=== PATIENT | female | born 1955 | race Caucasian/White ===

== ENCOUNTER → 2017-06-18 11:24 | Outpatient (CLI) | payer OTHER, SELFPAY ==
--- NOTE | 2017-06-18 11:33 | RAD_ITS ---
STUDY: X-RAY - ABDOMEN/PELVIS REASON FOR EXAM: Female, 61 years old. Pain. TECHNIQUE: AP supine and upright views of the abdomen and pelvis. COMPARISON: None. FINDINGS: Normal visualized lung bases. There is an unremarkable bowel gas pattern. There is no demonstrated free abdominal air. The visualized liver, spleen and kidneys are grossly normal in size and morphology. Normal soft tissue structures. Normal visualized osseous structures. RAD/Abdomen Single View IMPRESSION: Normal x-ray examination of the abdomen and pelvis. Electronically Signed: Carlos A Anderson MD at 16:53 EDT , Service support ,
[2017-06-18 14:27] LABS: Absolute Lymphocyte Count 1.64 X10^3/ul (0.83-4.51); Absolute Neutrophil Count 4.3 X10^3/uL (2.0-7.7); Basophil# 0.01 X10^3/uL; Basophil% 0.1 % (0-1); Eosinophil# 0.23 X10^3/uL; Eosinophils% 3.4 % (0-5); Hematocrit 40.7 % (37-47); Lymphocyte # 1.64 X10^3/ul (4.0); Lymphocyte % 24.3 % (19-41); Mean Corp Hgb Conc 31.9 g/gl (32-36); Mean Corpuscular Hgb 29.7 pg (27.0-32.0); Mean Corpuscular Volume 93.1 fL (81-99); Mean Platelet Vol. 9.8 fl (6.2-12.0); Monocyte# 0.56 X10^3/uL; Monocyte% 8.3 % (0-10); Neutrophil % 63.9 % (47-70); POSITIVE COUNT NO; POSITIVE DIFFERENTIAL NO; POSITIVE MORPHOLOGY NO; Platelet Count 269 K/mm3 (150-450); RBC Distribution Width CV 13.1 % (11.6-14.6); RBC Distribution Width SD 44.4 fl (35.1-43.9); Red Blood Count 4.37 M/mm3 (4.2-5.4); White Blood Count 6.7 K/mm3 (4.4-11.0)
[2017-06-18 14:38] LABS: ALB/GLOB Ratio 1.1 RATIO (0.9-2.4); AST(SGOT) 19 U/L (15-37); Alanine Aminotransfer ALT/SGPT 27 U/L (13-56); Albumin, Serum 3.8 g/dL (3.2-5.0); Alkaline Phosphatase 101 U/L (45-117); Anion Gap 8 (5-15); BUN 19 mg/dL (7-18); BUN/Creat Ratio 24.1 RATIO (10-20); Calcium,Total 9.1 mg/dL (8.5-10.1); Chloride 103 mmol/L (98-107); Creatinine, Serum 0.79 mg/dL (0.55-1.02); EST Glomerular Filtration Rate 79 mL/min (>60); Est Glom Filt Rate - Afr Amer 96 mL/min (>60); Globulin 3.5 g/dL (2.2-4.2); Glucose 80 mg/dL (74-106); Lipase 297 U/L (73-393); Protein, Total 7.3 g/dL (6.4-8.2); Sodium Level 140 mmol/L (136-145)
[2017-06-21 08:44] LABS: Thyroid Stim Hormone (TSH) 1.99 uIU/mL (0.358-3.74)
== END ==
PROVIDERS: Family Provider Family Medicine; PCP Family Medicine; Visit Provider Family Medicine
DX: R10.9 Unspecified abdominal pain (principal); E01.0 Iodine-deficiency related diffuse (endemic) goiter
CPT/HCPCS: 36415; 74018; 80053; 83690; 84443; 85025

== ENCOUNTER → 2017-11-04 10:54 | Outpatient (CLI) | payer OTHER, SELFPAY ==
--- NOTE | 2017-11-04 10:56 | RAD_ITS ---
STUDY: X-RAY - LEFT SHOULDER REASON FOR EXAM: Female, 61 years old. Chronic pain. TECHNIQUE: 3 view(s) of the shoulder. COMPARISON: None. FINDINGS: Normal glenohumeral articulation. There is degenerative arthrosis of the acromioclavicular joint without inferior osseous spur formation. Normal acromion. There is no acute fracture, dislocation or destructive osseous pathology. Normal humeral head and visualized proximal humerus. The soft tissue structures are unremarkable. Normal visualized pulmonary apex. RAD/Shoulder min 2 Views IMPRESSION: Minimal degenerative changes of the acromioclavicular joint. Electronically Signed: Bora Young DO at 22:22 EDT Tel [phone], Service support ,
== END ==
PROVIDERS: Family Provider Family Medicine; PCP Family Medicine; Visit Provider Physician Assistant
DX: M25.512 Pain in left shoulder (principal)
CPT/HCPCS: 73030

== ENCOUNTER → 2019-02-03 09:27 | Outpatient (CLI) | payer OTHER, SELFPAY ==
[2017-11-04 10:49] VITALS: BMI 21.4
[2019-02-03 12:31] LABS: Absolute Lymphocyte Count 1.25 X10^3/uL (0.83-4.51); Absolute Neutrophil Count 2.6 X10^3/uL (2.0-7.7); Basophil# 0.03 X10^3/uL; Basophil% 0.7 % (0-1); Eosinophil# 0.26 X10^3/uL; Eosinophils% 5.8 % (0-5); Hematocrit 41.3 % (37-47); Hemoglobin 13.7 g/dL (12.0-15.0); Lymphocyte # 1.25 X10^3/ul (4.0); Lymphocyte % 27.7 % (19-41); Mean Corp Hgb Conc 33.2 g/dL (32-36); Mean Corpuscular Hgb 31.6 pg (27.0-32.0); Mean Corpuscular Volume 95.4 fL (81-99); Monocyte# 0.39 X10^3/uL; Monocyte% 8.6 % (0-10); NRBC Flagged by Analyzer 0 % (0-5); Neutrophil # 2.58 X10^3/uL (2.7-7.7); Platelet Count 280 K/mm3 (150-450); RBC Distribution Width CV 12.3 % (11.6-14.6); Red Blood Count 4.33 M/mm3 (4.2-5.4); White Blood Count 4.5 K/mm3 (4.4-11.0)
[2019-02-03 12:52] LABS: ALB/GLOB Ratio 1.1 RATIO (0.9-2.4); AST(SGOT) 64 U/L (15-37); Alanine Aminotransfer ALT/SGPT 74 U/L (13-56); Albumin, Serum 3.9 g/dL (3.2-5.0); Alkaline Phosphatase 97 U/L (45-117); Anion Gap 9 (5-15); BUN 20 mg/dL (7-18); BUN/Creat Ratio 25.8 RATIO (10-20); CPK Total, Creatine Kinase 93 U/L (26-192); Calcium,Total 8.9 mg/dL (8.5-10.1); Chloride 102 mmol/L (98-107); Creatinine, Serum 0.78 mg/dL (0.55-1.02); EST Glomerular Filtration Rate 80 mL/min (>60); Est Glom Filt Rate - Afr Amer 97 mL/min (>60); Ferritin 17 ng/mL (8-252); Globulin 3.5 g/dL (2.2-4.2); Glucose 76 mg/dL (74-106); Magnesium 2.2 mg/dL (1.6-2.6); Potassium 3.9 mmol/L (3.5-5.1); Protein, Total 7.4 g/dL (6.4-8.2); Sodium Level 140 mmol/L (136-145)
[2019-02-06 10:51] LABS: Hepatitis B Surface Antibody Non-Reactive; Hepatitis B Surface Antigen Non-Reactive (Nonreactive); Hepatitis C Antibody Non-Reactive (Nonreactive)
== END ==
LOC: MFPLAB 09:28
PROVIDERS: Family Provider Family Medicine; PCP Family Medicine; Visit Provider Family Medicine
DX: R94.5 Abnormal results of liver function studies (principal); R25.2 Cramp and spasm; K21.9 Gastro-esophageal reflux disease without esophagitis
CPT/HCPCS: 36415; 80053; 82550; 82728; 83735; 85025; 86706; 86803; 87340

== ENCOUNTER → 2019-03-22 08:19 | Outpatient (CLI) | payer OTHER, SELFPAY ==
[2019-03-15 15:21] VITALS: BMI 21.8
--- NOTE | 2019-03-22 08:25 | RAD_ITS ---
STUDY: AIR-CONTRAST UPPER GI SERIES. REASON FOR EXAM: Female, 63 years old. Dysphagia in the mid esophagus. FLUOROSCOPY TIME (if supplied): ( 72 seconds ) minutes/seconds. 18 spot views were obtained. TECHNIQUE: The patient ingested barium. Multiple images of the esophagus, stomach and duodenum were obtained. COMPARISON: None. FINDINGS: There is evidence of a small sliding hernia with gastroesophageal reflux. The patient ingested a 12 mm tablet of barium. Initial delay in transit through the esophagus although eventually passes into the stomach. The stomach and duodenum are unremarkable. IMPRESSION: Small sliding hiatal hernia with gastroesophageal reflux. Electronically Signed: Shaun Khan, at 13:51 EST , Service support , STUDY: X-RAY - ESOPHAGUS (BARIUM SWALLOW) WITH FLUOROSCOPY REASON FOR EXAM: Female, 63 years old. Dysphagia for solids. TECHNIQUE: 15 view(s) of the esophagus were obtained following swallowing of barium. FLUOROSCOPY TIME (if supplied): (1:12) minutes/seconds COMPARISON: None. FINDINGS: There is no demonstrated esophageal foreign body. There is no demonstrated stricture or mucosal abnormality. There is a small hiatal hernia of the fundus of the stomach. There is evidence of gastroesophageal reflux. The patient ingested a 12 mm tablet at bedtime. There was initial holdup in the mid esophagus although it eventually enter the stomach. Normal visualized aortic arch and descending thoracic aorta. Normal visualized pulmonary parenchyma. Normal visualized osseous structures of the thorax. RAD/Upper GI w/BA Swallow IMPRESSION: Small sliding hiatal hernia with gastric esophageal reflux. Electronically Signed: Shaun Khan at 13:52 EST , Service support ,
== END ==
LOC: RAD 08:20
PROVIDERS: Family Provider Family Medicine; PCP Family Medicine; Referring Provider Surgery; Visit Provider Surgery
DX: K21.9 Gastro-esophageal reflux disease without esophagitis (principal); R13.10 Dysphagia, unspecified
CPT/HCPCS: 74246

== ENCOUNTER → 2019-04-13 07:48 | Day surgery (SDC) | payer OTHER, SELFPAY ==
[2019-03-15 16:31] VITALS: BMI 21.4
[2019-04-13 08:00] VITALS: BP 110/76; PULSE 70; RESP 16; O2SAT 100
[2019-04-13 08:09] VITALS: TEMP 36.9
== END ==
PROVIDERS: Family Provider Family Medicine; PCP Family Medicine; Referring Provider Family Medicine; Visit Provider Surgery
PROC: F00ZJWZ Instrumental Swallowing and Oral Function Assessment using Swallowing Equipment (ICD-10-PCS; CPT 43235; principal; 2019-04-13 07:55)
DX: R13.10 Dysphagia, unspecified (principal)
CPT/HCPCS: 91010

== ENCOUNTER → 2019-06-05 10:13 | Outpatient (CLI) | payer OTHER, SELFPAY ==
[2019-03-15 16:31] VITALS: BMI 21.4
[2019-06-05 12:59] LABS: ALB/GLOB Ratio 1.1 RATIO (0.9-2.4); AST(SGOT) 23 U/L (15-37); Alanine Aminotransfer ALT/SGPT 34 U/L (13-56); Albumin, Serum 3.7 g/dL (3.2-5.0); Alkaline Phosphatase 89 U/L (45-117); Anion Gap 3 (5-15); BUN 14 mg/dL (7-18); BUN/Creat Ratio 20.7 RATIO (10-20); Calcium,Total 9.4 mg/dL (8.5-10.1); Chloride 106 mmol/L (98-107); Creatinine, Serum 0.68 mg/dL (0.55-1.02); EST Glomerular Filtration Rate 94 mL/min (>60); Est Glom Filt Rate - Afr Amer 114 mL/min (>60); Globulin 3.4 g/dL (2.2-4.2); Glucose 90 mg/dL (74-106); Potassium 3.9 mmol/L (3.5-5.1); Protein, Total 7.1 g/dL (6.4-8.2); Sodium Level 140 mmol/L (136-145)
== END ==
LOC: MFPLAB 10:15
PROVIDERS: PCP Family Medicine; Referring Provider Family Medicine; Visit Provider Family Medicine
DX: R94.5 Abnormal results of liver function studies (principal)
CPT/HCPCS: 36415; 80053

== ENCOUNTER → 2019-06-08 08:36 | Outpatient (CLI) | payer OTHER, SELFPAY ==
[2019-03-15 16:31] VITALS: BMI 21.4
[2019-06-08 10:28] LABS: Thyroid Stim Hormone (TSH) 2.24 uIU/mL (0.358-3.74)
[2019-06-08 10:30] LABS: Vitamin B12 307 pg/mL (211-911); Vitamin D,25 Hydroxy 20.9 ng/mL
== END ==
LOC: MFPLAB 08:39
PROVIDERS: PCP Family Medicine; Referring Provider Family Medicine; Visit Provider Family Medicine
DX: R53.83 Other fatigue (principal)
CPT/HCPCS: 36415; 82306; 82607; 84443

== ENCOUNTER → 2019-07-06 10:36 | Outpatient (CLI) | payer OTHER, SELFPAY ==
[2019-03-15 16:31] VITALS: BMI 21.4
--- NOTE | 2019-07-06 10:40 | RAD_ITS ---
STUDY: X-RAY - PELVIS AND BILATERAL HIPS REASON FOR EXAM: Female, 63 years old. Mostly left hip pain, goes across lower back TECHNIQUE: AP view of the pelvis.? 2 views of the right hip, and 2 views of the left hip were obtained. COMPARISON: None. FINDINGS: There is a non-specific bowel gas pattern. Normal visualized soft tissue structures. Normal bilateral iliac wings, sacroiliac joints and visualized sacrum. Normal bilateral superior and inferior pubic rami. Normal pubic symphysis. Normal bilateral ischial tuberosities. Normal visualized right femoral head. Normal right acetabulum. Normal right hip joint. Normal visualized left femoral head. Normal left acetabulum. Normal left hip joint. RAD/Hips B/L min 2 views w/ Pelvis IMPRESSION: Normal x-ray examination of the pelvis and bilateral hips. Electronically Signed: Shaun Khan, at 12:49 EDT , Service support ,
--- NOTE | 2019-07-06 10:41 | RAD_ITS ---
STUDY: X-RAY - LUMBAR SPINE REASON FOR EXAM: Female, 63 years old. Sacroiliitis -- low back pain TECHNIQUE: 5 view(s) of the lumbar spine were obtained including oblique views. COMPARISON: None FINDINGS: Normal lumbar lordosis. There is no substantial scoliosis. There is a normal alignment of the vertebrae. Normal vertebral bodies and endplates. Normal disc space heights. The soft tissue structures are unremarkable. RAD/L/S Spine Min 4 Views IMPRESSION: Normal x-ray examination of the lumbar spine. Electronically Signed: Shaun Khan, at 12:49 EDT , Service support ,
== END ==
PROVIDERS: PCP Family Medicine; Referring Provider Family Medicine; Visit Provider Family Medicine
DX: M25.551 Pain in right hip (principal); M25.552 Pain in left hip; M46.1 Sacroiliitis, not elsewhere classified
CPT/HCPCS: 72110; 73521

== ENCOUNTER 2019-08-04 08:30 | Outpatient (RCR) | payer OTHER, SELFPAY ==
[2019-03-15 16:31] VITALS: BMI 21.4
--- NOTE | 2019-07-19 11:48 | HP.PTEVAL ---
Patient's Visit Information ESTELA RODRIGUEZ is a 63 year old F referred to Physical Therapy by Siddharth Soriano MD with a diagnosis of Lumbar radicuopathy.. Date of Evaluation: 07/19/19 Physical Therapist: John Arora, DPT, OCS, CSCS - Visit Plan Frequency: 1x/Week Duration: 4-6 Weeks Plan: weekly(pt prefers) for 2-4 weeks for progression to core strength and LB ROM/yoga flows and ensure ext is working.HS stretching. IOncrease frequency of progress not shown for mobs, STM, ES, US - Subjective Subjective: Been having LBP starting on L side. Also had buirning R anterior hip/pelvis. Pain has progressed across back. 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 Standing to parimutuel ticket cashier is worse. Walking and moving is not as bad. Sitting is not comfortable watching TV or sleeping at night. Pain started 2 months ago insidiously. Sometimes it eeps her up at night. Doesn't sleep well. 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 Working more at [employer] now. No treatments but did take x rays. Put on prednisone for 5 days which helped and then it came back. Activities at home are getting done but painful at times. - Pain LBP Pain Intensity (Out of 10): 3 Pain Intensity Range: 0, 8 - Objective Walks and trasnfers normally. reflexes 0/3 patella and achilles. Sensation LE WNL to gross light touch. LE strength 4-/5 except hip ext adn abd 3+ B, no myotomal. L/S AROM mod limited with central pain in extension, flexion and SB WNL without pain. HS and gastroc with min flexibiity deficits. Prone PA mobs seem to increase motion and decrease pain. Better movement with less pain after PPU and PA mobs L/S - Goals Goal 1:: Abolish LBP 90% Goal Time Frame: 2-4 Weeks Goal 2:: Sleep without interruption at night due to pain Goal Time Frame: 2-4 Weeks Goal 3:: I appropr HEP to minimize future problems Goal Time Frame: 2-4 Weeks Goal 4:: <15% disabiliity on oswestry. Goal Time Frame: 2-4 Weeks - Rehabilitation Potential Physical Therapy Diagnosis: Lumbar radiculopathy. Rehabilitation Potential: Fair - Anticipated Interventions Patient/Client Instruction: Educate patient on: Condition, Plan of Care For the Purpose of:: To decrease pain, To increase ROM, To improve muscle performance and motor function, To increase tolerance to activity/condition/position Therapeutic Exercise to Include: Strength training, Flexibilty training, Gait and locomotor training, Passive ROM, Active ROM, Lauren Exercises For the Purpose of:: To decrease pain, To improve nutrient delivery to tissue, To improve muscle performance and motor function, To increase tolerance to activity/condition/position Thank you for the opportunity to evaluate your patient. For Medicare and Medicare HMO plans, please review the plan of care and approve it. It will need to be FAXED BACK to us at [phone] for Medicare purposes. For Medicare only, by signing this I certify the plan of care. Please let me know if there are questions or concerns regarding this plan of care. Physician Signature: Date:
--- NOTE | 2019-08-04 09:21 | HP.PTDCSUM ---
It has been my pleasure to treat ESTELA RODRIGUEZ referred by Siddharth Soriano MD, with the diagnosis of Lumbar radicuopathy. for a total of 3 visit(s). Discharge Date: 08/04/19 Please see the following information for a summary of their discharge status. Subjective: Better, going the right way. Not much back pain anymore, not even 1/10 today. Sleeping OK. Feel sready to be done with PT. No f/u with doctor. Has had 3/10 pain since last session btu much better, that was with working. LBP Pain Intensity (Out of 10): 3 % Improvement: 75 Objective/Function: LB AROM WFL and without pain today. Hip AROM and PROM normal and without pain. ITB slight tight B. Walking well and willing to continue with HEP I. Goal 1:: Abolish LBP 90% Goal Progress: Progressing Goal 2:: Sleep without interruption at night due to pain Goal Progress: Goal Met Goal 3:: I appropr HEP to minimize future problems Goal Progress: Goal Met Goal 4:: <15% disabiliity on oswestry. Goal Progress: Goal Met Plan: d/c, doing well overall and will continue via HEP. If there are questions or concerns regarding this patient's physical therapy, please feel free to call me at [phone]. Thank you for the referral of this patient. Sincerely, John Arora, DPT, OCS, CSCS
== END 2019-08-04 19:00 | disposition home or self-care (01) ==
LOC: PT 08:30
PROVIDERS: PCP Family Medicine; Referring Provider Family Medicine; Visit Provider Family Medicine
DX: M54.16 Radiculopathy, lumbar region (principal)
CPT/HCPCS: 97110; 97161; 97164

== ENCOUNTER → 2020-01-05 12:24 | Outpatient (CLI) | payer OTHER, SELFPAY ==
[2019-03-15 16:31] VITALS: BMI 21.4
[2020-01-05 15:41] LABS: Vitamin D,25 Hydroxy 69.7 ng/mL
[2020-01-05 16:03] LABS: Thyroid Stim Hormone (TSH) 1.95 uIU/mL (0.358-3.74)
== END ==
PROVIDERS: PCP Family Medicine; Referring Provider Family Medicine; Visit Provider Family Medicine
DX: E55.9 Vitamin D deficiency, unspecified (principal); F41.9 Anxiety disorder, unspecified
CPT/HCPCS: 36415; 82306; 84443

== ENCOUNTER → 2020-01-12 11:34 | Outpatient (CLI) | payer OTHER, SELFPAY ==
[2019-03-15 16:31] VITALS: BMI 21.4
--- NOTE | 2020-01-12 11:36 | RAD_ITS ---
STUDY: X-RAY - LEFT SHOULDER REASON FOR EXAM: Female, 64 years old. Intermittent left shoulder pain. TECHNIQUE: 3 view(s) of the shoulder. COMPARISON: None. FINDINGS: Normal glenohumeral articulation. There is degenerative arthrosis of the acromioclavicular joint without inferior osseous spur formation. Normal acromion. There is no acute fracture, dislocation or destructive osseous pathology. Normal humeral head and visualized proximal humerus. The soft tissue structures are unremarkable. Normal visualized pulmonary apex. RAD/Shoulder min 2 Views IMPRESSION: Mild degenerative changes of the acromioclavicular joint. Electronically Signed: Bora Young DO at 12:27 EDT Tel [phone], Service support ,
== END ==
PROVIDERS: PCP Family Medicine; Referring Provider Family Medicine; Visit Provider Family Medicine
DX: M25.512 Pain in left shoulder (principal)
CPT/HCPCS: 73030

== ENCOUNTER → 2020-01-22 13:34 | Outpatient (CLI) | payer OTHER, SELFPAY ==
[2019-03-15 16:31] VITALS: BMI 21.4
[2020-01-26 09:42] LABS: HPV Reflexed? NOT INDICATED
== END ==
PROVIDERS: PCP Family Medicine; Visit Provider Nurse Practitioner Adult Health
DX: Z01.419 Encounter for gynecological examination (general) (routine) without abnormal findings (principal)
CPT/HCPCS: 88175; G0145

== ENCOUNTER → 2021-12-22 | Outpatient (CLI) | payer OTHER, SELFPAY ==
[2021-12-22 10:10] LABS: Absolute Lymphocyte Count 1.77 X10^3/uL (0.83-4.51); Absolute Neutrophil Count 5.4 X10^3/uL (2.0-7.7); Basophil# 0.01 X10^3/uL; Basophil% 0.1 % (0-1); Eosinophil# 0.07 X10^3/uL; Eosinophils% 0.9 % (0-5); Hematocrit 42.9 % (37-47); Lymphocyte # 1.77 X10^3/ul (0.83-4.51); Lymphocyte % 22.2 % (19-41); Mean Corp Hgb Conc 32.6 g/dL (32-36); Mean Corpuscular Hgb 32.2 pg (27.0-32.0); Mean Corpuscular Volume 98.6 fL (81-99); Mean Platelet Vol. 9.6 fl (6.2-12.0); Monocyte# 0.69 X10^3/uL; Monocyte% 8.6 % (0-10); NRBC Flagged by Analyzer 0 % (0-5); Neutrophil # 5.43 X10^3/uL (2.7-7.7); Neutrophil % 67.9 % (47-70); Platelet Count 316 K/mm3 (150-450); RBC Distribution Width CV 12.4 % (11.6-14.6); RBC Distribution Width SD 44.8 fl (35.1-43.9); Red Blood Count 4.35 M/mm3 (4.2-5.4)
[2021-12-22 10:44] LABS: Vitamin B12 406 pg/mL (211-911)
[2021-12-22 10:49] LABS: Hemoglobin A1c 5.6 % (3.8-5.6)
[2021-12-22 10:57] LABS: ALB/GLOB Ratio 1.1 RATIO (0.9-2.4); AST(SGOT) 13 U/L (15-37); Alanine Aminotransfer ALT/SGPT 26 U/L (13-56); Alkaline Phosphatase 82 U/L (45-117); Anion Gap 9 (5-15); BUN 17 mg/dL (7-18); BUN/Creat Ratio 21.8 RATIO (10-20); Calcium,Total 9.4 mg/dL (8.5-10.1); Chloride 105 mmol/L (98-107); Creatinine, Serum 0.78 mg/dL (0.55-1.02); EST Glomerular Filtration Rate 79 mL/min (>60); Est Glom Filt Rate - Afr Amer 96 mL/min (>60); Globulin 3.7 g/dL (2.2-4.2); Glucose 103 mg/dL (74-106); Potassium 3.8 mmol/L (3.5-5.1); Protein, Total 7.7 g/dL (6.4-8.2); Sodium Level 140 mmol/L (136-145); Thyroid Stim Hormone (TSH) 1.64 uIU/mL (0.358-3.74)
== END | disposition home or self-care (01) ==
LOC: MTLAB 08:32
PROVIDERS: PCP Family Medicine; Referring Provider Nurse Practitioner Family; Visit Provider Nurse Practitioner Family
DX: R41.3 Other amnesia (principal); Z13.1 Encounter for screening for diabetes mellitus
CPT/HCPCS: 36415; 80053; 82607; 82746; 83036; 84443; 85025

== ENCOUNTER → 2021-12-24 | Outpatient (CLI) | payer OTHER, SELFPAY ==
[2021-12-24 17:37] LABS: Absolute Lymphocyte Count 1.63 X10^3/uL (0.83-4.51); Absolute Neutrophil Count 6.2 X10^3/uL (2.0-7.7); Basophil# 0.01 X10^3/uL; Basophil% 0.1 % (0-1); Eosinophils% 1.2 % (0-5); Hematocrit 40.5 % (37-47); Hemoglobin 13.1 g/dL (12.0-15.0); Lymphocyte # 1.63 X10^3/ul (0.83-4.51); Lymphocyte % 18.9 % (19-41); Mean Corp Hgb Conc 32.3 g/dL (32-36); Mean Corpuscular Hgb 30.8 pg (27.0-32.0); Mean Corpuscular Volume 95.3 fL (81-99); Mean Platelet Vol. 9.5 fl (6.2-12.0); Monocyte# 0.67 X10^3/uL; Monocyte% 7.8 % (0-10); NRBC Flagged by Analyzer 0 % (0-5); Neutrophil # 6.17 X10^3/uL (2.7-7.7); Neutrophil % 71.5 % (47-70); Platelet Count 397 K/mm3 (150-450); RBC Distribution Width CV 12.5 % (11.6-14.6); RBC Distribution Width SD 42.9 fl (35.1-43.9); Red Blood Count 4.25 M/mm3 (4.2-5.4); White Blood Count 8.6 K/mm3 (4.4-11.0)
[2021-12-24 17:49] LABS: ALB/GLOB Ratio 1.3 RATIO (0.9-2.4); AST(SGOT) 10 U/L (15-37); Alanine Aminotransfer ALT/SGPT 23 U/L (13-56); Alkaline Phosphatase 79 U/L (45-117); Anion Gap 9 (5-15); BUN 23 mg/dL (7-18); BUN/Creat Ratio 28.8 RATIO (10-20); Calcium,Total 9.5 mg/dL (8.5-10.1); Chloride 105 mmol/L (98-107); EST Glomerular Filtration Rate 77 mL/min (>60); Est Glom Filt Rate - Afr Amer 93 mL/min (>60); Glucose 116 mg/dL (74-106); Potassium 3.5 mmol/L (3.5-5.1); Sodium Level 141 mmol/L (136-145)
== END | disposition home or self-care (01) ==
LOC: MFPLAB 15:04
PROVIDERS: PCP Family Medicine; Referring Provider Family Medicine; Visit Provider Family Medicine
DX: N12 Tubulo-interstitial nephritis, not specified as acute or chronic (principal)
CPT/HCPCS: 36415; 80053; 85025; 87086; 87088

== ENCOUNTER → 2021-12-24 | Outpatient (CLI) | payer OTHER, SELFPAY ==
--- NOTE | 2021-12-24 15:39 | CT_ITS ---
INDICATION: PYELONEPHRITIS EXAMINATION: CT Abdomen And Pelvis W/ Contrast Injection TECHNIQUE: Helically acquired images were obtained of the abdomen and pelvis after IV contrast. A radiation dose optimization technique was used for this scan. IV Contrast dosage and agent: IV 75mL [id number] Oral contrast: None. COMPARISON: None. FINDINGS: Visualized lung bases: Unremarkable Liver: Scattered subcentimeter hypodensities are too small to characterize but most likely cysts. Focal fatty infiltration of the falciform ligament. Gallbladder: Unremarkable Spleen: Solitary splenic granuloma. Pancreas: Diffusely prominent with no obvious mass or pancreatic duct dilatation. Adrenal Glands: Unremarkable Kidneys: There is mild left hydronephrosis. There is increased urothelial enhancement of the left ureter. No obvious obstructing stone, however there is a hyperdense soft tissue nodule at the left ureterovesical junction measuring approximately 1 cm (image 78, series 602). Mild perinephric fat stranding and fluid on the left. No evidence of pyelonephritis. Vasculature: Mild scattered aortoiliac atherosclerotic calcifications. There is a reduced aorta mesenteric angle measuring 20 degrees. There is also reduced aorta and mesenteric distance measuring 4 mm. There is severe narrowing of the third/fourth portion of the duodenum as it courses between the aorta and proximal superior mesenteric artery. There is also mild stenosis of the lumen of the left renal vein as it courses between the aorta and origin of the superior mesenteric artery. GI Tract: Unremarkable Lymphadenopathy: None Peritoneum: No ascites. Bladder: See above. Reproductive organs: Unremarkable Bones/Soft tissues: No suspicious osseous or soft tissue lesions CT/Abdomen/Pelvis WITH Contrast IMPRESSION: Mild left hydroureteronephrosis with urothelial enhancement of the ureter concerning for ascending urinary tract infection. No obstructing stone, however there is a hyperdense soft tissue 1 cm nodule at the left ureterovesical junction. This could represent a mass or blood clot. Recommend cystoscopy. 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 Diffusely prominent pancreas. Correlate with lipase levels. Electronically Signed: Yobany Sharpe MD at 18:06 EDT ,
== END | disposition home or self-care (01) ==
LOC: CT 15:37
PROVIDERS: PCP Family Medicine; Referring Provider Family Medicine; Visit Provider Family Medicine
DX: N12 Tubulo-interstitial nephritis, not specified as acute or chronic (principal)
CPT/HCPCS: 74177; Q9967; A4216

== ENCOUNTER → 2022-01-13 | Outpatient (CLI) | payer OTHER, SELFPAY ==
--- NOTE | 2022-01-13 | CYSPIN_PTH ---
PATIENT: ESTELA RODRIGUEZ LOC: [facility] U#:[id number] AGE/SX: 66/F ROOM: RE01/13/[address]: Dr. Mitchel Robertson MD : 1955 BED: DIS: 01/13/2022 SPEC #: [id number] RECD: 01/13/22 15:00 STATUS: RICHARD WOMACK #: [id number] BEN: 01/13/22 00:[address]: Mitchel Robertson DEPT: CYTOLOGY RECD BY: Arturo Elmore ENTERED: 01/14/22 09:16 SP TYPE: CYSPIN FL OTHR DR: Dr. Siddharth Soriano MD Tissues: Urine Procedures: Pap Stain (control) Special Stain Group II Cytospin Fluid HEADER OPERATION: Not noted PRE-OP DIAGNOSIS: Abdominal pain R10.84 TISSUE SUBMITTED: Urine for cytology DIAGNOSIS CYTOLOGY Urine for cytology (cytospin): Negative for high-grade urothelial carcinoma (Sussy System Category II). AM:bebe 01/14/2022 COMMENT The Sussy System for urine cytology diagnostic categorization was used in the evaluation of this case. CYTOLOGY STUDY Slides are reviewed. CYTOLOGY GROSS Received is 35 ml of cloudy yellow fluid labeled with the patient's name and and designated per the requisition as urine. Submitted for cytology preparation. / bebe 01/14/2022 TC:5 CPT: 03607
[2022-01-13 16:49] LABS: Cytology, Body Fluid / CSF SEE PATHOLOGY REPORT
== END | disposition home or self-care (01) ==
LOC: LABSPEC 16:36
PROVIDERS: PCP Family Medicine; Referring Provider Urology; Visit Provider Urology
DX: R10.84 Generalized abdominal pain (principal)
CPT/HCPCS: 88108; 88313

== ENCOUNTER → 2022-02-04 | Outpatient (CLI) | payer OTHER, SELFPAY | END | disposition home or self-care (01) | LOC: PSN 15:54 | PROVIDERS: PCP Family Medicine; Referring Provider Urology; Visit Provider Urology | DX: Z01.810 Encounter for preprocedural cardiovascular examination (principal) | CPT/HCPCS: 93005 ==

== ENCOUNTER → 2022-02-18 | Outpatient (CLI) | payer OTHER, SELFPAY ==
--- NOTE | 2022-02-18 08:59 | RAD_ITS ---
STUDY: X-RAY - ESOPHAGUS (BARIUM SWALLOW) WITH FLUOROSCOPY REASON FOR EXAM: Female, 66 years old. DYSPHAGIA TECHNIQUE: 14 view(s) of the esophagus were obtained following swallowing of barium. FLUOROSCOPY TIME (if supplied): (31 seconds) minutes/seconds COMPARISON: Comparison is made with prior study dated 03/22/2019. FINDINGS: There is no demonstrated esophageal foreign body. There is no demonstrated stricture or mucosal abnormality. Normal gastroesophageal junction, without a demonstrated hiatal hernia. The patient ingested 12 mm tablet of barium without any difficulty. Normal visualized aortic arch and descending thoracic aorta. Normal visualized pulmonary parenchyma. Normal visualized osseous structures of the thorax. RAD/Esophagus Dual Contrast IMPRESSION: Normal plain film x-ray examination (barium swallow) of the esophagus. Electronically Signed: Shaun Khan MD at 10:05 [facility] ,
== END | disposition home or self-care (01) ==
LOC: RAD 08:58
PROVIDERS: PCP Family Medicine; Referring Provider Internal Medicine Gastroenterology; Visit Provider Internal Medicine Gastroenterology
DX: R13.10 Dysphagia, unspecified (principal)
CPT/HCPCS: 74221

== ENCOUNTER → 2022-03-25 | Outpatient (CLI) | payer OTHER, SELFPAY ==
[2022-03-25 12:55] LABS: Erythrocyte Sedimentation Rate 5 mm/hr (0-30)
[2022-03-25 12:58] LABS: ALB/GLOB Ratio 1.3 RATIO (0.9-2.4); AST(SGOT) 53 U/L (15-37); Alanine Aminotransfer ALT/SGPT 73 U/L (13-56); Albumin, Serum 3.8 g/dL (3.2-5.0); Alkaline Phosphatase 88 U/L (45-117); Anion Gap 5 (5-15); BUN 21 mg/dL (7-18); BUN/Creat Ratio 29.2 RATIO (10-20); CRP < 2.90 mg/L (0.0-3.0); Calcium,Total 9.2 mg/dL (8.5-10.1); Chloride 107 mmol/L (98-107); Creatinine, Serum 0.72 mg/dL (0.55-1.02); EST Glomerular Filtration Rate 87 mL/min (>60); Est Glom Filt Rate - Afr Amer 105 mL/min (>60); Glucose 91 mg/dL (74-106); Protein, Total 6.8 g/dL (6.4-8.2); Sodium Level 139 mmol/L (136-145)
[2022-03-26 15:08] LABS: Endomysial Antibody IgA Negative (Negative)
[2022-03-26 17:13] LABS: Immunoglobulin A 190 mg/dL (87-352); t-Transglutaminase IgA <2 U/mL (0-3)
== END | disposition home or self-care (01) ==
LOC: MTLAB 09:58
PROVIDERS: PCP Family Medicine; Referring Provider Internal Medicine Gastroenterology; Visit Provider Internal Medicine Gastroenterology
DX: R10.9 Unspecified abdominal pain (principal)
CPT/HCPCS: 36415; 80053; 82784; 83516; 85652; 86140; 86255

== ENCOUNTER → 2022-08-12 | Outpatient (CLI) | payer OTHER, SELFPAY ==
[2022-08-12 12:46] LABS: Absolute Lymphocyte Count 2.46 X10^3/uL (0.83-4.51); Absolute Neutrophil Count 1.9 X10^3/uL (2.0-7.7); Basophil# 0.03 X10^3/uL; Basophil% 0.6 % (0-1); Eosinophil# 0.11 X10^3/uL; Eosinophils% 2.3 % (0-5); Hematocrit 39.7 % (37-47); Hemoglobin 12.5 g/dL (12.0-15.0); Lymphocyte # 2.46 X10^3/ul (0.83-4.51); Lymphocyte % 50.4 % (19-41); Mean Corp Hgb Conc 31.5 g/dL (32-36); Mean Corpuscular Hgb 30.2 pg (27.0-32.0); Mean Corpuscular Volume 95.9 fL (81-99); Mean Platelet Vol. 9.2 fl (6.2-12.0); Monocyte# 0.38 X10^3/uL; Monocyte% 7.8 % (0-10); NRBC Flagged by Analyzer 0 % (0-5); Neutrophil # 1.89 X10^3/uL (2.7-7.7); Neutrophil % 38.7 % (47-70); Platelet Count 225 K/mm3 (150-450); RBC Distribution Width CV 13.6 % (11.6-14.6); RBC Distribution Width SD 48.3 fl (35.1-43.9); Red Blood Count 4.14 M/mm3 (4.2-5.4); White Blood Count 4.9 K/mm3 (4.4-11.0)
[2022-08-12 12:56] LABS: Vitamin B12 407 pg/mL (211-911); Vitamin D,25 Hydroxy 83.1 ng/mL
[2022-08-12 13:04] LABS: ALB/GLOB Ratio 1.1 RATIO (0.9-2.4); AST(SGOT) 57 U/L (15-37); Alanine Aminotransfer ALT/SGPT 87 U/L (13-56); Albumin, Serum 3.7 g/dL (3.2-5.0); Alkaline Phosphatase 122 U/L (45-117); Anion Gap 7 (5-15); BUN 19 mg/dL (7-18); Chloride 107 mmol/L (98-107); EST Glomerular Filtration Rate 89 mL/min (>60); Est Glom Filt Rate - Afr Amer 108 mL/min (>60); Globulin 3.3 g/dL (2.2-4.2); Glucose 86 mg/dL (74-106); Potassium 3.7 mmol/L (3.5-5.1); Sodium Level 139 mmol/L (136-145); Thyroid Stim Hormone (TSH) 2.03 uIU/mL (0.358-3.74)
[2022-08-14 11:30] LABS: Hepatitis B Surface Antibody Non-Reactive; Hepatitis B Surface Antigen Non-Reactive (Nonreactive); Hepatitis C Antibody Preliminary Reactive (Nonreactive)
== END | disposition home or self-care (01) ==
LOC: MFPLAB 10:25
PROVIDERS: PCP Family Medicine; Visit Provider Family Medicine
DX: R79.89 Other specified abnormal findings of blood chemistry (principal); K21.9 Gastro-esophageal reflux disease without esophagitis; E55.9 Vitamin D deficiency, unspecified; R53.83 Other fatigue
CPT/HCPCS: 36415; 80053; 82306; 82607; 84443; 85025; 86706; 86803; 87340

== ENCOUNTER 2023-01-07 17:44 | Inpatient (IN) | payer OTHER, SELFPAY ==
[2023-01-07 17:45] VITALS: BP 128/75; PULSE 81; RESP 18; TEMP 36.2; O2SAT 100; BMI 20.2
--- NOTE | 2023-01-07 18:37 | EKG12_ITS ---
Test Reason : SOB Blood Pressure : / mmHG Vent. Rate : 071 BPM Atrial Rate : 071 BPM P-R Int : 170 ms QRS Dur : 086 ms QT Int : 356 ms P-R-T Axes : 079 077 086 degrees QTc Int : 386 ms Normal sinus rhythm Nonspecific ST abnormality Abnormal ECG Confirmed by KERA ROGERS, BROOKE ([id number]), editor & co founder VASQUEZ ROCHA ([id number]) on 01/12/2023 12:24:34 PM Referred By: RU/JOSELITO Confirmed By:BROOKE COTE MD
[2023-01-07 18:40] VITALS: O2SAT 97
[2023-01-07 18:41] VITALS: O2SAT 97
--- NOTE | 2023-01-07 18:46 | RAD_ITS ---
STUDY: X-RAY CHEST REASON FOR EXAM: Female, 67 years old. chest pain TECHNIQUE: AP portable COMPARISON: None. FINDINGS: The lungs are clear and expanded. Tiny calcified granuloma in left lower lobe There is no demonstrated pleural abnormality. Normal size heart. Normal mediastinum and ivy. Normal visualized pulmonary arteries. Normal visualized aortic arch and descending thoracic aorta. Normal visualized thoracic spine. Normal visualized ribs, clavicles, and shoulders. There is no demonstrated abnormality of the visualized soft tissue structures of the upper abdomen. RAD/Chest 1 View (Portable) IMPRESSION: Old granulomatous disease at left base. No acute cardiopulmonary pathology Electronically Signed: Franck Ruby MD at 18:56 EDT ,
[2023-01-07] MEDS: Aspirin 81 MG TAB.CHEW 324 MG PO (18:48)
[2023-01-07 18:59] LABS: Absolute Lymphocyte Count 1.83 X10^3/uL (0.83-4.51); Absolute Neutrophil Count 2.2 X10^3/uL (2.0-7.7); Basophil# 0.01 X10^3/uL; Basophil% 0.2 % (0-1); Eosinophil# 0.21 X10^3/uL; Eosinophils% 4.5 % (0-5); Hematocrit 36.7 % (37-47); Hemoglobin 11.8 g/dL (12.0-15.0); Lymphocyte # 1.83 X10^3/ul (0.83-4.51); Lymphocyte % 39.1 % (19-41); Mean Corp Hgb Conc 32.2 g/dL (32-36); Mean Corpuscular Hgb 30.5 pg (27.0-32.0); Mean Corpuscular Volume 94.8 fL (81-99); Mean Platelet Vol. 9.3 fl (6.2-12.0); Monocyte% 8.5 % (0-10); NRBC Flagged by Analyzer 0 % (0-5); Neutrophil # 2.22 X10^3/uL (2.7-7.7); Neutrophil % 47.5 % (47-70); Platelet Count 224 K/mm3 (150-450); RBC Distribution Width SD 45.1 fl (35.1-43.9); Red Blood Count 3.87 M/mm3 (4.2-5.4); White Blood Count 4.7 K/mm3 (4.4-11.0)
[2023-01-07 19:16] LABS: Anion Gap 2 (5-15); BUN 22 mg/dL (7-18); BUN/Creat Ratio 27.3 RATIO (10-20); Calcium,Total 8.7 mg/dL (8.5-10.1); Chloride 109 mmol/L (98-107); Creatinine, Serum 0.81 mg/dL (0.55-1.02); EST Glomerular Filtration Rate 76 mL/min (>60); Est Glom Filt Rate - Afr Amer 92 mL/min (>60); Estimated Creatinine Clearance 50.48 ml/min; Glucose 83 mg/dL (74-106); Potassium 3.1 mmol/L (3.5-5.1); Sodium Level 142 mmol/L (136-145); Troponin-I HS (w/2H Reflex) 62 pg/mL (3.0-54.0)
[2023-01-07 20:00] VITALS: BP 113/85; PULSE 72; RESP 16; O2SAT 97
--- NOTE | 2023-01-07 20:20 | EDS_ITS ---
HPI History of Present Illness Chief Complaint: Shortness of Breath Informant: patient Onset/Context/Timing Onset: Days (10) Context: gradual Timing: Intermittent Quality: Positive for Dyspnea on exertion Worsened by: Exertion Relieved by: Rest Associated Symptoms ear pain; Negative for cough, rhinorrhea, post nasal drip, fever, sore throat, chills, sweats, clear sputum, white sputum, yellow sputum or green sputum Chest Pain: Positive for Burning Narrative Narrative: Patient presents with shortness of breath that has been intermittent over the past 10 days. Patient states her breathing is worse with any exertion. Patient states whenever she walks she becomes out of breath. Patient states even when she tries to walk slow she gets out of breath with it. Patient admits to some burning chest pain when she gets short of breath. Patient denies any cough. Patient denies any nausea or vomiting. Patient denies any diaphoresis. Patient does admit to a mild headache and some right ear pain. PE Risk Factors: Negative for Cancer, OCP + Smoking + > 35, Prior DVT or PE, Recent immobilization, Recent surgery or Recent travel [facility] Medical History (Updated 01/07/23 @ 21:[address] John Crook, DO) GERD (gastroesophageal reflux disease) Migraine RLS (restless legs syndrome) Home Medications acetaminophen 500 mg tablet (Tylenol Extra Strength) 500 mg PO Q6H 03/15/19 [History Last Taken Unknown] calcium carbonate 500 mg calcium (1,250 mg) chewable tablet 500 mg PO DAILY 02/21 [History Last Taken Unknown] sumatriptan succinate 50 mg tablet 50 mg PO ONCE 03/15/19 [History Last Taken Unknown] Allergy/AdvReac Type Severity Reaction Status Date / Time No Known Allergies Allergy Verified 01/07/23 17:45 Family History Brother Heart disease Diabetes Father Heart disease Dementia Prostate cancer Mother CAD (coronary artery disease) Ovarian cancer Sister Diabetes Surgical History H/O: History of appendectomy History of esophagogastroduodenoscopy (EGD) History of oral surgery History of removal of ovarian cyst Social History Smoking Status: Never smoker alcohol intake: never substance use type: does not use additional social history: does not use aspirin or ibuprofen ROS ROS ED Constitutional Constitutional ED: Denies chills or fever(s) Eyes Eyes: Denies blurry vision or change in vision ENT ENT ED: Reports ear pain right; Denies rhinorrhea or sore throat Cardiovascular Cardiovascular: Reports chest pain; Denies palpitations Respiratory/Chest Respiratory/Chest: Reports dyspnea; Denies cough Gastrointestinal Gastrointestinal: Denies nausea or vomiting Genitourinary Genitourinary ED: Denies dysuria or hematuria Musculoskeletal Musculoskeletal: Denies back pain or neck pain Integumentary Denies abscess or rash Neurologic Neurologic: Reports headache(s); Denies weakness Allergic/Immunologic Allergic/Immunologic ED: Denies mouth swelling or urticaria EXAM Physical Exam Const Vital Signs: 01/07/23 17:45 01/07/23 18:40 01/07/23 18:41 Temperature 97.2 F L Temperature Source Temporal Pulse Rate 81 Respiratory Rate 18 Respiratory Effort Normal Non-Labored Respiratory Depth Normal Respiratory Pattern Normal Blood Pressure 128/75 H Blood Pressure Mean 92 Pulse Ox 100 97 Oxygen Delivery Method Room Air Room Air Room Air 01/07/23 20:00 Temperature Temperature Source Pulse Rate 72 Respiratory Rate 16 Respiratory Effort Respiratory Depth Respiratory Pattern Blood Pressure 113/85 H Blood Pressure Mean 94 Pulse Ox 97 Oxygen Delivery Method Room Air Positive well nourished and well developed General Appearance ED: well developed HEENT Reports moist mucous membranes Neck supple and no JVD Resp normal respiratory effort and clear to auscultation bilaterally Cardio regular rate, regular rhythm and no murmurs GI normal to inspection, nondistended, normoactive bowel sounds and non-tender Palpation: soft Extremity normal to inspection General Extremety ED: Negative for edema or tenderness General Extremity: Negative for edema Neuro oriented x3, CN's II-XII intact bilaterally and no sensory deficits noted Sensorium / Orientation: alert Motor Exam: strength 5/5 throughout Psych mental status grossly normal Skin no rashes or lesions noted MDM MDM MDM Narrative Medical decision making narrative: Differential diagnosis includes cardiac dysrhythmia, cardiac ischemia, pneumonia, congestive heart failure, electrolyte abnormality, and anxiety. EKG will be obtained to assess for cardiac dysrhythmia and cardiac ischemia. Chest x-ray will be obtained to assess for pneumonia and congestive heart failure. CBC will be obtained to assess for leukocytosis and anemia. Basic metabolic profile will be obtained to assess for electrolyte abnormality and renal function. High-sensitivity troponin will be obtained to assess for cardiac ischemia. 2-hour repeat high-sensitivity troponin will be obtained to assess for ongoing cardiac ischemia. Lab Data Attestation: I reviewed the patient's lab results. Lab results narrative: CBC was reviewed and was within normal limits. Basic metabolic profile was reviewed. Potassium was slightly low at 3.1. The remainder is within normal limits. High-sensitivity troponin was reviewed and was 62. 2-hour repeat high- sensitivity troponin was reviewed and was 63. Labs: Laboratory Results - last 24 hr 01/07/23 01/07/23 18:14 20:23 WBC 4.7 RBC 3.87 L Hgb 11.8 L Hct 36.7 L MCV 94.8 MCH 30.5 MCHC 32.2 RDW Std Deviation 45.1 H RDW Coeff of Helen 13.0 Plt Count 224 MPV 9.3 Immature Gran % (Auto) 0.200 Neut % (Auto) 47.5 Lymph % (Auto) 39.1 [place] % (Auto) 8.5 Eos % (Auto) 4.5 Baso % (Auto) 0.2 Absolute Neuts (auto) 2.2 Absolute Lymphs (auto) 1.83 Nucleated RBC % 0 Sodium 142 Potassium 3.1 L Chloride 109 H Carbon Dioxide 31.0 Anion Gap 2 L BUN 22 H Creatinine 0.81 Estim Creat Clear Calc 50.48 Est GFR (MDRD) Af Amer 92 Est GFR (MDRD) Non-Af 76 BUN/Creatinine Ratio 27.3 H Glucose 83 Calcium 8.7 Troponin I High Sens 62 H 63 H Radiography Diagnostic Testing: Clinical Impression(s) from Imaging Studies Chest X-Ray 01/07/23 18:46 IMPRESSION: Old granulomatous disease at left base. No acute cardiopulmonary pathology Electronically Signed: Franck Ruby MD at 18:56 EDT , Portable 1 view chest x-ray was obtained. On my independent interpretation, lung [place] are clear. There is normal cardiac silhouette. Bony thorax is normal. There is no acute process noted. Radiologist also interpreted the x-ray and agrees. EKG Initial EKG: Attestation: I personally reviewed and interpreted this EKG as follows: Interpretation: Sinus Rhythm (71) and Non-Specific ST Changes Comments: EKG was obtained. On my independent interpretation, it showed a normal sinus rhythm with a rate of 71. CT interval, QRS interval, and QTc intervals were all normal. [place] was normal. There are nonspecific ST-T wave changes. Prior EKG tracings: available for review Prior: Unchanged (02/04/2022) Treatment and Re-Evaluation :: Patient was given aspirin here. Patient was advised of her findings. Patient was given a dose of oral potassium here. Patient has a HEART score of 5. Patient was advised that this is moderate risk for acute coronary syndrome. Because of this, patient will be admitted to the hospital. Case was discussed with the hospitalist. She will admit the patient to her service for observati on. Patient understood and was agreeable with plan. All questions were answered. Discharge Plan Triage Chief Complaint: Shortness of Breath ED Provider: John Crook Dx/Rx/DC Orders Clinical Impression: Elevated blood pressure reading, Chest pain Prescriptions: No Action sumatriptan succinate 50 mg tablet 50 mg PO ONCE calcium carbonate 500 mg calcium (1,250 mg) tablet,chewable 500 mg PO DAILY acetaminophen [Tylenol Extra Strength] 500 mg tablet 500 mg PO Q6H Primary Care Provider: Siddharth Soriano Referrals: Siddharth Soriano MD [Primary Care Provider] - Disposition Disposition: Acute Care Hospital [facility]
--- NOTE | 2023-01-07 20:49 | HP.PCM.HOS_ITS ---
HPI - General General Date of Admission: 01/07/23 Date of Service: 01/07/23 Chief Complaint: Dyspnea, chest pain. HPI Narrative The patient is a 67 y/o F w/ PMHx: Chronic anemia, GERD, Chronic migraines, RLS who presents to the [facility] ED on 01/07/23 with history of shortness of breath, worse with exertion that has been intermittent over the last 10 days reporting that she comes out of breath with simple walking even if she walks slowly with some mild anterior chest burning reports radiates from her mid chest up into her throat area when she does become more short of breath with no recent cough, fevers, chills or upper respiratory type symptoms she denies any diaphoresis or nausea. She does state that she has a mild headache and has some intermittent ear discomfort specifically the right ear but she does has a history of note of chronic migraines. She notes that the right ear has been intermittent and ongoing for several years. Given this has not been improved prompted ED evaluation. Work-up in the ED included T97.2, heart rate 81, BP 120/75, respiratory rate 18, on a percent room air, CBC with WC is 4.7, hemoglobin 11.8, MCV 94.8, platelet 224 without marked shift, BMP with potassium 3.1, chloride 109, BUN/creatinine 22/0.81, troponin 62, chest x-ray with old granulomatous disease at the left base with no acute cardiopulmonary findings otherwise, EKG with sinus rhythm with nonspecific ST-T wave changes unchanged from previous. In the ED patient ministered full-strength aspirin therapy. [facility] Medical History (Updated 01/07/23 @ 20:[address] Leny Lock MD) GERD (gastroesophageal reflux disease) Migraine RLS (restless legs syndrome) Home Medications acetaminophen 500 mg tablet (Tylenol Extra Strength) 500 mg PO Q6H 03/15/19 [History Last Taken Unknown] calcium carbonate 500 mg calcium (1,250 mg) chewable tablet 500 mg PO DAILY 03/15/19 [History Last Taken Unknown] sumatriptan succinate 50 mg tablet 50 mg PO ONCE 03/15/19 [History Last Taken Unknown] Allergy/AdvReac Type Severity Reaction Status Date / Time No Known Allergies Allergy Verified 01/07/23 17:45 Family History Brother Heart disease Diabetes Father Heart disease Dementia Prostate cancer Mother CAD (coronary artery disease) Ovarian cancer Sister Diabetes Surgical History H/O: History of appendectomy History of esophagogastroduodenoscopy (EGD) History of oral surgery History of removal of ovarian cyst Social History Smoking Status: Never smoker alcohol intake: never substance use type: does not use additional social history: does not use aspirin or ibuprofen ROS ROS Narrative Admission Review of Systems: CONSTITUTIONAL: No weight loss, fever, chills, + weakness or fatigue. HEENT: Eyes: No visual loss, blurred vision, double vision or yellow sclerae. Ears, Nose, Throat: No hearing loss, sneezing, congestion, runny nose or sore throat. SKIN: No rash or itching, lesions, wounds. CARDIOVASCULAR: + Chest burning with radiation up to the throat. No palpitations, edema, orthopnea, syncopal events. RESPIRATORY: + Shortness of breath, worse with exertion. No cough or sputum, wheezing, hemoptysis. GASTROINTESTINAL: No anorexia, nausea, vomiting or diarrhea, abdominal pain, melena, BRBPR. GENITOURINARY: No dysuria, frequency, urgency or retention. NEUROLOGICAL: No headache, dizziness, syncope, paralysis, ataxia, numbness or tingling in the extremities, focal weakness, change in bowel or bladder control, seizure. MUSCULOSKELETAL: + muscle, back pain, joint pain or stiffness. HEMATOLOGIC: + anemia. No bleeding or bruising. LYMPHATICS: No enlarged nodes. No history of splenectomy. PSYCHIATRIC: No history of depression or anxiety. ENDOCRINOLOGIC: No reports of sweating, cold or heat intolerance. No polyuria or polydipsia. ALLERGIES: No history of asthma, hives, eczema or rhinitis. Vital Signs Vital Signs Vital Signs: 01/07/23 17:45 01/07/23 18:40 01/07/23 18:41 Temperature 97.2 F L Temperature Source Temporal Pulse Rate 81 Respiratory Rate 18 Respiratory Effort Normal Non-Labored Respiratory Depth Normal Respiratory Pattern Normal Blood Pressure 128/75 H Blood Pressure Mean 92 Pulse Ox 100 97 Oxygen Delivery Method Room Air Room Air Room Air 10/05/23 20:00 Temperature Temperature Source Pulse Rate 72 Respiratory Rate 16 Respiratory Effort Respiratory Depth Respiratory Pattern Blood Pressure 113/85 H Blood Pressure Mean 94 Pulse Ox 97 Oxygen Delivery Method Room Air Weight Weight: 101 lb 12.8 oz Body Mass Index (BMI) 20.2 Physical Exam Narrative Physical Examination: General: Awake, alert, oriented x 3 and cooperative, seated upright in the ED bed in no apparent distress, denies any dyspnea or chest discomfort this time but is stationary. Skin: Normal color, normal turgor, no icterus, no cyanosis. HEENT: AT/NC, EOMI, PERRLA, MMM, no carotid bruits or JVD noted. Lungs: CTA bilaterally, moderate effort, mild decrease BL bases, no rales, ronchi or wheezing. Heart: Regular rate and rhythm; no gallop, rub audible, no reproducible anterior chest discomfort. Abdomen: Soft, NTTP, ND, normal BS, no HSM. Extremities: No cyanosis, clubbing, or edema. Neurological: Patient awake, alert, oriented as noted, cognitive function intact; pupils equally reactive to light and accommodation, cranial nerves II- XII grossly normal, moving all 4 extremities, no focal deficits, strength preserved. Psychiatric: Patient currently appears well, normal, no acute evidence of depressive or anxiety feelings. Results Lab / Micro Data 01/07/23 18:14 01/07/23 18:14 Labs: Laboratory Results - last 24 hr 01/07/23 18:14: WBC 4.7, RBC 3.87 L, Hgb 11.8 L, Hct 36.7 L, MCV 94.8, MCH 30.5, MCHC 32.2, RDW Std Deviation 45.1 H, RDW Coeff of Helen 13.0, Plt Count 224, MPV 9.3, Immature Gran % (Auto) 0.200, Neut % (Auto) 47.5, Lymph % (Auto) 39.1, Thurston % (Auto) 8.5, Eos % (Auto) 4.5, Baso % (Auto) 0.2, Absolute Neuts (auto) 2.2, Absolute Lymphs (auto) 1.83, Nucleated RBC % 0, Sodium 142, Potassium 3.1 L, Chloride 109 H, Carbon Dioxide 31.0, Anion Gap 2 L, BUN 22 H, Creatinine 0.81, Estim Creat Clear Calc 50.48, Est GFR (MDRD) Af Amer 92, Est GFR (MDRD) Non-Af 76, BUN/Creatinine Ratio 27.3 H, Glucose 83, Calcium 8.7, Troponin I High Sens 62 H Radiology Impression Chest X-Ray 01/07/23 18:46 IMPRESSION: Old granulomatous disease at left base. No acute cardiopulmonary pathology Electronically Signed: Franck Ruby MD at 18:56 EDT Reading Location ID and State: [facility] / [place] Tel , Service support , Assessment & Plan Assessment/Plan (1) Chest pain: PLAN: Plan The patient is a 67 y/o F w/ PMHx: Chronic anemia, GERD, Chronic migraines, RLS who presents to the [facility] ED on 01/07/23 with history of shortness of breath, worse with exertion that has been intermittent over the last 10 days reporting that she comes out of breath with simple walking even if she walks slowly with some mild anterior chest burning when she does become more short of breath with no recent cough, fevers, chills or upper respiratory type symptoms she denies any diaphoresis or nausea. #1. Chest Pain with indeterminate cardiac enzyme: EKG in ED sinus rhythm with nonspecific ST-T wave changes similar to previous, CXR w/ old granulomatous disease at the left base with no acute cardiopulmonary findings, initial trop mildly elevated 62. Will admit to PCU, place on a monitored bed to assure no acute myocardial infarction with serial cardiac enzymes and EKGs. ECHO requested. If troponin continues to rise we will plan to initiate heparin drip and request cardiology evaluation for consideration cardiac catheterization however if it remains similar may still consider cardiac stress testing. Magnesium level requested. FLP in AM. ASA, NG, morphine. #2. Hypokalemia: Admission K+ 3.1, magnesium level requested, supplementation given, repeat level in AM. #3. Chronic normocytic anemia: Admission hemoglobin 11.8, MCV 94.8, baseline hemoglobin last noted 08/12/2022 hemoglobin 12.5, will continue to trend. #4. Chronic migraines: If necessary may utilize patient's home sumatriptan but will avoid if able. #5. GERD: We will maintain on PPI. #6. Restless leg syndrome: Per current list not on regimen however necessary may consider addition of Mirapex if symptomatic. #7. Chronic intermittent right ear discomfort: No obvious findings on exam, from discussions it appears likely with seasonal changes, encourage continued outpatient follow-up with her PCP or ENT per her preference. #8. DVT prophylaxis: As noted awaiting second troponin and if delta rises further will initiate heparin drip. Charges/Coding Visit Charges Inpatient E&M: 57860 Init Hosp L2
[2023-01-07 20:56] LABS: Reflex Troponin-HS? (from REC) Y
--- NOTE | 2023-01-07 21:06 | EKG12_ITS ---
Test Reason : SHORTNESS OF BREATH Blood Pressure : / mmHG Vent. Rate : 060 BPM Atrial Rate : 060 BPM P-R Int : 158 ms QRS Dur : 070 ms QT Int : 392 ms P-R-T Axes : 067 062 076 degrees QTc Int : 392 ms Normal sinus rhythm Nonspecific ST and T wave abnormality Abnormal ECG Confirmed by KERA ROGERS, BROOKE ([id number]), fashion editor VASQUEZ ROCHA ([id number]) on 01/12/2023 12:26:25 PM Referred By: NIMO Confirmed By:BROOKE COTE MD
[2023-01-07 21:16] LABS: Troponin-I HS 63 pg/mL (3.0-54.0)
[2023-01-07 22:10] LABS: Magnesium 2.1 mg/dL (1.6-2.6)
[2023-01-07] MEDS: Potassium Chloride Oral Tablet 20 MEQ 40 MEQ PO (22:20)
--- NOTE | 2023-01-07 22:22 | ECHOD_ITS ---
Reason For Study: CAD/ASHD Procedure This was a 2D Doppler, Color Flow transthoracic echocardiogram. Exam performed portable in patient room. Left Ventricle Normal LV size. Left ventricular systolic function is normal. Mild segmental systolic dysfunction (see wall motion). The estimated ejection fraction is 60 %. Mid-Anterior : Mildly hypokinetic. [place] : Hypokinetic. The rest of the wall segments are normal. Right Ventricle Normal RV size. Normal systolic function. Atria Normal left atrium. Normal right atrium. Mitral Valve Normal mitral valve. Tricuspid Valve Normal tricuspid valve. Mild (1+) tricuspid valve insufficiency. Pulmonary artery systolic pressure is 32 mmHg. Aortic Valve Normal aortic valve. Trisinus/trileaflet aortic valve. Pulmonic Valve Normal pulmonic valve. Great Vessels Normal aortic root. The pulmonary artery is normal size. Normal inferior vena cava. Pericardium/Pleural No pericardial effusion. MMode/2D Measurements & Calculations LVIDd: 3.8 cm IVSd: 0.56 cm Ao root diam: 2.8 cm LVIDs: 2.6 cm LVPWd: 0.56 cm RVDd: 2.5 cm FS: 30.9 % LAV(MOD-bp): 18.2 ml LVAd ap4: 21.2 cm2 SV(MOD-sp4): 35.8 ml LAV(MOD-bp) Indexed: 13.0 ml/m2 LVLd ap4: 6.6 cm LAV(MOD-sp2): 20.0 ml EDV(MOD-sp4): 56.7 ml LAV(MOD-sp4): 15.5 ml EDV(sp4-el): 57.6 ml LVAs ap4: 12.0 cm2 LVLs ap4: 5.8 cm ESV(MOD-sp4): 21.0 ml ESV(sp4-el): 20.9 ml EF(MOD-sp4): 63.1 % EF(sp4-el): 63.7 % SV(sp4-el): 36.7 ml LA A4 area: 8.7 cm2 LA dimension(2D): 2.6 cm RA A4 area: 8.7 cm2 Time Measurements MV dec time: 0.16 sec Doppler Measurements & Calculations MV E max berhane: 80.4 cm/sec Lat Peak E' Berhane: 13.2 cm/sec Med Peak E' Berhane: 10.7 cm/sec MV A max berhane: 52.3 cm/sec E/E' lat: 6.1 E/E' med: 7.5 MV E/A: 1.5 Ao V2 max: 103.1 cm/sec LV V1 max: 87.6 cm/sec PA V2 max: 73.6 cm/sec Ao max P.3 mmHg LV V1 max P.1 mmHg TR max berhane: 266.6 cm/sec TR max P.4 mmHg ECHO/Echo Complete Interpretation Summary Normal LV size. Left ventricular systolic function is normal. Mild segmental systolic dysfunction (see wall motion). Pulmonary artery systolic pressure is 32 mmHg. The estimated ejection fraction is 60 %. Ordering Physician: Leny Lock Referring Physician: MAREK JUNIOR Performed By: Luisa Rubin RDCS
[2023-01-07 22:26] VITALS: BP 121/70; PULSE 74; RESP 16; RESP 18; O2SAT 98; O2SAT 99
[2023-01-07 23:14] VITALS: BMI 20.2
[2023-01-07 23:16] VITALS: BP 142/79; PULSE 73; RESP 14; TEMP 36.6; O2SAT 100
[2023-01-07] MEDS: Atorvastatin Calcium 40 MG Tablet PO (23:27)
[2023-01-07] MEDS: Pantoprazole Sodium 20 MG Tablet PO (23:27)
[2023-01-07] MEDS: 0.9% Normal Saline (1000mL) 1,000 ML 100 ML IV (23:28)
[2023-01-08] VITALS (13 sets, daily range): BP systolic 90–120; BP diastolic 58–83; PULSE 66–78; RESP 14–18; TEMP 36.3–36.8; O2SAT 96–100; BMI 20.2
[2023-01-08 01:10] LABS: Troponin-I HS 63 pg/mL (3.0-54.0)
[2023-01-08] MEDS: Aspirin E.C. 81 MG Tablet PO (05:03)
--- NOTE | 2023-01-08 05:55 | EKG12_ITS ---
Test Reason : AM EKG Blood Pressure : / mmHG Vent. Rate : 066 BPM Atrial Rate : 066 BPM P-R Int : 176 ms QRS Dur : 084 ms QT Int : 420 ms P-R-T Axes : 075 079 099 degrees QTc Int : 440 ms Normal sinus rhythm T wave abnormality, consider anterior ischemia Abnormal ECG When compared with ECG of 08-JAN-2023 15:21, MANUAL COMPARISON REQUIRED, DATA IS UNCONFIRMED Confirmed by KERA ROGERS, BROOKE ([id number]), movie editor ZACK BOLIVAR ([id number]) on 01/28/2023 11:32:20 AM Referred By: Darryn Confirmed By:BROOKE COTE MD
[2023-01-08 06:20] LABS: Absolute Lymphocyte Count 1.76 X10^3/uL (0.83-4.51); Basophil# 0.01 X10^3/uL; Basophil% 0.2 % (0-1); Eosinophil# 0.21 X10^3/uL; Eosinophils% 4.7 % (0-5); Hematocrit 35.5 % (37-47); Hemoglobin 11.5 g/dL (12.0-15.0); Lymphocyte # 1.76 X10^3/ul (0.83-4.51); Lymphocyte % 39.6 % (19-41); Mean Corp Hgb Conc 32.4 g/dL (32-36); Mean Corpuscular Hgb 31.2 pg (27.0-32.0); Mean Corpuscular Volume 96.2 fL (81-99); Mean Platelet Vol. 9.4 fl (6.2-12.0); Monocyte# 0.47 X10^3/uL; Monocyte% 10.6 % (0-10); NRBC Flagged by Analyzer 0 % (0-5); Neutrophil # 1.99 X10^3/uL (2.7-7.7); Neutrophil % 44.7 % (47-70); Platelet Count 194 K/mm3 (150-450); RBC Distribution Width SD 45.7 fl (35.1-43.9); Red Blood Count 3.69 M/mm3 (4.2-5.4); White Blood Count 4.5 K/mm3 (4.4-11.0)
[2023-01-08 07:07] LABS: AST(SGOT) 16 U/L (15-37); Alanine Aminotransfer ALT/SGPT 30 U/L (13-56); Alkaline Phosphatase 85 U/L (45-117); Anion Gap 2 (5-15); BUN 21 mg/dL (7-18); BUN/Creat Ratio 29.3 RATIO (10-20); Calcium,Total 8.4 mg/dL (8.5-10.1); Chloride 114 mmol/L (98-107); Cholesterol 182 mg/dL (200); Creatinine, Serum 0.72 mg/dL (0.55-1.02); EST Glomerular Filtration Rate 87 mL/min (>60); Est Glom Filt Rate - Afr Amer 105 mL/min (>60); Estimated Creatinine Clearance 55.95 ml/min; Glucose 100 mg/dL (74-106); High Density Lipoprotein 60 mg/dL; Potassium 3.9 mmol/L (3.5-5.1); Sodium Level 142 mmol/L (136-145); Triglycerides 132 mg/dL; Very Low Density Lipoprotein 26 mg/dL (5-40)
--- NOTE | 2023-01-08 11:00 | CASEMGMT ---
Insurance review for hospitals In-network with?[employer] PPO, POS II insurance if transfer is recommended is as follows:. [facility], [facility], [facility], [facility], [facility], [facility]), [facility], and . Viviana Roman, Discharge Planning Asst.
[2023-01-08] MEDS: 0.9% Normal Saline (1000mL) 1,000 ML 15 ML IV (11:35)
--- NOTE | 2023-01-08 11:38 | NURSING ---
Report called to Margoth JONES landscape and yardwork laborer
--- NOTE | 2023-01-08 12:45 | STRESSREP ---
Stress Test Report Exercise myocardial perfusion stress test. 67-year-old lady with a history of chest discomfort Stress protocol: Resting EKG demonstrates normal sinus rhythm with a rate of 64 bpm resting blood pressure is 108/70 mmHg. The patient exercised according to the regular Ananda protocol for a total duration of 5 minutes and 30 seconds attaining a maximum heart rate of 148 bpm which was 95% of maximum predicted heart rate; the maximum workload was 7 metabolic equivalents. At rest there were no ST or T wave changes noted to suggest ischemia and at peak exercise [address] depression was noted in leads II, III and aVF and [address] depression noted in V4 through V5 6 suggestive of ischemia. The changes returned back to baseline there was discomfort noted in her throat and neck as well as chest. The peak blood pressure was noted to be 140/80 mmHg. Myocardial perfusion protocol. 11.7 mCi of technetium 99m sestamibi was injected at rest. The patient exercised according to regular Ananda protocol for total duration of 5 minutes and 30 seconds and at peak exercise 44.1 mCi of technetium 99m sestamibi was injected stress images were obtained stress and rest images were reconstructed in comparing the short axis vertical long and horizontal long axis. Gated images were also obtained. Perfusion SPECT analysis: Review of the stress images demonstrate normal uptake of tracer noted in all areas of the myocardium except for the mid anterior wall extending to the apex with a medium to large size perfusion defect. The resting images similarly demonstrate normal uptake of tracer noted in all areas of the myocardium. The above is suggestive of an extensive mid anterior and apical ischemic defect. Gated SPECT analysis: The gated ejection fraction is 60%. Conclusion: Abnormal exercise myocardial perfusion stress test at a moderate workload with a medium to large size anterior apical perfusion defect Preserved ejection fraction.
--- NOTE | 2023-01-08 12:48 | PCM.CONS.C ---
Assessment & Plan Assessment/Plan (1) Chest pain: PLAN: Patient presented with chest discomfort and was noted to have an abnormal stress test. Recommendation was to proceed with a left heart catheterization. Risk benefits alternatives of been explained to the patient who agrees to proceed. HPI Consult Data Date of Consult: 01/08/23 HPI Narrative HPI Narrative: ESTELA RODRIGUEZ, is a 67 F who presents to the emergency room with shortness of breath worse with exertion which has been intermittent over the last few days. She says that even walking simple steps gives her chest discomfort and she also did experience anterior chest burning and radiating from her mid chest to her throat area. She became short of breath with the above and decided to present to the emergency room. In the emergency room she was evaluated she was noted to have abnormal EKG with minimally abnormal troponin enzymes. Troponin was flat throughout the hospitalization. She subsequently underwent a stress test this morning which demonstrated evidence of anterior apical ischemia at a moderate workload. EKG changes were noted and chest pain was reproduced. Cardiology was called for further evaluation and management. [facility] Medical History GERD (gastroesophageal reflux disease) Migraine RLS (restless legs syndrome) Home Medications acetaminophen 500 mg tablet (Tylenol Extra Strength) 500 mg PO Q6H 03/15/19 [History Last Taken Unknown] sumatriptan succinate 50 mg tablet 50 mg PO ONCE PRN migraine headache 03/15/19 [History Last Taken Unknown] omeprazole 20 mg tablet,delayed release 20 mg PO DAILY 01/07/23 [History Last Taken Unknown] sertraline 100 mg tablet 100 mg PO DAILY 01/07/23 [History Last Taken Unknown] topiramate 25 mg tablet 25 mg PO BID migraine headache 01/07/23 [History Last Taken Unknown] Allergy/AdvReac Type Severity Reaction Status Date / Time No Known Allergies Allergy Verified 01/07/23 17:45 Family History Brother Heart disease Diabetes Father Heart disease Dementia Prostate cancer Mother CAD (coronary artery disease) Ovarian cancer Sister Diabetes Surgical History H/O: History of appendectomy History of esophagogastroduodenoscopy (EGD) History of oral surgery History of removal of ovarian cyst Social History Smoking Status: Never smoker alcohol intake: never substance use type: does not use additional social history: does not use aspirin or ibuprofen ROS Constitutional Constitutional: Denies fever(s) or weight loss Eyes Eyes: Reports systems reviewed and no addt'l complaints, except as documented ENT HEENT: Reports systems reviewed and no addt'l complaints, except as documented Cardiovascular Cardiovascular: Reports chest pain at rest, chest pain with activity, dyspnea at rest and dyspnea on exertion; Denies edema, palpitations or paroxysmal nocturnal dyspnea Respiratory/Chest Respiratory/Chest: Reports shortness of breath at rest and shortness of breath with exertion; Denies dyspnea on exertion or productive cough Gastrointestinal Gastrointestinal: Denies change in bowel habits, nausea, vomiting or weight changes Genitourinary Genitourinary: Denies difficulty urinating Musculoskeletal Musculoskeletal: Denies joint stiffness or muscle weakness Integumentary Integumentary: Denies lesions Neurologic Neurologic: Denies dizziness or syncope Psychiatric Psychiatric: Denies anxiety Endocrine Endocrinology: Denies excessive sweating or fatigue Hematologic/Lymphatic Hematologic/Lymphatic: Denies anemia Allergic/Immunologic Allergic/Immunologic: Denies seasonal rhinorrhea Physical Exam Const alert, oriented x3 and no apparent distress General Appearance: cooperative HEENT hearing grossly normal bilaterally Head and Scalp: atraumatic Eyes EOMs intact bilaterally Neck General: normal visual inspection Chest inspection of chest normal and palpation of chest normal Resp normal respiratory effort Auscultation: clear to auscultation bilaterally Cardio regular rate, regular rhythm, S1 normal heart sound and S2 normal heart sound Jugular Venous Distention: JVD GI normal to inspection, nondistended, normoactive bowel sounds Extremity normal capillary refill and no pedal edema Peripheral Pulses: Yes pulses 2+ throughout and femoral pulses present Skin no rashes or lesions noted Neuro oriented x3 and CN's II-XII intact bilaterally Psych Appearance: grossly normal and appropriate Risk Stratification Risk Stratification Applicable: Yes Age >/= 65: Yes >/= 3 CAD Risk Factors (HTN, HLD, DM, family hx of CAD, or current smoker): No Aspirin Use in the Past 7 Days: No Severe Angina (>/= episodes in 24 hours): Yes EKG ST Changes >/= 0.5mm: No Positive Cardiac Marker: Yes ALDEN Risk Stratification Score: 3 ALDEN % Risk: 13% Risk Objective Data Vital Signs: Vital Signs Temp Pulse Resp BP Pulse Ox O2 Del Method 98.2 F 67 16 120/77 100 Room Air 01/08/23 10:56 01/08/23 10:56 01/08/23 10:56 01/08/23 10:56 01/08/23 10:56 01/08/23 10:56 Oxygen Delivery Method Room Air Weight: 100 lb 4.965 oz Body Mass Index (BMI) 20.2 Intake & Output: Intake and Output for Last 24 Hours 01/06/23 01/07/23 01/08/23 23:59 23:59 23:59 Intake Total 920 / 920 Balance 920 / 920 Lab / Micro Data 01/08/23 05:24 01/08/23 05:24 Labs: Laboratory Results - last 24 hr 01/07/23 18:14: WBC 4.7, RBC 3.87 L, Hgb 11.8 L, Hct 36.7 L, MCV 94.8, MCH 30.5, MCHC 32.2, RDW Std Deviation 45.1 H, RDW Coeff of Helen 13.0, Plt Count 224, MPV 9.3, Immature Gran % (Auto) 0.200, Neut % (Auto) 47.5, Lymph % (Auto) 39.1, [place] % (Auto) 8.5, Eos % (Auto) 4.5, Baso % (Auto) 0.2, Absolute Neuts (auto) 2.2, Absolute Lymphs (auto) 1.83, Nucleated RBC % 0, Sodium 142, Potassium 3.1 L, Chloride 109 H, Carbon Dioxide 31.0, Anion Gap 2 L, BUN 22 H, Creatinine 0.81, Estim Creat Clear Calc 50.48, Est GFR (MDRD) Af Amer 92, Est GFR (MDRD) Non-Af 76, BUN/Creatinine Ratio 27.3 H, Glucose 83, Calcium 8.7, Troponin I High Sens 62 H 01/07/23 20:23: Magnesium 2.1, Troponin I High Sens 63 H 01/08/23 00:40: Troponin I High Sens 63 H 01/08/23 05:24: WBC 4.5, RBC 3.69 L, Hgb 11.5 L, Hct 35.5 L, MCV 96.2, MCH 31.2, MCHC 32.4, RDW Std Deviation 45.7 H, RDW Coeff of Helen 13.0, Plt Count 194, MPV 9.4, Immature Gran % (Auto) 0.200, Neut % (Auto) 44.7 L, Lymph % (Auto) 39.6, Thurston % (Auto) 10.6 H, Eos % (Auto) 4.7, Baso % (Auto) 0.2, Absolute Neuts (auto) 2.0, Absolute Lymphs (auto) 1.76, Nucleated RBC % 0, Sodium 142, Potassium 3.9, Chloride 114 H, Carbon Dioxide 26.0, Anion Gap 2 L, BUN 21 H, Creatinine 0.72, Estim Creat Clear Calc 55.95, Est GFR (MDRD) Af Amer 105, Est GFR (MDRD) Non-Af 87, BUN/Creatinine Ratio 29.3 H, Glucose 100, Calcium 8.4 L, Total Bilirubin 0.20, AST 16, ALT 30, Alkaline Phosphatase 85, Total Protein 6.0 L, Albumin 3.0 L, Globulin 3.0, Albumin/Globulin Ratio 1.0, Triglycerides 132, Cholesterol 182, LDL Cholesterol 96, VLDL Cholesterol 26, HDL Cholesterol 60 Cardiology Labs/Tests 01/07/23 18:14: WBC 4.7, RBC 3.87 L, Hgb 11.8 L, Hct 36.7 L, MCV 94.8, MCH 30.5, MCHC 32.2, Plt Count 224, MPV 9.3, Immature Gran % (Auto) 0.200, Neut % (Auto) 47.5, Lymph % (Auto) 39.1, [place] % (Auto) 8.5, Eos % (Auto) 4.5, Baso % (Auto) 0.2, Absolute Neuts (auto) 2.2, Nucleated RBC % 0, Sodium 142, Potassium 3.1 L, Chloride 109 H, Carbon Dioxide 31.0, Anion Gap 2 L, BUN 22 H, Creatinine 0.81, Est GFR (MDRD) Af Amer 92, Est GFR (MDRD) Non-Af 76, BUN/Creatinine Ratio 27.3 H, Glucose 83, Calcium 8.7 01/07/23 20:23: Magnesium 2.1 01/08/23 05:24: WBC 4.5, RBC 3.69 L, Hgb 11.5 L, Hct 35.5 L, MCV 96.2, MCH 31.2, MCHC 32.4, Plt Count 194, MPV 9.4, Immature Gran % (Auto) 0.200, Neut % (Auto) 44.7 L, Lymph % (Auto) 39.6, [place] % (Auto) 10.6 H, Eos % (Auto) 4.7, Baso % (Auto) 0.2, Absolute Neuts (auto) 2.0, Nucleated RBC % 0, Sodium 142, Potassium 3.9, Chloride 114 H, Carbon Dioxide 26.0, Anion Gap 2 L, BUN 21 H, Creatinine 0.72, Est GFR (MDRD) Af Amer 105, Est GFR (MDRD) Non-Af 87, BUN/Creatinine Ratio 29.3 H, Glucose 100, Calcium 8.4 L, Total Bilirubin 0.20, Triglycerides 132, Cholesterol 182, LDL Cholesterol 96, VLDL Cholesterol 26, HDL Cholesterol 60 Rhythm: EKG: ECHO: Stress Test: Cardiac Cath: PCI: CT Surgery: Holter monitor: EPS: PPM: CXR: Chest CT Scan: Radiography Diagnostic Testing: Radiology Impression Chest X-Ray 01/07/23 18:46 IMPRESSION: Old granulomatous disease at left base. No acute cardiopulmonary pathology Electronically Signed: Franck Ruby MD at 18:56 EDT ,
--- NOTE | 2023-01-08 13:25 | CL.D_ITS ---
Patient Name: ESTELA RODRIGUEZ Study Date: 01/08/2023 Performing: Babak Carvalho MD Ht: 59.5 inches 151.13 cm : 1955 Wt: 100.31 lbs 45.5 kg Age: 67 Gender: female BSA: 1.38 PROCEDURE(S) PERFORMED [id number]-([id number])[facility] CLINICAL PROFILE AND INDICATIONS Indications: Worsening Angina Heart Failure: None Stress/Imaging Date: 01/08/23 CAD Presentations: Unstable angina. CONCLUSIONS Severe single-vessel disease involving a proximal left anterior descending artery stenotic lesion. RECOMMENDATIONS Referred for immediate PCI DESCRIPTION OF PROCEDURE The patient arrived to the procedure lab. The risks and benefits of the procedure as well as a full description of our services here and current unavailability of surgical backup were fully explained to the patient and/or their significant other prior to the catheterization. The Timeout was completed, verifying the correct patient and procedure. The patient's procedural site was prepped and draped in the usual fashion. Local anesthetic was given subcutaneously to right radial region with Lidocaine 2%. Local anesthetic was given subcutaneously to right groin region with Lidocaine 2%. Using a modified Seldinger technique, arterial access was obtained via the right femoral artery, a 5Fr sheath was inserted. Left Coronary Artery selective angiography was performed in multiple views using a 5 Fr. JL4 catheter. Right Coronary Artery selective angiography was then performed in multiple views using a 5 Fr. 3DRC (Dennis) catheter. CORONARY ANGIOGRAPHY DOMINANCE: Right Dominant LEFT HEART ASSESSMENT Left Ventricular Ejection Fraction: by Echo 60 % Anterior Hypokinesis - Mild LEFT MAIN: Angiographically normal LEFT ANTERIOR DESCENDING ARTERY: PROX LAD: 99 % Stenosis CIRCUMFLEX ARTERY: Angiographically normal RAMUS: Angiographically normal RIGHT CORONARY ARTERY: Angiographically normal COMPLICATIONS PROCEDURE MEDICATIONS Fentanyl 50 mcg IV Versed 1 mg IV Oxygen: 2 L/min via nasal cannula Brilinta 180 mg PO @ 01/08/2023 13:18:40 SUMMARY OF HEMODYNAMIC DATA Time AIR REST ECG 11:47:00 AO 116/58 (85) SA 13:13:15 Signed By Babak Carvalho MD On 01/08/2023 13:24:45 Babak Carvalho MD
--- NOTE | 2023-01-08 14:15 | EKG12_ITS ---
Test Reason : Blood Pressure : / mmHG Vent. Rate : 068 BPM Atrial Rate : 068 BPM P-R Int : 168 ms QRS Dur : 082 ms QT Int : 384 ms P-R-T Axes : 039 069 070 degrees QTc Int : 408 ms Normal sinus rhythm Normal ECG When compared with ECG of 08-JAN-2023 05:34, MANUAL COMPARISON REQUIRED, DATA IS UNCONFIRMED Confirmed by KERA ROGERS, BROOKE ([id number]), associate entertainment editor ZACK BOLIVAR ([id number]) on 01/28/2023 11:32:55 AM Referred By: HEMALATHA Confirmed By:BROOKE COTE MD
--- NOTE | 2023-01-08 14:30 | CRPHASE1_ITS ---
Patient Communication Patient Information PHII Cardiac Rehab Discussed with Patient:: Yes Guide to Cardiac Rehab Given to Patient:: Yes Cardiac Rehab Facility Choice List Given to Patient:: Yes Communication to Cardiac Rehab Choice Program [facility] CR PHII:: Communication Given to CR Pharmacy Aide:: Allen Cates Phase II Cardiac Rehab:: Yes Sessions:: 36 sessions - 3 days/wk, 12 weeks Cardiac Rehabilitation Info Program Information Cardiac Rehabilitation Program Information: Cardiac Rehab The cardiac rehab team at [facility] consists of highly skilled exercise physiologists, nurses, respiratory therapists and physicians working together with you. Our purpose is to help you have a full recovery and achieve the goals you set for yourself. Over the years many of our patients have returned to activities they assumed they would never do again! We can help restore your confidence and motivation to make lifestyle changes that can have a significant impact on your health and quality of life! We can help answer questions and concerns you may have about exercise, lifestyle, medications, diet, stress and anxiety which are common following a hospitalization. WE monitor ECG and vital signs during exercise and discuss your progress with you and report to your physician(s). Cardiac Rehab is proven to help reduce readmissions, improve functional capacity and lower recurrence of problems with your heart. Our Cardiac Rehab program is Certified by the [place] [employer]monary [employer] (AACVPR) and Accredited by the [place] [employer] through our [facility]. You can contact us at . We invite you to call us with your questions or to get started in our program. If you have other questions or concerns be sure to ask your physician/provider during your follow-up visit. WE look forward to seeing you!
--- NOTE | 2023-01-08 14:31 | CRPH1.INSTRU ---
General Education Discussed with Patient CAD and cardiac anatomy and function:: Patient communicates acknowledgment Explanation of diagnoses and procedures:: Patient communicates acknowledgment Sign/Symptoms of [place]:: Patient communicates acknowledgment Antiplatelet therapy: Patient communicates acknowledgment Proper use of NTG-SL: Patient communicates acknowledgment Emergency procedures and activation of EMS: Patient communicates acknowledgment Compliance of all prescribed medications: Patient communicates acknowledgment Dyslipidemia Risk Factors Patient Dyslipidemia Risk Factors Are:: Total Cholesterol, Triglycerides, HDL and LDL Recommendations Recommendations Include:: Lipid profile provided and Reviewed NCEP/ATP guidelines Response Code Dyslipidemia Response Code:: Patient communicates acknowledgment Overweight/Obesity Risk Factors Patient Overweight/Obesity Risk Factors Are:: BMI Normal [18-25 & < 65 years old] Recommendations Recommendations Include:: Weight loss of 5-10%, Reduced calorie diet and Exercise 5-7 times/week Response Code Overweight/Obesity:: Patient communicates acknowledgment Hypertension Risk Factors Patient Hypertension Risk Factors Are:: No documented hx of HTN Diabetes Risk Factors Patient Diabetes Risk Factors Are:: No documented hx of diabetes Metabolic Syndrome Recommendations Recommendations Include:: Does not meet criteria Sedentary Risk Factors Patient Sedentary Risk Factors Are:: Lack of regular exercise Recommendations Recommendations Include:: Aerobic exercise 5-7 times/week for 20-30 minutes continuously, Benefits of regular exercise, Discussed home walking program and Monitored Outpatient Cardiac Rehab Response Code Sedentary Response Code:: Patient communicates acknowledgment Stress Recommendations Recommendations Include:: Identification of stressors, and assessment of coping skills and Stress management techniques Response Code Stress Response Code:: Patient communicates acknowledgment
[2023-01-08] MEDS: 0.9% Normal Saline (1000mL) 1,000 ML 75 ML IV (14:42)
--- NOTE | 2023-01-08 14:47 | CL.I_ITS ---
Patient Name: ESTELA RODRIGUEZ Study Date: 01/08/2023 Performing: Luba Cates MD Ht: 59.5 inches 151.13 cm : 1955 Wt: 100.31 lbs 45.5 kg Age: 67 Gender: female BSA: 1.38 PROCEDURE(S) PERFORMED IC12-([id number])SHIVANI W/WO PTCA, SINGLE CORONARY ARTERY CLINICAL PROFILE AND CO-MORBIDITIES Indications: Worsening Angina Heart Failure: None Stress/Imaging Date: 01/08/23 CAD Presentations: Unstable angina. CONCLUSIONS Successful SHIVANI to pLAD RECOMMENDATIONS DESCRIPTION OF PROCEDURE The patient arrived to the procedure lab. The risks and benefits of the procedure as well as a full description of our services here and current unavailability of surgical backup were fully explained to the patient and/or their significant other prior to the catheterization. The Timeout was completed, verifying the correct patient and procedure. The patient's procedural site was prepped and draped in the usual fashion. Local anesthetic was given subcutaneously to right radial region with Lidocaine 2%. Local anesthetic was given subcutaneously to right groin region with Lidocaine 2% Using a modified Seldinger technique,arterial access was obtained via the right femoral artery, a 5Fr sheath was inserted. Left Coronary Artery selective angiography was performed in multiple views using a 5 Fr. JL4 catheter. Right Coronary Artery selective angiography was then performed in multiple views using a 5 Fr. 3DRC (Dennis) catheter.The images were reviewed and options discussed. A decision was then made to proceed with an Intervention, IVUS or other adjunct procedure. Arterial sheath was exchanged for a 6 Fr Sheath. XB3 Guide catheter was inserted and engaged into the LCA. BMW Guide wire was advanced to the LAD. 2.5x12 Sc Euphora Balloon catheter was inserted. Balloon catheter was advanced across lesion in the LAD, proximal. PTCA balloon inflated at 8 atms for 6 secs. PTCA balloon inflated at 8 atms for 8 secs. Angiogram performed post balloon dilatation. Whisper Guide wire was inserted as a camilla wire Whisper Guide wire was advanced to the 1st Diagonal. 2.75x15 Resolute Drug Eluting stent was inserted. Drug Eluting stent was advanced across the lesion in the LAD, proximal. Angiogram performed post stent deployment. Contrast was injected through the sheath and the Right Iliac and Femoral artery were assessed for possible closure device. The arterial sheath was pulled and a Perclose closure device was deployed for hemostasis INTERVENTION INFORMATION LESION SITE: LAD (Proximal) Lesion Complexity: High/C, chronic total occlusion: No, lesion at bifurcation: Yes, thrombus present: No, lesion length: 14 mm, culprit lesion: Yes, Previously treated lesion: No Pre Stenosis: 99 % Pre intervention ALDEN flow: 3 PROCEDURE: Drug Eluting Stent with pre dilatation. There was a small diagonal branch at the location of the stenosis in the LAD. This diagonal branch had 80 to 90% disease in the ostial and proximal portion. The diagonal branch diameter was less than 1.75 mm. After PTCA in the LAD there was slow flow in this diagonal branch. We tried to cross into the diagonal branch with a whisper wire but were unsuccessful. After stent deployment there was no antegrade flow into this diagonal branch. There was collateral flow into this branch. Patient tolerated the procedure well. Post Stenosis: 0 % Post intervention ALDEN flow: 3 Lesion Devices: Gilmore .014 190cm BMW [place] Straight Cordis 6 Fr XB3.0 100cm Guide Catheter Medtronic SC EUPHORA RX 2.5x12 BALLOON Medtronic Resolute Bj RX SHIVANI 2.75x15 Lesion Devices: Gilmore .014 190cm HT Whisper MS Straight COMPLICATIONS No Complications PROCEDURE MEDICATIONS Fentanyl 50 mcg IV Versed 1 mg IV Oxygen: 2 L/min via nasal cannula Brilinta 180 mg PO @ 01/08/2023 13:18:40 Heparin 3000 unit(s) IV 01/08/2023 13:24:40 SUMMARY OF HEMODYNAMIC DATA Time AIR REST ECG 11:47:00 AO 116/58 (85) SA 13:13:15 AIR REST 14:08:04 Signed By Luba Cates MD On 01/08/2023 14:47:10 Luba Cates MD
[2023-01-08] MEDS: Acetaminophen 325 MG Tablet 650 MG PO (15:41)
[2023-01-08] MEDS: Pantoprazole Sodium 20 MG Tablet PO ×2 (15:42→21:40)
--- NOTE | 2023-01-08 15:51 | PCM.PN.HOSP ---
Reason for Visit Reason for Visit: Diagnoses Chest pain, unspecified (01/07/23) Subjective Subjective Seen and examined earlier today, I received word from cardiology that her stress test was abnormal, I spent some time talking with the patient and her daughter about the need for cardiac catheterization at the direction of cardiology. I talked with him for approximately 30 minutes and answered all of their questions. Patient underwent a cardiac catheterization this afternoon which showed a occlusive area in her LAD that was stented with a drug-eluting stent. Patient had an echocardiogram today which showed normal EF and no significant valvular heart disease. Objective Data Objective Data Vital Signs: Vital Signs Temp Pulse Resp BP Pulse Ox O2 Del Method 98.2 F 71 16 113/79 99 Room Air 01/08/23 10:56 01/08/23 15:30 01/08/23 15:30 01/08/23 15:30 01/08/23 15:30 01/08/23 15:30 Oxygen Delivery Method Room Air Weight: 45.5 kg Body Mass Index (BMI) 20.2 Intake & Output: Intake and Output for Last 24 Hours 01/06/23 01/07/23 01/08/23 23:59 23:59 23:59 Intake Total 920 / 920 Balance 920 / 920 Lab / Micro Data 01/08/23 05:24 01/08/23 05:24 Labs: Laboratory Results - last 24 hr 01/07/23 18:14: WBC 4.7, RBC 3.87 L, Hgb 11.8 L, Hct 36.7 L, MCV 94.8, MCH 30.5, MCHC 32.2, RDW Std Deviation 45.1 H, RDW Coeff of Helen 13.0, Plt Count 224, MPV 9.3, Immature Gran % (Auto) 0.200, Neut % (Auto) 47.5, Lymph % (Auto) 39.1, [place] % (Auto) 8.5, Eos % (Auto) 4.5, Baso % (Auto) 0.2, Absolute Neuts (auto) 2.2, Absolute Lymphs (auto) 1.83, Nucleated RBC % 0, Sodium 142, Potassium 3.1 L, Chloride 109 H, Carbon Dioxide 31.0, Anion Gap 2 L, BUN 22 H, Creatinine 0.81, Estim Creat Clear Calc 50.48, Est GFR (MDRD) Af Amer 92, Est GFR (MDRD) Non-Af 76, BUN/Creatinine Ratio 27.3 H, Glucose 83, Calcium 8.7, Troponin I High Sens 62 H 01/07/23 20:23: Magnesium 2.1, Troponin I High Sens 63 H 01/08/23 00:40: Troponin I High Sens 63 H 01/08/23 05:24: WBC 4.5, RBC 3.69 L, Hgb 11.5 L, Hct 35.5 L, MCV 96.2, MCH 31.2, MCHC 32.4, RDW Std Deviation 45.7 H, RDW Coeff of Helen 13.0, Plt Count 194, MPV 9.4, Immature Gran % (Auto) 0.200, Neut % (Auto) 44.7 L, Lymph % (Auto) 39.6, [place] % (Auto) 10.6 H, Eos % (Auto) 4.7, Baso % (Auto) 0.2, Absolute Neuts (auto) 2.0, Absolute Lymphs (auto) 1.76, Nucleated RBC % 0, Sodium 142, Potassium 3.9, Chloride 114 H, Carbon Dioxide 26.0, Anion Gap 2 L, BUN 21 H, Creatinine 0.72, Estim Creat Clear Calc 55.95, Est GFR (MDRD) Af Amer 105, Est GFR (MDRD) Non-Af 87, BUN/Creatinine Ratio 29.3 H, Glucose 100, Calcium 8.4 L, Total Bilirubin 0.20, AST 16, ALT 30, Alkaline Phosphatase 85, Total Protein 6.0 L, Albumin 3.0 L, Globulin 3.0, Albumin/Globulin Ratio 1.0, Triglycerides 132, Cholesterol 182, LDL Cholesterol 96, VLDL Cholesterol 26, HDL Cholesterol 60 Radiography Diagnostic Testing: Radiology Impression Chest X-Ray 01/07/23 18:46 IMPRESSION: Old granulomatous disease at left base. No acute cardiopulmonary pathology Electronically Signed: Frnack Ruby MD at 18:56 EDT , Echocardiogram 01/07/23 22:22 Interpretation Summary Normal LV size. Left ventricular systolic function is normal. Mild segmental systolic dysfunction (see wall motion). Pulmonary artery systolic pressure is 32 mmHg. The estimated ejection fraction is 60 %. Ordering Physician: Leny Lock Referring Physician: MAREK JUNIOR Performed By: Luisa Rubin RDCS Physical Exam Const alert, oriented x3, no apparent distress and healthy appearing General Appearance: cooperative, well kempt and well developed Orientation / Consciousness: awake, oriented to person, oriented to place and oriented to time HEENT normocephalic, head/scalp atraumatic and moist oral mucous membranes Eyes PERRL, EOMs intact bilaterally and conjunctivae normal Neck supple, no JVD, thyroid normal and no carotid bruits General: trachea midline Resp normal respiratory effort, no retractions, no use of accessory muscles and clear to auscultation bilaterally Auscultation: Negative for rales, rhonchi or wheezes Cardio regular rate, regular rhythm, no murmurs, no rub and no gallops GI normal to inspection, nondistended, normoactive bowel sounds, soft to palpation, non-tender and non-distended Extremity no clubbing, cyanosis or edema Skin no rashes or lesions noted General Skin Exam: no breakdown Neuro oriented x3, CN's II-XII intact bilaterally, moves all extremities, no focal motor deficits and no sensory deficits noted Sensorium / Orientation: awake, alert, oriented to person, oriented to place and oriented to time Speech: speech normal Psych affect normal Assessment & Plan Assessment/Plan (1) Chest pain: PLAN: Plan 1. Occlusive coronary artery disease in LAD-again this area was stented with a drug-eluting stent, patient was placed on Brilinta and aspirin and a statin. #2 unstable angina secondary to #1-patient will be monitored for any return of chest pain #3 hyperlipidemia-patient is on a statin presently Total clinical time spent by myself addressing the patient's medical issues, reviewing all of her data, and collaborating with patient's care team: 25 minutes Charges/Coding Visit Charges Inpatient E&M: [id number] Subs Hosp L1
--- NOTE | 2023-01-08 18:03 | NURSING ---
Ambulated pt in hallway. Right femoral cath site remained soft, no bleeding or hematoma noted. dressing C/D/I
[2023-01-08] MEDS: Acetaminophen 500 MG Tablet PO (21:39)
[2023-01-08] MEDS: TICAGRELOR 90 MG TABLET PO (21:39)
[2023-01-08] MEDS: Atorvastatin Calcium 40 MG Tablet PO (21:39)
[2023-01-08] MEDS: Topiramate 25 MG Tablet PO (21:39)
[2023-01-09 03:15] VITALS: BP 107/62; PULSE 67; RESP 17; TEMP 36.3; O2SAT 99
[2023-01-09 04:13] VITALS: BMI 20.9
[2023-01-09 07:30] VITALS: O2SAT 95
[2023-01-09 07:59] LABS: Hematocrit 35.7 % (37-47); Hemoglobin 11.7 g/dL (12.0-15.0); Mean Corp Hgb Conc 32.8 g/dL (32-36); Mean Corpuscular Hgb 31.3 pg (27.0-32.0); Mean Corpuscular Volume 95.5 fL (81-99); Mean Platelet Vol. 9.1 fl (6.2-12.0); Platelet Count 201 K/mm3 (150-450); RBC Distribution Width CV 12.9 % (11.6-14.6); RBC Distribution Width SD 45.6 fl (35.1-43.9); Red Blood Count 3.74 M/mm3 (4.2-5.4); White Blood Count 5.1 K/mm3 (4.4-11.0)
[2023-01-09 08:33] LABS: AST(SGOT) 20 U/L (15-37); Alanine Aminotransfer ALT/SGPT 27 U/L (13-56); Albumin, Serum 3.1 g/dL (3.2-5.0); Alkaline Phosphatase 79 U/L (45-117); Anion Gap 4 (5-15); BUN 11 mg/dL (7-18); BUN/Creat Ratio 16.3 RATIO (10-20); Calcium,Total 8.5 mg/dL (8.5-10.1); Chloride 111 mmol/L (98-107); Creatinine, Serum 0.68 mg/dL (0.55-1.02); EST Glomerular Filtration Rate 93 mL/min (>60); Est Glom Filt Rate - Afr Amer 113 mL/min (>60); Globulin 3.1 g/dL (2.2-4.2); Glucose 103 mg/dL (74-106); Potassium 3.7 mmol/L (3.5-5.1); Protein, Total 6.2 g/dL (6.4-8.2); Sodium Level 139 mmol/L (136-145)
[2023-01-09 09:15] VITALS: BP 102/63; PULSE 78; RESP 18; TEMP 36.2; O2SAT 98
--- NOTE | 2023-01-09 10:00 | EKG12_ITS ---
Test Reason : AM EKG Blood Pressure : / mmHG Vent. Rate : 067 BPM Atrial Rate : 067 BPM P-R Int : 170 ms QRS Dur : 084 ms QT Int : 390 ms P-R-T Axes : 083 072 086 degrees QTc Int : 412 ms Normal sinus rhythm T wave abnormality, consider anterior ischemia Abnormal ECG When compared with ECG of 07-JAN-2023 21:44, MANUAL COMPARISON REQUIRED, DATA IS UNCONFIRMED Confirmed by KERA ROGERS, BROOKE ([id number]), subeditor ZACK BOLIVAR ([id number]) on 01/28/2023 11:33:35 AM Referred By: Confirmed By:BROOKE COTE MD
[2023-01-09] MEDS: TICAGRELOR 90 MG TABLET PO (10:57)
[2023-01-09] MEDS: Aspirin E.C. 81 MG Tablet PO (10:57)
[2023-01-09] MEDS: Sertraline 100 MG Tablet PO (10:57)
[2023-01-09] MEDS: Pantoprazole Sodium 20 MG Tablet PO (10:57)
[2023-01-09] MEDS: Topiramate 25 MG Tablet PO (10:58)
--- NOTE | 2023-01-09 11:31 | DCINST_ITS ---
Discharge Instructions Diet Discharge Diet: No restrictions Activity Discharge Activity: Return to Normal Activity and [address] Return to work on:: 01/11/23 Weight Bearing Status: Full weight bearing Follow Up Care Test Results: Test results from this visit will be discussed in further detail at your follow- up appointment, if applicable. Discharge Plan Admission Admit Date/Time: 01/08/23 16:47 Primary Reason for Your Visit: acute coronary syndrome, occlusive coronary arter y disease Attending Provider: Armando Esqueda Primary Care Provider: Siddharth Soriano Consulting Providers: Leny Lock Discharge Orders/Prescriptions Prescriptions: New atorvastatin 40 mg Tablet 40 mg PO QHS Qty: 30 0RF aspirin 81 mg Tablet,Delayed Release (Dr/Ec) 81 mg PO BREAKFAST Qty: 0 0RF Brilinta 90 mg Tablet 90 mg PO BID Qty: 60 0RF Continued sumatriptan succinate 50 mg tablet 50 mg PO ONCE PRN (Reason: migraine headache) acetaminophen [Tylenol Extra Strength] 500 mg tablet 500 mg PO Q6H sertraline 100 mg tablet 100 mg PO DAILY Patient Comments: TAKE 1 AND 1/2 TABLETS DAILY BY MOUTH topiramate 25 mg tablet 25 mg PO BID Patient Comments: TAKE 1 TABLET BY MOUTH TWICE A DAY omeprazole 20 mg tablet,delayed release (DR/EC) 20 mg PO DAILY Referrals / Follow Up: Babak Carvalho MD [Med Staff - Active Staff] - See Referral Note (in 3-4 weeks) Siddharth Soriano MD [Primary Care Provider] - Disposition Disposition (needs filled in before D/C Order can be placed): Home, Self Care
--- NOTE | 2023-01-09 11:40 | DS.PCM_ITS ---
Providers Date of Admission: 01/08/23 Date of Discharge: 01/09/23 Primary Care Physician: Dr. Marek Junior MD Reason For Visit: CHEST PAIN, INDETER TROP Diagnosis Discharge Diagnosis (1) Chest pain: Status: Acute Code(s): R07.9 - Chest pain, unspecified Plan 1. Occlusive coronary artery disease in LAD-again this area was stented with a drug-eluting stent, patient was placed on Brilinta and aspirin and a statin. #2 unstable angina secondary to #1-patient will be monitored for any return of chest pain #3 hyperlipidemia-patient is on a statin presently #4 elevated [id number] was ruled out Total clinical time spent by myself addressing the patient's medical issues, reviewing all of her data, and collaborating with patient's care team: 25 minutes Medications at Discharge Home Medications acetaminophen 500 mg tablet (Tylenol Extra Strength) 500 mg PO Q6H 03/15/19 sumatriptan succinate 50 mg tablet 50 mg PO ONCE PRN migraine headache 03/15/19 omeprazole 20 mg tablet,delayed release 20 mg PO DAILY 01/07/23 sertraline 100 mg tablet 100 mg PO DAILY 01/07/23 topiramate 25 mg tablet 25 mg PO BID migraine headache 01/07/23 aspirin 81 mg tablet,delayed release 81 mg PO BREAKFAST #0 tabs 01/09/23 atorvastatin 40 mg tablet 40 mg PO QHS #30 tabs 01/09/23 ticagrelor 90 mg tablet (Brilinta) 90 mg PO BID #60 tabs 01/09/23 Hospital Course Operations None Procedures 2-D Echocardiogram, Cardiac catheterization (SHIVANI placement) and Nuclear stress test Summary of Care Provided Minutes Spent on Discharge: 31 Hospital Course: This 67-year-old white female was seen in the emergency room at [facility] with complaints of precordial chest pain with radiation to the neck and jaw area, she also complains of shortness of breath along with chest discomfort. Work-up in the emergency room included an EKG which showed no acute ischemic changes, chest x-ray was unremarkable, troponin was slightly elevated at 62. Patient was placed into observation status on PCU, patient had repeat troponins which were minimally elevated, she had no more episodes of chest discomfort. Patient underwent a nuclear stress test which was abnormal and discussions were carried out with the patient concerning the need for a cardiac catheterization possible stent placement which the patient agreed to. Patient underwent cardiac catheterization, there is noted to be occlusive disease in the LAD and she underwent stent placement. Patient had no untoward events during her hospitalization, on 01/09/2023, patient was seen and examined: On examination she appeared in good health and spirits, she does not appear to be in any distress. Vital signs as documented. Skin warm and dry and without overt rashes. Neck without JVD, thyroid appears normal, trachea is midline, neck is supple. Lungs clear, normal air movement was noted. Heart exam notable for regular rhythm, normal sounds and absence of murmurs, rubs or gallops. Abdomen unremarkable and without evidence of organomegaly, masses, or abdominal aortic enlargement, bowel sounds are present in all 4 quadrants, no abdominal tenderness was noted. Extremities nonedematous, no cyanosis was noted, no clubbing was noted. Neuro: Cranial nerves II through XII are grossly intact, no focal motor deficits were noted, sensation to light touch and pinprick is intact, motor exam 5/5 throughout. Psych: Patient is alert and oriented x3, she does not appear anxious or depressed, she does not appear agitated. Patient appears stable for discharge home on 01/09/2023 Weight / BMI Weight Weight: 47 kg Body Mass Index (BMI) 20.9 ABG / Lab / Microbiology Data 01/09/23 07:31 01/09/23 07:31 Laboratory: Laboratory Results - last 24 hr 01/09/23 07:31: WBC 5.1, RBC 3.74 L, Hgb 11.7 L, Hct 35.7 L, MCV 95.5, MCH 31.3, MCHC 32.8, RDW Std Deviation 45.6 H, RDW Coeff of Helen 12.9, Plt Count 201, MPV 9.1, Sodium 139, Potassium 3.7, Chloride 111 H, Carbon Dioxide 24.0, Anion Gap 4 L, BUN 11, Creatinine 0.68, Estim Creat Clear Calc 61.20, Est GFR (MDRD) Af Amer 113, Est GFR (MDRD) Non-Af 93, BUN/Creatinine Ratio 16.3, Glucose 103, Calcium 8.5, Total Bilirubin 0.60, AST 20, ALT 27, Alkaline Phosphatase 79, Total Protein 6.2 L, Albumin 3.1 L, Globulin 3.1, Albumin/Globulin Ratio 1.0 Radiography Diagnostic Testing: Radiology Impression Echocardiogram 01/07/23 22:22 Interpretation Summary Normal LV size. Left ventricular systolic function is normal. Mild segmental systolic dysfunction (see wall motion). Pulmonary artery systolic pressure is 32 mmHg. The estimated ejection fraction is 60 %. Ordering Physician: Leny Lock Referring Physician: MAREK JUNIOR Performed By: Luisa Rubin RDCS D/C Instructions Discharge Diet: No restrictions Return to work on: 01/11/23 Weight Bearing Status: Full weight bearing Meaningful Use Info Meaningful Use Diagnoses (Choose all that apply): None applicable Discharge Plan Admission Admit Date/Time: 01/08/23 16:47 Primary Reason for Your Visit: acute coronary syndrome, occlusive coronary artery disease Attending Provider: Armando Esqueda Primary Care Provider: Marek Junior Consulting Providers: Leny Lock Discharge Orders/Prescriptions Prescriptions: New atorvastatin 40 mg Tablet 40 mg PO QHS Qty: 30 0RF aspirin 81 mg Tablet,Delayed Release (Dr/Ec) 81 mg PO BREAKFAST Qty: 0 0RF Brilinta 90 mg Tablet 90 mg PO BID Qty: 60 0RF Continued sumatriptan succinate 50 mg tablet 50 mg PO ONCE PRN (Reason: migraine headache) acetaminophen [Tylenol Extra Strength] 500 mg tablet 500 mg PO Q6H sertraline 100 mg tablet 100 mg PO DAILY Patient Comments: TAKE 1 AND 1/2 TABLETS DAILY BY MOUTH topiramate 25 mg tablet 25 mg PO BID Patient Comments: TAKE 1 TABLET BY MOUTH TWICE A DAY omeprazole 20 mg tablet,delayed release (DR/EC) 20 mg PO DAILY Referrals / Follow Up: Babak Carvalho MD [Med Staff - Active Staff] - See Referral Note (in 3-4 weeks) Marek Junior MD [Primary Care Provider] - Disposition Disposition (needs filled in before D/C Order can be placed): Home, Self Care Charges/Coding Visit Charges Inpatient E&M: 22500 Disch Hosp >30min
--- NOTE | 2023-01-09 12:15 | CASEMGMT ---
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 Pt voices understanding and consents to?assessment?at this time.? Pt resting in bed in no distress at this time.? Pt is A/O at this time and answers all questions appropriately.?? Care providers, pharmacy, and demographics verified/updated at this time. PCP: Dr Soriano Specialists: none Preferred Pharmacy: [facility] today Insurance: [employer] Prescription Benefit:?Yes. Discussed Brilinta 30-day savings card and made aware [facility] pharmacy will apply. Made aware to discuss other possible more affordable options w/cable wirer if refills are not affordable. Living Will/HPOA:?Pt does not currently have LW/HCPOA. Pt made aware that she can contact as an out-pt and make appt in the future if she decides she would like to talk with someone about this or would like to utilize [facility] social work for advanced directive completion.??? LNOK: Dtr, Danay. Son, Tanvi. Living Arrangements: Lives alone in one-story duplex w/3 steps to enter. Son lives next door. Dtr lives about 10 min away. Pt states she is indep w/ADL's, IADL's, and manages her own medications. She works 2 jobs. Transportation:?Pt states drives self and states no transportation concerns at this time.? DME: ? Denies using any DME and denies needs.? HHC/SNF: No hx of either. No needs identified. Pt wishes to return home and states has no concerns with going home. Pt voices no further concerns/needs at this time.? PLAN:??Home Brenna BSN?RN?CM
== END 2023-01-09 13:11 | disposition home or self-care (01) | DRG 322 ==
LOC: ED 21:42 → PCU 21:52
PROVIDERS: Specialist; Admitting Provider Family Medicine; Emergency Provider Emergency Medicine; PCP Family Medicine; Visit Provider Internal Medicine
DX: I25.110 Atherosclerotic heart disease of native coronary artery with unstable angina pectoris (principal); E78.5 Hyperlipidemia, unspecified; G25.81 Restless legs syndrome; K21.9 Gastro-esophageal reflux disease without esophagitis; G43.709 Chronic migraine without aura, not intractable, without status migrainosus; E87.6 Hypokalemia; H92.01 Otalgia, right ear; R03.0 Elevated blood-pressure reading, without diagnosis of hypertension
CPT/HCPCS: 36415; 71045; 78452; 80048; 80053; 80061; 83735; 84484; 85025; 85027; 92928; 93005; 93017; 93306; 93454; 94668; 99152; 99153; 99285; A9500; J7030; Q9967; A4216; C1725; C1760; C1769; C1874; C1887; C1894; C9600; J1327

== ENCOUNTER → 2023-01-18 | Outpatient (CLI) | payer OTHER, SELFPAY ==
--- NOTE | 2023-01-18 13:14 | PCM.CR.HP2 ---
CR - History & Physical General Arrival date:: 01/18/23 Arrival time:: 13:14 Date of Referral:: 01/11/23 Date of CR Evaluation:: 01/18/23 Referring Physician: Dr. Babak Carvalho Primary Diagnosis: PCI with coronary stent History of Present Cardiac Event Onset Date PTCA or coronary stenting:: Yes (01/08/23) Vessel: LAD Medications Ambulatory Orders Medication Instructions Recorded acetaminophen 500 mg tablet 500 mg PO Q6H 03/15/19 (Tylenol Extra Strength) sumatriptan succinate 50 mg tablet 50 mg PO ONCE PRN migraine headache 03/15/19 omeprazole 20 mg tablet,delayed 20 mg PO DAILY 01/07/23 release sertraline 100 mg tablet 100 mg PO DAILY 01/07/23 topiramate 25 mg tablet 25 mg PO BID migraine headache 01/07/23 aspirin 81 mg tablet,delayed 81 mg PO BREAKFAST #0 tabs 01/09/23 release atorvastatin 40 mg tablet 40 mg PO QHS #30 tabs 01/09/23 ticagrelor 90 mg tablet (Brilinta) 90 mg PO BID #60 tabs 01/09/23 Allergies Allergies No Known Allergies Allergy (Verified 01/07/23 17:45) Sleep Disorder Evaluation Hx of Sleep Apnea: No Do you snore loudly (louder than talking or can be heard through closed doors)?: No Do you often feel tired/ fatigued/ sleepy during daytime?: No Has anyone observed you stop breathing during sleep?: No History of Hypertension (for STOP score): No STOP Results: Negative Advanced Directives Advanced Directives Power of Clinical Application Specialist: No Living Will: No Advance Directives Information Provided: No Advance Directives on File: No DNR Order?:: No Past Medical History Covid-19 Screening Physicial Symptoms Other Clinical Concerns Exposure Risk Pertinent Comorbidities 65 years or older:: Yes Has a serious heart condition:: Yes Past Medical Illness Past Medical History (Updated 01/17/23 @ 00:00 by Brenden Jackson) Atherosclerosis of coronary artery of [place] heart without angina pectoris I25.10 GERD (gastroesophageal reflux disease) K21.9 Migraine G43.909 RLS (restless legs syndrome) G25.81 Past Surgical History Past Surgical History (Updated 01/11/23 @ 15:26 by Tahmina Craft) H/O: Z98.891 History of appendectomy Z90.49 History of coronary artery stent placement (01/08/23) Z95.5 [id number] w/ 2.75 x 15 mm Resolute Bj RX SHIVANI 01/08/23 History of esophagogastroduodenoscopy (EGD) Z98.890 Dr Hernandez at [facility] History of oral surgery Z98.890 History of removal of ovarian cyst Z98.890, Z87.42 Family History Summary Family History Brother Heart disease Diabetes Father Heart disease Dementia Prostate cancer Mother CAD (coronary artery disease) Ovarian cancer Sister Diabetes Social History Smoking History Smoking Status: Never smoker Alcohol Use Alcohol Usage: Yes (socially) Occupation Occupation (List type of work in comments):: Employed Hours worked per day:: 8 Returned to work on:: 01/25/23 Hobbies, Recreation, Social Activities Hobbies: None Social Environment Status Marital Status: Children How many children do you have?: 2 Do any of your children live nearby?: Yes Safety Do you feel safe in your surroundings?: Yes Assistance Do you need any assistance at home?: no Review of Systems Review of Systems Hints Review of Present Symptoms: Reports Shortness of Breath with Exertion, Dizziness/Lightheadedness, Fatigue, Appetite - Normal and Sleep - Normal; Denies Shortness of Breath at Rest, PVD, Operative Discomfort, Angina, Wound Healing, Heart Arrhythmia/Irregularities, Appetite - Special Diet or Sexual Changes Pain Is Patient Pain Free?: Yes Risk Factor Assessment Chief Complaint Chief Complaint: PCI with coronary stent Vital Signs Pulse Ox: 100 Blood Pressure: 120/77 Pulse Pulse Rate: 73 Pulse Rhythm: Regular Obesity Height: 4 ft 11 in Weight:: 101 lb Weight in Pounds: 101.0 lbs Body Mass Index (BMI): 20.4 Nutritional Referral for Obesity: No Physical Inactivity Physical Inactivity: Recreational activity Risk Stratification Risk Guidelines: Moderate Risk: Risk Factor for Smoking, Risk Factor for Diabetes, Risk Factor for Obesity, Risk Factor for Hypertension, Risk Factor for Sedentary Lifestyle and Risk Factor for Depression and Highest Risk: Risk Factor for Dyslipidemia For Smoking Smoking Risk Guidelines For Dyslipidemia Dyslipidemia Risk Guidelines For Diabetes Mellitus Diabetes Risk Guidelines For Obesity/Overweight Obesity/Overweight Risk Guidelines For Hypertension Hypertension Risk Guidelines For Sedentary Lifestyle Sedentary Lifestyle Risk Guidelines For Depression Depression Risk Guidelines Family History Family History Brother Heart disease Diabetes Father Heart disease Dementia Prostate cancer Mother CAD (coronary artery disease) Ovarian cancer Sister Diabetes Motivation Motivation to Participate On a scale of 1 to 10, how prepared are you to commit to attending program?: 6 What do you see as barriers to successfully being able to complete the program?: work What do you see as the benefits of succesfully completing the program? In other words, what do you hope to get out of participating in the program?: more energy Are there issues you are dealing with that will interfere with completing the program?: no Do you have a spouse or signficant other, family or friends who will help support you to complete the program?: family support
[2023-01-18 13:25] VITALS: BP 120/77
--- NOTE | 2023-01-18 13:25 | PCM.CR.ITP ---
Diagnosis General Information Admitting Diagnosis: PCI with coronary stent Personal Learning Style:: Audio/Visual Stage of change r/t lifestyle modifications:: Contemplation Gave educational material for:: Treating Heart Disease, How The Heart Works, What it means to have Heart Disease, How Coronary Artery Disease is Diagnosed, Heart Procedures, What Heart Medications Do, Risk Factors & Modifications, Living an Active Life, Nutrition, Emotions & Heart Disease, Stress Management & Relaxation and Sleep Disorders & Heart Disease Education/Goals Cardiac Rehabilitation Goals Personal Goals: Initial Assessment: Improve management of stress and emotions, Improve energy level, Get back to work, or to resume activities faster, Improve knowledge of cardiac disease, Improve muscle strength and endurance, Improve diet and eating habits (eat healthier) and Control risk factors (learn risk factor modification) Scale for measuring improvement of personal goals Diagnosis & Disease Process Outcomes/Goals: Pt IDs own risk factors & lifestyle modifications by Session 10, Verbalizes symptoms of angina & response by session 3., Pt independently manages and Other Additional Outcomes/Goals: Plan/Interventions: Assist Pt to ID & engage in lifestyle modification to reduce CVD risk, Instruct on individual risk factors, Review symptoms of angina & emergency actions, Review secondary diagnosis & identify educational needs. and Other see comment 30 day Reassessments:: Not Met 30 day Reassessments:: Not Met 30 day Reassessments:: Not Met 30 day Reassessments:: Not Met Final Reassessments:: Not Met Safety Referral to Physical Therapy: No Referral to [facility] Case Management: No Fall Risk Assessed:: Yes Assistive Devices:: None Exercise - Initial Assessment Visit Date of Eval: 01/18/23 (initial eval ) Mets: Pre-: >3 METS for 30 minutes by discharge, >5 METS for 30 minutes by discharge, >7 METS for 30 minutes by discharge and Unable to meet goal due to: (see comment below) Stress Test Blood Pressure: 120/77 EKG: NSR Physician Prescribed Exercise Modalities: Treadmill, Rower, Airdyne, NuStep, SciFit and Lateral [place] Frequency: 2x/week for 18 weeks [36 sessions] and 3x/week for 12 weeks [36 sessions] Intensity: 60-80% of age predicted maximum heart rate reserve Duration: 30 - 45 minutes Current METSs:: 3 Target Heart Rate:: 93-132 Resting Blood Pressure: 120/77 EKG Type: NSR Outcomes & Goals Goals:: Verbalizes understanding of THR, RPE & goal METS by session 6, Documents in home exercise log/reports 30 min aerobic 5 day/wk by DC, Demonstrates accurate pulse taking by DC and Other additional outcome/goals: see below Intervention & Plan Exercise Program Goals: Instruct on personal THR & RPE, Instruct on MET level & personal MET goal, Show patient to take own pulse /validate performance until accurate, Instruct on home exercise and Other additional plan/int Physical Activity Home Exercise Physical Activity - Home Exercise: Safe Exercise, Warm-up, Self-monitoring, Cool-Down, Home Exercise > 30 min Daily and Sitting Time <3 hours/daily Outcomes & Goals Outcomes/Goals: Demonstrates correct Warm-up/exercise Cool-Down (S3) if = 2.5 METs, Verbalizes symptoms of exercise intolerance by Session 3 (S3), Demonstrate safe equipment use (S3) & follows exercise prescrition (6) and Other: See below Intervention & Plan Plan/Intervention: Instruct warm-up & cool-down if exercising at > 2 METs, Instruct on symptoms of exercise intolerance & actions to take, Instruct & monitor on saf, Assess intial functional capacity & safety risk and Other See below Nutrition - Initial Assessment Program Goals Nutrition Program Goals Patient has diagnosis of Hyperlipidemia (ICD E78)?: Yes Visit Date of Eval: 01/18/23 (initial eval ) Cholesterol/Lipids (Other Core Measures) Determine presence & major risk factors that modify LDL goal: Hypertension or hypertensive medication, Low HDL cholesterol <40 mg/dL*, Family history of premature CHD in Male < 55 years: female <65 yearsFa and Age men > 45 years; women >/= 55 years Outcomes/Goals: Pt IDs own risk factors & lifestyle modifications by Session 10, Verbalizes symptoms of angina & response by session 3., Pt independently manages and Other Additional Outcomes/Goals: Intervention/Plan: Advocate for lipid panel cholesterol medication if applicable, Instruct on personal lipid levels & lipid goals/NCEP guidelines, Instruct on cholesterol and Other additional plan/int Referral to dietitian:: No Diabetes (Other Core Measures) Diabetes Type: Not Applicable Weight Mgt (Other Care) Height: 5 ft Weight:: 101 lb BMI: 19.7 Diagnosis Overweight/Obesity BMI> 30% ICD-10 E66: No Diagnosis High BMI/Morbid Obesity BMI> 35% ICD-10 Z68: No Outcomes/Goals: Pt sets, maintains & shows weight loss goal & trend during rehab and Other additional outcomes/goals Intervention/Plan: Instruct on ideal BMI & set weight loss goal w/patient, Assist pt to ID & incorporate diet changes for weight loss by S9, Refer to Structured Weight Loss program as appropriate, Encourage goal of using 250-300dcal per session for weight loss and Other additional plan/interventions Healthy Eating Habits Will attend diet classes:: Yes Outcomes/Goals:: Consume diet rich in vegs,fruits,whole grain/high fiber,fish,lean meat, Limit sat/trans fats,cholesterol & added salts & sugars and Other additional outcome/goals: Intervention/Plan:: Assess current eating habits and Other Additional plan/interventions Education Gave educational materials for:: Signs & symptoms of hypoglycemia, Signs & symptoms of hyperglycemia, Relate diabetes to coronary artery disease and Healthy eating Core - Initial Assessment Visit Date of Eval: 01/18/23 (initial eval ) Medication Compliance Preventative Medication(s):: Aspirin, Ticagrelor/P2Y12 inhibitor and Statin/lipid H/O mental health issues: depression, anxiety, or addiction?: No Doesn?t believe in the benefits of treatment?: No Believes medications are unnecessary or harmful?: No Has a concern about medication side effects?: No Expresses concern over the cost of medications?: No Outcomes/Goals: Verbalizes medications,desired effect & common side effects @ DC, Pt self-reports following medication regimen, Keeps card in wallet w/medications listed by DC and Other additional outcome/goals: Interventions/plans: Instruct on medication effects & side effects, Review medication list w/patient every two weeks, Instruct importance of taking meds as ordered & assist problem solving and Other additional Tobacco Use Tobacco Use: Non-smoker Hypertension Resting Blood Pressure:: 120/77 [place] [employer] Hypertension Guidelines Outcomes/Goals: Able to verbalize/achieve optimal blood pressure <130/80, Incorporates diet changes & exercise for blood pressure control by DC and Other additional outcomes/goals Interventions/plan: Instruct on optimal blood pressure, hypertension & medications, Instruct on effects of sodium, alcohol, stress, exercise &hypertension and Other additional plan/interventions Tobacco Cessation Referral Smoking Cessation Referral:: No Individual Education/Counseling:: No Education Schedule Given:: Yes Psychosocial - Initial Assess VIsit Date of Eval: 01/18/23 (initial eval ) History of previous Mental disease:: No Target Goals Target Goals Outcomes/Goals: See list Psychosocial Outcomes/Goals:: ID's personal stressors & 2 strategies to manage stress by discharge and Other Additional outcome/goals: Intervention/Plan: See List Interventions/Plan:: Assess stressors,coping strategies & signs of derpression on admission, Instruct/assist pt to develop coping & personal stress Mgt strategies, Refer to Behavioral Health if appropriate, Refer to Physician if appropriate, Instruct patient to recognize signs & symptoms of depression, Instruct patient to recog and Other additional plan/intervention Patient Health Questionnaire PHQ-9 Screening Initial Assessment: 1. Little interest or pleasure in doing things: Several days 2. Feeling down, depressed, or hopeless: Several days 3. Trouble falling or staying asleep, or sleeping too much: Several days 4. Feeling tired or having little energy: Several days 5. Poor appetite or overeating: Several days 6. Feeling bad about yourself -- or that you are a failure or have let yourself or your family down: Not at all 7. Trouble concentrating on things, such as reading the newspaper or watching television: Several days 8. Moving or speaking so slowly that other people could have noticed. Or the opposite - being so fidgety or restless that you have been moving around a lot more than usual: Not at all 9. Thoughts that you would be better off , or of hurting yourself in some way: Not at all How difficult have these problems made it for you to do your work, take care of things at home, or get along with other people?: Somewhat difficult Total Score: 6 JEY-Q SV Test Statements CAD is a disease of the arteries in the heart: False Examples of risk factors for heart disease: True Angina is chest pain or discomfort: I Don't Know The benefits of resistance training include: True Eating more meat and dairy products: False Anti-platelet medications such as aspirin are important: True The only effective way to manage stress: False An exercise warm-up slowly increases heart rate: I Don't Know Prepared, processed foods usually have high sodium: I Don't Know Depression is common after a heart attack: I Don't Know The statin medications lower cholesterol: True To control blood pressure, lower the amount of sodium: True If someone gets chest discomfort during walking: False Transfats are partially hydrogenated vegetable oils: True Sleep apnea that is not treated increases the risk: I Don't Know To control cholesterol, one should become a vegetarian: I Don't Know Someone knows if he/she is exercising at the right level: True Diabetes cannot be prevented with exercise & health eating: I Don't Know Stress is a large risk for heart attack: True A diet that can help lower blood pressure is rich in: I Don't Know Total Score Total Correct Responses: 12 Self-Efficacy 6-Item Scale Initial Assessment: We would like to know how confident you are in doing certain activities. Please select your confidence level for: Fatigue Select Number: 8 Physical Discomfort or Pain Select Number: 8 Emotional Distress Select Number: 8 Other Symptoms or Health Problems Select Number: 8 Different Tasks and Activities Select Number: 8 Medication Select Number: 8 Total Score:: 8 Nutrition Survey Nutrition Survey Instructions Scoring Instructions Nutrition Survey Initial: Have you lost >10 lbs over the past 2 months without trying?: No Are you following a special diet at home for diabetes, low fat, or low salt?: No Are you interested in meeting with a dietitian for help understanding your diet?: No Do you eat less than 3 meals a day?: Yes Do you eat fatty meats (belcher, sausage, ribs, etc), fried foods, desserts, large amounts of salad dressings, margarine, butter, or cheese most days?: No Do you have food allergies? [Enter types in comment field]: No Do you eat in restaurants more than 3 times a week?: No Do you season food with salt, seasoning salt, or garlic salt?: Yes Do you used canned, boxed, frozen meals, or soups, seasoning packets?: Yes Total Score:: 3 Exercise - Final/Discharge Physician Prescribed Exercise Modalities: Treadmill, Rower, Airdyne, NuStep, SciFit and Lateral Counter Sales Representative Frequency: 2x/week for 18 weeks [36 sessions] and 3x/week for 12 weeks [36 sessions] Intensity: 60-80% of age predicted maximum heart rate reserve Current METSs:: 3 Target Heart Rate:: 93-132 Nutrition - 30-Day Assessment Weight Mgt (Other Care) Height: 5 ft Weight:: 101 lb BMI: 19.7 Nutrition - 60-Day Assessment Weight Mgt (Other Care) Height: 5 ft Weight:: 101 lb BMI: 19.7 Core - Final Assessment Hypertension Resting Blood Pressure:: 120/77 [place] [employer] Hypertension Guidelines Core - 60-Day Assessment Hypertension Resting Blood Pressure:: 120/77 [place] [employer] Hypertension Guidelines Psychosocial - 30-Day Assess Target Goals Target Goals Psychosocial - 60-Day Assess Target Goals Target Goals Psychosocial - 90-Day Assess Target Goals Target Goals Psychosocial - Final Assessmen Target Goals Target Goals Nutrition - 90-Day Assessment Weight Mgt (Other Care) Height: 5 ft Weight:: 101 lb BMI: 19.7 Nutrition - Final Assessment Program Goals Patient has diagnosis of Hyperlipidemia (ICD E78)?: Yes Weight Mgt (Other Care) Height: 5 ft Weight:: 101 lb BMI: 19.7
[2023-01-18 13:30] VITALS: BP 120/77
[2023-01-18 13:50] VITALS: PULSE 73; O2SAT 100; BMI 20.4
[2023-01-18 14:12] VITALS: BMI 19.7
[2023-01-18 14:21] VITALS: BP 120/77
== END | disposition home or self-care (01) ==
LOC: CR 13:08
PROVIDERS: PCP Family Medicine; Referring Provider Internal Medicine Cardiovascular Disease; Visit Provider Internal Medicine Cardiovascular Disease
DX: Z95.5 Presence of coronary angioplasty implant and graft (principal)

== ENCOUNTER → 2023-01-28 | Outpatient (CLI) | payer OTHER, SELFPAY ==
[2023-01-18 14:12] VITALS: BMI 19.7
[2023-01-28 14:59] LABS: Absolute Lymphocyte Count 1.41 X10^3/uL (0.83-4.51); Absolute Neutrophil Count 2.6 X10^3/uL (2.0-7.7); Basophil# 0.01 X10^3/uL; Basophil% 0.2 % (0-1); Eosinophil# 0.22 X10^3/uL; Eosinophils% 4.7 % (0-5); Hematocrit 36.6 % (37-47); Hemoglobin 11.9 g/dL (12.0-15.0); Lymphocyte # 1.41 X10^3/ul (0.83-4.51); Lymphocyte % 30.3 % (19-41); Mean Corp Hgb Conc 32.5 g/dL (32-36); Mean Corpuscular Hgb 31.1 pg (27.0-32.0); Mean Corpuscular Volume 95.6 fL (81-99); Mean Platelet Vol. 8.9 fl (6.2-12.0); Monocyte# 0.42 X10^3/uL; NRBC Flagged by Analyzer 0 % (0-5); Neutrophil # 2.58 X10^3/uL (2.7-7.7); Neutrophil % 55.6 % (47-70); Platelet Count 207 K/mm3 (150-450); RBC Distribution Width CV 13.7 % (11.6-14.6); RBC Distribution Width SD 48.4 fl (35.1-43.9); Red Blood Count 3.83 M/mm3 (4.2-5.4); White Blood Count 4.7 K/mm3 (4.4-11.0)
[2023-01-28 16:01] LABS: Anion Gap 4 (5-15); BUN 16 mg/dL (7-18); Calcium,Total 8.6 mg/dL (8.5-10.1); Chloride 113 mmol/L (98-107); Creatinine, Serum 0.67 mg/dL (0.55-1.02); EST Glomerular Filtration Rate 95 mL/min (>60); Est Glom Filt Rate - Afr Amer 114 mL/min (>60); Glucose 79 mg/dL (74-106); Potassium 3.2 mmol/L (3.5-5.1); Sodium Level 143 mmol/L (136-145)
== END | disposition home or self-care (01) ==
LOC: LAB 14:26
PROVIDERS: PCP Family Medicine; Referring Provider Nurse Practitioner Gerontology; Visit Provider Nurse Practitioner Gerontology
DX: R53.83 Other fatigue (principal)
CPT/HCPCS: 36415; 80048; 85025

== ENCOUNTER 2023-02-01 11:30 | Outpatient (RCR) | payer OTHER, SELFPAY ==
[2023-01-18 14:12] VITALS: BMI 19.7
== END 2023-02-02 23:59 ==
LOC: CR 11:30
PROVIDERS: PCP Family Medicine; Referring Provider Internal Medicine Cardiovascular Disease; Visit Provider Internal Medicine Cardiovascular Disease
DX: I25.10 Atherosclerotic heart disease of native coronary artery without angina pectoris (principal); Z95.5 Presence of coronary angioplasty implant and graft
CPT/HCPCS: 93798

== ENCOUNTER 2023-03-03 11:30 | Outpatient (RCR) | payer OTHER, SELFPAY ==
[2023-01-18 14:12] VITALS: BMI 19.7
--- NOTE | 2023-02-17 08:50 | PCM.CR.ITP ---
Nutrition - Initial Assessment Weight Mgt (Other Care) Height: 5 ft Weight:: 101 lb BMI: 19.7 Psychosocial - Initial Assess Target Goals Target Goals Patient Health Questionnaire PHQ-9 Screening 30-Day Re-eval Assessment: 1. Little interest or pleasure in doing things: Several days 2. Feeling down, depressed, or hopeless: Several days 3. Trouble falling or staying asleep, or sleeping too much: Several days 4. Feeling tired or having little energy: Several days 5. Poor appetite or overeating: Several days 6. Feeling bad about yourself -- or that you are a failure or have let yourself or your family down: Not at all 7. Trouble concentrating on things, such as reading the newspaper or watching television: Several days 8. Moving or speaking so slowly that other people could have noticed. Or the opposite - being so fidgety or restless that you have been moving around a lot more than usual: Not at all 9. Thoughts that you would be better off , or of hurting yourself in some way: Not at all How difficult have these problems made it for you to do your work, take care of things at home, or get along with other people?: Somewhat difficult Total Score: 6 Self-Efficacy 6-Item Scale 30-Day Re-eval Assessment: We would like to know how confident you are in doing certain activities. Please select your confidence level for: Fatigue Select Number: 8 Physical Discomfort or Pain Select Number: 8 Emotional Distress Select Number: 8 Other Symptoms or Health Problems Select Number: 8 Different Tasks and Activities Select Number: 8 Medication Select Number: 8 Total Score:: 8 Nutrition Survey Nutrition Survey Instructions Scoring Instructions Exercise - 30-day Assessment Visit Date of Eval: 02/17/23 Session #:: 12 Physician Prescribed Exercise Modalities: Treadmill, Airdyne and NuStep Frequency: 3x/week for 12 weeks [36 sessions] Intensity: 60-80% of age predicted maximum heart rate reserve Duration: 30 - 45 minutes Current METSs:: 4.5 Target Heart Rate:: 116-132 Current RPE:: 11-13 Maximum Excercise HR:: 136 Resting Blood Pressure: 110/58 Maximum Exercise Blood Pressure: 142/70 EKG Type: NSR to ST with rare PAC and PVC Outcomes & Goals Goals:: Verbalizes understanding of THR, RPE & goal METS by session 6, Documents in home exercise log/reports 30 min aerobic 5 day/wk by DC, Demonstrates accurate pulse taking by DC and Other additional outcome/goals: see below Intervention & Plan Exercise Program Goals: Instruct on personal THR & RPE, Instruct on MET level & personal MET goal, Show patient to take own pulse /validate performance until accurate, Instruct on home exercise and Other additional plan/int 30-day Reassessments 30 day Reassessments:: Progressing Reassessment Notes & Comments:: RPE explained Physical Activity Home Exercise Physical Activity - Home Exercise: Safe Exercise, Warm-up, Self-monitoring, Cool-Down, Home Exercise > 30 min Daily and Sitting Time <3 hours/daily Outcomes & Goals Outcomes/Goals: Demonstrates correct Warm-up/exercise Cool-Down (S3) if = 2.5 METs, Verbalizes symptoms of exercise intolerance by Session 3 (S3), Demonstrate safe equipment use (S3) & follows exercise prescrition (6) and Other: See below Intervention & Plan Plan/Intervention: Instruct warm-up & cool-down if exercising at > 2 METs, Instruct on symptoms of exercise intolerance & actions to take, Instruct & monitor on saf, Assess intial functional capacity & safety risk and Other See below 30-day Reassessments 30 day Reassessments:: Progressing Reassessment Notes & Comments:: warm up explained Nutrition - 30-Day Assessment Program Goals Nutrition Program Goals Patient has diagnosis of Hyperlipidemia (ICD E78)?: Yes Visit Date of Eval: 02/17/23 Session #:: 12 Cholesterol/Lipids (Other Core Measures) Determine presence & major risk factors that modify LDL goal: Hypertension or hypertensive medication, Low HDL cholesterol <40 mg/dL*, Family history of premature CHD in Male < 55 years: female <65 yearsFa and Age men > 45 years; women >/= 55 years Outcomes/Goals: Pt IDs own risk factors & lifestyle modifications by Session 10, Verbalizes symptoms of angina & response by session 3., Pt independently manages and Other Additional Outcomes/Goals: Intervention/Plan: Advocate for lipid panel cholesterol medication if applicable, Instruct on personal lipid levels & lipid goals/NCEP guidelines, Instruct on cholesterol and Other additional plan/int Referral to dietitian:: No 30-day Reassessments:: Progressing Reassessment Notes & Comments:: will attend nutrition class Diabetes (Other Core Measures) Diabetes Type: Not Applicable Weight Mgt (Other Care) Height: 5 ft Weight:: 101 lb BMI: 19.7 Diagnosis Overweight/Obesity BMI> 30% ICD-10 E66: No Diagnosis High BMI/Morbid Obesity BMI> 35% ICD-10 Z68: No Outcomes/Goals: Pt sets, maintains & shows weight loss goal & trend during rehab and Other additional outcomes/goals Intervention/Plan: Instruct on ideal BMI & set weight loss goal w/patient, Assist pt to ID & incorporate diet changes for weight loss by S9, Refer to Structured Weight Loss program as appropriate, Encourage goal of using 250-300dcal per session for weight loss and Other additional plan/interventions 30 day Reassessments:: Progressing Reassessment Notes & Comments:: pt to attend nutrition class Healthy Eating Habits Will attend diet classes:: Yes Outcomes/Goals:: Consume diet rich in vegs,fruits,whole grain/high fiber,fish,lean meat, Limit sat/trans fats,cholesterol & added salts & sugars and Other additional outcome/goals: Intervention/Plan:: Assess current eating habits and Other Additional plan/interventions 30-day Reassessments:: Progressing Reassessment Notes & Comments:: pt to attend nutrition class Education Gave educational materials for:: Signs & symptoms of hypoglycemia, Signs & symptoms of hyperglycemia, Relate diabetes to coronary artery disease and Healthy eating Nutrition - 60-Day Assessment Weight Mgt (Other Care) Height: 5 ft Weight:: 101 lb BMI: 19.7 Core - 30-Day Assessment Medication Compliance Preventative Medication(s):: Aspirin, Ticagrelor/P2Y12 inhibitor and Statin/lipid H/O mental health issues: depression, anxiety, or addiction?: No Doesn?t believe in the benefits of treatment?: No Believes medications are unnecessary or harmful?: No Has a concern about medication side effects?: No Expresses concern over the cost of medications?: No Outcomes/Goals: Verbalizes medications,desired effect & common side effects @ DC, Pt self-reports following medication regimen, Keeps card in wallet w/medications listed by DC and Other additional outcome/goals: Interventions/plans: Instruct on medication effects & side effects, Review medication list w/patient every two weeks, Instruct importance of taking meds as ordered & assist problem solving and Other additional 30-day Reassessments:: Progressing Reassessment Notes & Comments:: pt encouraged to take her meds Tobacco Use Tobacco Use: Non-smoker Hypertension Resting Blood Pressure:: 110/58 [place] [employer] Hypertension Guidelines Peak Exercise Blood Pressure:: 142/70 Outcomes/Goals: Able to verbalize/achieve optimal blood pressure <130/80, Incorporates diet changes & exercise for blood pressure control by DC and Other additional outcomes/goals Interventions/plan: Instruct on optimal blood pressure, hypertension & medications, Instruct on effects of sodium, alcohol, stress, exercise &hypertension and Other additional plan/interventions 30 day Reassessments:: Progressing Reassessment Notes & Comments:: pt encouraged to take her meds Tobacco Cessation Referral Smoking Cessation Referral:: No Individual Education/Counseling:: No Education Schedule Given:: Yes Psychosocial - 30-Day Assess VIsit Date of Eval: 02/17/23 Session #:: 12 History of previous Mental disease:: No Target Goals Target Goals Outcomes/Goals: See list Psychosocial Outcomes/Goals:: ID's personal stressors & 2 strategies to manage stress by discharge and Other Additional outcome/goals: Intervention/Plan: See List Interventions/Plan:: Assess stressors,coping strategies & signs of derpression on admission, Instruct/assist pt to develop coping & personal stress Mgt strategies, Refer to Behavioral Health if appropriate, Refer to Physician if appropriate, Instruct patient to recognize signs & symptoms of depression, Instruct patient to recog and Other additional plan/intervention 30-day Reassessments: 30 day Reassessments:: Met Psychosocial - 60-Day Assess Target Goals Target Goals Outcomes/Goals: See list Psychosocial Outcomes/Goals:: ID's personal stressors & 2 strategies to manage stress by discharge and Other Additional outcome/goals: Psychosocial - 90-Day Assess Target Goals Target Goals Psychosocial - Final Assessmen Target Goals Target Goals Nutrition - 90-Day Assessment Weight Mgt (Other Care) Height: 5 ft Weight:: 101 lb BMI: 19.7 Nutrition - Final Assessment Weight Mgt (Other Care) Height: 5 ft Weight:: 101 lb BMI: 19.7
[2023-02-17 09:01] VITALS: BP 110/58; BMI 19.7
== END 2023-03-04 23:59 ==
LOC: CR 11:30
PROVIDERS: PCP Family Medicine; Referring Provider Internal Medicine Cardiovascular Disease; Visit Provider Internal Medicine Cardiovascular Disease
DX: I25.10 Atherosclerotic heart disease of native coronary artery without angina pectoris (principal); Z95.5 Presence of coronary angioplasty implant and graft
CPT/HCPCS: 93798

== ENCOUNTER 2023-04-02 11:30 | Outpatient (RCR) | payer OTHER, SELFPAY ==
[2023-02-17 09:01] VITALS: BMI 19.7
[2023-03-05 00:50] VITALS: BP 110/58
--- NOTE | 2023-03-19 11:12 | PCM.CR.ITP ---
Nutrition - Initial Assessment Weight Mgt (Other Care) Height: 5 ft Weight:: 101 lb BMI: 19.7 Psychosocial - Initial Assess Target Goals Target Goals Patient Health Questionnaire PHQ-9 Screening 60-Day Re-eval Assessment: 1. Little interest or pleasure in doing things: Several days 2. Feeling down, depressed, or hopeless: Several days 3. Trouble falling or staying asleep, or sleeping too much: Several days 4. Feeling tired or having little energy: Several days 5. Poor appetite or overeating: Several days 6. Feeling bad about yourself -- or that you are a failure or have let yourself or your family down: Not at all 7. Trouble concentrating on things, such as reading the newspaper or watching television: Several days 8. Moving or speaking so slowly that other people could have noticed. Or the opposite - being so fidgety or restless that you have been moving around a lot more than usual: Not at all 9. Thoughts that you would be better off , or of hurting yourself in some way: Not at all How difficult have these problems made it for you to do your work, take care of things at home, or get along with other people?: Somewhat difficult Total Score: 6 Self-Efficacy 6-Item Scale 60-Day Re-eval Assessment: We would like to know how confident you are in doing certain activities. Please select your confidence level for: Fatigue Select Number: 8 Physical Discomfort or Pain Select Number: 8 Emotional Distress Select Number: 8 Other Symptoms or Health Problems Select Number: 8 Different Tasks and Activities Select Number: 8 Medication Select Number: 8 Total Score:: 8 Nutrition Survey Nutrition Survey Instructions Scoring Instructions Exercise - 60-day Assessment Visit Date of Eval: 03/19/23 Session #:: 24 Physician Prescribed Exercise Modalities: Treadmill, Airdyne and NuStep Frequency: 3x/week for 12 weeks [36 sessions] Intensity: 60-80% of age predicted maximum heart rate reserve Duration: 30 - 45 minutes Current METSs:: 4.5 Target Heart Rate:: 116-132 Current RPE:: 9-14 Maximum Excercise HR:: 144 Resting Blood Pressure: 92/52 Maximum Exercise Blood Pressure: 118/72 EKG Type: NSR to ST Outcomes & Goals Goals:: Verbalizes understanding of THR, RPE & goal METS by session 6, Documents in home exercise log/reports 30 min aerobic 5 day/wk by DC, Demonstrates accurate pulse taking by DC and Other additional outcome/goals: see below Intervention & Plan Exercise Program Goals: Instruct on personal THR & RPE, Instruct on MET level & personal MET goal, Show patient to take own pulse /validate performance until accurate, Instruct on home exercise and Other additional plan/int 30-day Reassessments 30 day Reassessments:: Progressing Reassessment Notes & Comments:: THR explained Physical Activity Home Exercise Physical Activity - Home Exercise: Safe Exercise, Warm-up, Self-monitoring, Cool-Down, Home Exercise > 30 min Daily and Sitting Time <3 hours/daily Outcomes & Goals Outcomes/Goals: Demonstrates correct Warm-up/exercise Cool-Down (S3) if = 2.5 METs, Verbalizes symptoms of exercise intolerance by Session 3 (S3), Demonstrate safe equipment use (S3) & follows exercise prescrition (6) and Other: See below Intervention & Plan Plan/Intervention: Instruct warm-up & cool-down if exercising at > 2 METs, Instruct on symptoms of exercise intolerance & actions to take, Instruct & monitor on saf, Assess intial functional capacity & safety risk and Other See below 30-day Reassessments 30 day Reassessments:: Progressing Reassessment Notes & Comments:: warm up encouraged Nutrition - 30-Day Assessment Weight Mgt (Other Care) Height: 5 ft Weight:: 101 lb BMI: 19.7 Nutrition - 60-Day Assessment Program Goals Nutrition Program Goals Patient has diagnosis of Hyperlipidemia (ICD E78)?: Yes Visit Date of Eval: 03/19/23 Session #:: 24 Cholesterol/Lipids (Other Core Measures) Determine presence & major risk factors that modify LDL goal: Hypertension or hypertensive medication, Low HDL cholesterol <40 mg/dL*, Family history of premature CHD in Male < 55 years: female <65 yearsFa and Age men > 45 years; women >/= 55 years Outcomes/Goals: Pt IDs own risk factors & lifestyle modifications by Session 10, Verbalizes symptoms of angina & response by session 3., Pt independently manages and Other Additional Outcomes/Goals: Intervention/Plan: Advocate for lipid panel cholesterol medication if applicable, Instruct on personal lipid levels & lipid goals/NCEP guidelines, Instruct on cholesterol and Other additional plan/int Referral to dietitian:: No 30-day Reassessments:: Progressing Reassessment Notes & Comments:: pt to attend nutrition class Diabetes (Other Core Measures) Diabetes Type: Not Applicable Weight Mgt (Other Care) Height: 5 ft Weight:: 101 lb BMI: 19.7 Diagnosis Overweight/Obesity BMI> 30% ICD-10 E66: No Diagnosis High BMI/Morbid Obesity BMI> 35% ICD-10 Z68: No Outcomes/Goals: Pt sets, maintains & shows weight loss goal & trend during rehab and Other additional outcomes/goals Intervention/Plan: Instruct on ideal BMI & set weight loss goal w/patient, Assist pt to ID & incorporate diet changes for weight loss by S9, Refer to Structured Weight Loss program as appropriate, Encourage goal of using 250-300dcal per session for weight loss and Other additional plan/interventions 30 day Reassessments:: Progressing Reassessment Notes & Comments:: pt to attend nutrition class Healthy Eating Habits Will attend diet classes:: Yes Outcomes/Goals:: Consume diet rich in vegs,fruits,whole grain/high fiber,fish,lean meat, Limit sat/trans fats,cholesterol & added salts & sugars and Other additional outcome/goals: Intervention/Plan:: Assess current eating habits and Other Additional plan/interventions 30-day Reassessments:: Progressing Reassessment Notes & Comments:: pt to attend nutrition class Education Gave educational materials for:: Signs & symptoms of hypoglycemia, Signs & symptoms of hyperglycemia, Relate diabetes to coronary artery disease and Healthy eating Core - 60-Day Assessment Visit Date of Eval: 03/19/23 Session #:: 24 Medication Compliance Preventative Medication(s):: Aspirin, Ticagrelor/P2Y12 inhibitor and Statin/lipid H/O mental health issues: depression, anxiety, or addiction?: No Doesn?t believe in the benefits of treatment?: No Believes medications are unnecessary or harmful?: No Has a concern about medication side effects?: No Expresses concern over the cost of medications?: No Outcomes/Goals: Verbalizes medications,desired effect & common side effects @ DC, Pt self-reports following medication regimen, Keeps card in wallet w/medications listed by DC and Other additional outcome/goals: Interventions/plans: Instruct on medication effects & side effects, Review medication list w/patient every two weeks, Instruct importance of taking meds as ordered & assist problem solving and Other additional 30-day Reassessments:: Progressing Reassessment Notes & Comments:: pt encouraged to take her meds Tobacco Use Tobacco Use: Non-smoker Hypertension Hypertension Diagnosis:: Hypertension ICD-10 I10 Resting Blood Pressure:: 92/52 [place] [employer] Hypertension Guidelines Peak Exercise Blood Pressure:: 118/72 Outcomes/Goals: Able to verbalize/achieve optimal blood pressure <130/80, Incorporates diet changes & exercise for blood pressure control by DC and Other additional outcomes/goals Interventions/plan: Instruct on optimal blood pressure, hypertension & medications, Instruct on effects of sodium, alcohol, stress, exercise &hypertension and Other additional plan/interventions 30 day Reassessments:: Met Tobacco Cessation Referral Smoking Cessation Referral:: No Individual Education/Counseling:: No Education Schedule Given:: Yes Psychosocial - 30-Day Assess Target Goals Target Goals Psychosocial - 60-Day Assess VIsit Date of Eval: 03/19/23 Session #:: 24 History of previous Mental disease:: No Target Goals Target Goals Psychosocial - 90-Day Assess Target Goals Target Goals Psychosocial - Final Assessmen Target Goals Target Goals Nutrition - 90-Day Assessment Weight Mgt (Other Care) Height: 5 ft Weight:: 101 lb BMI: 19.7 Nutrition - Final Assessment Weight Mgt (Other Care) Height: 5 ft Weight:: 101 lb BMI: 19.7
[2023-03-19 11:21] VITALS: BP 92/52; BMI 19.7
== END 2023-04-04 23:59 ==
LOC: CR 11:30
PROVIDERS: PCP Family Medicine; Referring Provider Internal Medicine Cardiovascular Disease; Visit Provider Internal Medicine Cardiovascular Disease
DX: I25.10 Atherosclerotic heart disease of native coronary artery without angina pectoris (principal); Z95.5 Presence of coronary angioplasty implant and graft
CPT/HCPCS: 93798

== ENCOUNTER 2023-04-23 11:30 | Outpatient (RCR) | payer OTHER, SELFPAY ==
[2023-03-19 11:21] VITALS: BMI 19.7
[2023-04-05 00:47] VITALS: BP 110/58; BP 92/52
== END 2023-05-05 23:59 ==
LOC: CR 11:30
PROVIDERS: PCP Family Medicine; Referring Provider Internal Medicine Cardiovascular Disease; Visit Provider Internal Medicine Cardiovascular Disease
DX: I25.10 Atherosclerotic heart disease of native coronary artery without angina pectoris (principal); Z95.5 Presence of coronary angioplasty implant and graft; R07.9 Chest pain, unspecified
CPT/HCPCS: 93798

== ENCOUNTER → 2023-04-29 | Outpatient (CLI) | payer OTHER, SELFPAY ==
[2023-03-19 11:21] VITALS: BMI 19.7
[2023-04-29 09:24] LABS: Absolute Lymphocyte Count 1.47 X10^3/uL (0.83-4.51); Absolute Neutrophil Count 2.8 X10^3/uL (2.0-7.7); Basophil# 0.01 X10^3/uL; Basophil% 0.2 % (0-1); Eosinophil# 0.13 X10^3/uL; Eosinophils% 2.7 % (0-5); Hematocrit 37.9 % (37-47); Lymphocyte # 1.47 X10^3/ul (0.83-4.51); Lymphocyte % 30.5 % (19-41); Mean Corp Hgb Conc 31.7 g/dL (32-36); Mean Corpuscular Hgb 29.8 pg (27.0-32.0); Mean Platelet Vol. 8.7 fl (6.2-12.0); Monocyte# 0.37 X10^3/uL; Monocyte% 7.7 % (0-10); NRBC Flagged by Analyzer 0 % (0-5); Neutrophil # 2.83 X10^3/uL (2.7-7.7); Neutrophil % 58.7 % (47-70); Platelet Count 205 K/mm3 (150-450); RBC Distribution Width CV 12.5 % (11.6-14.6); RBC Distribution Width SD 43.7 fl (35.1-43.9); Red Blood Count 4.03 M/mm3 (4.2-5.4); White Blood Count 4.8 K/mm3 (4.4-11.0)
[2023-04-29 10:07] LABS: Anion Gap 1 (5-15); BUN 19 mg/dL (7-18); BUN/Creat Ratio 22.8 RATIO (10-20); Calcium,Total 8.8 mg/dL (8.5-10.1); Chloride 110 mmol/L (98-107); Creatinine, Serum 0.84 mg/dL (0.55-1.02); EST Glomerular Filtration Rate 73 mL/min (>60); Est Glom Filt Rate - Afr Amer 88 mL/min (>60); Glucose 101 mg/dL (74-106); Potassium 3.8 mmol/L (3.5-5.1); Sodium Level 137 mmol/L (136-145); Thyroid Stim Hormone (TSH) 2.25 uIU/mL (0.358-3.74)
== END | disposition home or self-care (01) ==
LOC: LAB 09:11
PROVIDERS: PCP Family Medicine; Referring Provider Nurse Practitioner Gerontology; Visit Provider Nurse Practitioner Gerontology
DX: E87.6 Hypokalemia (principal); R53.83 Other fatigue
CPT/HCPCS: 36415; 80048; 84443; 85025

== ENCOUNTER → 2023-09-22 | Outpatient (CLI) | payer OTHER, SELFPAY ==
[2023-03-19 11:21] VITALS: BMI 19.7
[2023-09-22 10:06] LABS: Absolute Lymphocyte Count 1.71 X10^3/uL (0.83-4.51); Absolute Neutrophil Count 2.3 X10^3/uL (2.0-7.7); Basophil# 0.01 X10^3/uL; Basophil% 0.2 % (0-1); Eosinophil# 0.21 X10^3/uL; Eosinophils% 4.5 % (0-5); Hematocrit 39.3 % (37-47); Lymphocyte # 1.71 X10^3/ul (0.83-4.51); Lymphocyte % 36.6 % (19-41); Mean Corp Hgb Conc 33.1 g/dL (32-36); Mean Corpuscular Hgb 30.2 pg (27.0-32.0); Mean Corpuscular Volume 91.4 fL (81-99); Mean Platelet Vol. 9.2 fl (6.2-12.0); Monocyte# 0.41 X10^3/uL; Monocyte% 8.8 % (0-10); NRBC Flagged by Analyzer 0 % (0-5); Neutrophil # 2.32 X10^3/uL (2.7-7.7); Neutrophil % 49.7 % (47-70); Platelet Count 233 K/mm3 (150-450); RBC Distribution Width CV 12.6 % (11.6-14.6); RBC Distribution Width SD 41.3 fl (35.1-43.9); White Blood Count 4.7 K/mm3 (4.4-11.0)
[2023-09-22 12:00] LABS: Anion Gap 9 (5-15); BUN 17 mg/dL (7-18); BUN/Creat Ratio 18.8 RATIO (10-20); Calcium,Total 9.4 mg/dL (8.5-10.1); Chloride 109 mmol/L (98-107); Creatinine, Serum 0.91 mg/dL (0.55-1.02); EST Glomerular Filtration Rate 66 mL/min (>60); Est Glom Filt Rate - Afr Amer 80 mL/min (>60); Glucose 108 mg/dL (74-106); Potassium 3.7 mmol/L (3.5-5.1); Sodium Level 140 mmol/L (136-145); Thyroid Stim Hormone (TSH) 2.98 uIU/mL (0.358-3.74)
== END | disposition home or self-care (01) ==
LOC: LAB 09:50
PROVIDERS: PCP Family Medicine; Referring Provider Nurse Practitioner Gerontology; Visit Provider Nurse Practitioner Gerontology
DX: R07.89 Other chest pain (principal); R53.83 Other fatigue
CPT/HCPCS: 36415; 80048; 83880; 84443; 85025

== ENCOUNTER → 2023-10-06 | Outpatient (CLI) | payer OTHER, SELFPAY ==
[2023-03-19 11:21] VITALS: BMI 19.7
[2023-10-06 15:38] LABS: Absolute Lymphocyte Count 2.07 X10^3/uL (0.83-4.51); Absolute Neutrophil Count 2.9 X10^3/uL (2.0-7.7); Basophil# 0.01 X10^3/uL; Basophil% 0.2 % (0-1); Eosinophil# 0.17 X10^3/uL; Hematocrit 39.4 % (37-47); Hemoglobin 12.7 g/dL (12.0-15.0); Lymphocyte # 2.07 X10^3/ul (0.83-4.51); Lymphocyte % 36.8 % (19-41); Mean Corp Hgb Conc 32.2 g/dL (32-36); Mean Corpuscular Volume 93.1 fL (81-99); Mean Platelet Vol. 9.4 fl (6.2-12.0); Monocyte# 0.45 X10^3/uL; NRBC Flagged by Analyzer 0 % (0-5); Neutrophil # 2.91 X10^3/uL (2.7-7.7); Neutrophil % 51.8 % (47-70); Platelet Count 281 K/mm3 (150-450); RBC Distribution Width SD 44.4 fl (35.1-43.9); Red Blood Count 4.23 M/mm3 (4.2-5.4); White Blood Count 5.6 K/mm3 (4.4-11.0)
[2023-10-06 15:44] LABS: ALB/GLOB Ratio 1.1 RATIO (0.9-2.4); AST(SGOT) 19 U/L (15-37); Alanine Aminotransfer ALT/SGPT 37 U/L (13-56); Albumin, Serum 3.8 g/dL (3.2-5.0); Alkaline Phosphatase 107 U/L (45-117); Anion Gap 7 (5-15); BUN 20 mg/dL (7-18); BUN/Creat Ratio 23.3 RATIO (10-20); Chloride 105 mmol/L (98-107); Creatinine, Serum 0.86 mg/dL (0.55-1.02); EST Glomerular Filtration Rate 70 mL/min (>60); Est Glom Filt Rate - Afr Amer 85 mL/min (>60); Globulin 3.5 g/dL (2.2-4.2); Glucose 86 mg/dL (74-106); Potassium 3.8 mmol/L (3.5-5.1); Protein, Total 7.3 g/dL (6.4-8.2); Sodium Level 137 mmol/L (136-145); Thyroid Stim Hormone (TSH) 2.28 uIU/mL (0.358-3.74)
[2023-10-06 15:54] LABS: Erythrocyte Sedimentation Rate 3 mm/hr (0-30)
== END | disposition home or self-care (01) ==
LOC: MFPLAB 12:15
PROVIDERS: PCP Family Medicine; Visit Provider Family Medicine
DX: R60.9 Edema, unspecified (principal)
CPT/HCPCS: 36415; 80053; 84443; 85025; 85652

== ENCOUNTER → 2023-10-08 | Outpatient (CLI) | payer OTHER, SELFPAY ==
[2023-03-19 11:21] VITALS: BMI 19.7
--- NOTE | 2023-10-08 09:11 | STRESSREP ---
Stress Test Report Exercise myocardial perfusion stress test. 67-year-old lady with a history of chest pain Stress protocol: Resting EKG demonstrates normal sinus rhythm with a rate of 61 bpm resting blood pressure is 110/76 mmHg. The patient exercised according to the regular Ananda protocol for a total duration of 7 minutes attaining a maximum heart rate of 150 bpm which was 96% of maximum predicted heart rate; the maximum workload was 10 METS metabolic equivalents. At rest there were no ST or T wave changes noted to suggest ischemia and at peak exercise upsloping ST changes only were noted which did not meet the criteria for ischemia. No clinical angina was noted the test was terminated due to the target heart rate being achieved/fatigue. The peak blood pressure was 130/78 mmHg. Rate-pressure product was 17,000. Myocardial perfusion protocol. 12 point mCi of technetium 99m sestamibi was injected at rest. The patient exercised according to regular Ananda protocol for total duration of 7 minutes and at peak exercise 36 mCi of technetium 99m sestamibi was injected stress images were obtained stress and rest images were reconstructed in comparing the short axis vertical long and horizontal long axis. Gated images were also obtained. Perfusion SPECT analysis: Review of the stress images demonstrate normal uptake of tracer noted in all areas of the myocardium. The resting images similarly demonstrate normal uptake of tracer noted in all areas of the myocardium. No areas of reversibility are noted to suggest ischemia no previous infarct was noted. Gated SPECT analysis: The gated ejection fraction is 86%. Conclusion: Normal exercise myocardial perfusion stress test at a high workload Preserved ejection fraction.
== END | disposition home or self-care (01) ==
PROVIDERS: PCP Family Medicine; Referring Provider Nurse Practitioner Gerontology; Visit Provider Nurse Practitioner Gerontology
DX: R07.89 Other chest pain (principal)
CPT/HCPCS: 78452; 93017; A9500; A4216

== ENCOUNTER → 2023-10-25 | Outpatient (CLI) | payer OTHER, SELFPAY ==
[2023-03-19 11:21] VITALS: BMI 19.7
--- NOTE | 2023-10-25 06:43 | MRI_ITS ---
EXAM: MR HEAD WITHOUT AND WITH INTRAVENOUS CONTRAST CLINICAL INDICATION: facial droop (right), and right sided facial swelling TECHNIQUE: Multiplanar and multisequence MR images of the brain were obtained without and with intravenous contrast. CONTRAST: IV 9ml Clariscan COMPARISON: CT head without contrast 03/04/2011. FINDINGS: BRAIN AND EXTRA-AXIAL SPACES: No diffusion restriction to suspect acute or subacute ischemic infarct. No small T2 FLAIR hyperintensity foci in the white matter of the cerebral hemispheres are chronic white matter ischemic changes. Following IV contrast administration, there are no abnormal enhancing lesions intra-axially and extra-axially. Normal ventricles and cisterns. No communicating or noncommunicating hydrocephalus. No intra- or extra-axial hemorrhage. No intracranial mass or mass effect. Posterior fossa structures are unremarkable. SELLA: Unremarkable. Normal sella turcica, pituitary gland, infundibular stalk, optic chiasm and hypothalamus. AUDITORY SYSTEM: Unremarkable. The internal auditory canals are patent. BONES/JOINTS: Unremarkable. No discrete lytic or blastic abnormalities. SINUSES: Unremarkable as visualized. Clear. MASTOID AIR CELLS: Unremarkable as visualized. Clear. ORBITS: Unremarkable as visualized. Both globes, extraocular muscles, optic nerves and retrobulbar fat appear unremarkable. VASCULATURE: Unremarkable as visualized. Normal flow voids in the major intracranial circulation. MRI/Brain W/WO Contrast IMPRESSION: 1. No MRI evidence of acute or subacute ischemic infarct or remote cortical-based ischemic infarct. 2. Few chronic white matter ischemic changes in both cerebral hemispheres. 3. No abnormal enhancing lesions intra-axially and extra-axially. Electronically Signed: Vahe Bean MD at 8:32 EDT ,
== END | disposition home or self-care (01) ==
PROVIDERS: PCP Family Medicine; Referring Provider Family Medicine; Visit Provider Family Medicine
DX: R29.810 Facial weakness (principal)
CPT/HCPCS: 70553; A9575

== ENCOUNTER → 2023-10-26 09:20 | Outpatient (REF) | payer SELFPAY ==
[2023-03-19 11:21] VITALS: BMI 19.7
== END ==
LOC: CVS 09:20
PROVIDERS: PCP Family Medicine; Referring Provider Nurse Practitioner Gerontology; Visit Provider Nurse Practitioner Gerontology
DX: Z00.00 Encounter for general adult medical examination without abnormal findings (principal)

== ENCOUNTER → 2023-11-04 | Outpatient (CLI) | payer OTHER, SELFPAY ==
[2023-03-19 11:21] VITALS: BMI 19.7
[2023-11-04 15:12] LABS: Absolute Lymphocyte Count 1.52 X10^3/uL (0.83-4.51); Absolute Neutrophil Count 1.8 X10^3/uL (2.0-7.7); Basophil# 0.01 X10^3/uL; Basophil% 0.3 % (0-1); Eosinophil# 0.05 X10^3/uL; Eosinophils% 1.4 % (0-5); Hematocrit 41.1 % (37-47); Hemoglobin 13.3 g/dL (12.0-15.0); Lymphocyte # 1.52 X10^3/ul (0.83-4.51); Lymphocyte % 41.6 % (19-41); Mean Corp Hgb Conc 32.4 g/dL (32-36); Mean Corpuscular Volume 92.6 fL (81-99); Mean Platelet Vol. 9.7 fl (6.2-12.0); Monocyte# 0.29 X10^3/uL; Monocyte% 7.9 % (0-10); NRBC Flagged by Analyzer 0 % (0-5); Neutrophil # 1.77 X10^3/uL (2.7-7.7); Neutrophil % 48.5 % (47-70); Platelet Count 243 K/mm3 (150-450); RBC Distribution Width SD 44.3 fl (35.1-43.9); Red Blood Count 4.44 M/mm3 (4.2-5.4); White Blood Count 3.7 K/mm3 (4.4-11.0)
[2023-11-04 15:38] LABS: AST(SGOT) 28 U/L (15-37); Alanine Aminotransfer ALT/SGPT 34 U/L (13-56); Albumin, Serum 3.6 g/dL (3.2-5.0); Alkaline Phosphatase 96 U/L (45-117); Anion Gap 8 (5-15); BUN 12 mg/dL (7-18); BUN/Creat Ratio 14.7 RATIO (10-20); Calcium,Total 9.2 mg/dL (8.5-10.1); Chloride 106 mmol/L (98-107); Creatinine, Serum 0.82 mg/dL (0.55-1.02); EST Glomerular Filtration Rate 75 mL/min (>60); Est Glom Filt Rate - Afr Amer 90 mL/min (>60); Globulin 3.6 g/dL (2.2-4.2); Glucose 111 mg/dL (74-106); Potassium 3.7 mmol/L (3.5-5.1); Protein, Total 7.2 g/dL (6.4-8.2); Rheumatoid Factor < 10.0 IU/mL (<15); Sodium Level 138 mmol/L (136-145)
[2023-11-04 16:23] LABS: Vitamin B12 327 pg/mL (211-911); Vitamin D,25 Hydroxy 56.4 ng/mL
[2023-11-06 11:09] LABS: Lyme Scn Total Ab w/Rflx Negative (Negative)
[2023-11-08 14:09] LABS: ANTINUCLEAR ANTIBODIES DIRECT Negative (Negative)
== END | disposition home or self-care (01) ==
LOC: MFPLAB 11:50
PROVIDERS: PCP Family Medicine; Visit Provider Family Medicine
DX: M25.40 Effusion, unspecified joint (principal); R53.83 Other fatigue
CPT/HCPCS: 36415; 80053; 82306; 82607; 84439; 85025; 86038; 86431; 86618

== ENCOUNTER 2023-11-25 09:57 | Emergency (ER) | payer OTHER, SELFPAY ==
[2023-03-19 11:21] VITALS: BMI 19.7
[2023-11-25 09:58] VITALS: BP 142/61; PULSE 70; RESP 16; TEMP 36.8; O2SAT 99; BMI 36.5
--- NOTE | 2023-11-25 11:32 | EX.ED.DYSGE1 ---
HPI History of Present Illness Chief Complaint: Edema Narrative Narrative: Patient is a 67-year-old female past medical history of GERD, migraine headaches, CAD status post stents on 01/08/2023 who presented to the emergency department with chief complaint of left hand swelling and random areas of swelling. She states this has been going on for approximately 6 months and she states that she has been following up with her primary care physician on this and has had several test performed. She states that she noted today that she had a left hand swelling as well as 2 days ago she had tongue swelling. States at that point in time she states that she felt like she had some difficulty breathing with her tongue swelling however her symptoms resolved over several hours therefore she did not come in for further evaluation management. Patient denies any new medications, any other changes in her day-to-day routine. She denies any new detergents or any new foods. Patient states that the swelling in the area last for a day or so will be extremely itchy and then resolve on its own without any medications prescribed. She states that she wanted a referral to an nail polish brush machine feeder by her primary care physician however they advised her to come here to the emergency department for further evaluation. [facility] Medical History Atherosclerosis of coronary artery of [place] heart without angina pectoris RLS (restless legs syndrome) GERD (gastroesophageal reflux disease) Migraine Home Medications ?Medication ?Instructions ?Recorded ?Last Taken ?Type acetaminophen 500 mg tablet 500 mg PO Q6H 03/15/19 Unknown History (Tylenol Extra Strength) sumatriptan succinate 50 mg tablet 50 mg PO ONCE PRN migraine headache 03/15/19 Unknown History sertraline 100 mg tablet 100 mg PO DAILY 01/07/23 Unknown History topiramate 25 mg tablet 25 mg PO BID migraine headache 01/07/23 Unknown History aspirin 81 mg tablet,delayed 81 mg PO BREAKFAST #0 tabs 01/09/23 Unknown Rx release cholecalciferol (vitamin D3) 125 125 mcg PO DAILY 01/28/23 Unknown History mcg (5,000 unit) capsule clopidogrel 75 mg tablet (Plavix) 75 mg PO DAILY #90 tabs 01/28/23 Unknown Rx famotidine 20 mg tablet (Pepcid) 20 mg PO DAILY #90 tabs 01/28/23 Unknown Rx potassium chloride 10 mEq See Rx Instructions .Route 03/31/23 Unknown Rx capsule,extended release .COMPLEX #90 caps ezetimibe 10 mg tablet (Zetia) 10 mg PO DAILY #30 tabs 10/08/23 Unknown Rx Allergy/AdvReac Type Severity Reaction Status Date / Time No Known Allergies Allergy Verified 11/25/23 09:57 Family History Brother Heart disease Diabetes Father Heart disease Dementia Prostate cancer Mother CAD (coronary artery disease) Ovarian cancer Sister Diabetes Surgical History History of coronary artery stent placement (01/08/23) History of esophagogastroduodenoscopy (EGD) History of oral surgery History of removal of ovarian cyst History of appendectomy H/O: Social History Smoking Status: Never smoker alcohol intake: never substance use type: does not use additional social history: does not use aspirin or ibuprofen ROS ROS ED ROS Narrative Constitutional: Denies any fevers, chills, headaches, lightheadedness, dizziness Eyes: Denies change in vision double vision blurry vision Cardiovascular: Denies chest pain or palpitations Respiratory: Denies coughing wheezing shortness of breath Abdomen: Denies abdominal pain nausea vomit diarrhea : Denies urinary symptoms Neurological: Denies numbness, weakness, tingling Musculoskeletal: Denies back pain or joint pains Skin: Complains of left hand swelling and a and mild redness as noted above and on and off swelling around her body for the past several months EXAM Physical Exam Narrative Exam Narrative: General: Patient lying in bed rest comfortably did not appear to be in acute distress Head: Atraumatic, normocephalic Eyes, nose, throat: PERRL bilaterally, EOMI bilateral, no conjunctival injection noted, no intraoral lesions noted no sublingual swelling Neck: Soft, supple, trachea midline, no concern for James's angina Cardiovascular: Regular rate and rhythm no murmurs gallops rubs noted Respiratory: Clear to auscultation bilaterally no rales rhonchi wheeze noted Abdomen: Soft, nondistended, nontender to palpation, bowel sounds present x 4 Musculoskeletal: All joints palpated and taken through full range of motion all bony prominences palpated no pain elicited Extremities: +5/5 strength noted in the bilateral upper and lower extremities, no pedal edema on exam Neurological: Patient follow commands knew that she was at [facility] year is 2023 Skin: Patient has swelling and mild erythema to the dorsum of her left hand, no other rashes or lesions noted no petechia no purpura no sloughing of skin noted Const Vital Signs: 11/25/23 09:58 11/25/23 10:15 Temperature 98.2 F Temperature Source Temporal Pulse Rate 70 Respiratory Rate 16 Respiratory Effort Normal Non-Labored Respiratory Pattern Normal Blood Pressure 142/61 H Blood Pressure Mean 88 Pulse Ox 99 Oxygen Delivery Method Room Air MDM MDM MDM Narrative Medical decision making narrative: Patient is a 67-year-old female who presents to the Emergency Department for several months of different areas of swelling in her body. Patient's previous blood work from the beginning of November was reviewed and she had no evidence of leukocytosis her hemoglobin stable 13.3, platelet count was normal at 243 at that point in time. Patient's CMP was largely unremarkable. Patient's vitamin B12 was normal at 312, vitamin D normal at 56.4. Patient's free T4 normal at 0.90. Patient's rheumatoid factor was less than 10 with a BARBIE screen negative as well as a Lyme total antibody negative as well. Patient also had a MRI that was reviewed back on 10/25/2023 that showed no acute or subacute ischemic infarct or remote cortical-based ischemic infarct there are few chronic white matter ischemic changes in both cerebral hemispheres noted no abnormal enhancing lesions intra-axial or extra-axial he noted. At this point time did review the patient's home medication list and she is not on any REMBERTO inhibitors or ARB's. Her left hand swelling does have some mild erythema therefore we will treat her for a hand cellulitis and place her on Keflex. She is advised if she has worsening redness while on antibiotics to return outside of the area marked on her skin. Patient will also be given a steroid burst. She will be encouraged to follow-up with her primary care physician outpatient setting. She referred to [facility] rheumatology as well. Patient was encouraged return with worsening symptoms or concerns. She would like to go home at this point time she is agreeable this plan all question concerns answered she is discharged home stable condition. Discharge Plan Triage Chief Complaint: Edema ED Provider: Osbaldo Talbot Dx/Rx/DC Orders Clinical Impression: Cellulitis of hand, left Instructions: ED Cellulitis Prescriptions: No Action sumatriptan succinate 50 mg tablet 50 mg PO ONCE PRN (Reason: migraine headache) acetaminophen [Tylenol Extra Strength] 500 mg tablet 500 mg PO Q6H cholecalciferol (vitamin D3) 125 mcg (5,000 unit) capsule 125 mcg PO DAILY clopidogrel [Plavix] 75 mg tablet 75 mg PO DAILY Qty: 90 3RF famotidine [Pepcid] 20 mg tablet 20 mg PO DAILY Qty: 90 3RF sertraline 100 mg tablet 100 mg PO DAILY Patient Comments: TAKE 1 AND 1/2 TABLETS DAILY BY MOUTH topiramate 25 mg tablet 25 mg PO BID Patient Comments: TAKE 1 TABLET BY MOUTH TWICE A DAY aspirin 81 mg Tablet,Delayed Release (Dr/Ec) 81 mg PO BREAKFAST Qty: 0 0RF potassium chloride 10 mEq capsule, extended release See Rx Instructions .ROUTE .COMPLEX Qty: 90 1RF Dose Instruction: TAKE 1 CAPSULE BY MOUTH EVERY DAY Rx Instructions: TAKE 1 CAPSULE BY MOUTH EVERY DAY ezetimibe [Zetia] 10 mg tablet 10 mg PO DAILY Qty: 30 11RF Primary Care Provider: Siddharth Soriano Referrals: Siddharth Soriano MD [Primary Care Provider] - Activity Restrictions/Additional Instructions: Take antibiotics as prescribed. Take steroids as prescribed. Follow-up with [facility] rheumatology at [address] [place], [place] [address]m[place], [place] [address]. Phone number is [phone]. Follow-up your primary care physician outpatient setting. Return with worsening symptoms or any concerns. Print Language: Lao Disposition Disposition: Home, Self Care
== END 2023-11-25 12:29 | disposition home or self-care (01) ==
PROVIDERS: Emergency Provider Emergency Medicine; PCP Family Medicine; Visit Provider Emergency Medicine
DX: L03.114 Cellulitis of left upper limb (principal); I25.10 Atherosclerotic heart disease of native coronary artery without angina pectoris; K21.9 Gastro-esophageal reflux disease without esophagitis; G25.81 Restless legs syndrome; Z79.82 Long term (current) use of aspirin; Z79.02 Long term (current) use of antithrombotics/antiplatelets; Z79.899 Other long term (current) drug therapy; Z95.5 Presence of coronary angioplasty implant and graft
CPT/HCPCS: 99282

== ENCOUNTER → 2023-12-11 | Outpatient (CLI) | payer OTHER, SELFPAY ==
[2023-03-19 11:21] VITALS: BMI 19.7
[2023-12-17 03:07] LABS: Alternaria tenuis <0.10 kU/L (Class 0); Ash, White <0.10 kU/L (Class 0); Aspergillus fumigatus <0.10 kU/L (Class 0); Bermuda Grass <0.10 kU/L (Class 0); Birch <0.10 kU/L (Class 0); Black Walnut <0.10 kU/L (Class 0); Cat Hair / Dander,Stand <0.10 kU/L (Class 0); Cedar, Mountain <0.10 kU/L (Class 0); Cladosporium herbarum <0.10 kU/L (Class 0); Clam <0.10 kU/L (Class 0); Cockroach, American <0.10 kU/L (Class 0); Codfish <0.10 kU/L (Class 0); Corn <0.10 kU/L (Class 0); Cottonwood <0.10 kU/L (Class 0); D farinae Mite <0.10 kU/L (Class 0); D pteronyssinus <0.10 kU/L (Class 0); Dog Epithelia <0.10 kU/L (Class 0); Egg, White <0.10 kU/L (Class 0); Elm, American White <0.10 kU/L (Class 0); Immunoglobulin E 10 IU/mL (6-495); Maple/Box Elder <0.10 kU/L (Class 0); Milk (Cow) <0.10 kU/L (Class 0); Mouse Urine <0.10 kU/L (Class 0); Mulberry, White <0.10 kU/L (Class 0); Oak, White <0.10 kU/L (Class 0); Peanut <0.10 kU/L (Class 0); Pecan <0.10 kU/L (Class 0); Penicillium Notatum <0.10 kU/L (Class 0); Pigweed, Rough <0.10 kU/L (Class 0); Ragweed, Short/Common <0.10 kU/L (Class 0); Russian Thistle <0.10 kU/L (Class 0); SCALLOP <0.10 kU/L (Class 0); SESAME SEED <0.10 kU/L (Class 0); Sheep Sorrel <0.10 kU/L (Class 0); Shrimp <0.10 kU/L (Class 0); Soybean <0.10 kU/L (Class 0); Sycamore, American <0.10 kU/L (Class 0); Timothy Grass <0.10 kU/L (Class 0); Walnut, (Food) <0.10 kU/L (Class 0); Wheat <0.10 kU/L (Class 0)
== END | disposition home or self-care (01) ==
PROVIDERS: PCP Family Medicine; Referring Provider Otolaryngology; Visit Provider Otolaryngology
DX: T78.3XXA Angioneurotic edema, initial encounter (principal); T78.40XA Allergy, unspecified, initial encounter; X58.XXXA Exposure to other specified factors, initial encounter
CPT/HCPCS: 36415; 82785; 86003; 86160; 86161

== ENCOUNTER → 2024-02-09 | Outpatient (CLI) | payer OTHER, SELFPAY ==
[2023-03-19 11:21] VITALS: BMI 19.7
[2024-02-18 13:08] LABS: HPV APTIMA, High Risk Negative (Negative)
[2024-02-18 13:56] LABS: HPV Reflexed? YES, CHARGE PATIENT
== END | disposition home or self-care (01) ==
PROVIDERS: PCP Family Medicine; Referring Provider Nurse Practitioner Family; Visit Provider Nurse Practitioner Family
DX: Z12.4 Encounter for screening for malignant neoplasm of cervix (principal)
CPT/HCPCS: 87624; 88175; G0145

== ENCOUNTER → 2024-03-01 | Outpatient (CLI) | payer OTHER, SELFPAY ==
[2023-03-19 11:21] VITALS: BMI 19.7
[2024-03-01 17:44] LABS: Absolute Lymphocyte Count 1.84 X10^3/uL (0.83-4.51); Basophil# 0.03 X10^3/uL; Basophil% 0.5 % (0-1); Eosinophil# 0.34 X10^3/uL; Hematocrit 42.6 % (37-47); Hemoglobin 13.7 g/dL (12.0-15.0); Lymphocyte # 1.84 X10^3/ul (0.83-4.51); Lymphocyte % 32.6 % (19-41); Mean Corp Hgb Conc 32.2 g/dL (32-36); Mean Corpuscular Hgb 29.7 pg (27.0-32.0); Mean Corpuscular Volume 92.2 fL (81-99); Mean Platelet Vol. 9.4 fl (6.2-12.0); Monocyte# 0.42 X10^3/uL; Monocyte% 7.4 % (0-10); NRBC Flagged by Analyzer 0 % (0-5); Neutrophil % 53.3 % (47-70); Platelet Count 260 K/mm3 (150-450); RBC Distribution Width CV 13.2 % (11.6-14.6); Red Blood Count 4.62 M/mm3 (4.2-5.4); White Blood Count 5.6 K/mm3 (4.4-11.0)
[2024-03-01 18:21] LABS: ALB/GLOB Ratio 1.1 RATIO (0.9-2.4); AST(SGOT) 18 U/L (15-37); Alanine Aminotransfer ALT/SGPT 31 U/L (13-56); Albumin, Serum 3.8 g/dL (3.2-5.0); Alkaline Phosphatase 96 U/L (45-117); Anion Gap 6 (5-15); BUN 18 mg/dL (7-18); BUN/Creat Ratio 21.9 RATIO (10-20); Calcium,Total 9.3 mg/dL (8.5-10.1); Chloride 106 mmol/L (98-107); Creatinine, Serum 0.82 mg/dL (0.55-1.02); EST Glomerular Filtration Rate 74 mL/min (>60); Est Glom Filt Rate - Afr Amer 90 mL/min (>60); Globulin 3.4 g/dL (2.2-4.2); Glucose 90 mg/dL (74-106); Potassium 3.9 mmol/L (3.5-5.1); Protein, Total 7.2 g/dL (6.4-8.2); Sodium Level 138 mmol/L (136-145)
== END | disposition home or self-care (01) ==
LOC: MFPLAB 15:17
PROVIDERS: PCP Family Medicine; Visit Provider Nurse Practitioner Family
DX: R42 Dizziness and giddiness (principal)
CPT/HCPCS: 36415; 80053; 84443; 85025

== ENCOUNTER → 2024-05-19 | Outpatient (CLI) | payer OTHER, SELFPAY ==
[2023-03-19 11:21] VITALS: BMI 19.7
[2024-05-19 15:19] LABS: Absolute Lymphocyte Count 1.78 X10^3/uL (0.83-4.51); Absolute Neutrophil Count 2.6 X10^3/uL (2.0-7.7); Basophil# 0.02 X10^3/uL; Basophil% 0.4 % (0-1); Eosinophil# 0.35 X10^3/uL; Eosinophils% 6.7 % (0-5); Hematocrit 41.7 % (37-47); Hemoglobin 13.2 g/dL (12.0-15.0); Lymphocyte # 1.78 X10^3/ul (0.83-4.51); Lymphocyte % 34.1 % (19-41); Mean Corp Hgb Conc 31.7 g/dL (32-36); Mean Corpuscular Volume 91.6 fL (81-99); Mean Platelet Vol. 9.6 fl (6.2-12.0); Monocyte# 0.42 X10^3/uL; NRBC Flagged by Analyzer 0 % (0-5); Neutrophil # 2.63 X10^3/uL (2.7-7.7); Neutrophil % 50.4 % (47-70); Platelet Count 247 K/mm3 (150-450); RBC Distribution Width CV 13.2 % (11.6-14.6); RBC Distribution Width SD 43.9 fl (35.1-43.9); Red Blood Count 4.55 M/mm3 (4.2-5.4); White Blood Count 5.2 K/mm3 (4.4-11.0)
[2024-05-19 16:01] LABS: ALB/GLOB Ratio 1.2 RATIO (0.9-2.4); AST(SGOT) 21 U/L (15-37); Alanine Aminotransfer ALT/SGPT 31 U/L (13-56); Alkaline Phosphatase 93 U/L (45-117); Anion Gap 7 (5-15); BUN 20 mg/dL (7-18); BUN/Creat Ratio 24.1 RATIO (10-20); Calcium,Total 9.5 mg/dL (8.5-10.1); Chloride 106 mmol/L (98-107); Cholesterol 221 mg/dL (200); Creatinine, Serum 0.83 mg/dL (0.55-1.02); EST Glomerular Filtration Rate 73 mL/min (>60); Est Glom Filt Rate - Afr Amer 88 mL/min (>60); Globulin 3.3 g/dL (2.2-4.2); Glucose 88 mg/dL (74-106); High Density Lipoprotein 93 mg/dL; Potassium 3.8 mmol/L (3.5-5.1); Protein, Total 7.3 g/dL (6.4-8.2); Sodium Level 138 mmol/L (136-145); Triglycerides 67 mg/dL; Very Low Density Lipoprotein 13 mg/dL (5-40)
[2024-05-22 21:07] LABS: HCV Quant. RNA PCR HCV Not Detected IU/mL (.)
== END | disposition home or self-care (01) ==
LOC: MFPLAB 12:20
PROVIDERS: PCP Family Medicine; Referring Provider Family Medicine; Visit Provider Family Medicine
DX: I25.10 Atherosclerotic heart disease of native coronary artery without angina pectoris (principal); E55.9 Vitamin D deficiency, unspecified
CPT/HCPCS: 36415; 80053; 80061; 82306; 85025; 87522

== ENCOUNTER → 2024-06-19 | Outpatient (CLI) | payer OTHER, SELFPAY ==
[2023-03-19 11:21] VITALS: BMI 19.7
--- NOTE | 2024-06-19 06:45 | MRI_ITS ---
PROCEDURE: MRI of the brain without and with intravenous contrast. REASON FOR EXAM: WORSENING HEADACHES, MIGRAINES TECHNIQUE: Multiplanar, multisequence MRI of the images of the brain were obtained without and with intravenous contrast. 9 cc Clariscan IV contrast was administered. COMPARISON: 10/25/2023 FINDINGS: Bones of the calvarium are intact. Extracranial soft tissues show no specific abnormality. Major basilar intracranial flow voids are present. Paranasal sinuses and mastoid air cells are clear. There is a partially empty sella. The orbits, sella, and parasellar structures otherwise unremarkable. No extra-axial fluid collection or midline shift. Angel-white matter differentiation is maintained. Basilar cisterns are clear. No cerebellopontine angle mass lesion. No areas of restricted diffusion. Some small scattered foci of increased T2/FLAIR signal in the deep and subcortical white matter structures of the cerebral hemispheres, greatest near the occipital horns, not significantly changed from the previous study. On postcontrast images, no areas of abnormal brain parenchymal enhancement. The major dural venous sinuses appear patent. Included upper cervical spinal cord unremarkable. MRI/Brain W/WO Contrast IMPRESSION: No acute intracranial abnormality or abnormal brain parenchymal enhancement. Some small scattered white matter hyperintensities in the cerebral hemispheres as above, which may be on the basis of chronic small-vessel ischemic disease, similar to the comparison study. Partially empty sella. Reading Location: [facility]
== END | disposition home or self-care (01) ==
PROVIDERS: PCP Family Medicine; Referring Provider Family Medicine; Visit Provider Family Medicine
DX: G43.009 Migraine without aura, not intractable, without status migrainosus (principal)
CPT/HCPCS: 70553; A9575

== ENCOUNTER → 2024-10-18 | Outpatient (CLI) | payer OTHER, SELFPAY ==
[2023-03-19 11:21] VITALS: BMI 19.7
--- NOTE | 2024-10-18 13:54 | RAD_ITS ---
EXAM: XR Chest, 2 Views CLINICAL INDICATION: PAIN, INJURY STERNUM TECHNIQUE: Frontal and lateral views of the chest. COMPARISON: No relevant prior studies available. FINDINGS: LUNGS AND PLEURAL SPACES: Unremarkable. No consolidation. No pneumothorax. HEART: Unremarkable. No cardiomegaly. MEDIASTINUM: Unremarkable. Normal mediastinal contour. BONES/JOINTS: Unremarkable. No acute fracture. RAD/Chest PA and Lateral IMPRESSION: No acute cardiopulmonary process. Reading Location[facility]
--- NOTE | 2024-10-18 13:54 | RAD_ITS ---
EXAM: XR Chest, 2 Views CLINICAL INDICATION: PAIN, INJURY STERNUM TECHNIQUE: Frontal and lateral views of the chest. COMPARISON: No relevant prior studies available. FINDINGS: LUNGS AND PLEURAL SPACES: Unremarkable. No consolidation. No pneumothorax. HEART: Unremarkable. No cardiomegaly. MEDIASTINUM: Unremarkable. Normal mediastinal contour. BONES/JOINTS: Unremarkable. No acute fracture. RAD/Chest PA and Lateral IMPRESSION: No acute cardiopulmonary process. Reading Location[facility]
== END | disposition home or self-care (01) ==
LOC: MTRAD 13:50
PROVIDERS: PCP Family Medicine; Referring Provider Nurse Practitioner Family; Visit Provider Nurse Practitioner Family
DX: R07.9 Chest pain, unspecified (principal)
CPT/HCPCS: 71046

== ENCOUNTER 2024-12-19 09:48 | Outpatient (CLI) | payer OTHER, SELFPAY ==
[2023-03-19 11:21] VITALS: BMI 19.7
[2024-12-19 12:35] LABS: Hematocrit 39.1 % (37-47); Hemoglobin 12.7 g/dL (12.0-15.0); Immature Granulocytes Count 0.010 X10^3/uL (0.0-0.0); Mean Corp Hgb Conc 32.5 g/dL (32-36); Mean Corpuscular Volume 93.8 fL (81-99); Mean Platelet Vol. 10.0 fl (6.2-12.0); NRBC Flagged by Analyzer 0 % (0-5); Platelet Count 242 K/mm3 (150-450); RBC Distribution Width CV 13.2 % (11.6-14.6); RBC Distribution Width SD 45.1 fl (35.1-43.9); Red Blood Count 4.17 M/mm3 (4.2-5.4); White Blood Count 5.9 K/mm3 (4.4-11.0)
[2024-12-19 13:06] LABS: AST(SGOT) 25 U/L (<=31); Alanine Aminotransfer ALT/SGPT 23 U/L (<=34); Albumin, Serum 4.3 g/dL (3.4-4.8); Alkaline Phosphatase 89 U/L (35-104); Anion Gap 11 (5-15); BUN 22 mg/dL (4-19); BUN/Creat Ratio 24.6 RATIO (10-20); Calcium,Total 9.5 mg/dL (7.6-11.0); Carbon Dioxide 22.8 mmol/L (21.0-32.0); Chloride 108 mmol/L (98-108); Globulin 2.5 g/dL (2.2-4.2); Glucose 81 mg/dL (70-99); Potassium 3.9 mmol/L (3.3-5.1); Vitamin B12 285 pg/mL (180-914); Vitamin D,25 Hydroxy 64.0 ng/mL (30-100)
[2024-12-19 13:17] LABS: Cholesterol 168 mg/dL (<=200); Low Density Lipoprotein Calc. 74 mg/dL; Triglycerides 94 mg/dL; Very Low Density Lipoprotein 19 mg/dL (5-40); cholesterol:hdl ratio screen 2.23
== END 2024-12-19 23:59 | disposition home or self-care (01) ==
LOC: MFPLAB 09:48
PROVIDERS: PCP Family Medicine; Visit Provider Family Medicine
DX: I25.10 Atherosclerotic heart disease of native coronary artery without angina pectoris (principal); R53.83 Other fatigue; E55.9 Vitamin D deficiency, unspecified
CPT/HCPCS: 36415; 80053; 80061; 82306; 82607; 84439; 84443; 85025

== ENCOUNTER → 2025-02-20 | Outpatient (CLI) | payer OTHER, SELFPAY ==
[2023-03-19 11:21] VITALS: BMI 19.7
--- NOTE | 2025-02-20 13:19 | BD_ITS ---
PROCEDURE: DEXA BONE DENSITY STUDY 02/20/2025 REASON FOR EXAM: F, age 69 y/o . Patient is postmenopausal.. TECHNIQUE: Procedure Code: BDDBD Modality: DX Procedure: DEXA BONE DENSITY STUDY COMPARISON: None FINDINGS: BMD and T-SCORES Lumbar spine: 0.850 g/cm2, T-score -1.8 Levels: L1 through L4 Left femoral neck: 0.493 g/cm2, T-score -3.2 Femoral neck comparison data not recommended for monitoring change. Left total hip: 0.762 g/cm2, T-score -1.5 Right femoral neck: 0.563 g/cm2, T-score -2.6 Femoral neck comparison data not recommended for monitoring change. Right total hip: 0.746 g/cm2, T-score -1.6 The World Health Organization has defined the following categories based on bone density: Normal bone density: T-score equal to or greater than -1.0 Osteopenia: T-score between -1.0 and -2.5 Osteoporosis: T-score equal to or less than -2.5 FRAX (or Comparable) Fracture Risk Assessment: 10 Year Probability of Fracture: Major Osteoporotic Fracture: 17% Hip Fracture: 5.3% (Note: FRAX is not to be reported in setting of normal range bone density, osteoporosis on DEXA, known history of osteoporosis, prior osteoporotic hip or vertebral fracture, or for any patient undergoing pharmacological treatment for bone loss.) The National Osteoporosis Foundation (NOF) recommends pharmacological treatment for patients with a FRAX 10-year risk of 3% or higher for a hip fracture, or 20% or higher for a major osteoporotic fracture, to prevent osteoporosis and reduce fracture risk. The patient does meet the pharmacological treatment recommendations for prevention of osteoporosis. BD/Dexa Bone Density Study IMPRESSION: OSTEOPOROSIS. Recommend follow-up as clinically warranted. Reading Location: [facility]
== END | disposition home or self-care (01) ==
PROVIDERS: PCP Family Medicine; Referring Provider Family Medicine; Visit Provider Family Medicine
DX: Z13.820 Encounter for screening for osteoporosis (principal); Z78.0 Asymptomatic menopausal state
CPT/HCPCS: 77080

== ENCOUNTER → 2025-03-13 | Outpatient (CLI) | payer OTHER, SELFPAY ==
[2023-03-19 11:21] VITALS: BMI 19.7
[2025-03-13 18:14] LABS: AST(SGOT) 38 U/L (<=31); Alanine Aminotransfer ALT/SGPT 46 U/L (<=34); Albumin, Serum 4.1 g/dL (3.4-4.8); Alkaline Phosphatase 101 U/L (35-104); Anion Gap 9 (5-15); BUN 26 mg/dL (4-19); BUN/Creat Ratio 28.3 RATIO (10-20); Calcium,Total 9.1 mg/dL (7.6-11.0); Carbon Dioxide 25.2 mmol/L (21.0-32.0); Chloride 106 mmol/L (98-108); Globulin 2.3 g/dL (2.2-4.2); Glucose 88 mg/dL (70-99); Potassium 3.9 mmol/L (3.3-5.1); Vitamin D,25 Hydroxy 52.6 ng/mL (30-100)
--- OUTSIDE RECORDS SUMMARY | 2025-03-13 19:02 | XMS RPT_ITS | CCD ---
Author Organization [facility] Care Team Providers Care Drive In Teller Name Role Phone Dr. Marek Junior Primary Care Provider Dr. John Crook Emergency Provider 1([facility])[phone] Dr. Leny Lock Attending Provider 1([facility])[phone] Dr. Leny Lock Admit Provider 1([facility])[phone] Leny Lock Other Provider 1([facility])[phone] Darwin Esqueda Other Provider 1([facility])[phone] Babak Carvalho Attending Provider 1([facility])[phone] Darwin Esqueda Attending Provider 1([facility])[phone] Dr. Marek Junior Referring Provider 1([facility])[phone] Michael SCHOOL CHILDCARE ATTENDANT, SCHOOL CHILDCARE ATTENDANT-C Marg[place] Attending Provider Marek Junior MD Primary Care Provider Dr. Marek Junior MD Primary Care Provider [phone] Arabella VAZ-CJoselyn Attending Provider 1([facility])[phone] Marek Junior MD Attending Provider Dr. Marek Junior MD Referring Provider 1([facility] )[phone] Chuck VAZ-Marek Carmichael Attending Provider 1([facility])[phone] Marek Junior MD Primary Care Provider Arabella VAZ-C, Joselyn Attending Provider Arabella VAZ-CJoselyn Referring Provider 1([facility])[phone] Marek Junior MD Primary Care Physician Arabella SCHOOL CHILDCARE ATTENDANT-C, Joselyn Attending Physician 1([facility])[phone] Christie ROGERS, Dr. Marek Orozco Attending Physician [phone] Marek Junior Primary Care Unavailable Marek Junior Attending Unavailable Marek Junior Primary Care Unavailable Arabella SCHOOL CHILDCARE ATTENDANT, Joselyn Referring Unavailable Arabella SCHOOL CHILDCARE ATTENDANT, Joselyn Attending Unavailable Marek Junior Primary Care Unavailable Marek Junior Referring Unavailable Marek Junior Attending Unavailable Marek Junior Primary Care Unavailable Marek Junior Referring Unavailable Marek Junior Attending Unavailable Chuck VAZ, Marek Goldsmith Attending Unavailable Marek Junior Primary Care Unavailable Marek Junior Referring Unavailable Marek Junior Primary Care Unavailable Arabella SCHOOL CHILDCARE ATTENDANT, Joselyn Attending Unavailable Marek Junior Primary Care Unavailable Arabella SCHOOL CHILDCARE ATTENDANT, Joselyn Referring Unavailable Arabella SCHOOL CHILDCARE ATTENDANT, Joselyn Attending Unavailable ADRWIN VALADEZ Primary Care Unavailable GERRI STEWART Attending Unavailable MAREK JUNIOR Primary Care Unavailable MIGUEL ÁNGEL ARCEO Attending Unavailable MAREK JUNIOR Primary Care Unavailable FRANCK ALVARADO Attending Unavailable MAREK JUNIOR Primary Care Unavailable GERRI STEWART Referring Unavailable MAREK JUNIOR Primary Care Unavailable Medications Current Medications Medication Drug Class(es) Dates Sig (Normalized) Sig (Original) acetaminophen 500 mg oral tablet (17 sources) Start: 03-15-2019 take 1 tablet by mouth every six hours acetaminophen 110 mg / aspirin 162 mg / caffeine 32.4 mg / salicylamide 152 mg oral tablet (4 sources) Platelet Aggregation Inhibitor, Nonsteroidal Anti-inflammatory Drug, Central Nervous System Stimulant, Methylxanthine ASA-Acetaminophen- Salicyl-Caff 162 mg-110 mg -152 mg-32.4 mg tab Take by mouth. Active amitriptyline hydrochloride 25 mg oral tablet (4 sources) Tricyclic Antidepressant Start: 10-21-2015 take 1 tablet by mouth once daily at bedtime amitriptyline (ELAVIL) 25 mg tablet Take 1 tablet by mouth daily at bedtime. 90 tablet 0 10/21/2015 Active aspirin 81 mg delayed release oral tablet (13 sources) Platelet Aggregation Inhibitor, Nonsteroidal Anti-inflammatory Drug Start: 01-09-2023 take 1 tablet by mouth at breakfast cholecalciferol 0.125 mg oral capsule (9 sources) Vitamin D Start: 01-28-2023 take 1 capsule by mouth once daily take 1 tablet by mouth once lainey y cholecalciferol (VITAMIN D) 1,000 unit tab tablet Take 1,000 Units by mouth once daily. Active ezetimibe 10 mg oral tablet (9 sources) Dietary Cholesterol Absorption Inhibitor Start: 10-08-2023 End: 08-01-2024 take 1 tablet by mouth once daily famotidine 20 mg oral tablet (15 sources) Histamine-2 Receptor Antagonist Start: 01-28-2023 End: 01-27-2024 take 1 tablet by mouth once daily gabapentin 300 mg oral capsule (4 sources) Anti-epileptic Agent Start: 02-16-2012 take 1 capsule by mouth twice daily gabapentin (NEURONTIN) 300 mg capsule Indications: RLS (restless legs syndrome) Take 1 capsule by mouth twice daily. 180 capsule 3 02/16/2012 Active lactobacillus acidophilus [id number] unt oral capsule (4 sources) lactobacillus acidophilus 100 mg (1 billion cell) cap(s) Take by mouth. Active ondansetron 4 mg disintegrating oral tablet (2 sources) Serotonin-3 Receptor Antagonist Start: 05-25-2024 take 1 tablet by mouth every six hours as needed for nausea ondansetron orally disintegrating (ZOFRAN ODT) 4 mg disintegrating tablet Indications: Vomiting and diarrhea Take 1 tablet by mouth every 6 hours as needed for nausea/vomiting. 15 tablet 05/25/2024 Active pravastatin sodium 40 mg oral tablet (9 sources) HMG-CoA Reductase Inhibitor Start: 07-28-2024 take 1 tablet by mouth once daily pravastatin (PRAVACHOL) 40 mg tablet Take 1 tablet by mouth once daily. 07/28/2024 Active Start: 06-19-2024 take 2 tablets by [facility] once daily Start: 05-22-2024 End: 06-19-2024 take 1 tablet by mouth once daily Pravastatin 20 mg tablet Discontinued 20 mg PO daily June 19, 2024 12:00am June 19, 2024 11:37am sertraline 100 mg oral tablet (13 sources) Serotonin Reuptake Inhibitor Start: 01-07-2023 take 1 tablet by mouth once daily SUMAtriptan 50 mg oral tablet (17 sources) Serotonin-1b and Serotonin-1d Receptor Agonist Start: 03-15-2019 take 1 tablet by mouth once as needed for headache MALINI Hose Compression Stockings (3 sources) Start: 06-19-2024 MALINI Hose Compression Stockings Active 0 .Route .MEDSUPPLY 1 0 June 19, 2024 12:00am As directed Start: 06-19-2024 MALINI Hose Compr ession Stockings Active 0 .Route .MEDSUPPLY 1 June 19, 2024 12:00am As directed topiramate 50 mg oral tablet (11 sources) Start: 05-19-2024 take 1 tablet by mouth every twelve hours topiramate (TOPAMAX) 50 mg tablet Take 1 tablet by mouth every 12 hours. 05/19/2024 Active Start: 01-07-2023 take 1 tablet by mouth twice d aily Completed/Discontinued Medications Medication Drug Class(es) Dates Sig (Normalized) Sig (Original) atorvastatin 40 mg oral tablet (20 sources) HMG-CoA Reductase Inhibitor Start: 01-09-2023 End: 11-25-2023 take 1 tablet by mouth at bedtime Atorvastatin 40 mg tablet Discontinued 40 mg PO AT BEDTIME 90 3 February 09, 2023 9:06am November 25, 2023 10:14am On Hold: myalgias calcium carbonate 1250 mg chewable tablet (17 sources) Start: 03-15-2019 End: 01-07-2023 take 1 tablet by mouth once daily Calcium Carbonate 500 mg calcium (1,250 mg) tablet,chewable Discontinued 500 mg PO DAILY March 15, 2019 1:00am January 07, 2023 10:27pm cephalexin 500 mg oral capsule (3 sources) Cephalosporin Antibacterial Start: 11-25-2023 End: 12-20-2023 take 1 capsule by mouth twice daily Cephalexin 500 mg capsule Discontinued 500 mg PO TWICE A DAY 10 5 0 November 25, 2023 12:00am December 20, 2023 11:51am clopidogrel 75 mg oral tablet (8 sources) [id number] Platelet Inhibitor Start: 01-28-2023 End: 01-10-2024 take 1 tablet by mouth once daily Clopidogrel (Plavix) 75 mg tablet Discontinued 75 mg PO DAILY 90 January 28, 2023 12:00am January 09, 2024 12:00am January 10, 2024 12:07am omeprazole 20 mg delayed release oral tablet (13 sources) Proton Pump Inhibitor Start: 01-07-2023 End: 01-28-2023 take 1 tablet by mouth once daily Omeprazole 20 mg tablet,delayed release (DR/EC) Discontinued 20 mg PO DAILY January 07, 2023 12:00am January 28, 2023 2:06pm Start: 04-21-2013 take 1 capsule by mo [facility] twice daily Omeprazole (PRILOSEC) 40 mg capsule Indications: Esophageal reflux Take 1 capsule by mouth twice daily. 180 capsule 3 04/21/2013 Active potassium chloride 10 meq extended release oral capsule (20 sources) Start: 01-28-2023 End: 12-07-2023 take 1 capsule by mouth once daily Potassium Chloride 10 mEq capsule, extended release Discontinued 0 .ROUTE .COMPLEX 90 1 March 31, 2023 4:32pm December 07, 2023 7:58am TAKE 1 CAPSULE BY MOUTH EVERY DAY predniSONE 50 mg oral tablet (3 sources) Start: 11-25-2023 End: 12-20-2023 take 1 tablet by mouth once daily Prednisone 50 mg tablet Discontinued 50 mg PO DAILY 5 5 0 November 25, 2023 12:00am December 20, 2023 11:51am raNITIdine 150 mg oral tablet (20 sources) Histamine-2 Receptor Antagonist Start: 11-04-2017 End: 03-15-2019 take 1 capsule by mouth once daily Ranitidine Hcl 150 mg capsule Discontinued 150 mg PO daily November 04, 2017 12:00am March 15, 2019 4:23pm Start: 11-04-2017 End: 03-15-2019 take 1 capsule by mouth once daily ranitidine 150 mg capsule Discontinued 150 MG PO daily November 03, 2017 11:00pm March 15, 2019 3:23pm take 1 tablet by [facility] twice daily ranitidine (ZANTAC) 150 mg tablet Take 150 mg by mouth twice daily. Active ticagrelor 90 mg oral tablet (9 sources) Start: 01-09-2023 End: 01-28-2023 take 1 tablet by mouth twice daily Ticagrelor (Brilinta) 90 mg Tablet Discontinued 90 mg PO TWICE A DAY 60 0 January 09, 2023 12:00am January 28, 2023 2:05pm Problems Active Problems Problem Classification Problem Date Documented Date Episodic/Chronic Coronary atherosclerosis and other heart disease (10 sources) Coronary atherosclerosis; Translations: [Atherosclerotic heart disease of [place] coronary artery without angina pectoris] Onset: 12-30-2024 01-11-2023 Chronic Deficiency and other anemia (4 sources) Anemia; Translations: [Other and unspecified anemias] 10-14-2023 Episodic Disorders of lipid metabolism (4 sources) Hyperlipidemia; Translations: [Hyperlipidemia, unspecified] 06-19-2024 Chronic Esophageal disorders (4 sources) Gastroesophageal reflux disease; Translations: [Gastro-esophageal reflux disease without esophagitis] Onset: 08-24-2013 08-24-2013 Chronic Fluid and electrolyte disorders (8 sources) Hypokalemia; Translations: [Hypokalemia] 01-28-2023 Episodic Gastritis and duodenitis (8 sources) Gastritis; Translations: [Other specified gastritis] Onset: 04-15-2012 10-14-2023 Episodic Headache; including migraine (1 source) Migraine without aura, not intractable, without status migrainosus; Translations: [Migraine without aura, not intractable, without status migrainosus] Onset: 06-29-2024 Chronic Immunizations and screening for infectious disease (4 sources) Patient encounter status; Translations: [Encounter for screening for human papillomavirus (HPV)] 03-14-2024 Episodic Malaise and fatigue (16 sources) Fatigue; Translations: [Other fatigue] Onset: 12-30-2024 01-28-2023 Episodic Menopausal disorders (1 source) Atrophy of vagina; Translations: [Postmenopausal atrophic vaginitis] 03-14-2024 Chronic Nausea and vomiting (1 source) Diarrhea and vomiting; Translations: [Vomiting, unspecified] 05-25-2024 Episodic Nonspecific chest pain (19 sources) Chest pain; Translations: [Chest pain, unspecified] Onset: 10-23-2024 01-17-2023 Episodic Other circulatory disease (9 sources) Elevated blood pressure; Translations: [Elevated blood-pressure reading, without diagnosis of hypertension] 01-17-2023 Episodic Other circulatory disease (6 sources) Elevated blood-pressure reading, without diagnosis of hypertension; Translations: [Elevated blood pressure reading without diagnosis of hypertension] 01-09-2023 Episodic Other circulatory disease (4 sources) H/O: cardiovascular disease; Translations: [Personal history of other diseases of the circulatory system] 10-14-2023 Episodic Other connective tissue disease (4 sources) Muscle pain; Translations: [Myalgia, unspecified site] 09-22-2023 Episodic Other female genital disorders (1 source) Stenosis of cervix; Translations: [Stricture and stenosis of cervix uteri] 03-14-2024 Episodic Other inflammatory condition of skin (3 sources) Itching of skin; Translations: [Pruritus, unspecified] 11-26-2023 Episodic Residual codes; unclassified (3 sources) Localized edema; Translations: [Localized edema] 11-26-2023 Episodic Skin and subcutaneous tissue infections (3 sources) Cellulitis of left hand; Translations: [Cellulitis of left upper limb] 12-03-2023 Episodic Viral infection (3 sources) Viral disease; Translations: [Viral infection, unspecified] Onset: 09-26-2024 09-26-2024 Episodic Past or Other Problems Problem Classification Problem Date Documented Da te Episodic/Chronic Conditions associated with dizziness or vertigo (1 source) Dizziness and giddiness; Translations: [Dizziness and giddiness] Onset: 03-28-2024 Episodic Coronary atherosclerosis and other heart disease (7 sources) Presence of coronary angioplasty implant and graft; Translations: [Percutaneous transluminal coronary angioplasty status] Onset: 01-08-2023 01-28-2023 Episodic Other connective tissue disease (4 sources) Calcific tendinitis of shoulder; Translations: [Calcific tendinitis of unspecified shoulder] Onset: 07-09-2008 Resolved: 08-03-2008 08-03-2008 Episodic Other gastrointestinal disorders (4 sources) Diarrhea; Translations: [Diarrhea, unspecified] Onset: 04-15-2012 04-15-2012 Episodic Other nervous system disorders (17 sources) Dysphasia; Translations: [Dysphasia] Onset: 01-03-2023 03-15-2019 Episodic Other screening for suspected conditions (not mental disorders or infectious disease) (2 sources) Encounter for screening for malignant neoplasm of cervix; Translations: [Encounter for screening mammogram for malignant neoplasm of breast] Onset: 03-05-2024 Episodic Other upper respiratory infections (2 sources) Sore throat symptom; Translations: [Acute pharyngitis, unspecified] Onset: 09-26-2024 09-26-2024 Episodic Results Test Name Value Interpretation Reference Range Facility [facility] 01-17-2025 CNOV Office Visit ([facility]) PARUL MARSHALL ([id number]) 1955 F Date Time Provider Department 01/17/25 5:45 PM MIGUEL ÁNGEL ARCEO During your visit today, we recorded the following information about you: Temperature Pulse Respiration Blood pressure 97.7 degrees 78/minute 16/minute 122/76 Weight 50.9 kg Miguel Ángel Arceo APRN.POLICE STENOGRAPHER 01/17/2025 6:00 PM Signed [facility] Subjective HPI HPI Parul Marshall is a 69 year old female who presents today for CC of painful rash on head. This started 3 days ago. Has tried otc medication for relief. Symptoms are worsened by nothing. Denies fever, visual changes. .Patient presents with: Rash: pain on right side of head with rash x 3 days PAST MEDICAL HISTORY Diagnosis Date Diarrhea Dyskinesia of esophagus Endometriosis Miscarriage (HCC) 1989 Other and unspecified anemias Personal history of unspecified circulatory disease Restless legs syndrome PAST SURGICAL HISTORY Procedure Laterality Date DELIVERY ONLY 04/05/1981 DELIVERY ONLY 04/05/1993 COLONOSCOPY FLX DX W/COLLJ SPEC WHEN PFRMD 08/30/2003 normal colonoscopy COLONOSCOPY FLX DX W/COLLJ SPEC WHEN PFRMD 04/15/2012 Colonoscopy repeat 10 years EGD TRANSORAL BIOPSY SINGLE/MULTIPLE 08/30/2003 Mild gastritis ESOPHAGOGASTRODUODENOSCOPY TRANSORAL DIAGNOSTIC 12/03/2009 EGD ESOPHAGOGASTRODUODENOSCOPY TRANSORAL DIAGNOSTIC 04/15/2012 EGD LAPAROSCOPIC APPENDECTOMY 04/05/1990 with Ovary Removal PT ED HEART [facility] VASCULAR 01/2023 stent placed ALLERGIES Patient has no known allergies. MEDICATIONS pravastatin (PRAVACHOL) 40 mg tablet Take 1 tablet by mouth once daily. cholecalciferol (VITAMIN D) 1,000 unit tab tablet Take 1,000 Units by mouth once daily. topiramate (TOPAMAX) 50 mg tablet Take 1 tablet by mouth every 12 hours. ondansetron orally disintegrating (ZOFRAN ODT) 4 mg disintegrating tablet Take 1 tablet by mouth every 6 hours as needed for nausea/vomiting. ezetimibe (ZETIA) 10 mg tablet Take 1 tablet by mouth every afternoon. potassium chloride SR (MICRO-K) 10 mEq CR capsule sertraline (ZOLOFT) 100 mg tablet Take 1 tablet by mouth every afternoon. aspirin, enteric coated (ASPIRIN, ENTERIC COATED) 81 mg EC tablet Take 81 mg by mouth once daily. lactobacillus acidophilus 100 mg (1 billion cell) cap(s) Take by mouth. Omeprazole (PRILOSEC) 40 mg capsule Take 1 capsule by mouth twice daily. valACYclovir (VALTREX) 1 gram tablet Take 1 tablet by mouth once daily for 7 days. pravastatin (PRAVACHOL) 20 mg tablet Take 1 tablet by mouth every afternoon. (Patient not taking: Reported on 09/26/2024) famotidine (PEPCID) 20 mg tablet Take 1 tablet by mouth every afternoon. ZQJ-Ndnhuqinlvdxx-Uwxcmzn-C aff 162 mg-110 mg -152 mg-32.4 mg tab Take by mouth. (Patient not taking: Reported on 09/26/2024) ranitidine (ZANTAC) 150 mg tablet Take 150 mg by mouth twice daily. (Patient not taking: Reported on 03/14/2024) amitriptyline (ELAVIL) 25 mg tablet Take 1 tablet by mouth daily at bedtime. (Patient not taking: Reported on 03/14/2024) gabapentin (NEURONTIN) 300 mg capsule Take 1 capsule by mouth twice daily. (Patient not taking: Reported on 03/14/2024) FAMILY HISTORY Problem Relation Age of Onset Heart Mother Coronary Artery Bypass Graft Cancer Mother Hysterectomy due to Cervical Cancer Heart Father Coronary Artery Bypass Graft Alzheimer's Disease Father Osteoporosis Sister Heart Brother Health Issues Diabetes Brother Heart Brother Myocardial Infarction Cancer Maternal Grandmother Lung Cancer SOCIAL HISTORY[1] Review of Systems Objective BP 122/76 Pulse 78 Temp 36.5 ?C (97.7 ?F) Resp 16 Wt 50.9 kg (112 lb 3.4 oz) LMP 10/25/2008 SpO2 98% BMI 22.66 kg/m? Physical Exam Constitutional: General: She is not in acute distress. Appearance: She is not toxic-appearing or diaphoretic. HENT: Head: Normocephalic and atraumatic. Eyes: General: Lids are normal. Comments: PERRLA Pulmonary: Effort: Pulmonary effort is normal. No accessory muscle usage or respiratory distress. Lymphadenopathy: Cervical: No cervical adenopathy. Right cervical: No superficial cervical adenopathy. Left cervical: No superficial cervical adenopathy. Neurological: Mental Status: She is alert and oriented to person, place, and time. {ASSESSMENT/PLAN: 1. Herpes zoster without complication - ICD9: 053.9, ICD10: B02.9 Renal status unknown Patient is to get labs from pcp, I will reconnect with patient tomorrow and see labs Will decrease dosage if labs abnormal. Advised patient to see eye dr mccord. - VALACYCLOVIR 1 GRAM TABLET Miguel Ángel Arceo APRN.POLICE STENOGRAPHER History and Record Review External record(s) reviewed: prior outpatient record. Disposition The patient was discharged. Procedures [1] Social History Tobacco Use Smoking status: Never (more content not included)... Normal [facility] Absolute lymphocyte countOrd ered By: Marek Junior on 12-19-2024 Lymphocytes Auto (Unsp spec) [#/Vol] 1.52 10*3/uL 0.83-4.51 [facility] Absolute neutrophil countOrd ered By: Marek Juinor on 12-19-2024 Neutrophils (Bld) [#/Vol] 3.5 10*3/uL 2.0-7.7 [facility] Anion gap in Serum or Plasma Ordered By: Marek Junior on 12-19-2024 Anion gap [Moles/Vol] 11 mmol/L 5-15 [facility] Automated lymphocyte count a s percentage of total leukocytesOrdered By: Marek Junior on 12-19-2024 Lymphocytes/100 WBC Auto (Unsp spec) 25.8 % 19-41 [facility] BUN/creatinine ratioOrdered By: Marek Junior on 12-19-2024 Urea nitrogen/Creatinine [Mass ratio] 24.6 mg/mg High 10-20 [facility] Basophil percentageOrdered B y: Marek Junior on 12-19-2024 Basophils/100 WBC (Bld) 0.3 % 0- [facility] Bilirubin, totalOrdered By: Marek Junior on 12-19-2024 Bilirubin [Mass/Vol] 0.20 mg/dL 0.00-1.30 [facility] CBC W/Diff, Automatedon 12-04 Absolute Lymph 1.52 X10 3/uL Normal 0.83-4.51 [facility] Comment on above: Order Comment: Order Date: 12/19/24 Order Info: 0184-1 - CBCD Performed By: #### L 100.0100, L500.4050, L500.4100 #### [facility] [address] [place], [address] Absolute Neut 3.5 X10 3/uL Normal 2.0-7.7 [facility] Comment on above: Order Comment: Order Date: 12/19/24 Order Info: 0184-1 - CBCD Performed By: #### L 100.0100, [id number], L500.4100 #### [facility] [address] [place], [address] Basophils/100 WBC (Bld) 0.3 % Normal 0-1 [facility] Comment on above: Order Comment: Order Date: 12/19/24 Order Info: 0184-1 - CBCD Performed By: #### L 100.0100, [id number], [id number] #### [facility] [address] [place], [address] Eosinophils/100 WBC (Bld) 6.6 % High 0-5 [facility] Comment on above: Order Comment: Order Date: 12/19/24 Order Info: 0184-1 - CBCD Performed By: #### L 100.0100, [id number], [id number] #### [facility] [address] [place], [address] Erythrocyte distribution width (RBC) [Ratio] 13.2 % Normal 11.6-14.6 [facility] Comment on above: Order Comment: Order Date: 12/19/24 Order Info: 0184-1 - CBCD Performed By: #### L 100.0100, [id number], L500.4100 #### [facility] [address] [place], [address] Hematocrit (Bld) [Volume fraction] 39.1 % Normal 37-47 [facility] Comment on above: Order Comment: Order Date: 12/19/24 Order Info: 0184-1 - CBCD Performed By: #### L 100.0100, [id number], L500.4100 #### [facility] [address] [place], [address] Hemoglobin (Bld) [Mass/Vol] 12.7 g/dL Normal 12.0-15.0 [facility] Comment on above: Order Comment: Order Date: 12/19/24 Order Info: 018- - CBCD Performed By: #### L 100.0100, [id number], L500.4100 #### [facility] [address] [place], [address] IG% 0.200 Normal 0.0-0.9 [facility] Comment on above: Order Comment: Order Date: 12/19/24 Order Info: 0184- - CBCD Result Comment: IG% - Immature Granulocytes (promyelocytes, myelocytes and metamyelocytes) > 1% indicates that a LEFT SHIFT is Present. Performed By: #### L 100.0100, L500.4050, L500.4100 #### [facility] [address] [place], [address] Lymphocytes/100 WBC (Bld) 25.8 % Normal 19-41 [facility] Comment on above: Order Comment: Order Date: 12/19/24 Order Info: 0184- - CBCD Performed By: #### L 100.0100, [id number], L500.4100 #### [facility] [address] [place], [address] MCH (RBC) [Entitic mass] 30.5 pg Normal 27.0-32.0 [facility] Comment on above: Order Comment: Order Date: 12/19/24 Order Info: 0184-1 - CBCD Performed By: #### L 100.0100, [id number], [id number] #### [facility] [address] [place], [address] MCHC (RBC) [Mass/Vol] 32.5 g/dL Normal 32-36 [facility] Comment on above: Order Comment: Order Date: 12/19/24 Order Info: 0184-1 - CBCD Performed By: #### L 100.0100, [id number], L500.4100 #### [facility] [address] [place], [address] MCV (RBC) [Entitic vol] 93.8 fL Normal 81-99 [facility] Comment on above: Order Comment: Order Date: 12/19/24 Order Info: 0184-1 - CBCD Performed By: #### L 100.0100, [id number], [id number] #### [facility] [address] [place], [address] Monocytes/100 WBC (Bld) 7.0 % Normal 0-10 [facility] Comment on above: Order Comment: Order Date: 12/19/24 Order Info: 0184-1 - CBCD Performed By: #### L 100.0100, [id number], [id number] #### [facility] [address] [place], [address] Neutrophils/100 WBC (Bld) 60.1 % Normal 47-70 [facility] Comment on above: Order Comment: Order Date: 12/19/24 Order Info: 0184-1 - CBCD Performed By: #### L 100.0100, [id number], [id number] #### [facility] [address] [place], [address] Nucleated RBC (Bld) [#/Vol] 0 10*3/uL Normal 0-5 [facility] Comment on above: Order Comment: Order Date: 12/19/24 Order Info: 0184-1 - CBCD Performed By: #### L 100.0100, [id number], [id number] #### [facility] [address] [place], [address] Platelet mean volume (Bld) [Entitic vol] 10.0 fL Normal 6.2-12.0 [facility] Comment on above: Order Comment: Order Date: 12/19/24 Order Info: 0184-1 - CBCD Performed By: #### L 100.0100, L500.4050, L500.4100 #### [facility] [address] [place], [address] Platelets (Bld) [#/Vol] 242 10*3/uL Normal 150-450 [facility] Comment on above: Order Comment: Order Date: 12/19/24 Order Info: 0184-1 - CBCD Performed By: #### L 100.0100, L500.4050, L500.4100 #### [facility] [address] [place], [address] RBC (Bld) [#/Vol] 4.17 10*6/uL Low 4.2-5.[address] [facility] Comment on above: Order Comment: Order Date: 12/19/24 Order Info: 0184-1 - CBCD Performed By: #### L 100.0100, L500.4050, L500.4100 #### [facility] [address] [place], [address] RDW SD 45.1 fl High 35.1-43.9 [facility] Comment on above: Order Comment: Order Date: 12/19/24 Order Info: 0184-1 - CBCD Performed By: #### L 100.0100, L500.4050, L500.4100 #### [facility] [address] [place], [address] WBC (Bld) [#/Vol] 5.9 10*3/uL Normal 4.4-11.0 [facility] Comment on above: Order Comment: Order Date: 12/19/24 Order Info: 0184-1 - CBCD Performed By: #### L 100.0100, L500.4050, L500.4100 #### [facility] [address] [place], [address] Calculated very low density lipoprotein (VLDL) cholesterol measurementOrdered By: Marek Junior on 12-19-2024 Calculated very low density lipoprotein (VLDL) cholesterol measurement 19 mg/dL 5-40 [facility] Carbon dioxide, total [Moles /volume] in Central venous bloodOrdered By: Marek Junior on 12-19-2024 CO2 [Moles/Vol] 22.8 mmol/L 21.0-32.0 [facility] Chloride assayOrdered By: Rose Junior on 12-19-2024 Chloride [Moles/Vol] 108 mmol/L 98-108 [facility] Comprehensive Metabolic Prof ilon 12-19-2024 Albumin [Mass/Vol] 4.3 g/dL Normal 3.4-4.8 [facility] Comment on above: Order Comment: Order Date: 12/19/24 Order Info: 0786-1 - CMP Order Info: [id number] - LIPID Order Info: 3015-3 - TSH Order Info: 7 - T4F Performed By: #### L 100.0100, L500.4050, L500.4100 #### [facility] [address] [place], [address] Albumin/Globulin [Mass ratio] 1.7 {ratio} Normal 0.9-2.4 [facility] Comment on above: Order Comment: Order Date: 12/19/24 Order Info: 0786-1 - CMP Order Info: [id number] - LIPID Order Info: 6-3 - TSH Order Info: 7 - T4F Performed By: #### L 100.0100, L500.4050, L500.4100 #### [facility] [address] [place], [address] ALK PHOS 89 U/L Normal 35-104 [facility] Comment on above: Order Comment: Order Date: 12/19/24 Order Info: 0786-1 - CMP Order Info: [id number] - LIPID Order Info: 3 - TSH Order Info: 3027 - T4F Performed By: #### L 100.0100, L500.4050, L500.4100 #### [facility] [address] [place], [address] ALT [Catalytic activity/Vol] 23 U/L Normal <=34 [facility] Comment on above: Order Comment: Order Date: 12/19/24 Order Info: 0786- - CMP Order Info: - LIPID Order Info: [id number] - TSH Order Info: 7 - T4F Performed By: #### L 100.0100, L500.4050, L500.4100 #### [facility] [address] [place], [place], [address] AST [Catalytic activity/Vol] 25 U/L Normal <=31 [facility] Comment on above: Order Comment: Order Date: 12/19/24 Order Info: 07 - CMP Order Info: - LIPID Order Info: 3 - TSH Order Info: 7 - T4F Performed By: #### L 100.0100, L500.4050, L500.4100 #### [facility] [address] [place], [address] Bilirubin [Mass/Vol] 0.20 mg/dL Normal 0.00-1.30 [facility] Comment on above: Order Comment: Order Date: 12/19/24 Order Info: 0786-1 - CMP Order Info: [id number] - LIPID Order Info: 3 - TSH Order Info: 30247 - T4F Performed By: #### L 100.0100, L500.4050, L500.4100 #### [facility] [address] [place], [address] BUN/CRE 24.6 RATIO High 10-20 [facility] Comment on above: Order Comment: Order Date: 12/19/24 Order Info: 785-1 - CMP Order Info: [id number] - LIPID Order Info: 3015-3 - TSH Order Info: 3024-7 - T4F Performed By: #### L 100.0100, L500.4050, L500.4100 #### [facility] [address] [place], [address] Calcium [Mass/Vol] 9.5 mg/dL Normal 7.6-11.0 [facility] Comment on above: Order Comment: Order Date: 12/19/24 Order Info: 785- - CMP Order Info: - LIPID Order Info: 3 - TSH Order Info: 7 - T4F Performed By: #### L 100.0100, L500.4050, L500.4100 #### [facility] [address] [place], [address] Chloride [Moles/Vol] 108 mmol/L Normal 98-108 [facility] Comment on above: Order Comment: Order Date: 12/19/24 Order Info: 785- - CMP Order Info: [id number] - LIPID Order Info: 3 - TSH Order Info: 3027 - T4F Performed By: #### L 100.0100, L500.4050, L500.4100 #### [facility] [address] [place], [address] CO2 [Moles/Vol] 22.8 mmol/L Normal 21.0-32.0 [facility] Comment on above: Order Comment: Order Date: 12/19/24 Order Info: 07-1 - CMP Order Info: [id number] - LIPID Order Info: [id number] - TSH Order Info: 3024-7 - T4F Performed By: #### L 100.0100, L500.4050, L500.4100 #### [facility] [address] [place], [address] Creatinine [Mass/Vol] 0.87 mg/dL Normal 0.70-1.20 [facility] Comment on above: Order Comment: Order Date: 12/19/24 Order Info: 785-1 - CMP Order Info: [id number] - LIPID Order Info: 3016-3 - TSH Order Info: 302-7 - T4F Performed By: #### L 100.0100, L500.4050, L500.4100 #### [facility] [address] [place], [address] GAP 11 Normal 5-15 [facility] Comment on above: Order Comment: Order Date: 12/19/24 Order Info: 785- - CMP Order Info: [id number] - LIPID Order Info: 3015-3 - TSH Order Info: 3027 - T4F Performed By: #### L 100.0100, L500.4050, L500.4100 #### [facility] [address] [place], [address] GFR/1.73 sq M.predicted among non-blacks MDRD (S/P/Bld) [Vol rate/Area] 73 mL/min/{1.73_m2} Normal >60 [facility] Comment on above: Order Comment: Order Date: 12/19/24 Order Info: 785- - CMP Order Info: [id number] - LIPID Order Info: 3015-3 - TSH Order Info: 302-7 - T4F Result Comment: mL/m in/1.73m2 CKD-EPI Creatinine Equation (2020) Performed By: #### L 100.0100, L500.4050, L500.4100 #### [facility] [address] [place], [address] Globulin (S) [Mass/Vol] 2.5 g/dL Normal 2.2-4.2 [facility] Comment on above: Order Comment: Order Date: 12/19/24 Order Info: 785-1 - CMP Order Info: [id number] - LIPID Order Info: 3015-3 - TSH Order Info: 3027 - T4F Performed By: #### L 100.0100, L500.4050, L500.4100 #### [facility] [address] [place], [address] Glucose [Mass/Vol] 81 mg/dL Normal 70-99 [facility] Comment on above: Order Comment: Order Date: 12/19/24 Order Info: 0786-1 - CMP Order Info: [id number] - LIPID Order Info: 3015-3 - TSH Order Info: 7 - T4F Performed By: #### L 100.0100, L500.4050, L500.4100 #### [facility] [address] [place], [address] Potassium [Moles/Vol] 3.9 mmol/L Normal 3.3-5.1 [facility] Comment on above: Order Comment: Order Date: 12/19/24 Order Info: 0786-1 - CMP Order Info: [id number] - LIPID Order Info: 3 - TSH Order Info: 7 - T4F Performed By: #### L 100.0100, L500.4050, L500.4100 #### [facility] [address] [place], [address] Sodium [Moles/Vol] 141 mmol/L Normal 133-145 [facility] Comment on above: Order Comment: Order Date: 12/19/24 Order Info: 0786-1 - CMP Order Info: [id number] - LIPID Order Info: 6-3 - TSH Order Info: 3027 - T4F Performed By: #### L 100.0100, L500.4050, L500.4100 #### [facility] [address] [place], [address] T PROT 6.8 g/dL Normal 5.9-8.4 [facility] Comment on above: Order Comment: Order Date: 12/19/24 Order Info: 0786-1 - CMP Order Info: [id number] - LIPID Order Info: 3016-3 - TSH Order Info: 7 - T4F Performed By: #### L 100.0100, L500.4050, L500.4100 #### [facility] [address] [place], [address] Urea nitrogen [Mass/Vol] 22 mg/dL High 4-19 [facility] Comment on above: Order Comment: Order Date: 12/19/24 Order Info: 0786-1 - CMP Order Info: [id number] - LIPID Order Info: 3015-3 - TSH Order Info: 7 - T4F Performed By: #### L 100.0100, L500.4050, L500.4100 #### [facility] [address] [place], [place], [address] Eosinophil percentageOrdered By: Marek Junior on 12-19-2024 Eosinophils/100 WBC (Bld) 6.6 % High 0-5 [facility] Erythrocyte distribution wid th ratioOrdered By: Marek Junior on 12-19-2024 Erythrocyte distribution width (RBC) [Ratio] 13.2 % 11.6-14.6 [facility] Erythrocyte distribution wid th standard deviationOrdered By: Marek Junior on 12-19-2024 Erythrocyte distribution width (RBC) [Ratio] 45.1 fl High 35.1-43.9 [facility] Glomerular filtration rate ( GFR) estimation/1.73 sq m using serum, plasma, or whole bOrdered By: Marek Junior on 12-19-2024 GFR/1.73 sq M.predicted among non-blacks MDRD (S/P/Bld) [Vol rate/Area] 73 mL/min/{1.73_m2} >60 [facility] Comment on above: mL/min/1.73m2 CKD-EP I Creatinine Equation (2020) Hematocrit Auto (Bld) [Volum e fraction]Ordered By: Marek Junior on 12-19-2024 Hematocrit (Bld) [Volume fraction] 39.1 % 37-47 [facility] Hemoglobin measurementOrdere d By: Marek Junior on 12-19-2024 Hemoglobin (Bld) [Mass/Vol] 12.7 g/dL 12.0-15.0 [facility] Immature granulocytes/100 WB C Auto (Bld)Ordered By: Marek Junior on 12-19-2024 Immature granulocytes/100 WBC (Bld) 0.200 % 0.0-0.9 [facility] Comment on above: IG% - Immature Granu locytes (promyelocytes, myelocytes and metamyelocytes) > 1% indicates that a LEFT SHIFT is Present. LDL calc ser/plasOrdered By: Marek Junior on 12-19-2024 Cholesterol in LDL [Mass/Vol] 74 mg/dL [facility] Comment on above: Vwwwhdmezh=637-360 m g/dL & Higher Icuh=516 mg/dL or greaterFriedwald Equation for LDL-C Laboratory - Chemistry and C hemistry - challengeOrdered By: Marek Junior on 12-19-2024 AST [Catalytic activity/Vol] 25 U/L <32 [facility] Lipid Profileon 12-19-2024 CHOL:HDL 2.23 Normal [facility] Comment on above: Order Comment: Order Date: 12/19/24 Order Info: 0786-1 - CMP Order Info: [id number] - LIPID Order Info: 3016-3 - TSH Order Info: 7 - T4F Performed By: #### L 100.0100, L500.4050, L500.4100 #### [facility] [address] [place], [address] Cholesterol [Mass/Vol] 168 mg/dL Normal <=200 [facility] Comment on above: Order Comment: Order Date: 12/19/24 Order Info: 0786-1 - CMP Order Info: [id number] - LIPID Order Info: 3016-3 - TSH Order Info: 3024-7 - T4F Result Comment: Chol esterol level, Desirable <200 mg/dL Borderline high cholesterol 200-239 mg/dL High cholesterol >=240 mg/dL Recommendations of the NCEP Adult Treatment Panel for the following risk-cutoff thresholds for the [place] population. Performed By: #### L 100.0100, L500.4050, L500.4100 #### [facility] [address] [place], [address] Cholesterol in HDL [Mass/Vol] 75 mg/dL Normal [facility] Comment on above: Order Comment: Order Date: 12/19/24 Order Info: 0786 - CMP Order Info: - LIPID Order Info: 3015-06 - TSH Order Info: 3023-10 - T4F Result Comment: [place] on[place] Cholesterol Education Program (NCEP) guidelines: <40 mg/dL: Low HDL-cholesterol (major risk factor for CHD) >= 60 mg/dL: High HDL-cholesterol (negative risk factor for CHD) HDL-cholesterol is affected by a number of factors, e.g. smoking, exercise, hormones, sex and age. Performed By: #### L 100.0100, L500.4050, L500.4100 #### [facility] [address] [place], [address] Cholesterol in LDL [Mass/Vol] 74 mg/dL Normal [facility] Comment on above: Order Comment: Order Date: 12/19/24 Order Info: 785-04 - CMP Order Info: - LIPID Order Info: [id number] - TSH Order Info: 3023-10 T4F Result Comment: Bord cqdnky=952-465 mg/dL Higher Wdoe=718 mg/dL or greater Friedwald Equation for LDL-C Performed By: #### L 100.0100, L500.4050, L500.4100 #### [facility] [address] [place], [address] Cholesterol in VLDL [Mass/Vol] 19 mg/dL Normal 5-40 [facility] Comment on above: Order Comment: Order Date: 12/19/24 Order Info: 785-04 - CMP Order Info: - LIPID Order Info: 3 - TSH Order Info: 3023-10 T4F Performed By: #### L 100.0100, L500.4050, L500.4100 #### [facility] [address] [place], [place], [address] Triglyceride [Mass/Vol] 94 mg/dL Normal [facility] Comment on above: Order Comment: Order Date: 12/19/24 Order Info: 0786-1 - CMP Order Info: [id number] - LIPID Order Info: 3016-3 - TSH Order Info: 3024-7 - T4F Result Comment: The drugs N-Acetylcysteine and Metamizole may falsely depress this assay. Normal range: <150 mg/dL Borderline High: 150-199 mg/dL High: 200-499 mg/dL Very High: >500 mg/dL Performed By: #### L 100.0100, L500.4050, L500.4100 #### [facility] [address] [place], [place], [address] MCV (mean corpuscular volume ) determinationOrdered By: Marek Junior on 12-19-2024 MCV (RBC) [Entitic vol] 93.8 fL 81-99 [facility] Mean corpuscular hemoglobin (MCH) determinationOrdered By: Marek Junior on 12-19-2024 MCH (RBC) [Entitic mass] 30.5 pg 27.0-32.0 [facility] Mean corpuscular hemoglobin concentration (MCHC) determinationOrdered By: Marek Junior on 12-19-2024 MCHC (RBC) [Mass/Vol] 32.5 g/dL 32-36 [facility] Mean platelet volume determi nationOrdered By: Marek Junior on 12-19-2024 Platelet mean volume (Bld) [Entitic vol] 10.0 fL 6.2-12.0 [facility] Monocyte percentageOrdered B y: Marek Junior on 12-19-2024 Monocytes/100 WBC (Bld) 7.0 % 0-10 [facility] Neutrophil percentageOrdered By: Marek Junior on 12-19-2024 Neutrophils/100 WBC (Bld) 60.1 % 47-70 [facility] Nucleated red blood cell per centageOrdered By: Marek Junior on 12-19-2024 Nucleated RBC/100 WBC (Bld) [Ratio] 0 % 0-5 [facility] Platelet countOrdered By: Rose Junior on 12-19-2024 Platelets (Bld) [#/Vol] 242 10*3/uL 150-450 [facility] Potassium measurement (mass/ volume)Ordered By: Marek Junior on 12-19-2024 Potassium (Unsp spec) [Mass/Vol] 3.9 mmol/L 3.3-5.1 [facility] RBC Auto (Bld) [#/Vol]Ordere d By: Marek Junior on 12-19-2024 RBC (Bld) [#/Vol] 4.17 10*6/uL Low 4.2-5.[address] [facility] Screening total cholesterol/ high density lipoprotein (HDL) cholesterol ratioOrdered By: Marek Junior on 12-19-2024 Cholesterol.total/Cho lesterol in HDL [Mass ratio] 2.23 {ratio} [facility] Serum creatinine measurement (mass/volume)Ordered By: Marek Junior on 12-19-2024 Creatinine [Mass/Vol] 0.87 mg/dL 0.70-1.20 [facility] Serum globulin measurementOr dered By: Marek Junior on 12-19-2024 Globulin (S) [Mass/Vol] 2.5 g/dL 2.2-4.2 [facility] Serum glucose measurement (m ass/volume)Ordered By: Marek Junior on 12-19-2024 Glucose [Mass/Vol] 81 mg/dL 70-99 [facility] Serum or plasma alanine hill otransferase (ALT) measurementOrdered By: Marek Junior on 12-19-2024 ALT [Catalytic activity/Vol] 23 U/L <35 [facility] Serum or plasma albumin vicente urement (mass/volume)Ordered By: Marek Junior on 12-19-2024 Albumin [Mass/Vol] 4.3 g/dL 3.4-4.8 [facility] Serum or plasma albumin/glob ulin mass ratioOrdered By: Marek Junior on 12-19-2024 Albumin/Globulin [Mass ratio] 1.7 {ratio} 0.9-2.4 [facility] Serum or plasma alkaline stephanie sphatase measurementOrdered By: Marek Junior on 12-19-2024 ALP [Catalytic activity/Vol] 89 U/L 35-104 [facility] Serum or plasma calcium vicente urement (mass/volume)Ordered By: Marek Junior on 12-19-2024 Calcium [Mass/Vol] 9.5 mg/dL 7.6-11.0 [facility] Serum or plasma cholesterol in HDL measurement (mass/volume)Ordered By: Marek Junior on 12-19-2024 Cholesterol in HDL [Mass/Vol] 75 mg/dL >40 [facility] Comment on above: National Cholesterol Education Program (NCEP) guidelines:<40 mg/dL: Low HDL-cholesterol (major risk factor for CHD)>= 60 mg/dL: High HDL-cholesterol (negative risk factor for CHD)HDL-cholesterol is affected by a number of factors, e.g. smoking, exercise, hormones, sex and age. Serum or plasma cholesterol measurement (mass/volume)Ordered By: Marek Junior on 12-19-2024 Cholesterol [Mass/Vol] 168 mg/dL <201 [facility] Comment on above: Cholesterol level, D esirable <200 mg/dLBorderline high cholesterol 200-239 mg/dLHigh cholesterol >=240 mg/dLRecommendations of the NCEP Adult Treatment Panel for the following risk-cutoff thresholds for the [place] population. Serum or plasma urea nitroge n measurement (mass/volume)Ordered By: Marek Junior on 12-19-2024 Urea nitrogen [Mass/Vol] 22 mg/dL High 4-19 [facility] Sodium levelOrdered By: Marek Junior on 12-19-2024 Sodium [Moles/Vol] 141 mmol/L 133-145 [facility] T4 Free Directon 12-19-2024 T4 FREE DIRECT 0.80 ng/dL Normal 0.76-1.46 [facility] Comment on above: Order Comment: Order Date: 03/01/24 Order Info: 0786-1 - CMP Order Info: 3016-3 - TSH Performed By: #### L 500.4050, L100.0100, L501.9520 #### [facility] [address] [place], [address] T4 freeOrdered By: Marek bruce on 12-19-2024 Free T4 [Mass/Vol] 0.80 ng/dL 0.76-1.46 [facility] TSH DL <= 0.005 mIU/L QnOrde red By: Marek Junior on 12-19-2024 TSH Qn 2.420 uIU/mL 0.300-4.200 [facility] Thyroid Stim Hormone (TSH)on 12-19-2024 TSH 2.420 uIU/mL Normal 0.300-4.200 [facility] Comment on above: Order Comment: Order Date: 03/01/24 Order Info: 0786-1 - CMP Order Info: 3015-06 - TSH Performed By: #### L 500.4050, L100.0100, L501.9520 #### [facility] [address] [place], [place], [address] Total proteinOrdered By: Jovan Junior on 12-19-2024 Protein [Mass/Vol] 6.8 g/dL 5.9-8.4 [facility] Triglycerides measurementOrd ered By: Marek Junior on 12-19-2024 Triglyceride [Mass/Vol] 94 mg/dL <199 [facility] Comment on above: The drugs N-Acetylcy steine and Metamizole may falsely depress this assay. Normal range: <150 mg/dLBorderline High: 150-199 mg/dLHigh: 200-499 mg/dLVery High: >500 mg/dL Vitamin B12on 12-19-2024 Cobalamin (Vitamin B12) [Mass/Vol] 285 pg/mL Normal 180-914 [facility] Comment on above: Order Comment: Order Date: 03/01/24 Order Info: 0786-1 - CMP Order Info: 6 - TSH Performed By: #### L 500.4050, L100.0100, L501.9520 #### [facility] [address] [place], [place], [address] Vitamin B12 ser/plasOrdered By: Marek Junior on 12-19-2024 Cobalamin (Vitamin B12) [Mass/Vol] 285 pg/mL 180-914 [facility] Vitamin D,25 Hydroxyon 12-19 Vitamin D 25-OH 64.0 ng/mL Normal 30-100 [facility] Comment on above: Order Comment: Order Date: 03/01/24 Order Info: 0786-1 - CMP Order Info: 3016-3 - TSH Result Comment: Patricia min D Status Deficiency: <20 ng/mL (50nmol/L) Insufficiency: 20-30 ng/mL (50-75 nmol/L) Sufficiency: 30-100 ng/mL (75-250 nmol/L) Toxicity: >100 ng/mL (>250 nmol/L) Performed By: #### L 500.4050, L100.0100, L501.9520 #### [facility] [address] [place], [place], [address] White blood cell (WBC) count Ordered By: Marek Junior on 12-19-2024 WBC (Bld) [#/Vol] 5.9 10*3/uL 4.4-11.0 [facility] Chest PA and Lateralon 10-18 Chest PA and Lateral [facility] [address] [place], [place] [address] Chest PA and Lateral MR#: [id number] Acct: [id number] Name: PARUL MARSHALL Rep #: [id number] : 1955 F 68 From: Darwin Liu MD PCP: Dr. Marek Junior MD Status: REG CLI Study: Chest PA and Lateral Date of Exam: 10/18/24 Exam# [id number] Ordering Dr: Joselyn Bell [employer]END[employer]C EXAM: XR Chest, 2 Views CLINICAL INDICATION: PAIN, INJURY STERNUM TECHNIQUE: Frontal and lateral views of the chest. COMPARISON: No relevant prior studies available. FINDINGS: LUNGS AND PLEURAL SPACES: Unremarkable. No consolidation. No pneumothorax. HEART: Unremarkable. No cardiomegaly. MEDIASTINUM: Unremarkable. Normal mediastinal contour. BONES/JOINTS: Unremarkable. No acute fracture. RAD/Chest PA and Lateral IMPRESSION: No acute cardiopulmonary process. Reading Location: [facility] CC: SANJAY Bell; Dr. Marek Junior MD Regulatory Affairs Coordinator: Signed Normal [facility] CNOVon 09-26-2024 CNOV Office Visit (UCWSTR ) PARUL MARSHALL ([id number]) 1955 F Date Time Provider Department 09/26/24 4:45 PM FRANCK ALVARADO [facility] During your visit today, we recorded the following information about you: Temperature Pulse Respiration Blood pressure 100.3 degrees 77/minute 18/minute 137/74 Weight 50.4 kg Franck Alvarado, [employer] 09/26/2024 4:59 PM Signed Subjective HPI Nontoxic-appearing 68-year-old female presents urgent care chief complaint pharyngitis. Duration of symptoms 1 day. Associated symptoms sore throat ear pain low-grade fever cough. Most prominent symptom today is pharyngitis. Presents today for evaluation. OTC medications none. No difficulty swallowing and secretion decreased range of motion neck or trismus. Unknown sick exposures. Past medical history prescription medications allergies reviewed. .Patient presents with: Sore Throat: R ear pain, low fever x this AM PAST MEDICAL HISTORY Diagnosis Date Diarrhea Dyskinesia of esophagus Endometriosis Miscarriage (HCC) 1989 Other and unspecified anemias Personal history of unspecified circulatory disease Restless legs syndrome PAST SURGICAL HISTORY Procedure Laterality Date DELIVERY ONLY 04/05/1981 DELIVERY ONLY 04/05/1993 COLONOSCOPY FLX DX W/COLLJ SPEC WHEN PFRMD 08/30/2003 normal colonoscopy COLONOSCOPY FLX DX W/COLLJ SPEC WHEN PFRMD 04/15/2012 Colonoscopy repeat 10 years EGD TRANSORAL BIOPSY SINGLE/MULTIPLE 08/30/2003 Mild gastritis ESOPHAGOGASTRODUODENOSCOPY TRANSORAL DIAGNOSTIC 12/03/2009 EGD ESOPHAGOGASTRODUODENOSCOPY TRANSORAL DIAGNOSTIC 04/15/2012 EGD LAPAROSCOPIC APPENDECTOMY 04/05/1990 with Ovary Removal PT ED HEART AND VASCULAR 01/2023 stent placed ALLERGIES Patient has no known allergies. MEDICATIONS pravastatin (PRAVACHOL) 40 mg tablet Take 1 tablet by mouth once daily. cholecalciferol (VITAMIN D) 1,000 unit tab tablet Take 1,000 Units by mouth once daily. topiramate (TOPAMAX) 50 mg tablet Take 1 tablet by mouth every 12 hours. ondansetron orally disintegrating (ZOFRAN ODT) 4 mg disintegrating tablet Take 1 tablet by mouth every 6 hours as needed for nausea/vomiting. ezetimibe (ZETIA) 10 mg tablet Take 1 tablet by mouth every afternoon. famotidine (PEPCID) 20 mg tablet Take 1 tablet by mouth every afternoon. potassium chloride SR (MICRO-K) 10 mEq CR capsule sertraline (ZOLOFT) 100 mg tablet Take 1 tablet by mouth every afternoon. aspirin, enteric coated (ASPIRIN, ENTERIC COATED) 81 mg EC tablet Take 81 mg by mouth once daily. lactobacillus acidophilus 100 mg (1 billion cell) cap(s) Take by mouth. Omeprazole (PRILOSEC) 40 mg capsule Take 1 capsule by mouth twice daily. pravastatin (PRAVACHOL) 20 mg tablet Take 1 tablet by mouth every afternoon. (Patient not taking: Reported on 09/26/2024) JRK-Kzfzsvmwbpoap-Zpojlas-C aff 162 mg-110 mg -152 mg-32.4 mg tab Take by mouth. (Patient not taking: Reported on 09/26/2024) ranitidine (ZANTAC) 150 mg tablet Take 150 mg by mouth twice daily. (Patient not taking: Reported on 03/14/2024) amitriptyline (ELAVIL) 25 mg tablet Take 1 tablet by mouth daily at bedtime. (Patient not taking: Reported on 03/14/2024) gabapentin (NEURONTIN) 300 mg capsule Take 1 capsule by mouth twice daily. (Patient not taking: Reported on 03/14/2024) FAMILY HISTORY Problem Relation Age of Onset Heart Mother Coronary Artery Bypass Graft Cancer Mother Hysterectomy due to Cervical Cancer Heart Father Coronary Artery Bypass Graft Alzheimer's Disease Father Osteoporosis Sister Heart Brother Health Issues Diabetes Brother Heart Brother Myocardial Infarction Cancer Maternal Grandmother Lung Cancer Social History Tobacco Use Smoking status: Never Smokeless tobacco: Never Vaping Use Vaping status: Never Used Substance Use Topics Alcohol use: No Drug use: No BP 137/74 Pulse 77 Temp 37.9 ?C (100.3 ?F) Resp 18 Wt 50.4 kg (111 lb 1.8 oz) LMP 10/25/2008 SpO2 100% BMI 22.44 kg/m? Review of Systems Constitutional: Positive for chills, fever and malaise/fatigue. HENT: Positive for ear pain and sore throat. Negative for congestion, ear discharge and sinus pain. Eyes: Negative for blurred vision, pain, discharge and redness. Respiratory: Positive for cough. Negative for hemoptysis, sputum production, shortness of breath, wheezing and stridor. Cardiovascular: Negative for chest pain. Gastrointestinal: Negative for abdominal pain, diarrhea, nausea and vomiting. Musculoskeletal: Positive for myalgias. Skin: Negative for itching and rash. Neurological: Negative for dizziness and headaches. Objective Physical Exam Constitutional: General: She is not in acute distress. Appearance: She is not diaphoretic. HENT: Head: Normocephalic. Jaw: No trismus, tenderness, swelling or pain on movement. Right E (more content not included)... Normal [facility] STREP A MOLECULAR (POC)on Procedural Control Valid [facility] Strep A (POCT) Negative Negative [facility] Brain W/WO Contraston 2024 Brain W/WO Contrast [facility] Imaging Services [address] [place] [address] [id number] Brain W/WO Contrast MR#: [id number] Acct: [id number] Name: PARUL MARSHALL Rep #: [id number] : 1955 F 68 From: Kelby Rose i DO PCP: Dr. Marek Junior MD Status: REG CLI Study: Brain W/WO Contrast Date of Exam: 06/19/24 Exam# [id number] Ordering Dr: Marek Junior MD PROCEDURE: MRI of the brain without and with intravenous contrast. REASON FOR EXAM: WORSENING HEADACHES, MIGRAINES TECHNIQUE: Multiplanar, multisequence MRI of the images of the brain were obtained without and with intravenous contrast. 9 cc Clariscan IV contrast was administered. COMPARISON: 10/25/2023 FINDINGS: Bones of the calvarium are intact. Extracranial soft tissues show no specific abnormality. Major basilar intracranial flow voids are present. Paranasal sinuses and mastoid air cells are clear. There is a partially empty sella. The orbits, sella, and parasellar structures otherwise unremarkable. No extra-axial fluid collection or midline shift. Angel-white matter differentiation is maintained. Basilar cisterns are clear. No cerebellopontine angle mass lesion. No areas of restricted diffusion. Some small scattered foci of increased T2/FLAIR signal in the deep and subcortical white matter structures of the cerebral hemispheres, greatest near the occipital horns, not significantly changed from the previous study. On postcontrast images, no areas of abnormal brain parenchymal enhancement. The major dural venous sinuses appear patent. Included upper cervical spinal cord unremarkable. MRI/Brain W/WO Contrast IMPRESSION: No acute intracranial abnormality or abnormal brain parenchymal enhancement. Some small scattered white matter hyperintensities in the cerebral hemispheres as above, which may be on the basis of chronic small-vessel ischemic disease, similar to the comparison study. Partially empty sella. [facility] CC: Dr. Marek Junior MD Regulatory Affairs Coordinator: Signed Normal [facility] Cardiology Visit Reporton Cardiology Visit Report [facility] [address] [place] [address]. [address] [place] [address] OFFICE VISIT Date of Service: 06/19/24 MR#: [id number] Acct: [id number] Name: PARUL MARSHALL Rep #: [id number] : 1955 Provider: SANJAY rodriguez Age/Sex: 68/F Location: [facility] Status: Signed HPI HPI History of Present Illness Details: PARUL MARSHALL, is a 68 F who presents to the office today for a cardiovascular follow-up visit. She had presented to the emergency room on 01/07/2023 with shortness of breath worse with exertion which had been intermittent over the last few days. She says that even walking simple steps gave her chest discomfort and she also did experience anterior chest burning and radiating from her mid chest to her throat area. She became short of breath with the above and decided to present to the emergency room. In the emergency room she was evaluated; she was noted to have abnormal EKG with minimally abnormal troponin enzymes. Troponin was flat throughout the hospitalization. She subsequently underwent a stress test, which demonstrated evidence of anterior apical ischemia at a moderate workload. EKG changes were noted and chest pain was reproduced. She underwent a cardiac catheterization on 01/08/2023 which demonstrated 99% stenosis in her pLAD, and underwent a successful SHIVANI. She denies chest, arm, jaw, or neck discomfort. She denies palpitations. She denies bilateral lower extremity edema. She denies claudication. She denies shortness of breath with activity, shortness of breath at rest, orthopnea, or PND. She denies chronic cough. She denies significant, sudden weight gain. She denies lightheadedness, dizziness, near-syncope, or syncope. She denies blood in urine, blood in stool, or epistaxis. He denies fever with chills. She denies myalgia. She states fatigue. Her exercise level has remained stable. She continues with headaches. 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 Is patient in pain?: No Allergies No Known Allergies Allergy (Verified 06/19/24 11:06) Medications ???Medication ???Instructions ???Recorded ???Confirmed ???Type acetaminophen 500 mg tablet 500 mg PO Q6H 03/15/19 06/19/24 Hi story (Tylenol Extra Strength) sumatriptan succinate 50 mg tablet 50 mg PO ONCE PRN migraine heada seven 03/15/19 06/19/24 History sertraline 100 mg tablet 100 mg PO DAILY 01/07/23 06/19/24 History topiramate 25 mg tablet 25 mg PO BID migraine headache 08/2506/19/24 History aspirin 81 mg tablet,delayed 81 mg PO BREAKFAST #0 tabs 3 06/19/24 Rx release cholecalciferol (vitamin D3) 125 125 mcg PO DAILY 01/28/23 06/19/24 History mcg (5,000 unit) capsule ezetimibe 10 mg tablet (Zetia) 10 mg PO DAILY #30 tabs 10/08/23 0 06/19/24 Rx potassium chloride 10 mEq See Rx Instructions .Route 4 06/19/24 Rx capsule,extended release .COMPLEX #90 caps famotidine 20 mg tablet (Pepcid) 20 mg PO DAILY #90 tabs 01/27/24 0 06/19/24 Rx MALINI Hose Compression Stockings #1 ea 06/19/24 06/19/24 Rx pravastatin 20 mg tablet 40 mg PO QDAY 06/19/24 06/19/24 Hi story Ejection fraction %: 60 Have you fallen in the past year?: No PFSH Medical History Atherosclerosis of coronary artery of [place] heart without angina pectoris RLS (restless legs syndrome) GERD (gastroesophageal reflux disease) Migraine Surgical History History of coronary artery stent placement (01/08/23) History of esophagogastroduodenoscopy (EGD) History of oral surgery History of removal of ovarian cyst History of appendectomy H/O: Family History Brother Heart disease Diabetes Father Heart disease Dementia Prostate cancer Mother CAD (coronary artery disease) Ovarian cancer Sister Diabetes Social History Smoking Status: Never smoker alcohol intake: never substance use type: does not use additional social history: does not use aspirin or ibuprofen ROS Const Const: Positive for fatigue and headache(s); Negative for weakness or frequent falls Eyes Eyes: Negative for blurry vision ENT ENT: Positive for headache(s); Negative for dizziness or Nosebleed/epistaxis Cardio Chest Pain: No Palpitations: No Edema: None Muscle aches with walking: None Resp Respiratory: Negative for SOB with activity, SOB at rest or SOB (more content not included)... Normal [facility] Magnetic resonance imaging r eportOrdered By: Kelby Abdi on 06-19-2024 Study report [facility] Imaging Services [address] [place], [place] [id number] Brain W/WO Contrast MR#: [id number] Acct: [id number] Name: PARUL MARSHALL Rep #: [id number] : 1955 F 68 From: Erick bennett Abdi DO PCP: Dr. Marek Junior MD Status: RE G CLI Study:Brain W/WO Contrast Date of Exam: 06/19/24 Exam# [id number] Ordering Dr: Marek Junior MD PROCEDURE: MRI of the brain without and with intravenous contrast. REASON FOR EXAM: WORSENING HEADACHES, MIGRAINES TECHNIQUE: Multiplanar, multisequence MRI of the images of the brain were obtained without and with intravenous contrast. 9 cc Clariscan IV contrast was administered. COMPARISON: 10/25/2023 FINDINGS: Bones of the calvarium are intact. Extracranial soft tissues show no specific abnormality. Major basilar intracranial flow voids are present. Paranasal sinuses and mastoid air cells are clear. There k[place] partially empty sella. The orbits, sella, and parasellar structures otherwise unremarkable. No extra-axial fluid collection or midline shift. Angel-white matter differentiation is maintained. Basilar cisterns are clear. No cerebellopontine angle mass lesion. No areas of restricted diffusion. Some small scattered foci of increased T2/FLAIR signal in the deep and subcortical white matter structures of the cerebral hemispheres,greatest near the occipital horns, not significantly changed from the previous study. On postcontrast images, no areas of abnormal brain parenchymal enhancement. Themajor dural venous sinuses appear patent. Included upper cervical spinal cord unremarkable. MRI/Brain W/WO Contrast IMPRESSION: No acute intracranial abnormality or abnormal brain parenchymal enhancement. Some small scattered white matter hyperintensities in the cerebral hemispheres as above, which may be on the basis of chronic small-vessel ischemic disease, similar to the comparison study. Partially empty sella. Reading Location: [facility] CC: Dr. 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 This started 3 days ago. Has tried otc medication for relief. Symptoms are worsened by nothing. Risk factors sick exposures at work. .Patient presents with: Nausea AND Vomiting: X3 days PAST MEDICAL HISTORY Diagnosis Date Diarrhea Dyskinesia of esophagus Endometriosis Miscarriage 1989 Other and unspecified anemias Personal history of unspecified circulatory disease Restless legs syndrome PAST SURGICAL HISTORY Procedure Laterality Date DELIVERY ONLY 04/05/1981 DELIVERY ONLY 04/05/1993 COLONOSCOPY FLX DX W/COLLJ SPEC WHEN PFRMD 08/30/2003 normal colonoscopy COLONOSCOPY FLX DX W/COLLJ SPEC WHEN PFRMD 04/15/2012 Colonoscopy repeat 10 years EGD TRANSORAL BIOPSY SINGLE/MULTIPLE 08/30/2003 Mild gastritis ESOPHAGOGASTRODUODENOSCOPY TRANSORAL DIAGNOSTIC 12/03/2009 EGD ESOPHAGOGASTRODUODENOSCOPY TRANSORAL DIAGNOSTIC 04/15/2012 EGD LAPAROSCOPIC APPENDECTOMY 04/05/1990 with Ovary Removal PT ED HEART AND VASCULAR 01/2023 stent placed ALLERGIES Patient has no known allergies. MEDICATIONS pravastatin (PRAVACHOL) 20 mg tablet Take 1 tablet by mouth every afternoon. topiramate (TOPAMAX) 50 mg tablet Take 1 tablet by mouth every 12 hours. ezetimibe (ZETIA) 10 mg tablet Take 1 tablet by mouth every afternoon. famotidine (PEPCID) 20 mg tablet Take 1 tablet by mouth every afternoon. potassium chloride SR (MICRO-K) 10 mEq CR capsule sertraline (ZOLOFT) 100 mg tablet Take 1 tablet by mouth every afternoon. RQZ-Llquaxsgeszhl-Vvhhikt-C aff 162 mg-110 mg -152 mg-32.4 mg tab Take by mouth. aspirin, enteric coated (ASPIRIN, ENTERIC COATED) 81 mg EC tablet Take 81 mg by mouth once daily. lactobacillus acidophilus 100 mg (1 billion cell) cap(s) Take by mouth. Omeprazole (PRILOSEC) 40 mg capsule Take 1 capsule by mouth twice daily. ranitidine (ZANTAC) 150 mg tablet Take 150 mg by mouth twice daily. (Patient not taking: Reported on 03/14/2024) amitriptyline (ELAVIL) 25 mg tablet Take 1 tablet by mouth daily at bedtime. (Patient not taking: Reported on 03/14/2024) gabapentin (NEURONTIN) 300 mg capsule Take 1 capsule by mouth twice daily. (Patient not taking: Reported on 03/14/2024) FAMILY HISTORY Problem Relation Age of Onset Heart Mother Coronary Artery Bypass Graft Cancer Mother Hysterectomy due to Cervical Cancer Heart Father Coronary Artery Bypass Graft Alzheimer's Disease Father Osteoporosis Sister Heart Brother Health Issues Diabetes Brother Heart Brother Myocardial Infarction Cancer Maternal Grandmother Lung Cancer Social History Tobacco Use Smoking status: Never Smokeless tobacco: Never Vaping Use Vaping status: Never Used Substance Use Topics Alcohol use: No Drug use: No Review of Systems Constitutional: Positive for chills, fever and malaise/fatigue. Gastrointestinal: Positive for diarrhea, nausea and vomiting. Negative for abdominal pain. Skin: Negative for itching and rash. Objective Blood pressure 115/78, pulse 84, temperature 37 ?C (98.6 ?F), resp. rate 18, weight 50.1 kg (110 lb 7.2 oz), last menstrual period 10/25/2008, SpO2 97%. Physical Exam Constitutional: General: She is not in acute distress. Appearance: Normal appearance. She is not toxic-appearing. Cardiovascular: Rate and Rhythm: Normal rate and regular rhythm. Heart sounds: Normal heart sounds. Pulmonary: Effort: Pulmonary effort is normal. Breath sounds: Normal breath sounds. Abdominal: General: Bowel sounds are normal. Palpations: Abdomen is soft. Tenderness: There is no abdominal tenderness. Skin: General: Skin is warm and dry. ASSESSMENT/PLAN: 1. Vomiting and diarrhea - ICD9: 787.03, 787.91, ICD10: R11.10, R19.7 Possibly norovirus Brat diet discussed push fluids Urgent f/u for worsening s/s F/u for persisting s/s. - ONDANSETRON 4 MG DISINTEGRATING TABLET Miguel Ángel Arceo APRN.POLICE STENOGRAPHER Allergies As of Date: 05/25/2024 (No Known Allergies) Date Reviewed: 05/25/2024 Reviewed by: Lolita Baires MA - Fully Assessed Reason for Visit: Nausea AND Vomiting [237] Cmt: X3 days Primary Visit Diagnosis:Vomiting and diarrhea [R11.10, R19.7] Order(s):ondansetron orally disintegrating (ZOFRAN ODT) 4 mg disintegrating tabletTake 1 tablet by mouth every 6 hours as needed for nausea/vomiting.Disp: 15 tabletRfl: 0 Prescriptions as of 05/25/2024 - pravastatin ( (more content not included)... Normal [facility] Hepatitis C,RNA PCR Viral Lo chainstitch binder 05-22-2024 HCV log 10 TNP Normal . [facility] Comment on above: Performed By: #### L 7000.7000 #### [facility] [address] [facility]. [place], [place], [id number] HCV QT RNA PCR Not detected Normal . [facility] Comment on above: Performed By: #### L 7000.7000 #### [facility] [address] [facility] [place], [place], [id number] TEST INFO: Comment Normal . [facility] Comment on above: Result Comment: The quantitative range of this assay is 15 IU/mL to 100 million IU/mL. Performed at: [address] [id number] Buggy Runner: Miky Rodriguez MD, Phone: [phone] Performed By: #### L 7000.7000 #### [facility] [address] [facility] [address] [facility] [place], [place], [id number] DOrdered By: Stu Junior on 05-19-2024 Vitamin D 25-Hydroxy 70.0 ng/mL [facility] Comment on above: Vitamin D 25(OH) Sta tus Range Deficiency <20 ng/mL (50nmol/L) Insufficiency 20 - 30 ng/mL (50 - 75 nmol/L) Sufficiency 30 - 100 ng/mL (75 - 250 nmol/L) Toxicity >100 ng/mL (>250 nmol/L) Absolute neutrophil countOrd ered By: Marek Junior on 05-19-2024 Neutrophils (Bld) [#/Vol] 2.6 10*3/uL 2.0-7.7 [facility] Addendum DocumentOrdered By: Marek Junior on 05-19-2024 Hepatitis C RNA Qnt (PCR) Test Info Comment . [facility] Comment on above: The quantitative ran ge of this assay is 15 IU/mL to 100million IU/mL.Performed at: [facility] [id number] Director: Miky Rodriguez MD, Phone: [phone] Albumin to globulin ratioOrd ered By: Marek Junior on 05-19-2024 Albumin/Globulin [Mass ratio] 1.2 {ratio} 0.9-2.4 [facility] Basophil percentageOrdered B y: Marek Junior on 05-19-2024 Basophils/100 WBC (Bld) 0.4 % 0-1 [facility] Bilirubin, totalOrdered By: Marek Junior on 05-19-2024 Bilirubin [Mass/Vol] 0.40 mg/dL 0.20-1.00 [facility] Comment on above: For patients on eltr ombopag therapy, use of [place] TBIL is not recommended. Blood urea nitrogen (BUN)/cr eatinine ratioOrdered By: Marek Junior on 05-19-2024 Urea nitrogen/Creatinine [Mass ratio] 24.1 mg/mg High 10-20 [facility] CBC W/Diff, Automatedon 05-06 Absolute Lymph 1.78 X10 3/uL Normal 0.83-4.51 [facility] Comment on above: Order Comment: Order Date: 03/01/24 Order Info: 0786-1 - CMP Order Info: 3016-3 - TSH Performed By: #### L 500.4050, L100.0100, L501.9520 #### [facility] [address] [place], [address] Absolute Neut 2.6 X10 3/uL Normal 2.0-7.7 [facility] Comment on above: Order Comment: Order Date: 03/01/24 Order Info: 0786-1 - CMP Order Info: 3015-3 - TSH Performed By: #### L 500.4050, L100.0100, [id number] #### [facility] [address] [place], [address] Basophils/100 WBC (Bld) 0.4 % Normal 0-1 [facility] Comment on above: Order Comment: Order Date: 03/01/24 Order Info: 0786-1 - CMP Order Info: 3015-3 - TSH Performed By: #### L 500.4050, L100.0100, [id number] #### [facility] [address] [place], [address] Eosinophils/100 WBC (Bld) 6.7 % High 0-5 [facility] Comment on above: Order Comment: Order Date: 03/01/24 Order Info: 0786-1 - CMP Order Info: 3015-3 - TSH Performed By: #### L 500.4050, L100.0100, [id number] #### [facility] [address] [place], [address] Erythrocyte distribution width (RBC) [Ratio] 13.2 % Normal 11.6-14.6 [facility] Comment on above: Order Comment: Order Date: 03/01/24 Order Info: 0786-1 - CMP Order Info: 301-3 - TSH Performed By: #### L 500.4050, L100.0100, [id number] #### [facility] [address] [place], [address] Hematocrit (Bld) [Volume fraction] 41.7 % Normal 37-47 [facility] Comment on above: Order Comment: Order Date: 03/01/24 Order Info: 0786-1 - CMP Order Info: 3015-06 - TSH Performed By: #### L 500.4050, L100.0100, [id number] #### [facility] [address] [place], [address] Hemoglobin (Bld) [Mass/Vol] 13.2 g/dL Normal 12.0-15.0 [facility] Comment on above: Order Comment: Order Date: 03/01/24 Order Info: 785-04 - CMP Order Info: 3015-06 - TSH Performed By: #### L 500.4050, L100.0100, [id number] #### [facility] [address] [place], [address] IG% 0.400 Normal 0.0-0.9 [facility] Comment on above: Order Comment: Order Date: 03/01/24 Order Info: 785-04 - CMP Order Info: 3015-06 - TSH Result Comment: IG% - Immature Granulocytes (promyelocytes, myelocytes and metamyelocytes) > 1% indicates that a LEFT SHIFT is Present. Performed By: #### L 500.4050, L100.0100, L501.9520 #### [facility] [address] [place], [address] Lymphocytes/100 WBC (Bld) 34.1 % Normal 19-41 [facility] Comment on above: Order Comment: Order Date: 03/01/24 Order Info: 07 - CMP Order Info: 3015-06 - TSH Performed By: #### L 500.4050, L100.0100, [id number] #### [facility] [address] [place], [address] MCH (RBC) [Entitic mass] 29.0 pg Normal 27.0-32.0 [facility] Comment on above: Order Comment: Order Date: 03/01/24 Order Info: 07 - CMP Order Info: 3015-06 - TSH Performed By: #### L 500.4050, L100.0100, [id number] #### [facility] [address] [place], [address] MCHC (RBC) [Mass/Vol] 31.7 g/dL Low 32-36 [facility] Comment on above: Order Comment: Order Date: 03/01/24 Order Info: 07-1 - CMP Order Info: 3 - TSH Performed By: #### L 500.4050, L100.0100, [id number] #### [facility] [address] [place], [address] MCV (RBC) [Entitic vol] 91.6 fL Normal 81-99 [facility] Comment on above: Order Comment: Order Date: 03/01/24 Order Info: 785-1 - CMP Order Info: 3 - TSH Performed By: #### L 500.4050, L100.0100, [id number] #### [facility] [address] [place], [address] Monocytes/100 WBC (Bld) 8.0 % Normal 0-10 [facility] Comment on above: Order Comment: Order Date: 03/01/24 Order Info: 071 - CMP Order Info: 3 - TSH Performed By: #### L 500.4050, L100.0100, [id number] #### [facility] [address] [place], [address] Neutrophils/100 WBC (Bld) 50.4 % Normal 47-70 [facility] Comment on above: Order Comment: Order Date: 03/01/24 Order Info: 0786-1 - CMP Order Info: 3 - TSH Performed By: #### L 500.4050, L100.0100, [id number] #### [facility] [address] [place], [address] Nucleated RBC (Bld) [#/Vol] 0 10*3/uL Normal 0-5 [facility] Comment on above: Order Comment: Order Date: 03/01/24 Order Info: 0786-1 - CMP Order Info: 3015-3 - TSH Performed By: #### L 500.4050, L100.0100, [id number] #### [facility] [address] [place], [address] Platelet mean volume (Bld) [Entitic vol] 9.6 fL Normal 6.2-12.0 [facility] Comment on above: Order Comment: Order Date: 03/01/24 Order Info: 07- - CMP Order Info: 3 - TSH Performed By: #### L 500.4050, L100.0100, [id number] #### [facility] [address] [place], [address] Platelets (Bld) [#/Vol] 247 10*3/uL Normal 150-450 [facility] Comment on above: Order Comment: Order Date: 03/01/24 Order Info: 0786 - CMP Order Info: 3 - TSH Performed By: #### L 500.4050, L100.0100, [id number] #### [facility] [address] [place], [address] RBC (Bld) [#/Vol] 4.55 10*6/uL Normal 4.2-5.[address] [facility] Comment on above: Order Comment: Order Date: 03/01/24 Order Info: 0786- - CMP Order Info: 3 - TSH Performed By: #### L 500.4050, L100.0100, [id number] #### [facility] [address] [place], [address] RDW SD 43.9 fl Normal 35.1-43.9 [facility] Comment on above: Order Comment: Order Date: 03/01/24 Order Info: 0786-1 - CMP Order Info: 3015-3 - TSH Performed By: #### L 500.4050, L100.0100, [id number] #### [facility] [address] [place], [address] WBC (Bld) [#/Vol] 5.2 10*3/uL Normal 4.4-11.0 [facility] Comment on above: Order Comment: Order Date: 03/01/24 Order Info: 0786-1 - CMP Order Info: 3015-3 - TSH Performed By: #### L 500.4050, L100.0100, [id number] #### [facility] [address] [place], [address] Carbon dioxide measurementOr dered By: Marek Junior on 05-19-2024 CO2 [Moles/Vol] 25.0 mmol/L 21.0-32.0 [facility] Chloride measurementOrdered By: Marek Junior on 05-19-2024 Chloride [Moles/Vol] 106 mmol/L 98-107 [facility] Comprehensive Metabolic Prof ilon 05-19-2024 Albumin [Mass/Vol] 4.0 g/dL Normal 3.2-5.0 [facility] Comment on above: Order Comment: Order Date: 03/01/24 Order Info: 0786-1 - CMP Order Info: 3013 - TSH Performed By: #### L 500.4050, L100.0100, L501.9520 #### [facility] [facility] [address] [place], [address] Albumin/Globulin [Mass ratio] 1.2 {ratio} Normal 0.9-2.4 [facility] Comment on above: Order Comment: Order Date: 03/01/24 Order Info: 0786-1 - CMP Order Info: 30163 - TSH Performed By: #### L 500.4050, L100.0100, [id number] #### [facility] [address] [place], [address] ALK P 93 U/L Normal 45-117 [facility] Comment on above: Order Comment: Order Date: 03/01/24 Order Info: 0786-1 - CMP Order Info: 6-3 - TSH Performed By: #### L 500.4050, L100.0100, [id number] #### [facility] [address] [place], [address] ALT [Catalytic activity/Vol] 31 U/L Normal 13-56 [facility] Comment on above: Order Comment: Order Date: 03/01/24 Order Info: 0786-1 - CMP Order Info: 3015-3 - TSH Performed By: #### L 500.4050, L100.0100, [id number] #### [facility] [address] [place], [address] AST [Catalytic activity/Vol] 21 U/L Normal 15-37 [facility] Comment on above: Order Comment: Order Date: 03/01/24 Order Info: 0786-1 - CMP Order Info: 3015-3 - TSH Performed By: #### L 500.4050, L100.0100, [id number] #### [facility] [address] [place], [address] Bilirubin [Mass/Vol] 0.40 mg/dL Normal 0.20-1.00 [facility] Comment on above: Order Comment: Order Date: 03/01/24 Order Info: 0786-1 - CMP Order Info: 301-3 - TSH Result Comment: For patients on eltrombopag therapy, use of [place] TBIL is not recommended. Performed By: #### L 500.4050, L100.0100, [id number] #### [facility] [address] [place], [address] BUN/CRE 24.1 RATIO High 10-20 [facility] Comment on above: Order Comment: Order Date: 03/01/24 Order Info: 0786-1 - CMP Order Info: 3016-3 - TSH Performed By: #### L 500.4050, L100.0100, [id number] #### [facility] [address] [place], [address] CA,Total 9.5 mg/dL Normal 8.5-10.1 [facility] Comment on above: Order Comment: Order Date: 03/01/24 Order Info: 0786 - CMP Order Info: 3015-06 - TSH Performed By: #### L 500.4050, L100.0100, [id number] #### [facility] [address] [place], [address] Chloride [Moles/Vol] 106 mmol/L Normal 98-107 [facility] Comment on above: Order Comment: Order Date: 03/01/24 Order Info: 785-04 - CMP Order Info: 3015-06 - TSH Performed By: #### L 500.4050, L100.0100, [id number] #### [facility] [address] [place], [address] CO2 [Moles/Vol] 25.0 mmol/L Normal 21.0-32.0 [facility] Comment on above: Order Comment: Order Date: 03/01/24 Order Info: 07 - [facility] Order Info: 3015-06 - TSH Performed By: #### L 500.4050, L100.0100, [id number] #### [facility] [address] [place], [address] Creatinine [Mass/Vol] 0.83 mg/dL Normal 0.55-1.02 [facility] Comment on above: Order Comment: Order Date: 03/01/24 Order Info: 0786 - [facility] Order Info: 3015-06 - TSH Result Comment: The validity of the calculated GFR GFRAA in patients over 70 years has not been determined. Clinical correlation is essential. Performed By: #### L 500.4050, L100.0100, [id number] #### [facility] [address] [place], [address] EST GFR - AA 88 mL/min Normal >60 [facility] Comment on above: Order Comment: Order Date: 03/01/24 Order Info: 785-04 - CMP Order Info: 3015-06 - TSH Result Comment: Afri can Jamaican GFR Calc Performed By: #### L 500.4050, L100.0100, [id number] #### [facility] [address] [place], [address] GAP 7 Normal 5-15 [facility] Comment on above: Order Comment: Order Date: 03/01/24 Order Info: 785-04 - CMP Order Info: 3015-06 - TSH Performed By: #### L 500.4050, L100.0100, [id number] #### [facility] [address] [place], [address] GFR/1.73 sq M.predicted among non-blacks MDRD (S/P/Bld) [Vol rate/Area] 73 mL/min/{1.73_m2} Normal >60 [facility] Comment on above: Order Comment: Order Date: 03/01/24 Order Info: 785-04 - CMP Order Info: 3015-06 - TSH Result Comment: Non- GFR Calc Performed By: #### L 500.4050, L100.0100, [id number] #### [facility] [address] [place], [address] Globulin (S) [Mass/Vol] 3.3 g/dL Normal 2.2-4.2 [facility] Comment on above: Order Comment: Order Date: 03/01/24 Order Info: 0786 - CMP Order Info: 3015-06 - TSH Performed By: #### L 500.4050, L100.0100, [id number] #### [facility] [address] [place], [address] Glucose [Mass/Vol] 88 mg/dL Normal 74-106 [facility] Comment on above: Order Comment: Order Date: 03/01/24 Order Info: 0786-1 - CMP Order Info: 3015-3 - TSH Performed By: #### L 500.4050, L100.0100, [id number] #### [facility] [address] [place], [address] Potassium [Moles/Vol] 3.8 mmol/L Normal 3.5-5.1 [facility] Comment on above: Order Comment: Order Date: 03/01/24 Order Info: 07-1 - CMP Order Info: 3 - TSH Performed By: #### L 500.4050, L100.0100, [id number] #### [facility] [address] [place], [address] Sodium [Moles/Vol] 138 mmol/L Normal 136-145 [facility] Comment on above: Order Comment: Order Date: 03/01/24 Order Info: 07-1 - CMP Order Info: 3 - TSH Performed By: #### L 500.4050, L100.0100, [id number] #### [facility] [address] [place], [address] T PROT 7.3 g/dL Normal 6.4-8.2 [facility] Comment on above: Order Comment: Order Date: 03/01/24 Order Info: 0786-1 - CMP Order Info: 3 - TSH Performed By: #### L 500.4050, L100.0100, [id number] #### [facility] [address] [place], [address] Urea nitrogen [Mass/Vol] 20 mg/dL High 7-18 [facility] Comment on above: Order Comment: Order Date: 03/01/24 Order Info: 0786-1 - CMP Order Info: 3015-3 - TSH Performed By: #### L 500.4050, L100.0100, [id number] #### [facility] [address] [place], [address] Eosinophil percentageOrdered By: Marek Junior on 05-19-2024 Eosinophils/100 WBC (Bld) 6.7 % High 0-5 [facility] Erythrocyte distribution wid th ratioOrdered By: Marek Junior on 05-19-2024 Erythrocyte distribution width (RBC) [Ratio] 13.2 % 11.6-14.6 [facility] Erythrocyte distribution wid th standard deviationOrdered By: Marek Junior on 05-19-2024 Erythrocyte distribution width (RBC) [Entitic vol] 43.9 fL 35.1-43.9 [facility] Estimated glomerular filtrat ion rate (GFR) AmericanOrdered By: Marek Junior on 05-19-2024 Estimated GFR (MDRD) Amer 88 mL/min >60 [facility] Comment on above: GFR Calc Glomerular filtration rate ( GFR) estimationOrdered By: Marek Junior on 05-19-2024 Estimated GFR (MDRD) Non-Af Amer 73 mL/min >60 [facility] Comment on above: Non- GFR Calc Glucose measurementOrdered B y: Marek Junior on 05-19-2024 Glucose [Mass/Vol] 88 mg/dL 74-106 [facility] HCV RNA DWAINE+probe QnOrdered By: Marek Junior on 05-19-2024 Hepatitis C RNA Quantitative (PCR) Not detected . [facility] Hematocrit Auto (Bld) [Volum e fraction]Ordered By: Marek Junior on 05-19-2024 Hematocrit (Bld) [Volume fraction] 41.7 % 37-47 [facility] Hemoglobin measurementOrdere d By: Marek Junior on 05-19-2024 Hemoglobin (Bld) [Mass/Vol] 13.2 g/dL 12.0-15.0 [facility] Hepatitis C viral load measu rementOrdered By: Marek Junior on 05-19-2024 Hepatitis C RNA (PCR) IU log10 TNP [facility] Comment on above: Test not performed High density lipoprotein (HD L) measurementOrdered By: Marek Junior on 05-19-2024 Cholesterol in HDL [Mass/Vol] 93 mg/dL >40 [facility] Comment on above: The drugs N-Acetylcy steine and Metamizole may falsely depress this assay. Reference Range HDL <40 mg/dL Low HDL Cholesterol HDL >or= 60 mg/dL High HDL Cholesterol Immature granulocytes/100 WB C Auto (Bld)Ordered By: Marek Junior on 05-19-2024 Immature granulocytes/100 WBC (Bld) 0.400 % 0.0-0.9 [facility] Comment on above: IG% - Immature Granu locytes (promyelocytes, myelocytes and metamyelocytes) > 1% indicates that a LEFT SHIFT is Present. Laboratory - Chemistry and C hemistry - challengeOrdered By: Marek Junior on 05-19-2024 AST [Catalytic activity/Vol] 21 U/L 15-37 [facility] Lipid Profileon 05-19-2024 Cholesterol [Mass/Vol] 221 mg/dL High 200 [facility] Comment on above: Order Comment: Order Date: 03/01/24 Order Info: 0786-1 - CMP Order Info: 3016-3 - TSH Result Comment: <200 mg/dL Desirable 200-240 mg/dL Borderline >240 mg/dL High Risk Performed By: #### L 500.4050, L100.0100, [id number] #### [facility] [address] [place], [address] Cholesterol in HDL [Mass/Vol] 93 mg/dL Normal [facility] Comment on above: Order Comment: Order Date: 03/01/24 Order Info: 0786-1 - CMP Order Info: 3016-3 - TSH Result Comment: The drugs N-Acetylcysteine and Metamizole may falsely depress this assay. Reference Range HDL <40 mg/dL Low HDL Cholesterol HDL >or= 60 mg/dL High HDL Cholesterol Performed By: #### L 500.4050, L100.0100, [id number] #### [facility] [address] [place], [address] Cholesterol in LDL [Mass/Vol] 115 mg/dL Normal 0-130 [facility] Comment on above: Order Comment: Order Date: 03/01/24 Order Info: 0786-1 - CMP Order Info: 30163 - TSH Performed By: #### L 500.4050, L100.0100, [id number] #### [facility] [address] [place], [address] Cholesterol in VLDL [Mass/Vol] 13 mg/dL Normal 5-40 [facility] Comment on above: Order Comment: Order Date: 03/01/24 Order Info: 0786-1 - CMP Order Info: 3015-06 - TSH Performed By: #### L 500.4050, L100.0100, [id number] #### [facility] [address] [place], [address] Triglyceride [Mass/Vol] 67 mg/dL Normal [facility] Comment on above: Order Comment: Order Date: 03/01/24 Order Info: 0786-1 - CMP Order Info: 3015-06 - TSH Result Comment: The drugs N-Acetylcysteine and Metamizole may falsely depress this assay. Serum Triglycerides Reference Interval Normal <150 mg/dL Borderline high 150 - 199 mg/dL High 200 - 499 mg/dL Very High > or = 500 mg/dL Performed By: #### L 500.4050, L100.0100, L501.9520 #### [facility] [address] [place], [address] Low density lipoprotein (LDL ) cholesterol measurementOrdered By: Marek Junior on 05-19-2024 Cholesterol in LDL [Mass/Vol] 115 mg/dL 0-130 [facility] Lymphocytes Auto (Unsp spec) [#/Vol]Ordered By: Marek Junior on 05-19-2024 Lymphocytes (Bld) [#/Vol] 1.78 10*3/uL 0.83-4.51 [facility] Lymphocytes/100 WBC Auto (Un sp spec)Ordered By: Marek Junior on 05-19-2024 Lymphocytes/100 WBC (Bld) 34.1 % 19-41 [facility] MCV (mean corpuscular volume ) determinationOrdered By: Marek Junior on 05-19-2024 MCV (RBC) [Entitic vol] 91.6 fL 81-99 [facility] Mean corpuscular hemoglobin (MCH) determinationOrdered By: Marek Junior on 05-19-2024 MCH (RBC) [Entitic mass] 29.0 pg 27.0-32.0 [facility] Mean corpuscular hemoglobin concentration (MCHC) determinationOrdered By: Marek Junior on 05-19-2024 MCHC (RBC) [Mass/Vol] 31.7 g/dL Low 32-36 [facility] Mean platelet volume determi nationOrdered By: Marek Junior on 05-19-2024 Platelet mean volume (Bld) [Entitic vol] 9.6 fL 6.2-12.0 [facility] Monocyte percentageOrdered B y: Marek Junior on 05-19-2024 Monocytes/100 WBC (Bld) 8.0 % 0-10 [facility] Neutrophil percentageOrdered By: Marek Junior on 05-19-2024 Neutrophils/100 WBC (Bld) 50.4 % 47-70 [facility] Nucleated red blood cell per centageOrdered By: Marek Junior on 05-19-2024 Nucleated RBC/100 WBC (Bld) [Ratio] 0 % 0-5 [facility] Platelet countOrdered By: Rose Junior on 05-19-2024 Platelets (Bld) [#/Vol] 247 10*3/uL 150-450 [facility] Potassium measurementOrdered By: Marek Junior on 05-19-2024 Potassium [Moles/Vol] 3.8 mmol/L 3.5-5.1 [facility] RBC Auto (Bld) [#/Vol]Ordere d By: Marek Junior on 05-19-2024 RBC (Bld) [#/Vol] 4.55 10*6/uL 4.2-5.[address] [facility] Serum anion gap measurementO rdered By: Marek Junior on 05-19-2024 Anion gap [Moles/Vol] 7 mmol/L 5-15 [facility] Serum globulin measurementOr dered By: Marek Junior on 05-19-2024 Globulin (S) [Mass/Vol] 3.3 g/dL 2.2-4.2 [facility] Serum or plasma alanine hill otransferase (ALT) measurementOrdered By: Marek Junior on 05-19-2024 ALT [Catalytic activity/Vol] 31 U/L 13-56 [facility] Serum or plasma albumin vicente urement (mass/volume)Ordered By: Marek Junior on 05-19-2024 Albumin [Mass/Vol] 4.0 g/dL 3.2-5.0 [facility] Serum or plasma alkaline stephanie sphatase measurementOrdered By: Marek Junior on 05-19-2024 ALP [Catalytic activity/Vol] 93 U/L 45-117 [facility] Serum or plasma calcium vicente urement (mass/volume)Ordered By: Marek Junior on 05-19-2024 Calcium [Mass/Vol] 9.5 mg/dL 8.5-10.1 [facility] Serum or plasma cholesterol measurement (mass/volume)Ordered By: Marek Junior on 05-19-2024 Cholesterol [Mass/Vol] 221 mg/dL High <200 [facility] Comment on above: <200 mg/dL Desirable 200-240 mg/dL Borderline >240 mg/dL High Risk Serum or plasma creatinine m easurement (mass/volume)Ordered By: Marek Junior on 05-19-2024 Creatinine [Mass/Vol] 0.83 mg/dL 0.55-1.02 [facility] Comment on above: The validity of the calculated GFR & GFRAA in patients over 70 years has not been determined. Clinical correlation is essential. Serum or plasma urea nitroge n measurement (mass/volume)Ordered By: Marek Junior on 05-19-2024 Urea nitrogen [Mass/Vol] 20 mg/dL High 7-18 [facility] Sodium levelOrdered By: Marek Juniro on 05-19-2024 Sodium [Moles/Vol] 138 mmol/L 136-145 [facility] Total proteinOrdered By: Jovan Junior on 05-19-2024 Protein [Mass/Vol] 7.3 g/dL 6.4-8.2 [facility] Triglycerides measurementOrd ered By: Marek Junior on 05-19-2024 Triglyceride [Mass/Vol] 67 mg/dL <199 [facility] Comment on above: The drugs N-Acetylcy steine and Metamizole may falsely depress this assay.Serum Triglycerides Reference Interval Normal <150 mg/dL Borderline high 150 - 199 mg/dL High 200 - 499 mg/dL Very High > or = 500 mg/dL Very low density lipoprotein (VLDL) cholesterol measurementOrdered By: Marek Junior on 05-19-2024 VLDL Cholesterol 13 mg/dL 5-40 [facility] Vitamin D,25 Hydroxyon 05-19 Vitamin D 25-OH 70.0 ng/mL Normal [facility] Comment on above: Order Comment: Order Date: 03/01/24 Order Info: 0786-1 - CMP Order Info: 3016-3 - TSH Result Comment: Patricia min D 25(OH) Status Range Deficiency <20 ng/mL (50nmol/L) Insufficiency 20 - 30 ng/mL (50 - 75 nmol/L) Sufficiency 30 - 100 ng/mL (75 - 250 nmol/L) Toxicity >100 ng/mL (>250 nmol/L) Performed By: #### L 500.4050, L100.0100, L501.9520 #### [facility] [address] [place], [address] White blood cell (WBC) count Ordered By: Marek Junior on 05-19-2024 WBC (Bld) [#/Vol] 5.2 10*3/uL 4.4-11.0 [facility] MULU SCREENING W TOMOon 04-14 [facility] SCREENING W TONY * * *Final Report* * * DATE OF EXAM: Apr 14 2024 10:45AM [facility] 0582 - [facility] SCREENING W TONY / PROCEDURE REASON: Encounter for screening mammogram for breast cancer * * * * Physician Interpretation * * * * RESULT: [facility] [address] [place] [address] #[id number] - [facility] SCREENING W TONY HISTORY: Patient is 68 years old and is seen for screening and is asymptomatic in both breasts. Patient states no personal history of breast cancer. Patient states no personal history of other cancers. COMPARISON STUDIES: The present examination has been compared to a prior imaging study dated 11/29/2015 (mammogram). MAMMOGRAM TECHNIQUE: The study was acquired using full field digital technology and interpreted from soft copy. Digital Breast Tomosynthesis (DBT) images were obtained and used to assist in the interpretation of this examination. Computer-aided detection was utilized by the radiologist in the interpretation of this examination. MAMMOGRAM FINDINGS: The breasts are heterogeneously dense, which may obscure small masses. No suspicious masses, calcifications or other abnormalities are seen in either breast. There are no significant interval changes. IMPRESSION: There is no mammographic evidence of malignancy in either breast. Routine screening mammogram is recommended. Annual mammogram will be due in 1 year. BI-RADS Category 1: Negative RISK: Based on the Tyrer-Cuzick (TC) risk assessment model, this patient has a 2.1% lifetime risk of developing breast cancer, meaning they are at average risk for developing breast cancer. However, this is only an estimate based on available history provided on the patient's questionnaire. We encourage all patients to talk with their providers about these results, further recommendations for managing breast health, and appropriate supplemental screening options if the patient has dense breast tissue. Interpreting Radiologist: Stacy Ambrosio M.D. Electronically signed on: 04/18/2024 Regulatory Affairs Coordinator: BRUCE Transcribe Date/Time: Apr 14 2024 10:34A Dictated by: STACY AMBROSIO MD This examination was interpreted and the report reviewed and electronically signed by: STACY AMBROSIO MD on Apr 18 2024 10:53AM EST [id number] Normal [facility] CNOVon 03-14-2024 CNOV Office Visit (OBGYWM ) MICHAELPARUL R ([id number]) 1955 F Date Time Provider Department 03/14/24 2:00 PM GERRI STEWART OBGYWM During your visit today, we recorded the following information about you: Blood pressure Weight Height 98/60 50.3 kg 1.499 m Terry GerriJUSTIN [email or web address] 03/14/2024 4:27 PM Signed Technology Teacher offered: Patient declines. Parul is a 68 year old who presents for an annual gynecologic exam without complaints. Postmenopausal: Yes since age 57 HRT use: No. Last Pap: 11/27/2015 normal Completed at primary care but unable to result HPV: 11/21/2015 negative History of abnormal pap: No Last mammogram: 2018 normal History of abnormal mammogram: No Sexually active: No History of STDS: None Seatbelt use: Yes OB History T2 L2 SAB1 IAB0 Ectopic0 Multiple0 Live Births0 Comment: Patient with two living children and one miscarriage. Snagger History LMP: 10/25/2008, Postmenopausal Age at Menarche: Age at First : Age at Menopause: Snagger History Comments: Sexual Activity: Not Currently; Male Contraception: No contraception data on record PAST MEDICAL HISTORY Diagnosis Date Diarrhea Dyskinesia of esophagus Endometriosis Miscarriage 1989 Other and unspecified anemias Personal history of unspecified circulatory disease Restless legs syndrome PAST SURGICAL HISTORY Procedure Laterality Date DELIVERY ONLY 04/05/1981 DELIVERY ONLY 04/05/1993 COLONOSCOPY FLX DX W/COLLJ SPEC WHEN PFRMD 08/30/2003 normal colonoscopy COLONOSCOPY FLX DX W/COLLJ SPEC WHEN PFRMD 04/15/2012 Colonoscopy repeat 10 years EGD TRANSORAL BIOPSY SINGLE/MULTIPLE 08/30/2003 Mild gastritis ESOPHAGOGASTRODUODENOSCOPY TRANSORAL DIAGNOSTIC 12/03/2009 EGD ESOPHAGOGASTRODUODENOSCOPY TRANSORAL DIAGNOSTIC 04/15/2012 EGD LAPAROSCOPIC APPENDECTOMY 04/05/1990 with Ovary Removal PT ED HEART AND VASCULAR 01/2023 stent placed FAMILY HISTORY Problem Relation Age of Onset Heart Mother Coronary Artery Bypass Graft Cancer Mother Hysterectomy due to Cervical Cancer Heart Father Coronary Artery Bypass Graft Alzheimer's Disease Father Osteoporosis Sister Heart Brother Health Issues Diabetes Brother Heart Brother Myocardial Infarction Cancer Maternal Grandmother Lung Cancer SOCIAL HISTORY REVIEW OF SYSTEMS Abdomen: No abdominal pain, nausea, vomiting, diarrhea, or constipation. No bloating, early satiety, indigestion, or increased flatulence. Bladder: No dysuria, gross hematuria, urinary frequency, urinary urgency, or incontinence Breast: No breast lumps, nipple d/c, overlying skin changes, redness or skin retraction Allergies and current medication updated:Yes SENSITIVE EXAM: The sensitive examination was discussed with the Patient or Patient's Authorized Nuisance Wildlife Specialist. As applicable, any other physician, advance practice provider, medical student, or other health professional student that will be observing or involved in the sensitive examination for educational or training purposes was discussed with the Patient or Authorized Nuisance Wildlife Specialist. The Patient or Authorized Nuisance Wildlife Specialist has agreed to proceed with the sensitive examination. (Sensitive examination includes inspection and/or palpation of the breasts, pelvis, prostate and anorectal regions). EXAM: BP 98/60 Ht 4' 11 (1.50m) Wt 111 lb (50.3kg) LMP 10/25/2008 BMI 22.41 kg/(m2). GENERAL: pleasant, female in no apparent distress HEENT: Normocephalic, atraumatic, mucus membranes moist, and no lesions NECK: Supple, full range of motion, no adenopathy, and thyroid normal DERMATOLOGY: Normal, without lesions, non-icteric, and non-hirsute BREAST: soft, non-tender, symmetric, no dominant mass, normal nipple-areolar complex, no lymphadenopathy, and no nipple discharge CHEST: Normal inspiratory effort ABDOMEN: soft, non-tender, and no masses PELVIC: external genitalia normal, normal Bartholin's glands, urethra, [place]'s glands, no vulvar lesions, no cervical lesions, good vaginal support, physiologic discharge present, normal appearing perineal body and perianal region, atrophic changes, cervix stenotic BIMANUAL: uterus normal size, shape and consistency, no adnexal masses, and non-tender RECTOVAGINAL: deferred. NEURO: alert and oriented x3,exam grossly non-focal EXTREMITIES: normal ASSESSMENT/PLAN: 1. Encounter for gynecological examination (general) (routine) without abnormal findings - ICD9: V72.31, ICD10: Z01.419 (primary diagnosis) - Completed pelvic and breast exam - Encouraged monthly BSE - Follow up for annual exam in one year. 2. Encounter for screening for human papillomavirus (HPV) - ICD9: V73.81, ICD10: Z11.51 - PAP TEST 3. Pap smear for cervical cancer screening - ICD9: V76.2, ICD10: Z12.4 - Completed pelvic and breast exam (more content not included)... Normal [facility] HIGH RISK HUMAN PAPILLOMA JOSE (HPV), PCR FOR DETECTION AND GENOTYPINGon 03-14-2024 HPV 16 Ag Ql (Unsp spec) Not detected Normal Not detected [facility] Comment on above: Order Comment: Speci men Type: FLUID SPECIMEN Ordering Facility: [facility] Address: [address] [place] [address] Performed By: #### H PVHRT #### [facility] CLIA [id number] [address] [place] [address] [place] HPV 18 Ag Ql (Unsp spec) Not detected Normal Not detected [facility] Comment on above: Order Comment: Speci men Type: FLUID SPECIMEN Ordering Facility: [facility] Address: [address] [place] [address] Performed By: #### H PVHRT #### [facility] CLIA [id number] [address] [place] [address] [place] HPV 31+33+35+39+45+51+52+ 56+58+59+66+68 DNA DWAINE+probe Ql (Cvx) Not detected Normal Not detected [facility] Comment on above: Order Comment: Speci men Type: FLUID SPECIMEN Ordering Facility: [facility] Address: [address] [place] [address] Result Comment: High Risk HPV Other Type includes HPV types 31, 33, 35, 39, 45, 51, 52, 56, 58, 59, 66 and 68. Performed By: #### H PVHRT #### [facility] CLIA [id number] [address] [place] [address] [place] PAP TESTon 03-14-2024 ADEQUACY Satisfactory for interpretation. Normal [facility] Comment on above: Order Comment: Speci men Type: FLUID SPECIMEN [facility] [facility] Address: [address] [place] [address] Performed By: #### L [id number] #### [facility] CLIA [id number] [address] [place] [address] [place] CASE REPORT Normal [facility] Comment on above: Order Comment: Speci men Type: FLUID SPECIMEN Ordering Facility: [facility] Address: [address] [place] [address] Result Comment: Gyne cologic Cytology Report Case: [id number] Authorizing Provider: Gerri Stewart APRN.CNM Collected: 03/14/2024 02:57 PM Ordering Location: OB/Gynecology Received: 03/14/2024 04:01 PM First Screen: Marcell Moreira, CT, ASCP Specimen: Pap Test, ThinPrep, Cervix Performed By: #### L [id number] #### [facility] CLIA [id number] [address] [place] [address] [place] CLINICAL HISTORY, CYTOLOGY, LAW ENFORCEMENT DIRECTOR Post Menopausal Normal [facility] Comment on above: Order Comment: Speci men Type: FLUID SPECIMEN Ordering Facility: [facility] Address: [address] [place] [address] Performed By: #### L [id number] #### [facility] CLIA [id number] [address] [place] [address] [place] CYTOLOGY PAP OTHER INTERPRETATION Atrophic specimen. Normal [facility] Comment on above: Order Comment: Speci men Type: FLUID SPECIMEN Ordering Facility: [facility] Address: [address] [place] [address] Performed By: #### L [id number] #### [facility] CLIA [id number] [address] [place] [address] [place] FINAL PERFORMING LAB Normal [facility] Comment on above: Order Comment: Speci men Type: FLUID SPECIMEN Ordering Facility: [facility] Address: [address] [place] [address] Result Comment: Tech nical component, silk screen printing racker screening performed at [facility], [address] [place], [place] [id number] CLIA# [id number] Diagnostic interpretation performed at [facility], [address] [place], [place] [id number] CLIA# [id number] Textile Dyer: Oscar Rubin M.D. Performed By: #### L [id number] #### [facility] CLIA [id number] [address] [place] [address] [place] INTERPRETATION, CYTOLOGY, LAW ENFORCEMENT DIRECTOR Normal [facility] Comment on above: Order Comment: Speci men Type: FLUID SPECIMEN Ordering Facility: [facility] Address: [address] [place] [address] Result Comment: Nega tive for intraepithelial lesion or malignancy. Performed By: #### L [id number] #### [facility] CLIA [id number] [address] [place] [address] [place] PAP DISCLAIMER COMMENT The Pap Smear is a screening test for cervical cancer. False negative results occur with all screening tests, emphasizing the need for rescreening at recommended intervals, and clinical correlation. Normal [facility] Comment on above: Order Comment: Speci men Type: FLUID SPECIMEN Ordering Facility: [facility] Address: [address] [place] [address] Performed By: #### L [id number] #### [facility] CLIA [id number] [address] [place] [address] [place] PAP SENIOR PARALEGAL COMMENT This specimen has be en analyzed by the ThinPrep Imaging System, an automated imaging and review system, which assists the laboratory in evaluating cells on ThinPrep Pap tests. Following automated imaging, selected [place] from every slide are reviewed by a silk screen printing racker. Normal [facility] Comment on above: Order Comment: Speci men Type: FLUID SPECIMEN Ordering Facility: [facility] Address: [address] [place] [address] Performed By: #### L [id number] #### [facility] CLIA [id number] [address] [place] [address] [place] Absolute neutrophil countOrd ered By: Joselyn Bell on 03-01-2024 Neutrophils (Bld) [#/Vol] 3.0 10*3/uL 2.0-7.7 [facility] Albumin to globulin ratioOrd ered By: Joselyn Nguyenner on 03-01-2024 Albumin/Globulin [Mass ratio] 1.1 {ratio} 0.9-2.4 [facility] Basophil percentageOrdered B y: Joselyn Bell on 03-01-2024 Basophils/100 WBC (Bld) 0.5 % 0-1 [facility] Bilirubin, totalOrdered By: Joselyn Bell on 03-01-2024 Bilirubin [Mass/Vol] 0.40 mg/dL 0.20-1.00 [facility] Comment on above: For patients on eltr ombopag therapy, use of [place] TBIL is not recommended. Blood urea nitrogen (BUN)/cr eatinine ratioOrdered By: Joselyn Bell on 03-01-2024 Urea nitrogen/Creatinine [Mass ratio] 21.9 mg/mg High 10-20 [facility] CBC W/Diff, Automatedon 02-04 Absolute Lymph 1.84 X10 3/uL Normal 0.83-4.51 [facility] Comment on above: Order Comment: Order Date: 03/01/24 Order Info: 0184-1 - CBCD Performed By: #### L 500.4050, L100.0100, L501.9520 #### [facility] [address] [place], [address] Absolute Neut 3.0 X10 3/uL Normal 2.0-7.7 [facility] Comment on above: Order Comment: Order Date: 03/01/24 Order Info: 0184-1 - CBCD Performed By: #### L 500.4050, L100.0100, L501.9520 #### [facility] [address] [place], [address] Basophils/100 WBC (Bld) 0.5 % Normal 0-1 [facility] Comment on above: Order Comment: Order Date: 03/01/24 Order Info: 0184-1 - CBCD Performed By: #### L 500.4050, L100.0100, L501.9520 #### [facility] [address] [place], [address] Eosinophils/100 WBC (Bld) 6.0 % High 0-5 [facility] Comment on above: Order Comment: Order Date: 03/01/24 Order Info: 018-1 - CBCD Performed By: #### L 500.4050, L100.0100, L501.9520 #### [facility] [address] [place], [address] Erythrocyte distribution width (RBC) [Ratio] 13.2 % Normal 11.6-14.6 [facility] Comment on above: Order Comment: Order Date: 03/01/24 Order Info: 018- - CBCD Performed By: #### L 500.4050, L100.0100, L501.9520 #### [facility] [address] [place], [address] Hematocrit (Bld) [Volume fraction] 42.6 % Normal 37-47 [facility] Comment on above: Order Comment: Order Date: 03/01/24 Order Info: 018- - CBCD Performed By: #### L 500.4050, L100.0100, L501.9520 #### [facility] [address] [place], [address] Hemoglobin (Bld) [Mass/Vol] 13.7 g/dL Normal 12.0-15.0 [facility] Comment on above: Order Comment: Order Date: 03/01/24 Order Info: 0184-1 - CBCD Performed By: #### L 500.4050, L100.0100, L501.9520 #### [facility] [address] [place], [address] IG% 0.200 Normal 0.0-0.9 [facility] Comment on above: Order Comment: Order Date: 03/01/24 Order Info: 0184-1 - CBCD Result Comment: IG% - Immature Granulocytes (promyelocytes, myelocytes and metamyelocytes) > 1% indicates that a LEFT SHIFT is Present. Performed By: #### L 500.4050, L100.0100, L501.9520 #### [facility] [address] [place], [address] Lymphocytes/100 WBC (Bld) 32.6 % Normal 19-41 [facility] Comment on above: Order Comment: Order Date: 03/01/24 Order Info: 0184-1 - CBCD Performed By: #### L 500.4050, L100.0100, L501.9520 #### [facility] [address] [place], [address] MCH (RBC) [Entitic mass] 29.7 pg Normal 27.0-32.0 [facility] Comment on above: Order Comment: Order Date: 03/01/24 Order Info: 0184-1 - CBCD Performed By: #### L 500.4050, L100.0100, L501.9520 #### [facility] [address] [place], [address] MCHC (RBC) [Mass/Vol] 32.2 g/dL Normal 32-36 [facility] Comment on above: Order Comment: Order Date: 03/01/24 Order Info: 0184-1 - CBCD Performed By: #### L 500.4050, L100.0100, L501.9520 #### [facility] [address] [place], [address] MCV (RBC) [Entitic vol] 92.2 fL Normal 81-99 [facility] Comment on above: Order Comment: Order Date: 03/01/24 Order Info: 0184-1 - CBCD Performed By: #### L 500.4050, L100.0100, L501.9520 #### [facility] [address] [place], [address] Monocytes/100 WBC (Bld) 7.4 % Normal 0-10 [facility] Comment on above: Order Comment: Order Date: 03/01/24 Order Info: 0184-1 - CBCD Performed By: #### L 500.4050, L100.0100, L501.9520 #### [facility] [address] [place], [address] Neutrophils/100 WBC (Bld) 53.3 % Normal 47-70 [facility] Comment on above: Order Comment: Order Date: 03/01/24 Order Info: 0184-1 - CBCD Performed By: #### L 500.4050, L100.0100, L501.9520 #### [facility] [address] [place], [address] Nucleated RBC (Bld) [#/Vol] 0 10*3/uL Normal 0-5 [facility] Comment on above: Order Comment: Order Date: 03/01/24 Order Info: 018- - CBCD Performed By: #### L 500.4050, L100.0100, L501.9520 #### [facility] [address] [place], [address] Platelet mean volume (Bld) [Entitic vol] 9.4 fL Normal 6.2-12.0 [facility] Comment on above: Order Comment: Order Date: 03/01/24 Order Info: 018-1 - CBCD Performed By: #### L 500.4050, L100.0100, L501.9520 #### [facility] [address] [place], [address] Platelets (Bld) [#/Vol] 260 10*3/uL Normal 150-450 [facility] Comment on above: Order Comment: Order Date: 03/01/24 Order Info: 0184-1 - CBCD Performed By: #### L 500.4050, L100.0100, L501.9520 #### [facility] [address] [place], [address] RBC (Bld) [#/Vol] 4.62 10*6/uL Normal 4.2-5.[address] [facility] Comment on above: Order Comment: Order Date: 03/01/24 Order Info: 018- - CBCD Performed By: #### L 500.4050, L100.0100, L501.9520 #### [facility] [address] [place], [address] RDW SD 44.0 fl High 35.1-43.9 [facility] Comment on above: Order Comment: Order Date: 03/01/24 Order Info: 018- - CBCD Performed By: #### L 500.4050, L100.0100, L501.9520 #### [facility] [address] [place], [address] WBC (Bld) [#/Vol] 5.6 10*3/uL Normal 4.4-11.0 [facility] Comment on above: Order Comment: Order Date: 03/01/24 Order Info: 018- - CBCD Performed By: #### L 500.4050, L100.0100, L501.9520 #### [facility] [address] [place], [address] Carbon dioxide measurementOr dered By: Joselyn Bell on 03-01-2024 CO2 [Moles/Vol] 25.0 mmol/L 21.0-32.0 [facility] Chloride measurementOrdered By: Joselyn Bell on 03-01-2024 Chloride [Moles/Vol] 106 mmol/L 98-107 [facility] Comprehensive Metabolic Prof ilon 03-01-2024 Albumin [Mass/Vol] 3.8 g/dL Normal 3.2-5.0 [facility] Comment on above: Order Comment: Order Date: 03/01/24 Order Info: 0786-1 - CMP Order Info: 3016-3 - TSH Performed By: #### L 500.4050, L100.0100, L501.9520 #### [facility] [address] [place], [address] Albumin/Globulin [Mass ratio] 1.1 {ratio} Normal 0.9-2.4 [facility] Comment on above: Order Comment: Order Date: 03/01/24 Order Info: 0786-1 - CMP Order Info: 301-3 - TSH Performed By: #### L 500.4050, L100.0100, L501.9520 #### [facility] [address] [place], [address] ALK P 96 U/L Normal 45-117 [facility] Comment on above: Order Comment: Order Date: 03/01/24 Order Info: 0786-1 - CMP Order Info: 3015-3 - TSH Performed By: #### L 500.4050, L100.0100, L501.9520 #### [facility] [address] [place], [address] ALT [Catalytic activity/Vol] 31 U/L Normal 13-56 [facility] Comment on above: Order Comment: Order Date: 03/01/24 Order Info: 0786- - CMP Order Info: 3015-3 - TSH Performed By: #### L 500.4050, L100.0100, L501.9520 #### [facility] [address] [place], [address] AST [Catalytic activity/Vol] 18 U/L Normal 15-37 [facility] Comment on above: Order Comment: Order Date: 03/01/24 Order Info: 0786-1 - CMP Order Info: 301-3 - TSH Performed By: #### L 500.4050, L100.0100, L501.9520 #### [facility] [address] [place], [address] Bilirubin [Mass/Vol] 0.40 mg/dL Normal 0.20-1.00 [facility] Comment on above: Order Comment: Order Date: 03/01/24 Order Info: 0786-1 - CMP Order Info: 3015-3 - TSH Result Comment: For patients on eltrombopag therapy, use of [place] TBIL is not recommended. Performed By: #### L 500.4050, L100.0100, L501.9520 #### [facility] [address] [place], [address] BUN/CRE 21.9 RATIO High 10-20 [facility] Comment on above: Order Comment: Order Date: 03/01/24 Order Info: 0786-1 - CMP Order Info: 3 - TSH Performed By: #### L 500.4050, L100.0100, L501.9520 #### [facility] [address] [place], [address] CA,Total 9.3 mg/dL Normal 8.5-10.1 [facility] Comment on above: Order Comment: Order Date: 03/01/24 Order Info: 0786-1 - CMP Order Info: 3 - TSH Performed By: #### L 500.4050, L100.0100, L501.9520 #### [facility] [address] [place], [address] Chloride [Moles/Vol] 106 mmol/L Normal 98-107 [facility] Comment on above: Order Comment: Order Date: 03/01/24 Order Info: 0786-1 - CMP Order Info: 3 - TSH Performed By: #### L 500.4050, L100.0100, L501.9520 #### [facility] [address] [place], [address] CO2 [Moles/Vol] 25.0 mmol/L Normal 21.0-32.0 [facility] Comment on above: Order Comment: Order Date: 03/01/24 Order Info: 0786-1 - CMP Order Info: 3015-3 - TSH Performed By: #### L 500.4050, L100.0100, L501.9520 #### [facility] [address] [place], [address] Creatinine [Mass/Vol] 0.82 mg/dL Normal 0.55-1.02 [facility] Comment on above: Order Comment: Order Date: 03/01/24 Order Info: 0786-1 - CMP Order Info: 3015-06 - TSH Result Comment: The validity of the calculated GFR GFRAA in patients over 70 years has not been determined. Clinical correlation is essential. Performed By: #### L 500.4050, L100.0100, L501.9520 #### [facility] [address] [place], [address] EST GFR - AA 90 mL/min Normal >60 [facility] Comment on above: Order Comment: Order Date: 03/01/24 Order Info: 0786 - CMP Order Info: 3015-06 - TSH Result Comment: Afri can Jamaican GFR Calc Performed By: #### L 500.4050, L100.0100, L501.9520 #### [facility] [address] [place], [address] GAP 6 Normal 5-15 [facility] Comment on above: Order Comment: Order Date: 03/01/24 Order Info: 0786-1 - CMP Order Info: 3015-06 - TSH Performed By: #### L 500.4050, L100.0100, L501.9520 #### [facility] [address] [place], [address] GFR/1.73 sq M.predicted among non-blacks MDRD (S/P/Bld) [Vol rate/Area] 74 mL/min/{1.73_m2} Normal >60 [facility] Comment on above: Order Comment: Order Date: 03/01/24 Order Info: 0786-1 - CMP Order Info: 3015-06 - TSH Result Comment: Non- GFR Calc Performed By: #### L 500.4050, L100.0100, L501.9520 #### [facility] [address] [place], [address] Globulin (S) [Mass/Vol] 3.4 g/dL Normal 2.2-4.2 [facility] Comment on above: Order Comment: Order Date: 03/01/24 Order Info: 0786-1 - CMP Order Info: 3015-3 - TSH Performed By: #### L 500.4050, L100.0100, L501.9520 #### [facility] [address] [place], [address] Glucose [Mass/Vol] 90 mg/dL Normal 74-106 [facility] Comment on above: Order Comment: Order Date: 03/01/24 Order Info: 0786- - CMP Order Info: 3 - TSH Performed By: #### L 500.4050, L100.0100, L501.9520 #### [facility] [address] [place], [address] Potassium [Moles/Vol] 3.9 mmol/L Normal 3.5-5.1 [facility] Comment on above: Order Comment: Order Date: 03/01/24 Order Info: 0786- - CMP Order Info: 3 - TSH Performed By: #### L 500.4050, L100.0100, L501.9520 #### [facility] [address] [place], [address] Sodium [Moles/Vol] 138 mmol/L Normal 136-145 [facility] Comment on above: Order Comment: Order Date: 03/01/24 Order Info: 0786- - CMP Order Info: 3015-06 - TSH Performed By: #### L 500.4050, L100.0100, L501.9520 #### [facility] [address] [place], [address] T PROT 7.2 g/dL Normal 6.4-8.2 [facility] Comment on above: Order Comment: Order Date: 03/01/24 Order Info: 0786-1 - CMP Order Info: 3016-3 - TSH Performed By: #### L 500.4050, L100.0100, L501.9520 #### [facility] [address] [place], [place], [address] Urea nitrogen [Mass/Vol] 18 mg/dL Normal 7-18 [facility] Comment on above: Order Comment: Order Date: 03/01/24 Order Info: 0786-1 - CMP Order Info: 3016-3 - TSH Performed By: #### L 500.4050, L100.0100, L501.9520 #### [facility] [address] [place], [place], [address] Eosinophil percentageOrdered By: Joselyn Bell on 03-01-2024 Eosinophils/100 WBC (Bld) 6.0 % High 0-5 [facility] Erythrocyte distribution wid th ratioOrdered By: Joselyn Bell on 03-01-2024 Erythrocyte distribution width (RBC) [Ratio] 13.2 % 11.6-14.6 [facility] Erythrocyte distribution wid th standard deviationOrdered By: Joselynessie Bell on 03-01-2024 Erythrocyte distribution width (RBC) [Entitic vol] 44.0 fL High 35.1-43.9 [facility] Estimated glomerular filtrat ion rate (GFR) AmericanOrdered By: Joselyn Bell on 03-01-2024 Estimated GFR (MDRD) Amer 90 mL/min >60 [facility] Comment on above: GFR Calc Glomerular filtration rate ( GFR) estimationOrdered By: Joselyn Bell on 03-01-2024 Estimated GFR (MDRD) Non-Af Amer 74 mL/min >60 [facility] Comment on above: Non- GFR Calc Glucose measurementOrdered B y: Joselyn Bell on 03-01-2024 Glucose [Mass/Vol] 90 mg/dL 74-106 [facility] Hematocrit Auto (Bld) [Volum e fraction]Ordered By: Joselyn Bell on 03-01-2024 Hematocrit (Bld) [Volume fraction] 42.6 % 37-47 [facility] Hemoglobin measurementOrdere d By: Joselyn Bell on 03-01-2024 Hemoglobin (Bld) [Mass/Vol] 13.7 g/dL 12.0-15.0 [facility] Immature granulocytes/100 WB C Auto (Bld)Ordered By: Joselyn Bell on 03-01-2024 Immature granulocytes/100 WBC (Bld) 0.200 % 0.0-0.9 [facility] Comment on above: IG% - Immature Granu locytes (promyelocytes, myelocytes and metamyelocytes) > 1% indicates that a LEFT SHIFT is Present. Laboratory - Chemistry and C hemistry - challengeOrdered By: Joselynessie Bell on 03-01-2024 AST [Catalytic activity/Vol] 18 U/L 15-37 [facility] Lymphocytes Auto (Unsp spec) [#/Vol]Ordered By: Joselynessie Bell on 03-01-2024 Lymphocytes (Bld) [#/Vol] 1.84 10*3/uL 0.83-4.51 [facility] Lymphocytes/100 WBC Auto (Un sp spec)Ordered By: Joselyn Bell on 03-01-2024 Lymphocytes/100 WBC (Bld) 32.6 % 19-41 [facility] MCV (mean corpuscular volume ) determinationOrdered By: Joselyn Bell on 03-01-2024 MCV (RBC) [Entitic vol] 92.2 fL 81-99 [facility] Mean corpuscular hemoglobin (MCH) determinationOrdered By: Joselyn Bell on 03-01-2024 MCH (RBC) [Entitic mass] 29.7 pg 27.0-32.0 [facility] Mean corpuscular hemoglobin concentration (MCHC) determinationOrdered By: Joselynessie Bell on 03-01-2024 MCHC (RBC) [Mass/Vol] 32.2 g/dL 32-36 [facility] Mean platelet volume determi nationOrdered By: Joselynessie Bell on 03-01-2024 Platelet mean volume (Bld) [Entitic vol] 9.4 fL 6.2-12.0 [facility] Monocyte percentageOrdered B y: Joselyn Bell on 03-01-2024 Monocytes/100 WBC (Bld) 7.4 % 0-10 [facility] Neutrophil percentageOrdered By: Joselyn Bell on 03-01-2024 Neutrophils/100 WBC (Bld) 53.3 % 47-70 [facility] Nucleated red blood cell per centageOrdered By: Joselyn Bell on 03-01-2024 Nucleated RBC/100 WBC (Bld) [Ratio] 0 % 0-5 [facility] Platelet countOrdered By: Ronnie Bell on 03-01-2024 Platelets (Bld) [#/Vol] 260 10*3/uL 150-450 [facility] Potassium measurementOrdered By: Joselyn Bell on 03-01-2024 Potassium [Moles/Vol] 3.9 mmol/L 3.5-5.1 [facility] RBC Auto (Bld) [#/Vol]Ordere d By: Joselyn Bell on 03-01-2024 RBC (Bld) [#/Vol] 4.62 10*6/uL 4.2-5.[address] [facility] Serum anion gap measurementO rdered By: Joselyn Bell on 03-01-2024 Anion gap [Moles/Vol] 6 mmol/L 5-15 [facility] Serum globulin measurementOr dered By: Joselyn Bell on 03-01-2024 Globulin (S) [Mass/Vol] 3.4 g/dL 2.2-4.2 [facility] Serum or plasma alanine hill otransferase (ALT) measurementOrdered By: Joselyn Bell on 03-01-2024 ALT [Catalytic activity/Vol] 31 U/L 13-56 [facility] Serum or plasma albumin vicente urement (mass/volume)Ordered By: Joselyn Bell on 03-01-2024 Albumin [Mass/Vol] 3.8 g/dL 3.2-5.0 [facility] Serum or plasma alkaline stephanie sphatase measurementOrdered By: Joselyn Bell on 03-01-2024 ALP [Catalytic activity/Vol] 96 U/L 45-117 [facility] Serum or plasma calcium vicente urement (mass/volume)Ordered By: Joselyn Bell on 03-01-2024 Calcium [Mass/Vol] 9.3 mg/dL 8.5-10.1 [facility] Serum or plasma creatinine m easurement (mass/volume)Ordered By: Joselyn Bell on 03-01-2024 Creatinine [Mass/Vol] 0.82 mg/dL 0.55-1.02 [facility] Comment on above: The validity of the calculated GFR & GFRAA in patients over 70 years has not been determined. Clinical correlation is essential. Serum or plasma urea nitroge n measurement (mass/volume)Ordered By: Joselyn Bell on 03-01-2024 Urea nitrogen [Mass/Vol] 18 mg/dL 7-18 [facility] Sodium levelOrdered By: Joselyn Bell on 03-01-2024 Sodium [Moles/Vol] 138 mmol/L 136-145 [facility] TSH QnOrdered By: Joselyn venegas on 03-01-2024 Thyroid Stimulating Hormone (TSH) 2.060 uIU/mL 0.358-3.740 [facility] Thyroid Stim Hormone (TSH)on 03-01-2024 TSH 2.060 uIU/mL Normal 0.358-3.740 [facility] Comment on above: Order Comment: Order Date: 03/01/24 Order Info: 0786-1 - CMP Order Info: 3016-3 - TSH Performed By: #### L 500.4050, L100.0100, L501.9520 #### [facility] [address] [place], [address] Total proteinOrdered By: Nelda Bell on 03-01-2024 Protein [Mass/Vol] 7.2 g/dL 6.4-8.2 [facility] White blood cell (WBC) count Ordered By: Joselyn Bell on 03-01-2024 WBC (Bld) [#/Vol] 5.6 10*3/uL 4.4-11.0 [facility] PAP IG HPV HR APTIMAon 02-17 ADEQ Comment Normal . [facility] Comment on above: Order Comment: Order Date: 03/01/24 Order Info: 0786-1 - CMP Order Info: 3016-3 - TSH Result Comment: Spec imen processed and examined but unsatisfactory for evaluation of epithelial abnormality because of insufficient cellularity. Performed By: #### L 500.4050, L100.0100, L501.9520 #### [facility] [address] [place], [address] COMM . Normal . [facility] Comment on above: Order Comment: Order Date: 03/01/24 Order Info: 0786 - CMP Order Info: 3 - TSH Performed By: #### L 500.4050, L100.0100, L501.9520 #### [facility] [address] [place], [address] COMMENT TNP Normal . [facility] Comment on above: Order Comment: Order Date: 03/01/24 Order Info: 785-04 - CMP Order Info: 3015-06 - TSH Result Comment: The Thin Prep(R) Sap Treasury Consultant was unable to read this specimen. Therefore a manual review was performed. Performed By: #### L 500.4050, L100.0100, L501.9520 #### [facility] [address] [place], [address] DIAG Comment Normal . [facility] Comment on above: Order Comment: Order Date: 03/01/24 Order Info: 785-04 - CMP Order Info: 3015-06 - TSH Result Comment: UNSA TISFACTORY FOR EVALUATION. Performed By: #### L 500.4050, L100.0100, L501.9520 #### [facility] [address] [place], [address] HPV APTIMA, HR Negative Normal Negative [facility] [facility] Comment on above: Order Comment: Order Date: 03/01/24 Order Info: [id number] - CMP Order Info: 3 - TSH Result Comment: This nucleic acid amplification test detects fourteen high- risk HPV types (16,18,31,33,35,39,45,51,52,56,58,59,66,68) without differentiation. Performed at: - [address] [id number] Buggy Runner: Melissa Machuca MD, Phone: [phone] Performed at: =G - [facility] [address] [place] [id number] Buggy Runner: Melissa Machuca MD, Phone: [phone] Performed By: #### L [id number], L100.0100, [id number] #### [facility] [address] [place], [address] PAPSMR Comment Normal . [facility] Comment on above: Order Comment: Order Date: 03/01/24 Order Info: [id number] - CMP Order Info: 3 - TSH Result Comment: The Pap smear is a screening test designed to aid in the detection of premalignant and malignant conditions of the uterine cervix. It is not a diagnostic procedure and should not be used as the sole means of detecting cervical cancer. Both false-positive and false-negative reports do occur. Performed By: #### L [id number], L100.0100, [id number] #### [facility] [address] [place], [address] PERFORM Comment Normal . [facility] Comment on above: Order Comment: Order Date: 03/01/24 Order Info: [id number] - CMP Order Info: [id number] - TSH Result Comment: Kayla Elkins, Customer Relations Assistant (ASCP) Performed By: #### L [id number], L100.0100, [id number] #### [facility] [address] [place], [address] QC REV Comment Normal . [facility] Comment on above: Order Comment: Order Date: 03/01/24 Order Info: [id number] - CMP Order Info: [id number] - TSH Result Comment: Viviana Hunter, Supervisory Customer Relations Assistant (ASCP) Performed By: #### L [id number], L100.0100, [id number] #### [facility] [address] [place], [address] RECOMM Comment Normal . [facility] Comment on above: Order Comment: Order Date: 03/01/24 Order Info: [id number] - CMP Order Info: [id number] - TSH Result Comment: Sugg est follow up as clinically appropriate. Performed By: #### L [id number], L100.0100, [id number] #### [facility] [address] [place], [address] Absolute lymphocyte countOrd ered By: Margoth Rodriguez on 04-29-2023 Lymphocytes Auto (Unsp spec) [#/Vol] 1.47 10*3/uL 0.83-4.51 [facility] Automated lymphocyte count a s percentage of total leukocytesOrdered By: Margoth Rodriguez on 04-29-2023 Lymphocytes/100 WBC Auto (Unsp spec) 30.5 % 19-41 [facility] Basophil percentageOrdered B y: Margoth Rodriguez on 04-29-2023 Basophils/100 WBC (Bld) 0.2 % 0-1 [facility] Chloride [Moles/Vol] 110 mmol/L 98-107 [facility] Eosinophils/100 WBC (Bld) 2.7 % 0-5 [facility] Glucose [Mass/Vol] 101 mg/dL 74-106 [facility] Comment on above: Fasting Glucose resu lt from 100 to 125 mg/dL suggests IMPAIRED HOMEOSTASIS per A.D.A. criteria. Hemoglobin (Bld) [Mass/Vol] 12.0 g/dL 12.0-15.0 [facility] Monocytes/100 WBC (Bld) 7.7 % 0-10 [facility] Neutrophils (Bld) [#/Vol] 2.8 10*3/uL 2.0-7.7 [facility] Neutrophils/100 WBC (Bld) 58.7 % 47-70 [facility] Potassium [Moles/Vol] 3.8 mmol/L 3.5-5.1 [facility] Sodium [Moles/Vol] 137 mmol/L 136-145 [facility] WBC (Bld) [#/Vol] 4.8 10*3/uL 4.4-11.0 [facility] Determination of erythrocyte mean corpuscular volume (MCV)Ordered By: Margoth Rodriguez on 04-29-2023 MCV (RBC) [Entitic vol] 94.0 fL 81-99 [facility] Erythrocyte distribution wid th ratioOrdered By: Margoth Rodriguez on 04-29-2023 Erythrocyte distribution width (RBC) [Ratio] 12.5 % 11.6-14.6 [facility] Erythrocyte distribution wid th standard deviationOrdered By: Margoth Rodriguez on 04-29-2023 Erythrocyte distribution width (RBC) [Entitic vol] 43.7 fL 35.1-43.9 [facility] Hematocrit Auto (Bld) [Volum e fraction]Ordered By: Margoth Rodriguez on 04-29-2023 Hematocrit (Bld) [Volume fraction] 37.9 % 37-47 [facility] Immature granulocytes/100 WB C Auto (Bld)Ordered By: Margoth Rodriguez on 04-29-2023 Immature granulocytes/100 WBC (Bld) 0.200 % 0.0-0.9 [facility] Comment on above: IG% - Immature Granu locytes (promyelocytes, myelocytes and metamyelocytes) > 1% indicates that a LEFT SHIFT is Present. Laboratory - Chemistry and C hemistry - challengeOrdered By: Margoth Rodriguez on 04-29-2023 CO2 [Moles/Vol] 26.0 mmol/L 21.0-32.0 [facility] Urea nitrogen/Creatinine [Mass ratio] 22.8 mg/mg 10-20 [facility] - Hematology and Cell countsOrdered By: Margoth Rodriguez on 04-29-2023 MCH (RBC) [Entitic mass] 29.8 pg 27.0-32.0 [facility] MCHC (RBC) [Mass/Vol] 31.7 g/dL 32-36 [facility] Nucleated RBC/100 WBC (Bld) [Ratio] 0 % 0-5 [facility] Platelets (Bld) [#/Vol] 205 10*3/uL 150-450 [facility] No Panel InformationOrdered By: Margoth Rodriguez on 04-29-2023 Estimated GFR (MDRD) Amer 88 mL/min >60 [facility] Comment on above: GFR Calc Estimated GFR (MDRD) Non-Af Amer 73 mL/min >60 [facility] Comment on above: Non- GFR Calc Platelet mean volume Fahad-Ec ker (Bld) [Entitic vol]Ordered By: Margoth Rodriguez on 04-29-2023 Platelet mean volume (Bld) [Entitic vol] 8.7 fL 6.2-12.0 [facility] RBC Auto (Bld) [#/Vol]Ordere d By: Margoth Rodriguez on 04-29-2023 RBC (Bld) [#/Vol] 4.03 10*6/uL 4.2-5.[address] [facility] Serum or plasma calcium vicente urement (mass/volume)Ordered By: Margoth Rodriguez on 04-29-2023 Calcium [Mass/Vol] 8.8 mg/dL 8.5-10.1 [facility] Serum or plasma creatinine m easurement (mass/volume)Ordered By: Margoth Rodriguez on 04-29-2023 Creatinine [Mass/Vol] 0.84 mg/dL 0.55-1.02 [facility] Comment on above: The validity of the calculated GFR & GFRAA in patients over 70 years has not been determined. Clinical correlation is essential. Serum or plasma thyroid stim ulating hormone (TSH) measurement (units/volume)Ordered By: Margoth Rodriguez on 04-29-2023 TSH Qn 2.25 uIU/mL 0.358-3.74 [facility] Serum or plasma urea nitroge n measurement (mass/volume)Ordered By: Margoth Rodriguez on 04-29-2023 Urea nitrogen [Mass/Vol] 19 mg/dL 7-18 [facility] Thin prep Papanicolaou smear with manual screeningOrdered By: Margoth Rodriguez on 04-29-2023 Thin prep Papanicolaou smear with manual screening 1 5-15 [facility] Absolute lymphocyte countOrd ered By: Margoth Rodriguez on 01-28-2023 Lymphocytes Auto (Unsp spec) [#/Vol] 1.41 10*3/uL 0.83-4.51 [facility] Basophil percentageOrdered B y: Margoth Rodriguez on 01-28-2023 Basophils/100 WBC (Bld) 0.2 % 0-1 [facility] Chloride [Moles/Vol] 113 mmol/L 98-107 [facility] Eosinophils/100 WBC (Bld) 4.7 % 0-5 [facility] Glucose [Mass/Vol] 79 mg/dL 74-106 [facility] Neutrophils (Bld) [#/Vol] 2.6 10*3/uL 2.0-7.7 [facility] Neutrophils/100 WBC (Bld) 55.6 % 47-70 [facility] Potassium [Moles/Vol] 3.2 mmol/L 3.5-5.1 [facility] Sodium [Moles/Vol] 143 mmol/L 136-145 [facility] WBC (Bld) [#/Vol] 4.7 10*3/uL 4.4-11.0 [facility] Blood erythrocytes count (nu mber/volume)Ordered By: Margoth Rodriguez on 01-28-2023 RBC (Bld) [#/Vol] 3.83 10*6/uL 4.2-5.[address] [facility] Blood hemoglobin measurement (mass/volume)Ordered By: Margoth Rodriguez on 01-28-2023 Hemoglobin (Bld) [Mass/Vol] 11.9 g/dL 12.0-15.0 [facility] Blood lymphocytes/100 leukoc ytesOrdered By: Margoth Rodriguez on 01-28-2023 Lymphocytes/100 WBC (Bld) 30.3 % 19-41 [facility] Blood monocytes/100 leukocyt esOrdered By: Margoth Rodriguez on 01-28-2023 Monocytes/100 WBC (Bld) 9.0 % 0-10 [facility] Blood platelet mean volumeOr dered By: Margoth Rodriguez on 01-28-2023 Platelet mean volume (Bld) [Entitic vol] 8.9 fL 6.2-12.0 [facility] Determination of erythrocyte mean corpuscular volume (MCV)Ordered By: Margoth Rodriguez on 01-28-2023 MCV (RBC) [Entitic vol] 95.6 fL 81-99 [facility] Hematocrit Auto (Bld) [Volum e fraction]Ordered By: Margoth Rodriguez on 01-28-2023 Hematocrit (Bld) [Volume fraction] 36.6 % 37-47 [facility] - Chemistry and C hemistry - challengeOrdered By: Margoth Rodriguez on 01-28-2023 CO2 [Moles/Vol] 26.0 mmol/L 21.0-32.0 [facility] Urea nitrogen/Creatinine [Mass ratio] 24.0 mg/mg 10-20 [facility] - Hematology and Cell countsOrdered By: Margoth Rodriguez on 01-28-2023 Erythrocyte distribution width (RBC) [Entitic vol] 48.4 fL 35.1-43.9 [facility] Erythrocyte distribution width (RBC) [Ratio] 13.7 % 11.6-14.6 [facility] Immature granulocytes/100 WBC (Bld) 0.200 % 0.0-0.9 [facility] Comment on above: IG% - Immature Granu locytes (promyelocytes, myelocytes and metamyelocytes) > 1% indicates that a LEFT SHIFT is Present. MCH (RBC) [Entitic mass] 31.1 pg 27.0-32.0 [facility] Nucleated RBC/100 WBC (Bld) [Ratio] 0 % 0-5 [facility] MCHC Auto (RBC) [Mass/Vol]Or dered By: Margoth Rodriguez on 01-28-2023 MCHC (RBC) [Mass/Vol] 32.5 g/dL 32-36 [facility] No Panel InformationOrdered By: Margoth Rodriguez on 01-28-2023 Estimated GFR (MDRD) Amer 114 mL/min >60 [facility] Comment on above: GFR Calc Estimated GFR (MDRD) Non-Af Amer 95 mL/min >60 [facility] Comment on above: Non- GFR Calc Platelets bldOrdered By: Quique Rodriguez on 01-28-2023 Platelets (Bld) [#/Vol] 207 10*3/uL 150-450 [facility] Serum or plasma calcium vicente urement (mass/volume)Ordered By: Margoth Rodriguez on 01-28-2023 Calcium [Mass/Vol] 8.6 mg/dL 8.5-10.1 [facility] Serum or plasma creatinine m easurement (mass/volume)Ordered By: Margoth Rodriguez on 01-28-2023 Creatinine [Mass/Vol] 0.67 mg/dL 0.55-1.02 [facility] Comment on above: The validity of the calculated GFR & GFRAA in patients over 70 years has not been determined. Clinical correlation is essential. Serum or plasma urea nitroge n measurement (mass/volume)Ordered By: Margoth Rodriguez on 01-28-2023 Urea nitrogen [Mass/Vol] 16 mg/dL 7-18 [facility] Thin prep Papanicolaou smear with manual screeningOrdered By: Margoth Rodriguez on 01-28-2023 Thin prep Papanicolaou smear with manual screening 4 5-15 [facility] Basophil percentageOrdered B y: Allen Cates on 01-09-2023 Bilirubin [Mass/Vol] 0.60 mg/dL 0.20-1.00 [facility] Comment on above: For patients on eltr ombopag therapy, use of Dimension [place] TBIL is not recommended. Chloride [Moles/Vol] 111 mmol/L 98-107 [facility] Glucose [Mass/Vol] 103 mg/dL 74-106 [facility] Comment on above: Fasting Glucose resu lt from 100 to 125 mg/dL suggests IMPAIRED HOMEOSTASIS per A.D.A. criteria. Potassium [Moles/Vol] 3.7 mmol/L 3.5-5.1 [facility] Protein [Mass/Vol] 6.2 g/dL 6.4-8.2 [facility] Sodium [Moles/Vol] 139 mmol/L 136-145 [facility] WBC (Bld) [#/Vol] 5.1 10*3/uL 4.4-11.0 [facility] Blood erythrocytes count (nu mber/volume)Ordered By: Allen Cates on 01-09-2023 RBC (Bld) [#/Vol] 3.74 10*6/uL 4.2-5.[address] [facility] Blood hemoglobin measurement (mass/volume)Ordered By: Allen Cates on 01-09-2023 Hemoglobin (Bld) [Mass/Vol] 11.7 g/dL 12.0-15.0 [facility] Blood platelet mean volumeOr dered By: Allen Cates on 01-09-2023 Platelet mean volume (Bld) [Entitic vol] 9.1 fL 6.2-12.0 [facility] Determination of erythrocyte mean corpuscular volume (MCV)Ordered By: Allen Cates on 01-09-2023 MCV (RBC) [Entitic vol] 95.5 fL 81-99 [facility] Hematocrit Auto (Bld) [Volum e fraction]Ordered By: Allen Cates on 01-09-2023 Hematocrit (Bld) [Volume fraction] 35.7 % 37-47 [facility] - Chemistry and C hemistry - challengeOrdered By: Allen Cates on 01-09-2023 ALP [Catalytic activity/Vol] 79 U/L 45-117 [facility] ALT [Catalytic activity/Vol] 27 U/L 13-56 [facility] CO2 [Moles/Vol] 24.0 mmol/L 21.0-32.0 [facility] Globulin (S) [Mass/Vol] 3.1 g/dL 2.2-4.2 [facility] Urea nitrogen/Creatinine [Mass ratio] 16.3 mg/mg 10-20 [facility] - Hematology and Cell countsOrdered By: Allen Cates on 01-09-2023 Erythrocyte distribution width (RBC) [Entitic vol] 45.6 fL 35.1-43.9 [facility] Erythrocyte distribution width (RBC) [Ratio] 12.9 % 11.6-14.6 [facility] MCH (RBC) [Entitic mass] 31.3 pg 27.0-32.0 [facility] MCHC Auto (RBC) [Mass/Vol]Or dered By: Allen Cates on 01-09-2023 MCHC (RBC) [Mass/Vol] 32.8 g/dL 32-36 [facility] No Panel InformationOrdered By: Allen Cates on 01-09-2023 Estimated Creatinine Clearance Calc 61.20 ml/min [facility] Estimated GFR (MDRD) Amer 113 mL/min >60 [facility] Comment on above: GFR Calc Estimated GFR (MDRD) Non-Af Amer 93 mL/min >60 [facility] Comment on above: Non- GFR Calc Platelets bldOrdered By: Rl Cates on 01-09-2023 Platelets (Bld) [#/Vol] 201 10*3/uL 150-450 [facility] Serum or plasma albumin vicente urement (mass/volume)Ordered By: Allen Cates on 01-09-2023 Albumin [Mass/Vol] 3.1 g/dL 3.2-5.0 [facility] Serum or plasma albumin/glob ulin mass ratioOrdered By: Allen Cates on 01-09-2023 Albumin/Globulin [Mass ratio] 1.0 {ratio} 0.9-2.4 [facility] Serum or plasma calcium vicente urement (mass/volume)Ordered By: Allen Cates on 01-09-2023 Calcium [Mass/Vol] 8.5 mg/dL 8.5-10.1 [facility] Serum or plasma creatinine m easurement (mass/volume)Ordered By: Allen Cates on 01-09-2023 Creatinine [Mass/Vol] 0.68 mg/dL 0.55-1.02 [facility] Comment on above: The validity of the calculated GFR & GFRAA in patients over 70 years has not been determined. Clinical correlation is essential. Serum or plasma urea nitroge n measurement (mass/volume)Ordered By: Allen Cates on 01-09-2023 Urea nitrogen [Mass/Vol] 11 mg/dL 7-18 [facility] Thin prep Papanicolaou smear with manual screeningOrdered By: Allen Cates on 01-09-2023 Thin prep Papanicolaou smear with manual screening 20 U/L 15-37 [facility] Thin prep Papanicolaou smear with manual screening 4 5-15 [facility] Absolute lymphocyte countOrd ered By: Leny Lock on 01-08-2023 Lymphocytes Auto (Unsp spec) [#/Vol] 1.76 10*3/uL 0.83-4.51 [facility] Basophil percentageOrdered B y: Lney Lock on 01-08-2023 Basophils/100 WBC (Bld) 0.2 % 0-1 [facility] Cholesterol [Mass/Vol] 182 mg/dL <200 [facility] Comment on above: <200 mg/dL Desirable 200-240 mg/dL Borderline >240 mg/dL High Risk Eosinophils/100 WBC (Bld) 4.7 % 0-5 [facility] Neutrophils (Bld) [#/Vol] 2.0 10*3/uL 2.0-7.7 [facility] Neutrophils/100 WBC (Bld) 44.7 % 47-70 [facility] Triglyceride [Mass/Vol] 132 mg/dL <199 [facility] Comment on above: The drugs N-Acetylcy steine and Metamizole may falsely depress this assay.Serum Triglycerides Reference Interval Normal <150 mg/dL Borderline high 150 - 199 mg/dL High 200 - 499 mg/dL Very High > or = 500 mg/dL Blood lymphocytes/100 leukoc ytesOrdered By: Leny Lock on 01-08-2023 Lymphocytes/100 WBC (Bld) 39.6 % 19-41 [facility] Blood monocytes/100 leukocyt esOrdered By: Leny Hayde on 01-08-2023 Monocytes/100 WBC (Bld) 10.6 % 0-10 [facility] - Hematology and Cell countsOrdered By: Leny Lock on 01-08-2023 Immature granulocytes/100 WBC (Bld) 0.200 % 0.0-0.9 [facility] Comment on above: IG% - Immature Granu locytes (promyelocytes, myelocytes and metamyelocytes) > 1% indicates that a LEFT SHIFT is Present. Nucleated RBC/100 WBC (Bld) [Ratio] 0 % 0-5 [facility] No Panel InformationOrdered By: Leny Lock on 01-08-2023 Troponin I High Sensitivity 63 pg/mL 3.0-54.0 [facility] Comment on above: Please Note: [place] t Units and Gender Specific Reference Ranges. For more information see Policy Stat Procedure [place] High Sensitivity Troponin (TNIH) and attachments. Serum or plasma cholesterol in HDL measurement (mass/volume)Ordered By: Leny Lock on 01-08-2023 Cholesterol in HDL [Mass/Vol] 60 mg/dL >40 [facility] Comment on above: The drugs N-Acetylcy steine and Metamizole may falsely depress this assay. Reference Range HDL <40 mg/dL Low HDL Cholesterol HDL >or= 60 mg/dL High HDL Cholesterol Serum or plasma cholesterol in VLDL measurement (mass/volume)Ordered By: Leny Lock on 01-08-2023 Cholesterol in VLDL [Mass/Vol] 26 mg/dL 5-40 [facility] Serum or plasma low density lipoprotein (LDL) cholesterol measurement (mass/volume)Ordered By: Leny Lock 01-08-2023 Cholesterol in LDL [Mass/Vol] 96 mg/dL 0-130 [facility] - Chemistry and C hemistry - challengeOrdered By: Leny Hayde on 01-07-2023 Magnesium [Mass/Vol] 2.1 mg/dL 1.6-2.6 [facility] Absolute lymphocyte countOrd ered By: Dr. Junior on 08-12-2022 Lymphocytes Auto (Unsp spec) [#/Vol] 2.46 10*3/uL 0.83-4.51 [facility] Basophil percentageOrdered B y: Dr. Junior on 08-12-2022 Basophils/100 WBC (Bld) 0.6 % 0-1 [facility] Bilirubin [Mass/Vol] 0.50 mg/dL 0.20-1.00 [facility] Comment on above: For patients on eltr ombopag therapy, use of Dimension [place] TBIL is not recommended. Chloride [Moles/Vol] 107 mmol/L 98-107 [facility] Eosinophils/100 WBC (Bld) 2.3 % 0-5 [facility] Glucose [Mass/Vol] 86 mg/dL 74-106 [facility] Neutrophils (Bld) [#/Vol] 1.9 10*3/uL 2.0-7.7 [facility] Neutrophils/100 WBC (Bld) 38.7 % 47-70 [facility] Potassium [Moles/Vol] 3.7 mmol/L 3.5-5.1 [facility] Protein [Mass/Vol] 7.0 g/dL 6.4-8.2 [facility] Sodium [Moles/Vol] 139 mmol/L 136-145 [facility] WBC (Bld) [#/Vol] 4.9 10*3/uL 4.4-11.0 [facility] Blood erythrocytes count (nu mber/volume)Ordered By: Dr. Junior on 08-12-2022 RBC (Bld) [#/Vol] 4.14 10*6/uL 4.2-5.[address] [facility] Blood hemoglobin measurement (mass/volume)Ordered By: Dr. Junior on 08-12-2022 Hemoglobin (Bld) [Mass/Vol] 12.5 g/dL 12.0-15.0 [facility] Blood lymphocytes/100 leukoc ytesOrdered By: Dr. Junior on 08-12-2022 Lymphocytes/100 WBC (Bld) 50.4 % 19-41 [facility] Blood monocytes/100 leukocyt esOrdered By: Dr. Junior on 08-12-2022 Monocytes/100 WBC (Bld) 7.8 % 0-10 [facility] Blood platelet mean volumeOr dered By: Dr. Junior on 08-12-2022 Platelet mean volume (Bld) [Entitic vol] 9.2 fL 6.2-12.0 [facility] Determination of erythrocyte mean corpuscular volume (MCV)Ordered By: Dr. Junior on 08-12-2022 MCV (RBC) [Entitic vol] 95.9 fL 81-99 [facility] Hematocrit Auto (Bld) [Volum e fraction]Ordered By: Dr. Junior on 08-12-2022 Hematocrit (Bld) [Volume fraction] 39.7 % 37-47 [facility] - Chemistry and C hemistry - challengeOrdered By: Dr. Junior on 08-12-2022 ALP [Catalytic activity/Vol] 122 U/L 45-117 [facility] ALT [Catalytic activity/Vol] 87 U/L 13-56 [facility] CO2 [Moles/Vol] 25.0 mmol/L 21.0-32.0 [facility] Cobalamin (Vitamin B12) [Mass/Vol] 407 pg/mL 211-911 [facility] Globulin (S) [Mass/Vol] 3.3 g/dL 2.2-4.2 [facility] Urea nitrogen/Creatinine [Mass ratio] 27.0 mg/mg 10-20 [facility] - Hematology and Cell countsOrdered By: Dr. Junior on 08-12-2022 Erythrocyte distribution width (RBC) [Entitic vol] 48.3 fL 35.1-43.9 [facility] Erythrocyte distribution width (RBC) [Ratio] 13.6 % 11.6-14.6 [facility] Immature granulocytes/100 WBC (Bld) 0.200 % 0.0-0.9 [facility] Comment on above: IG% - Immature Granu locytes (promyelocytes, myelocytes and metamyelocytes) > 1% indicates that a LEFT SHIFT is Present. MCH (RBC) [Entitic mass] 30.2 pg 27.0-32.0 [facility] Nucleated RBC/100 WBC (Bld) [Ratio] 0 % 0-5 [facility] MCHC Auto (RBC) [Mass/Vol]Or dered By: Dr. Junior on 08-12-2022 MCHC (RBC) [Mass/Vol] 31.5 g/dL 32-36 [facility] No Panel InformationOrdered By: Dr. Junior on 08-12-2022 Miscellaneous Test See comment [facility] Comment on above: TEST RESULT LIMITSHC V RNA Diagnosis,DWAINE HCV RNA, Quantitation HCV Not Detected IU/mL No evidence of active HCV infection.Test Information: The quantitative range of this assay is 15 IU/mL to 100 million IU/mL. [facility]. ORIGINAL REPORT ON FILE IN LAB CONTAINS ADDITIONAL TEST SITE INFORMATION. Estimated GFR (MDRD) Amer 108 mL/min >60 [facility] Comment on above: GFR Calc Estimated GFR (MDRD) Non-Af Amer 89 mL/min >60 [facility] Comment on above: Non- GFR Calc Hepatitis B Surface Antigen Non-Reactive Nonreactive [facility] Hepatitis C Antibody Preliminary Reactive Nonre active [facility] Comment on above: Critical Result(s) C alled at: 11:08:10 08/14/2022 by: PIOTR LOCK TO CATRACHO ALONSO. Results read back by same. Non Reactive: < 0.8 Equivocal: >/= 0.8 to < 1.0 Reactive: >/= 1.0The CDC recommends that a reactive/equivocal HCV antibody result be followed up by the HCV Nucleic Acid Amplificationtest (480408) Thyroid Stimulating Hormone (TSH) 2.03 uIU/mL 0.358-3.74 [facility] Vitamin D 25-Hydroxy 83.1 ng/mL [facility] Comment on above: Vitamin D 25(OH) Sta tus Range Deficiency <20 ng/mL (50nmol/L) Insufficiency 20 - 30 ng/mL (50 - 75 nmol/L) Sufficiency 30 - 100 ng/mL (75 - 250 nmol/L) Toxicity >100 ng/mL (>250 nmol/L) Platelets bldOrdered By: Dr. Junior on 08-12-2022 Platelets (Bld) [#/Vol] 225 10*3/uL 150-450 [facility] Serum hepatitis B virus surf indra antibody IgG detectionOrdered By: Dr. Junior on 08-12-2022 HBV surface IgG Ql (S) Non-Reactive [facility] Comment on above: Non Reactive: Incons istent with immunity less than <10 mIU/mL Reactive: Consistent with immunity greater than or equal to 10 mIU/mL Serum or plasma albumin vicente urement (mass/volume)Ordered By: Dr. Junior on 08-12-2022 Albumin [Mass/Vol] 3.7 g/dL 3.2-5.0 [facility] Serum or plasma albumin/glob ulin mass ratioOrdered By: Dr. Junior on 08-12-2022 Albumin/Globulin [Mass ratio] 1.1 {ratio} 0.9-2.4 [facility] Serum or plasma calcium vicente urement (mass/volume)Ordered By: Dr. Junior on 08-12-2022 Calcium [Mass/Vol] 9.0 mg/dL 8.5-10.1 [facility] Serum or plasma creatinine m easurement (mass/volume)Ordered By: Dr. Junior on 08-12-2022 Creatinine [Mass/Vol] 0.70 mg/dL 0.55-1.02 [facility] Comment on above: The validity of the calculated GFR & GFRAA in patients over 70 years has not been determined. Clinical correlation is essential. Serum or plasma urea nitroge n measurement (mass/volume)Ordered By: Dr. Junior on 08-12-2022 Urea nitrogen [Mass/Vol] 19 mg/dL 7-18 [facility] Thin prep Papanicolaou smear with manual screeningOrdered By: Dr. Junior on 08-12-2022 Thin prep Papanicolaou smear with manual screening 57 U/L 15-37 [facility] Thin prep Papanicolaou smear with manual screening 7 5-15 [facility] Basophil percentageon 2021 Bilirubin [Mass/Vol] 0.40 mg/dL 0.20-1.00 [facility] Work Phone: Comment on above: For patients on eltr ombopag therapy, use of Dimension [place] TBIL is not recommended. Chloride [Moles/Vol] 107 mmol/L 98-107 [facility] Work Phone: [phone] Glucose [Mass/Vol] 91 mg/dL 74-106 [facility] Work Phone: [phone] Potassium [Moles/Vol] 4.0 mmol/L 3.5-5.1 [facility] Work Phone: [phone] Protein [Mass/Vol] 6.8 g/dL 6.4-8.2 [facility] Work Phone: [phone] Sodium [Moles/Vol] 139 mmol/L 136-145 [facility] [facility] Work Phone: [phone] Erythrocyte sedimentation ra liza 03-25-2022 ESR (Bld) [Velocity] 5 mm/h 0-30 [facility] Work Phone: [phone] Laboratory - Chemistry and C hemistry - challengeon 03-25-2022 ALP [Catalytic activity/Vol] 88 U/L 45-117 [facility] Work Phone: ALT [Catalytic activity/Vol] 73 U/L 13-56 [facility] Work Phone: CO2 [Moles/Vol] 27.0 mmol/L 21.0-32.0 [facility] Work Phone: Globulin (S) [Mass/Vol] 3.0 g/dL 2.2-4.2 [facility] Work Phone: [phone] Urea nitrogen/Creatinine [Mass ratio] 29.2 mg/mg 10-20 [facility] Work Phone: No Panel Informationon 03-25 Endomysial IgA Antibody Negative Negative [facility] Work Phone: Estimated GFR (MDRD) Amer 105 mL/min >60 [facility] Work Phone: Comment on above: GFR Calc Estimated GFR (MDRD) Non-Af Amer 87 mL/min >60 [facility] Work Phone: Comment on above: Non- GFR Calc Serum IgA measurement (units /volume)on 03-25-2022 IgA Qn (S) 190 mg/dL 87-352 [facility] Work Phone: Comment on above: Performed at: [address] [id number] Director: Ben Hernández PhD, Phone: [phone] Serum or plasma C reactive p rotein measurement (mass/volume)on 03-25-2022 CRP [Mass/Vol] mg/L 0.0-3.0 [facility] Work Phone: Comment on above: C-Reactive Protein ( CRP) provides useful information for thediagnosis, therapy and monitoring of inflammatory processesand associated diseases. For the evaluation of Relative Riskfor Cardiovascular Disease, a High Sensitivity CRP (HSCRP)should be ordered. Serum or plasma albumin vicente urement (mass/volume)on 03-25-2022 Albumin [Mass/Vol] 3.8 g/dL 3.2-5.0 [facility] Work Phone: Serum or plasma albumin/glob ulin mass ratioon 03-25-2022 Albumin/Globulin [Mass ratio] 1.3 {ratio} 0.9-2.4 [facility] Work Phone: Serum or plasma calcium vicente urement (mass/volume)on 03-25-2022 Calcium [Mass/Vol] 9.2 mg/dL 8.5-10.1 [facility] Work Phone: Serum or plasma creatinine m easurement (mass/volume)on 03-25-2022 Creatinine [Mass/Vol] 0.72 mg/dL 0.55-1.02 [facility] Work Phone: Comment on above: The validity of the calculated GFR & GFRAA in patients over 70 years has not been determined. Clinical correlation is essential. Serum or plasma urea nitroge n measurement (mass/volume)on 03-25-2022 Urea nitrogen [Mass/Vol] 21 mg/dL 7-18 [facility] Work Phone: Serum tissue transglutaminas e IgA antibody assay (units/volume)on 03-25-2022 tTG IgA Qn (S) <2 U/mL 0-3 [facility] Work Phone: Comment on above: Negative 0 - 3 Weak Positive 4 - 10 Positive >10 Tissue Transglutaminase (tTG) has been identified as the endomysial antigen. Studies have demonstr- ated that endomysial IgA antibodies have over 99% specificity for gluten sensitive enteropathy. Thin prep Papanicolaou smear with manual screeningon 03-25-2022 Thin prep Papanicolaou smear with manual screening 53 U/L 15-37 [facility] Work Phone: Thin prep Papanicolaou smear with manual screening 5 5-15 [facility] Work Phone: Cytology report of Body flui d Cyto stainon 01-13-2022 Cytology report Cyto stain Doc (Body fld) SEE PATHOLOGY REPORT [facility] Work Phone: Comment on above: Specimen submitted t o Anatomical Pathology Department for testing. Absolute lymphocyte counton 12-24-2021 Lymphocytes Auto (Unsp spec) [#/Vol] 1.63 10*3/uL 0.83-4.51 [facility] Work Phone: Basophil percentageon 2021 Basophils/100 WBC (Bld) 0.1 % 0-1 [facility] Work Phone: Bilirubin [Mass/Vol] 0.30 mg/dL 0.20-1.00 [facility] Work Phone: Comment on above: For patients on eltr ombopag therapy, use of [place] TBIL is not recommended. Chloride [Moles/Vol] 105 mmol/L 98-107 [facility] Work Phone: Eosinophils/100 WBC (Bld) 1.2 % 0-5 [facility] Work Phone: Glucose [Mass/Vol] 116 mg/dL 74-106 [facility] Work Phone: Comment on above: Fasting Glucose resu lt from 100 to 125 mg/dL suggests IMPAIRED HOMEOSTASIS per A.D.A. criteria. Neutrophils (Bld) [#/Vol] 6.2 10*3/uL 2.0-7.7 [facility] Work Phone: Neutrophils/100 WBC (Bld) 71.5 % 47-70 [facility] Work Phone: Potassium [Moles/Vol] 3.5 mmol/L 3.5-5.1 [facility] Work Phone: Protein [Mass/Vol] 7.0 g/dL 6.4-8.2 [facility] Work Phone: Sodium [Moles/Vol] 141 mmol/L 136-145 [facility] Work Phone: WBC (Bld) [#/Vol] 8.6 10*3/uL 4.4-11.0 [facility] Work Phone: Blood erythrocytes count (nu mber/volume)on 12-24-2021 RBC (Bld) [#/Vol] 4.25 10*6/uL 4.2-5.[address] [facility] Work Phone: Blood hemoglobin measurement (mass/volume)on 12-24-2021 Hemoglobin (Bld) [Mass/Vol] 13.1 g/dL 12.0-15.0 [facility] Work Phone: Blood lymphocytes/100 leukoc yteson 12-24-2021 Lymphocytes/100 WBC (Bld) 18.9 % 19-41 [facility] Work Phone: Blood monocytes/100 leukocyt eson 12-24-2021 Monocytes/100 WBC (Bld) 7.8 % 0-10 [facility] Work Phone: [phone] Blood platelet mean volumeon 12-24-2021 Platelet mean volume (Bld) [Entitic vol] 9.5 fL 6.2-12.0 [facility] Work Phone: [phone] Determination of erythrocyte mean corpuscular volume (MCV)on 12-24-2021 MCV (RBC) [Entitic vol] 95.3 fL 81-99 [facility] Work Phone: Hematocrit Auto (Bld) [Volum e fraction]on 12-24-2021 Hematocrit (Bld) [Volume fraction] 40.5 % 37-47 [facility] Work Phone: [phone] Laboratory - Chemistry and C hemistry - challengeon 12-24-2021 ALP [Catalytic activity/Vol] 79 U/L 45-117 [facility] Work Phone: ALT [Catalytic activity/Vol] 23 U/L 13-56 [facility] Work Phone: CO2 [Moles/Vol] 27.0 mmol/L 21.0-32.0 [facility] Work Phone: [phone] Globulin (S) [Mass/Vol] 3.0 g/dL 2.2-4.2 [facility] Work Phone: [phone] Urea nitrogen/Creatinine [Mass ratio] 28.8 mg/mg 10-20 [facility] Work Phone: Laboratory - Hematology and Cell countson 12-24-2021 Erythrocyte distribution width (RBC) [Entitic vol] 42.9 fL 35.1-43.9 [facility] Work Phone: Erythrocyte distribution width (RBC) [Ratio] 12.5 % 11.6-14.6 [facility] Work Phone: Immature granulocytes/100 WBC (Bld) 0.500 % 0.0-0.9 [facility] Work Phone: [phone] Comment on above: IG% - Immature Granu locytes (promyelocytes, myelocytes and metamyelocytes) > 1% indicates that a LEFT SHIFT is Present. MCH (RBC) [Entitic mass] 30.8 pg 27.0-32.0 [facility] Work Phone: Nucleated RBC/100 WBC (Bld) [Ratio] 0 % 0-5 [facility] Work Phone: MCHC Auto (RBC) [Mass/Vol]on 12-24-2021 MCHC (RBC) [Mass/Vol] 32.3 g/dL 32-36 [facility] Work Phone: No Panel Informationon 12-24 Estimated GFR (MDRD) Amer 93 mL/min >60 [facility] Work Phone: Comment on above: GFR Calc Estimated GFR (MDRD) Non-Af Amer 77 mL/min >60 [facility] Work Phone: Comment on above: Non- GFR Calc Platelets bldon 12-24-2021 Platelets (Bld) [#/Vol] 397 10*3/uL 150-450 [facility] Work Phone: Serum or plasma albumin vicente urement (mass/volume)on 12-24-2021 Albumin [Mass/Vol] 4.0 g/dL 3.2-5.0 [facility] Work Phone: Serum or plasma albumin/glob ulin mass ratioon 12-24-2021 Albumin/Globulin [Mass ratio] 1.3 {ratio} 0.9-2.4 [facility] Work Phone: Serum or plasma calcium vicente urement (mass/volume)on 12-24-2021 Calcium [Mass/Vol] 9.5 mg/dL 8.5-10.1 [facility] Work Phone: Serum or plasma creatinine m easurement (mass/volume)on 12-24-2021 Creatinine [Mass/Vol] 0.80 mg/dL 0.55-1.02 [facility] Work Phone: Comment on above: The validity of the calculated GFR & GFRAA in patients over 70 years has not been determined. Clinical correlation is essential. Serum or plasma urea nitroge n measurement (mass/volume)on 12-24-2021 Urea nitrogen [Mass/Vol] 23 mg/dL 7-18 [facility] Work Phone: [phone] Thin prep Papanicolaou smear with manual screeningon 12-24-2021 Thin prep Papanicolaou smear with manual screening 10 U/L 15-37 [facility] Work Phone: Thin prep Papanicolaou smear with manual screening 9 5-15 [facility] Work Phone: Absolute lymphocyte counton 12-22-2021 Lymphocytes Auto (Unsp spec) [#/Vol] 1.77 10*3/uL 0.83-4.51 [facility] Work Phone: [phone] Basophil percentageon 2021 Basophils/100 WBC (Bld) 0.1 % 0-1 [facility] Work Phone: [phone] Bilirubin [Mass/Vol] 0.40 mg/dL 0.20-1.00 [facility] Work Phone: [phone] Comment on above: For patients on eltr ombopag therapy, use of [place] TBIL is not recommended. Chloride [Moles/Vol] 105 mmol/L 98-107 [facility] Work Phone: [phone] Eosinophils/100 WBC (Bld) 0.9 % 0-5 [facility] Work Phone: [phone] Glucose [Mass/Vol] 103 mg/dL 74-106 [facility] Work Phone: [phone] Comment on above: Fasting Glucose resu lt from 100 to 125 mg/dL suggests IMPAIRED HOMEOSTASIS per A.D.A. criteria. Neutrophils (Bld) [#/Vol] 5.4 10*3/uL 2.0-7.7 [facility] Work Phone: [phone] Neutrophils/100 WBC (Bld) 67.9 % 47-70 [facility] Work Phone: [phone] Potassium [Moles/Vol] 3.8 mmol/L 3.5-5.1 [facility] Phone: Protein [Mass/Vol] 7.7 g/dL 6.4-8.2 [facility] Work Phone: Sodium [Moles/Vol] 140 mmol/L 136-145 [facility] Work Phone: WBC (Bld) [#/Vol] 8.0 10*3/uL 4.4-11.0 [facility] Work Phone: Blood erythrocytes count (nu mber/volume)on 12-22-2021 RBC (Bld) [#/Vol] 4.35 10*6/uL 4.2-5.[address] [facility] Work Phone: Blood hemoglobin measurement (mass/volume)on 12-22-2021 Hemoglobin (Bld) [Mass/Vol] 14.0 g/dL 12.0-15.0 [facility] Work Phone: Blood lymphocytes/100 leukoc yteson 12-22-2021 Lymphocytes/100 WBC (Bld) 22.2 % 19-41 [facility] Work Phone: Blood monocytes/100 leukocyt eson 12-22-2021 Monocytes/100 WBC (Bld) 8.6 % 0-10 [facility] Work Phone: Blood platelet mean volumeon 12-22-2021 Platelet mean volume (Bld) [Entitic vol] 9.6 fL 6.2-12.0 [facility] Work Phone: Determination of erythrocyte mean corpuscular volume (MCV)on 12-22-2021 MCV (RBC) [Entitic vol] 98.6 fL 81-99 [facility] Work Phone: Hematocrit Auto (Bld) [Volum e fraction]on 12-22-2021 Hematocrit (Bld) [Volume fraction] 42.9 % 37-47 [facility] Work Phone: [phone] Laboratory - Chemistry and C hemistry - challengeon 12-22-2021 ALP [Catalytic activity/Vol] 82 U/L 45-117 [facility] Work Phone: ALT [Catalytic activity/Vol] 26 U/L 13-56 [facility] Work Phone: CO2 [Moles/Vol] 26.0 mmol/L 21.0-32.0 [facility] Work Phone: Cobalamin (Vitamin B12) [Mass/Vol] 406 pg/mL 211-911 [facility] Work Phone: [phone] Globulin (S) [Mass/Vol] 3.7 g/dL 2.2-4.2 [facility] Work Phone: [phone] Urea nitrogen/Creatinine [Mass ratio] 21.8 mg/mg 10-20 [facility] Work Phone: [phone] Laboratory - Hematology and Cell countson 12-22-2021 Erythrocyte distribution width (RBC) [Entitic vol] 44.8 fL 35.1-43.9 [facility] Work Phone: [phone] Erythrocyte distribution width (RBC) [Ratio] 12.4 % 11.6-14.6 [facility] Work Phone: [phone] Immature granulocytes/100 WBC (Bld) 0.300 % 0.0-0.9 [facility] Work Phone: [phone] Comment on above: IG% - Immature Granu locytes (promyelocytes, myelocytes and metamyelocytes) > 1% indicates that a LEFT SHIFT is Present. MCH (RBC) [Entitic mass] 32.2 pg 27.0-32.0 [facility] Work Phone: [phone] Nucleated RBC/100 WBC (Bld) [Ratio] 0 % 0-5 [facility] Work Phone: [phone] MCHC Auto (RBC) [Mass/Vol]on 12-22-2021 MCHC (RBC) [Mass/Vol] 32.6 g/dL 32-36 [facility] Work Phone: [phone] No Panel Informationon 12-22 Estimated GFR (MDRD) Amer 96 mL/min >60 [facility] Work Phone: Comment on above: GFR Calc Estimated GFR (MDRD) Non-Af Amer 79 mL/min >60 [facility] Work Phone: Comment on above: Non- GFR Calc Thyroid Stimulating Hormone (TSH) 1.64 uIU/mL 0.358-3.74 [facility] Work Phone: Platelets bldon 12-22-2021 Platelets (Bld) [#/Vol] 316 10*3/uL 150-450 [facility] Work Phone: Serum or plasma albumin vicente urement (mass/volume)on 12-22-2021 Albumin [Mass/Vol] 4.0 g/dL 3.2-5.0 [facility] Work Phone: Serum or plasma albumin/glob ulin mass ratioon 12-22-2021 Albumin/Globulin [Mass ratio] 1.1 {ratio} 0.9-2.4 [facility] Work Phone: Serum or plasma calcium vicente urement (mass/volume)on 12-22-2021 Calcium [Mass/Vol] 9.4 mg/dL 8.5-10.1 [facility] Work Phone: Serum or plasma creatinine m easurement (mass/volume)on 12-22-2021 Creatinine [Mass/Vol] 0.78 mg/dL 0.55-1.02 [facility] Work Phone: Comment on above: The validity of the calculated GFR & GFRAA in patients over 70 years has not been determined. Clinical correlation is essential. Serum or plasma folate measu rement (mass/volume)on 12-22-2021 Folate [Mass/Vol] 17.90 ng/mL 3.1-55.4 [facility] Work Phone: Serum or plasma urea nitroge n measurement (mass/volume)on 12-22-2021 Urea nitrogen [Mass/Vol] 17 mg/dL 7-18 [facility] Work Phone: Thin prep Papanicolaou smear with manual screeningon 12-22-2021 Thin prep Papanicolaou smear with manual screening 13 U/L 15-37 [facility] Work Phone: Thin prep Papanicolaou smear with manual screening 9 5-15 [facility] Work Phone: Whole blood hemoglobin A1c/t otal hemoglobin ratio (mass fraction)on 12-22-2021 HbA1c (Bld) [Mass fraction] 5.6 % 3.8-5.6 [facility] Work Phone: Comment on above: Normal < 5.7 % Predi abetic 5.7 - 6.4 % Diabetic >or= 6.5 % Please note range changes. Culture, urine Bacteria identified Cx Nom (U) Positive [facility] Work Phone: Vital Signs Date Time Vital Sign Value Performing Clinician Facility 09-26-2024 16:40-0400 Body mass index (BMI) [Ratio] 22.44 kg/m2 [facility] CIRCULATION WORK[facility].POLICE STENOGRAPHER Work Phone: [facility] 09-26-2024 16:40-0400 Body temperature 100.29 [degF] [facility] CIRC[facility]ATION WORK[facility].POLICE STENOGRAPHER Work Phone: [facility] 09-26-2024 16:40-0400 Body weight 50.4 kg [facility] CIRCULATION WORKER.POLICE STENOGRAPHER Work Phone: [facility] 09-26-2024 16:40-0400 Diastolic blood pressure 74 mm[Hg] [facility] CIRCULATION WORKER.POLICE STENOGRAPHER Work Phone: [facility] 09-26-2024 16:40-0400 Heart rate 77 /min [facility] CIRCULATION WORKER.POLICE STENOGRAPHER Work Phone: [facility] 09-26-2024 16:40-0400 Respiratory rate 18 /min [facility] CIRCULATION WORKER.POLICE STENOGRAPHER Work Phone: [facility] 09-26-2024 16:40-0400 SaO2% (BldA) [Mass fraction] 100 % [facility] CIRCULATION WORKER.POLICE STENOGRAPHER Work Phone: [facility] 09-26-2024 16:40-0400 Systolic blood pressure 137 mm[Hg] Franck Alvarado APRN.POLICE STENOGRAPHER Work Phone: [facility] 06-19-2024 07:37-0400 Body mass index (BMI) [Ratio] 21.7 kg/m2 Dr. Marek Junior MD Work Phone: [facility] 06-19-2024 07:37-0400 Body weight 50.[address] Marek Junior MD Work Phone: [facility] 06-19-2024 07:37-0400 Diastolic blood pressure 73 mm[Hg] Dr. Marek Junior MD Work Phone: [facility] 06-19-2024 07:37-0400 Heart rate 78 /min Dr. Marek Junior MD Work Phone: [facility] 06-19-2024 07:37-0400 Respiratory rate 18 /min Dr. Marek Junior MD Work Phone: [facility] 06-19-2024 07:37-0400 SaO2% (BldA) [Mass fraction] 100 % Dr. Marek Junior MD Work Phone: [facility] 06-19-2024 07:37-0400 Systolic blood pressure 110 mm[Hg] Dr. Marek Junior MD Work Phone: [facility] 05-25-2024 11:08-0500 Body mass index (BMI) [Ratio] 22.31 kg/m2 Miguel Ángel Arceo APRN.POLICE STENOGRAPHER Work Phone: [facility] 05-25-2024 11:08-0500 Body temperature 98.6 [degF] Miguel Ángel Arceo APRN.POLICE STENOGRAPHER Work Phone: [facility] 05-25-2024 11:08-0500 Body weight 50.1 kg Miguel Ángel Arceo APRN.POLICE STENOGRAPHER Work Phone: [facility] 05-25-2024 11:08-0500 Diastolic blood pressure 78 mm[Hg] Miguel Ángel Arceo APRN.POLICE STENOGRAPHER Work Phone: [facility] 05-25-2024 11:08-0500 Heart rate 84 /min Miguel Ángel Adis CIRCULATION WORKER.POLICE STENOGRAPHER Work Phone: [facility] 05-25-2024 11:08-0500 Respiratory rate 18 /min Miguel Ángel Adis CIRCULATION WORKER.POLICE STENOGRAPHER Work Phone: [facility] 05-25-2024 11:08-0500 SaO2% (BldA) [Mass fraction] 97 % Miguel Ángel Arceo CIRCULATION WORKER.POLICE STENOGRAPHER Work Phone: [facility] 05-25-2024 11:08-0500 Systolic blood pressure 115 mm[Hg] Miguel Ángel Adis CIRCULATION WORKER.POLICE STENOGRAPHER Work Phone: [facility] 03-14-2024 14:07-0500 Body height 149.9 cm Gerri Stewart CIRCULATION WORKER.CNM Work Phone: [facility] 03-14-2024 14:07-0500 Body mass index (BMI) [Ratio] 22.42 kg/m2 Gerri Stewart CIRCULATION WORKER.CNM Work Phone: [facility] 03-14-2024 14:07-0500 Body weight 50.35 kg Gerri Stewart CIRCULATION WORKER.CNM Work Phone: [facility] 03-14-2024 14:07-0500 Diastolic blood pressure 60 mm[Hg] Gerri Stewart CIRCULATION WORKER.CNM Work Phone: [facility] 03-14-2024 14:07-0500 Systolic blood pressure 98 mm[Hg] Gerri Stewart CIRCULATION WORKER.CNM Work Phone: [facility] 04-29-2023 08:37-0500 Body height 152.[address] Marek Junior Work Phone: [facility] 04-29-2023 08:37-0500 Body mass index (BMI) [Ratio] 19.7 kg/m2 Dr. Marek Junior Work Phone: [facility] 04-29-2023 08:37-0500 Body weight 45.[address] Marek Junior Work Phone: [facility] 04-29-2023 08:37-0500 Diastolic blood pressure 64 mm[Hg] Dr. Marek Junior Work Phone: [facility] 04-29-2023 08:37-0500 Heart rate 78 /min Dr. Marek Junior Work Phone: [facility] 04-29-2023 08:37-0500 Respiratory rate 18 /min Dr. Marek Junior Work Phone: [facility] 04-29-2023 08:37-0500 Systolic blood pressure 107 mm[Hg] Dr. Marek Junior Work Phone: [phone])609-945970 [place] [address] 04-05-2023 00:47-0500 Body weight 45.[address] Marek Junior Work Phone: [phone])315-479770 [place] [address] 03-19-2023 11:21-0500 Body height 152.[address] Marek Junior Work Phone: [phone] [place] [address] 03-19-2023 11:21-0500 Body weight 45.[address] Marek Junior Work Phone: [phone])493-754072 [address] 02-17-2023 09:01-0500 Body height 152.[address] Marek Junior Work Phone: [phone])131-832572 [address] 02-17-2023 09:01-0500 Body weight 45.[address] Marek Junior Work Phone: [phone] [place] [address] 01-28-2023 13:52-0400 Body height 152.[address] Marek Junior Work Phone: [facility] 01-28-2023 13:52-0400 Body mass index (BMI) [Ratio] 19.5 kg/m2 Dr. Marek Junior Work Phone: [facility] 01-28-2023 13:52-0400 Body weight 45.[address] Marek Junior Work Phone: [facility] 01-28-2023 13:52-0400 Diastolic blood pressure 71 mm[Hg] Dr. Marek Junior Work Phone: [facility] 01-28-2023 13:52-0400 Heart rate 70 /min Dr. Marek Junior Work Phone: [facility] 01-28-2023 13:52-0400 Respiratory rate 18 /min Dr. Marek Junior Work Phone: [facility] 01-28-2023 13:52-0400 SaO2% (BldA) [Mass fraction] 100 % Dr. Marek Junior Work Phone: [phone])707-619670 [place] [address] 01-28-2023 13:52-0400 Systolic blood pressure 111 mm[Hg] Dr. Marek Junior Work Phone: [facility] 01-18-2023 14:21-0400 Diastolic blood pressure 77 mm[Hg] Dr. Marek Junior Work Phone: [phone] [place] [address] 01-18-2023 14:21-0400 Systolic blood pressure 120 mm[Hg] Dr. Marek Junior Work Phone: [phone] [place] [address] 01-18-2023 13:50-0400 Body mass index (BMI) [Ratio] 20.4 kg/m2 Dr. Marek Junior Work Phone: [facility] 01-18-2023 13:50-0400 Heart rate 73 /min Dr. Marek Junior Work Phone: [facility] 01-18-2023 13:50-0400 SaO2% (BldA) [Mass fraction] 100 % Dr. Marek Junior Work Phone: [phone] [place] [address] 01-18-2023 13:30-0400 Body height 152.[address] Marek Junior Work Phone: [facility] 01-18-2023 13:30-0400 Body weight 45.[address] Marek Junior Work Phone: [facility] 01-09-2023 09:15-0400 Body temperature 97.2 [degF] Dr. Marek Junior Work Phone: [facility] 01-09-2023 09:15-0400 Diastolic blood pressure 63 mm[Hg] Dr. Marek Junior Work Phone: [facility] 01-09-2023 09:15-0400 Heart rate 78 /min Dr. Marek Junior Work Phone: [facility] 01-09-2023 09:15-0400 Respiratory rate 18 /min Dr. Marek Junior Work Phone: [facility] 01-09-2023 09:15-0400 SaO2% (BldA) [Mass fraction] 98 % Dr. Marek Junior Work Phone: [facility] 01-09-2023 09:15-0400 Systolic blood pressure 102 mm[Hg] Dr. Marek Junior Work Phone: [facility] 01-09-2023 04:13-0400 Body mass index (BMI) [Ratio] 20.9 kg/m2 Dr. Marek Junior Work Phone: [facility] 01-09-2023 04:13-0400 Body weight [address] Marek Junior Work Phone: [facility] Encounters Encounter Date Encounter Type Care Provider Facility Start: 01-17-2025 End: 01-17-2025 ambulatory MAREK JUNIOR Facility:[facility] Start: 12-19-2024 End: 12-19-[address] Marek Junior MD Work Phone: -Laboratory [facility] Start: 12-19-2024 End: 12-19-[address] Marek Junior MD -Laboratory [facility] Start: 12-19-2024 End: 12-19-2024 ambulatory Marek Junior Facility:[facility] Start: 10-18-2024 End: 10-18-[address] Marek Junior MD Work Phone: -[facility] Start: 10-18-2024 End: 10-18-2024 Patient encounter procedure Joselyn Bell [employer] ATTENDANT-C -[facility] Work Phone: Start: 10-18-2024 End: 10-18-2024 ambulatory Marek Junior Facility:[facility] Start: 09-26-2024 End: 09-26-2024 Office outpatient visit 15 minutes Franck Alvarado APRN.POLICE STENOGRAPHER Work Phone: [facility] Comment on above: Sore throat (Primary Dx); Viral illness Start: 09-26-2024 End: 09-26-2024 ambulatory MAREK JUNIOR Facility:[facility] Start: 06-19-2024 End: 06-19-2024 Patient encounter procedure Marek Woods [employer]DC[employer] ATTENDANT-C -[facility] Work Phone: Start: 06-19-2024 End: 06-19-2024 ambulatory Marek Woods [employer] ATTENDANT Facility:[facility] Start: 06-19-2024 End: 06-19-[address] Marek Junior MD Work Phone: [facility] Work Phone: Start: 06-19-2024 End: 06-19-[address] Marek Junior MD -[facility] Work Phone: Start: 06-19-2024 End: 06-19-2024 ambulatory Marek Junior Facility:[facility] Start: 05-25-2024 End: 05-25-2024 ambulatory MAREK JUNIOR Facility:[facility] Start: 05-25-2024 End: 05-25-2024 Patient encounter procedure Miguel Ángel Arceo APRN.POLICE STENOGRAPHER Work Phone: [facility] Comment on above: Vomiting and diarrhe a (Primary Dx) Start: 05-19-2024 End: 05-19-[address] Marek Junior MD -Laboratory, [facility] Start: 05-19-2024 End: 05-19-2024 ambulatory Marek Junior Facility:[facility] Start: 04-14-2024 End: 04-14-2024 ambulatory GERRI STEWART Facility:[facility] Start: 04-14-2024 End: 04-14-2024 Subsequent hospital visit by physician Screen Mammo Formerly [facility], 1928–1983 Wstr Mammogram Comment on above: Encounter for screen ing mammogram for breast cancer [Z12.31] Start: 03-14-2024 End: 03-14-2024 ambulatory DARWIN VALADEZ Facility:[facility] Start: 03-14-2024 End: 03-14-2024 Patient encounter procedure Gerri Stewart APRN.CNM Work Phone: OB/Gynecology Comment on above: Encounter for gyneco logical examination (general) (routine) without abnormal findings (Primary Dx); Encounter for screening for human papillomavirus (HPV); Pap smear for cervical cancer screening; Encounter for screening mammogram for breast cancer; Stricture and stenosis of cervix; Vaginal atrophy Start: 03-14-2024 End: 03-14-2024 Patient encounter status Gerri Stewart APRN.CNM Work Phone: [facility] Start: 03-01-2024 End: 03-01-2024 Patient encounter procedure Joselyn GRACE -Laboratory, [facility] Start: 03-01-2024 End: 03-01-2024 ambulatory Marek Junior Facility:[facility] Start: 02-09-2024 End: 02-09-2024 ambulatory Marek Junior Facility:[facility] Start: 11-26-[address] Stu Junior MD Work Phone: [facility] Start: 04-29-2023 End: 04-29-[address] Marek Junior Work Phone: [facility] Work Phone: Start: 04-29-2023 End: 04-29-[address] Marek Junior Work Phone: [facility] Work Phone: Start: 04-23-2023 End: 05-05-[address] Marek Junior Work Phone: [facility] Work Phone: Start: 04-23-2023 End: 05-05-[address] Marek Junior Work Phone: [facility]-Cardiac Rehab Work Phone: Start: 04-23-[address] Marek Junior Work Phone: [facility] Work Phone: Start: 04-02-2023 End: 04-04-[address] Marek Junior Work Phone: [facility] Work Phone: Start: 04-02-2023 End: 04-04-[address] Marek Junior Work Phone: [facility]Card[facility] Work Phone: Start: 03-03-2023 End: 03-04-[address] Marek Junior Work Phone: [facility] Work Phone: Start: 03-03-2023 End: 03-04-[address] Marek Junior Work Phone: [facility] Work Phone: Start: 02-01-2023 End: 02-02-[address] Marek Junior Work Phone: [facility] Work Phone: Start: 02-01-2023 End: 02-02-[address] Marek Junior Work Phone: [facility] Work Phone: Start: 01-28-2023 End: 01-28-[address] Marek Junior Work Phone: [facility] Work Phone: Start: 01-22-[address] Marek Junior Work Phone: [facility]Card[facility] Work Phone: Start: 01-18-2023 End: 01-18-[address] Marek Junior Work Phone: [facility] Work Phone: Start: 01-18-2023 End: 01-18-[address] Marek Junior Work Phone: [facility]Card[facility] Work Phone: Start: 01-11-2023 Non-patient / Non-visit Dr. Rose Junior Work Phone: [facility] Start: 01-09-2023 Non-patient / Non-visit Dr. Rose Junior Work Phone: [facility] Work Phone: Start: 01-08-2023 End: 01-09-2023 Evaluation and management of inpatient Dr. Marek Junior Work Phone: [facility]-Progressive Care Unit Work Phone: Start: 01-08-2023 Non-patient / Non-visit Dr. Rose Junior Work Phone: [facility] Work Phone: Start: 01-08-2023 Non-patient / Non-visit Dr. Rose Junior Work Phone: [facility] Start: 01-07-2023 Non-patient / Non-visit Dr. Rose Junior Work Phone: [facility] Work Phone: Start: 08-12-2022 End: 08-12-2022 ambulatory [facility] Work Phone: Start: 08-12-2022 End: 08-12-2022 Patient encounter procedure [facility] Start: 03-25-2022 End: 03-25-2022 ambulatory [facility] Work Phone: Start: 03-25-2022 End: 03-25-2022 [facility] Start: 02-18-2022 End: 02-18-2022 ambulatory [facility] Work Phone: Start: 02-18-2022 End: 02-18-2022 Patient encounter procedure [facility]-Radiology, [facility] Start: 02-04-2022 End: 02-04-2022 ambulatory [facility] Work Phone: Start: 02-04-2022 End: 02-04-2022 Patient encounter procedure [facility]-Pulmonary Services/Neurology Start: 01-13-2022 End: 01-13-2022 ambulatory [facility] Work Phone: Start: 01-13-2022 End: 01-13-2022 Patient encounter procedure [facility]-Laboratory, Specimen Start: 12-24-2021 End: 12-24-2021 ambulatory [facility] Work Phone: Start: 12-24-2021 End: 12-24-2021 Patient encounter procedure [facility]-Cat Scan, [facility] Start: 12-22-2021 End: 12-22-2021 ambulatory [facility] Work Phone: Start: 12-22-2021 End: 12-22-2021 [facility] Procedures Date Procedure Procedure Detail Performing Clinician Start: 12-19-2024 Vitamin D, 25-hydrox y measurement Dr. Marek Junior MD Work Phone: Comment on above: Vitamin D StatusDefi ciency: <20 ng/mL (50nmol/L)Insufficiency: 20-30 ng/mL (50-75 nmol/L)Sufficiency: 30-100 ng/mL (75-250 nmol/L)Toxicity: >100 ng/mL (>250 nmol/L) Start: 10-18-2024 X-ray of chest, PA a nd lateral views Dr. Marek Junior MD Work Phone: Start: 09-26-2024 Iadna streptococcus group a amplified probe tq Franck Alvarado CIRCULATION WORKER.POLICE STENOGRAPHER Work Phone: Start: 06-19-2024 MRI of brain with contrast Dr. Marek Junior MD Work Phone: Start: 01-08-2023 History of placement of stent for coronary artery disease History of coronary artery stent placement Marek Woods [employer]CHO[employer] CHILDCARE ATTENDANTNimeshC Comment on above: IFR-KDC-dHAH w/ 2.75 x 15 mm Resolute Bj RX SHIVANI 01/08/23 Start: 01-08-2023 Radionuclide imaging of perfusion of myocardium under exercise stress Dr. Marek Junior Work Phone: Start: 01-07-2023 Plain chest X-ray Dr. Stu Junior Work Phone: Start: 02-18-2022 Radiography of esophagus Start: 12-24-2021 Computed tomography of abdomen and pelvis with contrast Start: 01-03-2013 Lipid 1996 panel - S christine or Plasma Gerri Stewart APRN.CNM Work Phone: Start: 04-15-2012 Colonoscopy Gerri sanchez APRN.CNM Work Phone: Urine culture Plan of Treatment Date Care Activity Detail Author Start: 2032 RSV Vaccine (1 - 1-d ose 75+ series) RSV Vaccine (1 - 1-dose 75+ series) [facility] Start: 01-21-2030 Urine microalbumin profile DTaP,Tdap,Td Vaccine (2 - Td or Tdap) [facility] Start: 03-14-2029 Screening for malign ant neoplasm of cervix Cervical Cancer Screening [facility] Start: 04-14-2025 Screening for malign ant neoplasm of breast Mammogram Screening [facility] Start: 03-14-2025 End: 03-14-2025 Patient encounter procedure 03/14/2025 10:45 AM EST Office Visit OB/Gynecology [address] [place] [address] Gerri Stewart APRN.CNM [address] [place] [address] Annual OB/Gynecology Comment on above: Annual Start: 04-14-2024 End: 04-14-2024 Patient encounter procedure 04/14/2024 10:10 AM EST Appointment Mammogram [address] [place] [address] Encounter for screening mammogram for breast cancer [Z12.31] Mammogram Comment on above: Encounter for screen ing mammogram for breast cancer [Z12.31] Start: 04-05-2024 Advance Directive Discussion Advance Directive Discussion [facility] Start: 12-05-2023 Covid-19 Vaccine () Covid-19 Vaccine () [facility] Start: 04-05-2023 Advance Directive Discussion Advance Directive Discussion [facility] Start: 01-11-2023 Patient referral [facility] Work Phone: Start: 01-09-[address] [facility] Start: 01-08-2023 Admission procedure [facility] Start: 01-08-2023 Cardiac monitoring [facility] Start: 01-08-2023 Cardiac rehabilitati on - phase 1 [facility] Start: 01-08-2023 Cardiac rehabilitati on - phase 2 [facility] Start: 01-08-2023 Notification of physician [facility] Start: 01-08-[address] [facility] Start: 01-08-2023 Systemic arterial pressure monitoring [facility] Start: 01-08-2023 Taking patient vital signs [facility] Start: 01-08-2023 Vascular disease ris k assessment [facility] Start: 01-08-2023 Vital signs measurements [facility] Start: 01-08-2023 [facility] Start: 01-08-2023 Catheterization of vein [facility] Start: 01-08-2023 Medication not administered [facility] Start: 01-08-2023 Notification of physician [facility] Start: 01-08-2023 [facility] Start: 01-07-2023 Assessment of risk o f venous thromboembolism [facility] Start: 01-07-2023 Incentive spirometry [facility] Start: 01-07-2023 Inhalation therapy procedure [facility] Start: 01-07-2023 Insertion of cathete r into peripheral vein [facility] Start: 01-07-2023 Introduction of urin rhea catheter [facility] Start: 01-07-2023 Measuring intake and output [facility] Start: 01-07-2023 Oxygen therapy [facility] Start: 01-07-2023 Providing care accor ding to standard [facility] Start: 01-07-2023 Provision of activit y privileges [facility] Start: 01-07-2023 Referral to service [facility] Start: 01-07-2023 Tobacco use cessatio n education [facility] Start: 01-07-2023 [facility] Start: 01-07-2023 Admission procedure [facility] Start: 2022 Pneumococcal Vaccine : 65+ (1 of 1 - PCV) Pneumococcal Vaccine: 65+ (1 of 1 - PCV) [facility] Start: 2022 Screening for osteoporosis Bone Density Screening [facility] Start: 04-15-2022 Screening for malign ant neoplasm of colon [facility] Start: 12-24-2021 [facility] Work Phone: Start: 11-18-2020 Screening for malign ant neoplasm of cervix Cervical Cancer Screening [facility] Start: 01-03-2018 Lipid panel Lipid Screening [facility] Start: 11-28-2016 Screening for malign ant neoplasm of breast Mammogram Screening [facility] Start: 01-04-2016 Diabetes Screening Diabetes Screenin g [facility] Start: 12-05-2007 Pneumococcal Vaccine : 50+ (1 of 1 - PCV) Pneumococcal Vaccine: 50+ (1 of 1 - PCV) [facility] Start: 12-05-2007 Shingrix Vaccine (1 of 2) Rush grix Vaccine (1 of 2) [facility] Start: 2002 Screening for malign ant neoplasm of colon [facility] Start: 12-05-1975 Anxiety Screening Anxiety Screening [facility] Start: 12-05-1975 Depression Screening Depression Scre ening [facility] Start: 12-05-1975 Hepatitis C screening Hepatitis C Sc yoselin [facility] Bacteria identified in Urine by Culture Urine Culture [facility] Work Phone: End: 04-13-2025 DBT Breast - bilateral screening [facility] Routine Encounter for screening mammogram for breast cancer 1 Occurrences starting 03/14/2024 until 04/13/2025 [facility] Work Phone: Comment on above: 1 Occurrences starti ng 03/14/2024 until 04/13/2025 DBT Breast - bilater al screening [facility] SCREENING [facility] Radiology Routine Encounter for screening mammogram for breast cancer 04/14/2024 10:45 AM EST [facility] Work Phone: PAP TEST PAP TEST Lab Rou shaila Encounter for screening for human papillomavirus (HPV) Pap smear for cervical cancer screening 03/14/2024 2:57 PM EST [facility] Patient referral [facility] Work Phone: Immunizations Immunization Date Immunization Notes Care Provider Adrianna fernandes 01-20-2024 influenza, seasonal, injectable, preservative free Gerri Stewart CIRCULATION WORKER.CNM Work Phone: [facility] 02-08-2023 influenza, injectabl e, quadrivalent, preservative free Gerri Stewart CIRCULATION WORKER.CNM Work Phone: [facility] 04-24-2021 influenza, seasonal, injectable, preservative free Gerri Stewart CIRCULATION WORKER.CNM Work Phone: [facility] 02-06-2020 influenza, injectabl e, quadrivalent, preservative free Gerri Stewart CIRCULATION WORKER.CNM Work Phone: [facility] 01-22-2020 tetanus toxoid, redu caitlyn diphtheria toxoid, and acellular pertussis vaccine, adsorbed Gerri Stewart CIRCULATION WORKER.CNM Work Phone: [facility] 02-02-2019 Influenza, injectabl e, Madin Hickman Canine Kidney, preservative free, quadrivalent Gerri Stewart CIRCULATION WORKER.CNM Work Phone: [facility] 01-13-2012 influenza virus vacc ine, unspecified formulation Gerri Stewart CIRCULATION WORKER.CNM Work Phone: [facility] 11-02-2002 tetanus and diphther ia toxoids, not adsorbed, for adult use Gerri Terry LUDWIG Work Phone: [facility] Payers Date Payer Category Payer Self-pay [id number] 2023 Private Health Insurance [id number] 2023 Private Health Insurance [id number] Private Health Insurance [id number] Unknown [id number] Unknown [id number] Unknown [id number] Unknown [id number] Unknown [id number] Unknown [id number] Unknown [id number] Social History Date Type Detail Facility Start: 03-15-2019 End: 04-29-2023 Tobacco smoking status IAIS Unknown if ever smoked [facility] Start: 1955 Sex Assigned At Female W [facility] Start: 02-16-2012 End: 11-25-2023 Tobacco smoking status IAIS Never smoked tobacco [facility] Start: 02-16-2012 Tobacco use and exposure Smokeless tobacco non-user [facility] Start: 03-14-2024 End: 09-26-2024 Alcoholic beverage intake Current non-drinker of alcohol (finding) [facility] Start: 03-14-2024 End: 09-26-2024 History of Social function [facility] Start: 03-14-2024 End: 09-26-2024 Tobacco use panel [facility] National Score (1-10 0), lower number is lower risk [address] [facility] Start: 1955 Sex assigned at Not on file C [facility] Start: 06-29-2024 Sex Female (finding) [facility] Medical Equipment Procedure Code Equipment Code Equipment Origin al Text Equipment Identifier Dates Drug-eluting cor onary artery stent, [id number] torin-coated ()[id number] FDA Start: 01-08-2023 Femoral vessel s uture implantation set ()[id number] FDA Start: 01-08-2023 Goals Date Patient Goal Desired Activity /State Functional Status Date Assessment Result Facility 01-09-2023 Functional status Ambulates [facility] Work Phone: 01-09-2023 Functional status None [facility] Work Phone: Mental Status Date Assessment Result Facility 01-09-2023 Cognitive function Voice/Name [facility] Work Phone: Clinical Notes 01-08-2023 to 01-17-2025 Franck Alvarado APRN.POLICE STENOGRAPHER - 09/26/2024 4:57 PM Miguel Ángel Garcia APRN.POLICE STENOGRAPHER - 05/25/2024 11:15 AM Fernando Rodriguez Mammo Tech - 04/14/2024 10:10 AM EST Note Date & Type Note Facility 01-17-2025 Note HNO ID: [id number] Author: MIGUEL ÁNGEL ARCEO APRN.POLICE STENOGRAPHER Service: ? Author Type: Nurse Practitioner Type: Progress Notes Filed: 01/17/2025 18:00 Note Text: [facility] Subjective HPI HPI Parul Marshall is a 69 year old female who presents today for CC of painful rash on head. This started 3 days ago. Has tried otc medication for relief. Symptoms are worsened by nothing. Denies fever, visual changes. .Patient presents with: Rash: pain on right side of head with rash x 3 days PAST MEDICAL HISTORY Diagnosis Date Diarrhea Dyskinesia of esophagus Endometriosis Miscarriage (HCC) 1989 Other and unspecified anemias Personal history of unspecified circulatory disease Restless legs syndrome PAST SURGICAL HISTORY Procedure Laterality Date DELIVERY ONLY 04/05/1981 DELIVERY ONLY 04/05/1993 COLONOSCOPY FLX DX W/COLLJ SPEC WHEN PFRMD 08/30/2003 normal colonoscopy COLONOSCOPY FLX DX W/COLLJ SPEC WHEN PFRMD 04/15/2012 Colonoscopy repeat 10 years EGD TRANSORAL BIOPSY SINGLE/MULTIPLE 08/30/2003 Mild gastritis ESOPHAGOGASTRODUODENOSCOPY TRANSORAL DIAGNOSTIC 12/03/2009 EGD ESOPHAGOGASTRODUODENOSCOPY TRANSORAL DIAGNOSTIC 04/15/2012 EGD LAPAROSCOPIC APPENDECTOMY 04/05/1990 with Ovary Removal PT ED HEART AND VASCULAR 01/2023 stent placed ALLERGIES Patient has no known allergies. MEDICATIONS pravastatin (PRAVACHOL) 40 mg tablet Take 1 tablet by mouth once daily. cholecalciferol (VITAMIN D) 1,000 unit tab tablet Take 1,000 Units by mouth once daily. topiramate (TOPAMAX) 50 mg tablet Take 1 tablet by mouth every 12 hours. ondansetron orally disintegrating (ZOFRAN ODT) 4 mg disintegrating tablet Take 1 tablet by mouth every 6 hours as needed for nausea/vomiting. ezetimibe (ZETIA) 10 mg tablet Take 1 tablet by mouth every afternoon. potassium chloride SR (MICRO-K) 10 mEq CR capsule sertraline (ZOLOFT) 100 mg tablet Take 1 tablet by mouth every afternoon. aspirin, enteric coated (ASPIRIN, ENTERIC COATED) 81 mg EC tablet Take 81 mg by mouth once daily. lactobacillus acidophilus 100 mg (1 billion cell) cap(s) Take by mouth. Omeprazole (PRILOSEC) 40 mg capsule Take 1 capsule by mouth twice daily. valACYclovir (VALTREX) 1 gram tablet Take 1 tablet by mouth once daily for 7 days. pravastatin (PRAVACHOL) 20 mg tablet Take 1 tablet by mouth every afternoon. (Patient not taking: Reported on 09/26/2024) famotidine (PEPCID) 20 mg tablet Take 1 tablet by mouth every afternoon. TTQ-Moowglkmfspes-Ldmnkpb-Caff 162 mg-110 mg -152 mg-32.4 mg tab Take by mouth. (Patient not taking: Reported on 09/26/2024) ranitidine (ZANTAC) 150 mg tablet Take 150 mg by mouth twice daily. (Patient not taking: Reported on 03/14/2024) amitriptyline (ELAVIL) 25 mg tablet Take 1 tablet by mouth daily at bedtime. (Patient not taking: Reported on 03/14/2024) gabapentin (NEURONTIN) 300 mg capsule Take 1 capsule by mouth twice daily. (Patient not taking: Reported on 03/14/2024) FAMILY HISTORY Problem Relation Age of Onset Heart Mother Coronary Artery Bypass Graft Cancer Mother Hysterectomy due to Cervical Cancer Heart Father Coronary Artery Bypass Graft Alzheimer's Disease Father Osteoporosis Sister Heart Brother Health Issues Diabetes Brother Heart Brother Myocardial Infarction Cancer Maternal Grandmother Lung Cancer SOCIAL HISTORY[1] Review of Systems Objective BP 122/76 Pulse 78 Temp 36.5 ?C (97.7 ?F) Resp 16 Wt 50.9 kg (112 lb 3.4 oz) LMP 10/25/2008 SpO2 98% BMI 22.66 kg/m? Physical Exam Constitutional: General: She is not in acute distress. Appearance: She is not toxic-appearing or diaphoretic. HENT: Head: Normocephalic and atraumatic. Eyes: General: Lids are normal. Comments: PERRLA Pulmonary: Effort: Pulmonary effort is normal. No accessory muscle usage or respiratory distress. Lymphadenopathy: Cervical: No cervical adenopathy. Right cervical: No superficial cervical adenopathy. Left cervical: No superficial cervical adenopathy. Neurological: Mental Status: She is alert and oriented to person, place, and time. {ASSESSMENT/PLAN: 1. Herpes zoster without complication - ICD9: 053.9, ICD10: B02.9 Renal status unknown Patient is to get labs from pcp, I will reconnect with patient tomorrow and see labs Will decrease dosage if labs abnormal. Advised patient to see eye dr mccord. - VALACYCLOVIR 1 GRAM TABLET Miguel Ángel Arceo APRN.POLICE STENOGRAPHER History and Record Review External record(s) reviewed: prior outpatient record. Disposition The patient was discharged. Procedures [1] Social History Tobacco Use Smoking status: Never Smokeless tobacco: Never Vaping Use Vaping status: Never Used Substance Use Topics Alcohol use: No Drug use: No [facility] 10-18-2024 Radiology Diagnostic study note [facility] Imaging Services [address] [place] [address] Chest PA and Lateral MR#: [id number] Acct: [id number] Name: PARUL MARSHALL Rep #: [id number] : 1955 F 68 From: Mabel Liu MD PCP: Dr. Marek Junior MD Status: RE G CLI Study:Chest PA and Lateral Date of Exam: 10/18/24 Exam# [id number] Ordering Dr: Pam Bell [employer]DC[employer] ATTENDANT [employer] CHILDCARE ATTENDANT-C EXAM: XR Chest, 2 Views CLINICAL INDICATION: PAIN, INJURY STERNUM TECHNIQUE: Frontal and lateral views of the chest. COMPARISON: No relevant prior studies available. FINDINGS: LUNGS AND PLEURAL SPACES: Unremarkable. No consolidation. No pneumothorax. HEART: Unremarkable. No cardiomegaly. MEDIASTINUM: Unremarkable. Normal mediastinal contour. BONES/JOINTS: Unremarkable. No acute fracture. RAD/Chest PA and Lateral IMPRESSION: No acute cardiopulmonary process. [facility] CC: SCHOOL CHILDCARE ATTENDANT-C Joselyn Bell; Dr. Marek Junior MD ~ Regulatory Affairs Coordinator: Signed [facility] 09-26-2024 Note HNO ID: [id number] Author: FRANCK ALVARADO APRN.POLICE STENOGRAPHER Service: ? Author Type: Nurse Practitioner Type: Progress Notes Filed: 09/26/2024 16:59 Note Text: Subjective HPI Nontoxic-appearing 68-year-old female presents urgent care chief complaint pharyngitis. Duration of symptoms 1 day. Associated symptoms sore throat ear pain low-grade fever cough. Most prominent symptom today is pharyngitis. Presents today for evaluation. OTC medications none. No difficulty swallowing and secretion decreased range of motion neck or trismus. Unknown sick exposures. Past medical history prescription medications allergies reviewed. .Patient presents with: Sore Throat: R ear pain, low fever x this AM PAST MEDICAL HISTORY Diagnosis Date Diarrhea Dyskinesia of esophagus Endometriosis Miscarriage (HCC) 1989 Other and unspecified anemias Personal history of unspecified circulatory disease Restless legs syndrome PAST SURGICAL HISTORY Procedure Laterality Date DELIVERY ONLY 04/05/1981 DELIVERY ONLY 04/05/1993 COLONOSCOPY FLX DX W/COLLJ SPEC WHEN PFRMD 08/30/2003 normal colonoscopy COLONOSCOPY FLX DX W/COLLJ SPEC WHEN PFRMD 04/15/2012 Colonoscopy repeat 10 years EGD TRANSORAL BIOPSY SINGLE/MULTIPLE 08/30/2003 Mild gastritis ESOPHAGOGASTRODUODENOSCOPY TRANSORAL DIAGNOSTIC 12/03/2009 EGD ESOPHAGOGASTRODUODENOSCOPY TRANSORAL DIAGNOSTIC 04/15/2012 EGD LAPAROSCOPIC APPENDECTOMY 04/05/1990 with Ovary Removal PT ED HEART AND VASCULAR 01/2023 stent placed ALLERGIES Patient has no known allergies. MEDICATIONS pravastatin (PRAVACHOL) 40 mg tablet Take 1 tablet by mouth once daily. cholecalciferol (VITAMIN D) 1,000 unit tab tablet Take 1,000 Units by mouth once daily. topiramate (TOPAMAX) 50 mg tablet Take 1 tablet by mouth every 12 hours. ondansetron orally disintegrating (ZOFRAN ODT) 4 mg disintegrating tablet Take 1 tablet by mouth every 6 hours as needed for nausea/vomiting. ezetimibe (ZETIA) 10 mg tablet Take 1 tablet by mouth every afternoon. famotidine (PEPCID) 20 mg tablet Take 1 tablet by mouth every afternoon. potassium chloride SR (MICRO-K) 10 mEq CR capsule sertraline (ZOLOFT) 100 mg tablet Take 1 tablet by mouth every afternoon. aspirin, enteric coated (ASPIRIN, ENTERIC COATED) 81 mg EC tablet Take 81 mg by mouth once daily. lactobacillus acidophilus 100 mg (1 billion cell) cap(s) Take by mouth. Omeprazole (PRILOSEC) 40 mg capsule Take 1 capsule by mouth twice daily. pravastatin (PRAVACHOL) 20 mg tablet Take 1 tablet by mouth every afternoon. (Patient not taking: Reported on 09/26/2024) PUS-Dpxrzasvdzgqr-Uwtxdmi-Caff 162 mg-110 mg -152 mg-32.4 mg tab Take by mouth. (Patient not taking: Reported on 09/26/2024) ranitidine (ZANTAC) 150 mg tablet Take 150 mg by mouth twice daily. (Patient not taking: Reported on 03/14/2024) amitriptyline (ELAVIL) 25 mg tablet Take 1 tablet by mouth daily at bedtime. (Patient not taking: Reported on 03/14/2024) gabapentin (NEURONTIN) 300 mg capsule Take 1 capsule by mouth twice daily. (Patient not taking: Reported on 03/14/2024) FAMILY HISTORY Problem Relation Age of Onset Heart Mother Coronary Artery Bypass Graft Cancer Mother Hysterectomy due to Cervical Cancer Heart Father Coronary Artery Bypass Graft Alzheimer's Disease Father Osteoporosis Sister Heart Brother Health Issues Diabetes Brother Heart Brother Myocardial Infarction Cancer Maternal Grandmother Lung Cancer Social History Tobacco Use Smoking status: Never Smokeless tobacco: Never Vaping Use Vaping status: Never Used Substance Use Topics Alcohol use: No Drug use: No BP 137/74 Pulse 77 Temp 37.9 ?C (100.3 ?F) Resp 18 Wt 50.4 kg (111 lb 1.8 oz) LMP 10/25/2008 SpO2 100% BMI 22.44 kg/m? Review of Systems Constitutional: Positive for chills, fever and malaise/fatigue. HENT: Positive for ear pain and sore throat. Negative for congestion, ear discharge and sinus pain. Eyes: Negative for blurred vision, pain, discharge and redness. Respiratory: Positive for cough. Negative for hemoptysis, sputum production, shortness of breath, wheezing and stridor. Cardiovascular: Negative for chest pain. Gastrointestinal: Negative for abdominal pain, diarrhea, nausea and vomiting. Musculoskeletal: Positive for myalgias. Skin: Negative for itching and rash. Neurological: Negative for dizziness and headaches. Objective Physical Exam Constitutional: General: She is not in acute distress. Appearance: She is not diaphoretic. HENT: Head: Normocephalic. Jaw: No trismus, tenderness, swelling or pain on movement. Right Ear: Tympanic membrane, ear canal and external ear normal. Left Ear: Tympanic membrane, ear canal and external ear normal. Mouth/Throat: Mouth: Mucous membranes are moist. Pharynx: Oropharynx is clear. Uvula midline. Posterior oropharyngeal erythema present. No pharyngeal swelling, oroph (more content not included)... [facility] 09-26-2024 History of Present illness Narrative Subjective HPI Nontoxic-appearing 68-year-old female presents urgent care chief complaint pharyngitis. Duration of symptoms 1 day. Associated symptoms sore throat ear pain low-grade fever cough. Most prominent symptom today is pharyngitis. Presents today for evaluation. OTC medications none. No difficulty swallowing and secretion decreased range of motion neck or trismus. Unknown sick exposures. Past medical history prescription medications allergies reviewed. .Patient presents with: Sore Throat: R ear pain, low fever x this AM PAST MEDICAL HISTORY Diagnosis Date Diarrhea Dyskinesia of esophagus Endometriosis Miscarriage (HCC) 1989 Other and unspecified anemias Personal history of unspecified circulatory disease Restless legs syndrome PAST SURGICAL HISTORY Procedure Laterality Date DELIVERY ONLY 04/05/1981 DELIVERY ONLY 04/05/1993 COLONOSCOPY FLX DX W/COLLJ SPEC WHEN PFRMD 08/30/2003 normal colonoscopy COLONOSCOPY FLX DX W/COLLJ SPEC WHEN PFRMD 04/15/2012 Colonoscopy repeat 10 years EGD TRANSORAL BIOPSY SINGLE/MULTIPLE 08/30/2003 Mild gastritis ESOPHAGOGASTRODUODENOSCOPY TRANSORAL DIAGNOSTIC 12/03/2009 EGD ESOPHAGOGASTRODUODENOSCOPY TRANSORAL DIAGNOSTIC 04/15/2012 EGD LAPAROSCOPIC APPENDECTOMY 04/05/1990 with Ovary Removal PT ED HEART AND VASCULAR 01/2023 stent placed ALLERGIES Patient has no known allergies. MEDICATIONS pravastatin (PRAVACHOL) 40 mg tablet Take 1 tablet by mouth once daily. cholecalciferol (VITAMIN D) 1,000 unit tab tablet Take 1,000 Units by mouth once daily. topiramate (TOPAMAX) 50 mg tablet Take 1 tablet by mouth every 12 hours. ondansetron orally disintegrating (ZOFRAN ODT) 4 mg disintegrating tablet Take 1 tablet by mouth every 6 hours as needed for nausea/vomiting. ezetimibe (ZETIA) 10 mg tablet Take 1 tablet by mouth every afternoon. famotidine (PEPCID) 20 mg tablet Take 1 tablet by mouth every afternoon. potassium chloride SR (MICRO-K) 10 mEq CR capsule sertraline (ZOLOFT) 100 mg tablet Take 1 tablet by mouth every afternoon. aspirin, enteric coated (ASPIRIN, ENTERIC COATED) 81 mg EC tablet Take 81 mg by mouth once daily. lactobacillus acidophilus 100 mg (1 billion cell) cap(s) Take by mouth. Omeprazole (PRILOSEC) 40 mg capsule Take 1 capsule by mouth twice daily. pravastatin (PRAVACHOL) 20 mg tablet Take 1 tablet by mouth every afternoon. (Patient not taking: Reported on 09/26/2024) KDZ-Anghoampzwwrc-Xtosnnf-Caff 162 mg-110 mg -152 mg-32.4 mg tab Take by mouth. (Patient not taking: Reported on 09/26/2024) ranitidine (ZANTAC) 150 mg tablet Take 150 mg by mouth twice daily. (Patient not taking: Reported on 03/14/2024) amitriptyline (ELAVIL) 25 mg tablet Take 1 tablet by mouth daily at bedtime. (Patient not taking: Reported on 03/14/2024) gabapentin (NEURONTIN) 300 mg capsule Take 1 capsule by mouth twice daily. (Patient not taking: Reported on 03/14/2024) FAMILY HISTORY Problem Relation Age of Onset Heart Mother Coronary Artery Bypass Graft Cancer Mother Hysterectomy due to Cervical Cancer Heart Father Coronary Artery Bypass Graft Alzheimer's Disease Father Osteoporosis Sister Heart Brother Health Issues Diabetes Brother Heart Brother Myocardial Infarction Cancer Maternal Grandmother Lung Cancer Social History Tobacco Use Smoking status: Never Smokeless tobacco: Never Vaping Use Vaping status: Never Used Substance Use Topics Alcohol use: No Drug use: No BP 137/74 Pulse 77 Temp 37.9 C (100.3 F) Resp 18 Wt 50.4 kg (111 lb 1.8 oz) LMP 10/25/2008 SpO2 100% BMI 22.44 kg/m Review of Systems Constitutional: Positive for chills, fever and malaise/fatigue. HENT: Positive for ear pain and sore throat. Negative for congestion, ear discharge and sinus pain. Eyes: Negative for blurred vision, pain, discharge and redness. Respiratory: Positive for cough. Negative for hemoptysis, sputum production, shortness of breath, wheezing and stridor. Cardiovascular: Negative for chest pain. Gastrointestinal: Negative for abdominal pain, diarrhea, nausea and vomiting. Musculoskeletal: Positive for myalgias. Skin: Negative for itching and rash. Neurological: Negative for dizziness and headaches. Objective Physical Exam Constitutional: General: She is not in acute distress. Appearance: She is not diaphoretic. HENT: Head: Normocephalic. Jaw: No trismus, tenderness, swelling or pain on movement. Right Ear: Tympanic membrane, ear canal and external ear normal. Left Ear: Tympanic membrane, ear canal and external ear normal. Mouth/Throat: Mouth: Mucous membranes are moist. Pharynx: Oropharynx is clear. Uvula midline. Posterior oropharyngeal erythema present. No pharyngeal swelling, oropharyngeal exudate or uvula swelling. Eyes: Conjunctiva/sclera: Conjunctivae normal. Pupils: Pupils are equal, round, and reactive to light. Cardiovascular: Rate and Rhythm: Normal rate and regular rhythm. Heart sounds: Normal heart sounds. Pulmonary: Effort: Pulmonary effort is normal. No tachypnea, accessory muscle usage or respiratory distress. Breath sounds: Normal breath sounds. No stridor. No wheezing, rhonchi or rales. Abdominal: General: There is no distension. Palpations: Abdomen is soft. Tenderness: There is no abdominal tenderness. There is no guarding or rebound. Musculoskeletal: Cervical back: Normal range of motion and neck supple. No edema, erythema, rigidity or tenderness. No pain with movement. Normal range of motion. Lymphadenopathy: Cervical: Cervical adenopathy present. Skin: General: Skin is warm and dry. Neurological: Mental Status: She is alert and oriented to person, place, and time. ASSESSMENT/PLAN: 1. Sore throat - ICD9: 462, ICD10: J02.9 (primary diagnosis) - STREP A MOLECULAR (POC) 2. Viral illness - ICD9: 079.99, ICD10: B34.9 - Discussed viral etiology and rationale for treatment. - Rapid strep negative in office today - Symptomatic treatment with prn analgesia - Supportive care with fluids and rest Strep test negative. No evidence of bacterial faction. Treat as viral etiology. Patient was educated on supportive therapies. Patient will follow up with primary care provider as needed. Patient was instructed to immediately proceed to emergency room for any new, worsening, or symptoms lasting longer than anticipated. The patient's clinical presentation is otherwise unremarkable at this time. Based on exam and clinical finding, the patient is stable for discharge. Plan of care was discussed with patient. Patient verbalizes understanding and agrees to plan of care. This note was generated using [employer] software. It may contain errors in wording, punctuation, or spelling. Franck Alvarado APRN.LUIS FELIPE documented in this encounter [facility] 05-25-2024 History of Present illness Narrative Subjective HPI HPI Parul Marshall is a 68 year old female who presents today for CC of nausea, vomiting, diarrhea. This started 3 days ago. Has tried otc medication for relief. Symptoms are worsened by nothing. Risk factors sick exposures at work. .Patient presents with: Nausea & Vomiting: X3 days PAST MEDICAL HISTORY Diagnosis Date Diarrhea Dyskinesia of esophagus Endometriosis Miscarriage 1989 Other and unspecified anemias Personal history of unspecified circulatory disease Restless legs syndrome PAST SURGICAL HISTORY Procedure Laterality Date DELIVERY ONLY 04/05/1981 DELIVERY ONLY 04/05/1993 COLONOSCOPY FLX DX W/COLLJ SPEC WHEN PFRMD 08/30/2003 normal colonoscopy COLONOSCOPY FLX DX W/COLLJ SPEC WHEN PFRMD 04/15/2012 Colonoscopy repeat 10 years EGD TRANSORAL BIOPSY SINGLE/MULTIPLE 08/30/2003 Mild gastritis ESOPHAGOGASTRODUODENOSCOPY TRANSORAL DIAGNOSTIC 12/03/2009 EGD ESOPHAGOGASTRODUODENOSCOPY TRANSORAL DIAGNOSTIC 04/15/2012 EGD LAPAROSCOPIC APPENDECTOMY 04/05/1990 with Ovary Removal PT ED HEART AND VASCULAR 01/2023 stent placed ALLERGIES Patient has no known allergies. MEDICATIONS pravastatin (PRAVACHOL) 20 mg tablet Take 1 tablet by mouth every afternoon. topiramate (TOPAMAX) 50 mg tablet Take 1 tablet by mouth every 12 hours. ezetimibe (ZETIA) 10 mg tablet Take 1 tablet by mouth every afternoon. famotidine (PEPCID) 20 mg tablet Take 1 tablet by mouth every afternoon. potassium chloride SR (MICRO-K) 10 mEq CR capsule sertraline (ZOLOFT) 100 mg tablet Take 1 tablet by mouth every afternoon. NDT-Xfijaianshawn-Jikkyzh-Caff 162 mg-110 mg -152 mg-32.4 mg tab Take by mouth. aspirin, enteric coated (ASPIRIN, ENTERIC COATED) 81 mg EC tablet Take 81 mg by mouth once daily. lactobacillus acidophilus 100 mg (1 billion cell) cap(s) Take by mouth. Omeprazole (PRILOSEC) 40 mg capsule Take 1 capsule by mouth twice daily. ranitidine (ZANTAC) 150 mg tablet Take 150 mg by mouth twice daily. (Patient not taking: Reported on 03/14/2024) amitriptyline (ELAVIL) 25 mg tablet Take 1 tablet by mouth daily at bedtime. (Patient not taking: Reported on 03/14/2024) gabapentin (NEURONTIN) 300 mg capsule Take 1 capsule by mouth twice daily. (Patient not taking: Reported on 03/14/2024) FAMILY HISTORY Problem Relation Age of Onset Heart Mother Coronary Artery Bypass Graft Cancer Mother Hysterectomy due to Cervical Cancer Heart Father Coronary Artery Bypass Graft Alzheimer's Disease Father Osteoporosis Sister Heart Brother Health Issues Diabetes Brother Heart Brother Myocardial Infarction Cancer Maternal Grandmother Lung Cancer Social History Tobacco Use Smoking status: Never Smokeless tobacco: Never Vaping Use Vaping status: Never Used Substance Use Topics Alcohol use: No Drug use: No Review of Systems Constitutional: Positive for chills, fever and malaise/fatigue. Gastrointestinal: Positive for diarrhea, nausea and vomiting. Negative for abdominal pain. Skin: Negative for itching and rash. Objective Blood pressure 115/78, pulse 84, temperature 37 C (98.6 F), resp. rate 18, weight 50.1 kg (110 lb 7.2 oz), last menstrual period 10/25/2008, SpO2 97%. Physical Exam Constitutional: General: She is not in acute distress. Appearance: Normal appearance. She is not toxic-appearing. Cardiovascular: Rate and Rhythm: Normal rate and regular rhythm. Heart sounds: Normal heart sounds. Pulmonary: Effort: Pulmonary effort is normal. Breath sounds: Normal breath sounds. Abdominal: General: Bowel sounds are normal. Palpations: Abdomen is soft. Tenderness: There is no abdominal tenderness. Skin: General: Skin is warm and dry. ASSESSMENT/PLAN: 1. Vomiting and diarrhea - ICD9: 787.03, 787.91, ICD10: R11.10, R19.7 Possibly norovirus Brat diet discussed push fluids Urgent f/u for worsening s/s F/u for persisting s/s. - ONDANSETRON 4 MG DISINTEGRATING TABLET Miguel Ángel Arceo APRN.LUIS FELIPE documented in this encounter [facility] 05-25-2024 Note HNO ID: [id number] Author: MIGUEL ÁNGEL ARCEO APRN.LUIS FELIPE Service: ? Author Type: Nurse Practitioner Type: Progress Notes Filed: 05/25/2024 11:45 Note Text: Subjective HPI HPI Parul Marshall is a 68 year old female who presents today for CC of nausea, vomiting, diarrhea. This started 3 days ago. Has tried otc medication for relief. Symptoms are worsened by nothing. Risk factors sick exposures at work. .Patient presents with: Nausea AND Vomiting: X3 days PAST MEDICAL HISTORY Diagnosis Date Diarrhea Dyskinesia of esophagus Endometriosis Miscarriage 1989 Other and unspecified anemias Personal history of unspecified circulatory disease Restless legs syndrome PAST SURGICAL HISTORY Procedure Laterality Date DELIVERY ONLY 04/05/1981 DELIVERY ONLY 04/05/1993 COLONOSCOPY FLX DX W/COLLJ SPEC WHEN PFRMD 08/30/2003 normal colonoscopy COLONOSCOPY FLX DX W/COLLJ SPEC WHEN PFRMD 04/15/2012 Colonoscopy repeat 10 years EGD TRANSORAL BIOPSY SINGLE/MULTIPLE 08/30/2003 Mild gastritis ESOPHAGOGASTRODUODENOSCOPY TRANSORAL DIAGNOSTIC 12/03/2009 EGD ESOPHAGOGASTRODUODENOSCOPY TRANSORAL DIAGNOSTIC 04/15/2012 EGD LAPAROSCOPIC APPENDECTOMY 04/05/1990 with Ovary Removal PT ED HEART AND VASCULAR 01/2023 stent placed ALLERGIES Patient has no known allergies. MEDICATIONS pravastatin (PRAVACHOL) 20 mg tablet Take 1 tablet by mouth every afternoon. topiramate (TOPAMAX) 50 mg tablet Take 1 tablet by mouth every 12 hours. ezetimibe (ZETIA) 10 mg tablet Take 1 tablet by mouth every afternoon. famotidine (PEPCID) 20 mg tablet Take 1 tablet by mouth every afternoon. potassium chloride SR (MICRO-K) 10 mEq CR capsule sertraline (ZOLOFT) 100 mg tablet Take 1 tablet by mouth every afternoon. ETW-Fpdjblvrlqqul-Cxannrl-Caff 162 mg-110 mg -152 mg-32.4 mg tab Take by mouth. aspirin, enteric coated (ASPIRIN, ENTERIC COATED) 81 mg EC tablet Take 81 mg by mouth once daily. lactobacillus acidophilus 100 mg (1 billion cell) cap(s) Take by mouth. Omeprazole (PRILOSEC) 40 mg capsule Take 1 capsule by mouth twice daily. ranitidine (ZANTAC) 150 mg tablet Take 150 mg by mouth twice daily. (Patient not taking: Reported on 03/14/2024) amitriptyline (ELAVIL) 25 mg tablet Take 1 tablet by mouth daily at bedtime. (Patient not taking: Reported on 03/14/2024) gabapentin (NEURONTIN) 300 mg capsule Take 1 capsule by mouth twice daily. (Patient not taking: Reported on 03/14/2024) FAMILY HISTORY Problem Relation Age of Onset Heart Mother Coronary Artery Bypass Graft Cancer Mother Hysterectomy due to Cervical Cancer Heart Father Coronary Artery Bypass Graft Alzheimer's Disease Father Osteoporosis Sister Heart Brother Health Issues Diabetes Brother Heart Brother Myocardial Infarction Cancer Maternal Grandmother Lung Cancer Social History Tobacco Use Smoking status: Never Smokeless tobacco: Never Vaping Use Vaping status: Never Used Substance Use Topics Alcohol use: No Drug use: No Review of Systems Constitutional: Positive for chills, fever and malaise/fatigue. Gastrointestinal: Positive for diarrhea, nausea and vomiting. Negative for abdominal pain. Skin: Negative for itching and rash. Objective Blood pressure 115/78, pulse 84, temperature 37 ?C (98.6 ?F), resp. rate 18, weight 50.1 kg (110 lb 7.2 oz), last menstrual period 10/25/2008, SpO2 97%. Physical Exam Constitutional: General: She is not in acute distress. Appearance: Normal appearance. She is not toxic-appearing. Cardiovascular: Rate and Rhythm: Normal rate and regular rhythm. Heart sounds: Normal heart sounds. Pulmonary: Effort: Pulmonary effort is normal. Breath sounds: Normal breath sounds. Abdominal: General: Bowel sounds are normal. Palpations: Abdomen is soft. Tenderness: There is no abdominal tenderness. Skin: General: Skin is warm and dry. ASSESSMENT/PLAN: 1. Vomiting and diarrhea - ICD9: 787.03, 787.91, ICD10: R11.10, R19.7 Possibly norovirus Brat diet discussed push fluids Urgent f/u for worsening s/s F/u for persisting s/s. - ONDANSETRON 4 MG DISINTEGRATING TABLET Miguel Ángel Arceo APRN.[facility] 04-14-2024 History of Present illness Narrative Radiology Service Progress Note PATIENT NAME: Parul Marshall DATE OF SERVICE: April 14, 2024 TIME: 11:19 AM PATIENT IDENTITY VERIFICATION COMPLETED USING TWO (2) IDENTIFIERS: Name and Date of confirmed by patient verbally. FALL SCREENING: Has the patient had 2 falls in the last year or 1 fall with injury or currently using an Ambulatory Assistive Device (Walker, Cane, Wheelchair, Crutches, etc.)? No PATIENT GENDER DATA: Female. status: : No status: NO. PATIENT RELEVANT IMPLANT DATA REVIEWED: Not Applicable PATIENT PRESENTS WITH AN IMPLANTABLE OR ATTACHED PLANT MAINTENANCE SUPERVISOR: No RADIOLOGY DEPARTMENT: Mammography PERIPHERAL IV DATA: Not applicable SIGNED BY: Fernando Phma [employer] April 14, 2024 11:19 AM documented in this encounter [facility] 04-14-2024 Note HNO ID: [id number] Author: FERNANDO PHAM Mammo Tech Service: ? Author Type: Digital Commentator Type: Progress Notes Filed: 04/14/2024 11:19 Note Text: Radiology Service Progress Note PATIENT NAME: Parul Marshall DATE OF SERVICE: April 14, 2024 TIME: 11:19 AM PATIENT IDENTITY VERIFICATION COMPLETED USING TWO (2) IDENTIFIERS: Name and Date of confirmed by patient verbally. FALL SCREENING: Has the patient had 2 falls in the last year or 1 fall with injury or currently using an Ambulatory Assistive Device (Walker, Cane, Wheelchair, Crutches, etc.)? No PATIENT GENDER DATA: Female. status: : No status: NO. PATIENT RELEVANT IMPLANT DATA REVIEWED: Not Applicable PATIENT PRESENTS WITH AN IMPLANTABLE OR ATTACHED PLANT MAINTENANCE SUPERVISOR: No RADIOLOGY DEPARTMENT: Mammography PERIPHERAL IV DATA: Not applicable SIGNED BY: Rylie Naranjo April 14, 2024 11:19 AM [facility] 03-14-2024 Note HNO ID: [id number] Author: GERRI STEWART APRN.CNM Service: ? Author Type: Rehab Specialist Type: Progress Notes Filed: 03/14/2024 16:27 Note Text: Technology Teacher offered: Patient declines. Parul is a 68 year old who presents for an annual gynecologic exam without complaints. Postmenopausal: Yes since age 57 HRT use: No. Last Pap: 11/27/2015 normal Completed at primary care but unable to result HPV: 11/21/2015 negative History of abnormal pap: No Last mammogram: 2019 normal History of abnormal mammogram: No Sexually active: No History of STDS: None Seatbelt use: Yes OB History T2 L2 SAB1 IAB0 Ectopic0 Multiple0 Live Births0 Comment: Patient with two living children and one miscarriage. Snagger History LMP: 10/25/2008, Postmenopausal Age at Menarche: Age at First : Age at Menopause: Snagger History Comments: Sexual Activity: Not Currently; Male Contraception: No contraception data on record PAST MEDICAL HISTORY Diagnosis Date Diarrhea Dyskinesia of esophagus Endometriosis Miscarriage 1989 Other and unspecified anemias Personal history of unspecified circulatory disease Restless legs syndrome PAST SURGICAL HISTORY Procedure Laterality Date DELIVERY ONLY 04/05/1981 DELIVERY ONLY 04/05/1993 COLONOSCOPY FLX DX W/COLLJ SPEC WHEN PFRMD 08/30/2003 normal colonoscopy COLONOSCOPY FLX DX W/COLLJ SPEC WHEN PFRMD 04/15/2012 Colonoscopy repeat 10 years EGD TRANSORAL BIOPSY SINGLE/MULTIPLE 08/30/2003 Mild gastritis ESOPHAGOGASTRODUODENOSCOPY TRANSORAL DIAGNOSTIC 12/03/2009 EGD ESOPHAGOGASTRODUODENOSCOPY TRANSORAL DIAGNOSTIC 04/15/2012 EGD LAPAROSCOPIC APPENDECTOMY 04/05/1990 with Ovary Removal PT ED HEART AND VASCULAR 01/2023 stent placed FAMILY HISTORY Problem Relation Age of Onset Heart Mother Coronary Artery Bypass Graft Cancer Mother Hysterectomy due to Cervical Cancer Heart Father Coronary Artery Bypass Graft Alzheimer's Disease Father Osteoporosis Sister Heart Brother Health Issues Diabetes Brother Heart Brother Myocardial Infarction Cancer Maternal Grandmother Lung Cancer SOCIAL HISTORY REVIEW OF SYSTEMS Abdomen: No abdominal pain, nausea, vomiting, diarrhea, or constipation. No bloating, early satiety, indigestion, or increased flatulence. Bladder: No dysuria, gross hematuria, urinary frequency, urinary urgency, or incontinence Breast: No breast lumps, nipple d/c, overlying skin changes, redness or skin retraction Allergies and current medication updated:Yes SENSITIVE EXAM: The sensitive examination was discussed with the Patient or Patient's Authorized Nuisance Wildlife Specialist. As applicable, any other physician, advance practice provider, medical student, or other health professional student that will be observing or involved in the sensitive examination for educational or training purposes was discussed with the Patient or Authorized Nuisance Wildlife Specialist. The Patient or Authorized Nuisance Wildlife Specialist has agreed to proceed with the sensitive examination. (Sensitive examination includes inspection and/or palpation of the breasts, pelvis, prostate and anorectal regions). EXAM: BP 98/60 Ht 4' 11 (1.50m) Wt 111 lb (50.3kg) LMP 10/25/2008 BMI 22.41 kg/(m2). GENERAL: pleasant, female in no apparent distress HEENT: Normocephalic, atraumatic, mucus membranes moist, and no lesions NECK: Supple, full range of motion, no adenopathy, and thyroid normal DERMATOLOGY: Normal, without lesions, non-icteric, and non-hirsute BREAST: soft, non-tender, symmetric, no dominant mass, normal nipple-areolar complex, no lymphadenopathy, and no nipple discharge CHEST: Normal inspiratory effort ABDOMEN: soft, non-tender, and no masses PELVIC: external genitalia normal, normal Bartholin's glands, urethra, [place]'s glands, no vulvar lesions, no cervical lesions, good vaginal support, physiologic discharge present, normal appearing perineal body and perianal region, atrophic changes, cervix stenotic BIMANUAL: uterus normal size, shape and consistency, no adnexal masses, and non-tender RECTOVAGINAL: deferred. NEURO: alert and oriented x3,exam grossly non-focal EXTREMITIES: normal ASSESSMENT/PLAN: 1. Encounter for gynecological examination (general) (routine) without abnormal findings - ICD9: V72.31, ICD10: Z01.419 (primary diagnosis) - Completed pelvic and breast exam - Encouraged monthly BSE - Follow up for annual exam in one year. 2. Encounter for screening for human papillomavirus (HPV) - ICD9: V73.81, ICD10: Z11.51 - PAP TEST 3. Pap smear for cervical cancer screening - ICD9: V76.2, ICD10: Z12.4 - Completed pelvic and breast exam - Encouraged monthly BSE - Follow up for annual exam in one year. - PAP TEST 4. Encounter for screening mammogram for breast cancer - ICD9: V76.12, ICD10: Z12.31 - Completed pelvic and breast exam - Encouraged monthly BSE - Follow up fo (more content not included)... [facility] 03-14-2024 History of Present illness Narrative Technology Teacher offered: Patient declines. Parul is a 68 year old who presents for an annual gynecologic exam without complaints. Postmenopausal: Yes since age 57 HRT use: No. Last Pap: 11/27/2015 normal Completed at primary care but unable to result HPV: 11/21/2015 negative History of abnormal pap: No Last mammogram: 2019 normal History of abnormal mammogram: No Sexually active: No History of STDS: None Seatbelt use: Yes OB History T2 L2 SAB1 IAB0 Ectopic0 Multiple0 Live Births0 Comment: Patient with two living children and one miscarriage. Snagger History LMP: 10/25/2008, Postmenopausal Age at Menarche: Age at First : Age at Menopause: Snagger History Comments: Sexual Activity: Not Currently; Male Contraception: No contraception data on record PAST MEDICAL HISTORY Diagnosis Date Diarrhea Dyskinesia of esophagus Endometriosis Miscarriage 1989 Other and unspecified anemias Personal history of unspecified circulatory disease Restless legs syndrome PAST SURGICAL HISTORY Procedure Laterality Date DELIVERY ONLY 04/05/1981 DELIVERY ONLY 04/05/1993 COLONOSCOPY FLX DX W/COLLJ SPEC WHEN PFRMD 08/30/2003 normal colonoscopy COLONOSCOPY FLX DX W/COLLJ SPEC WHEN PFRMD 04/15/2012 Colonoscopy repeat 10 years EGD TRANSORAL BIOPSY SINGLE/MULTIPLE 08/30/2003 Mild gastritis ESOPHAGOGASTRODUODENOSCOPY TRANSORAL DIAGNOSTIC 12/03/2009 EGD ESOPHAGOGASTRODUODENOSCOPY TRANSORAL DIAGNOSTIC 04/15/2012 EGD LAPAROSCOPIC APPENDECTOMY 04/05/1990 with Ovary Removal PT ED HEART AND VASCULAR 01/2023 stent placed FAMILY HISTORY Problem Relation Age of Onset Heart Mother Coronary Artery Bypass Graft Cancer Mother Hysterectomy due to Cervical Cancer Heart Father Coronary Artery Bypass Graft Alzheimer's Disease Father Osteoporosis Sister Heart Brother Health Issues Diabetes Brother Heart Brother Myocardial Infarction Cancer Maternal Grandmother Lung Cancer SOCIAL HISTORY REVIEW OF SYSTEMS Abdomen: No abdominal pain, nausea, vomiting, diarrhea, or constipation. No bloating, early satiety, indigestion, or increased flatulence. Bladder: No dysuria, gross hematuria, urinary frequency, urinary urgency, or incontinence Breast: No breast lumps, nipple d/c, overlying skin changes, redness or skin retraction Allergies and current medication updated:Yes SENSITIVE EXAM: The sensitive examination was discussed with the Patient or Patient's Authorized Nuisance Wildlife Specialist. As applicable, any other physician, advance practice provider, medical student, or other health professional student that will be observing or involved in the sensitive examination for educational or training purposes was discussed with the Patient or Authorized Nuisance Wildlife Specialist. The Patient or Authorized Nuisance Wildlife Specialist has agreed to proceed with the sensitive examination. (Sensitive examination includes inspection and/or palpation of the breasts, pelvis, prostate and anorectal regions). EXAM: BP 98/60 Ht 4' 11 (1.50m) Wt 111 lb (50.3kg) LMP 10/25/2008 BMI 22.41 kg/(m^2). GENERAL: pleasant, female in no apparent distress HEENT: Normocephalic, atraumatic, mucus membranes moist, and no lesions NECK: Supple, full range of motion, no adenopathy, and thyroid normal DERMATOLOGY: Normal, without lesions, non-icteric, and non-hirsute BREAST: soft, non-tender, symmetric, no dominant mass, normal nipple-areolar complex, no lymphadenopathy, and no nipple discharge CHEST: Normal inspiratory effort ABDOMEN: soft, non-tender, and no masses PELVIC: external genitalia normal, normal Bartholin's glands, urethra, [place]'s glands, no vulvar lesions, no cervical lesions, good vaginal support, physiologic discharge present, normal appearing perineal body and perianal region, atrophic changes, cervix stenotic BIMANUAL: uterus normal size, shape and consistency, no adnexal masses, and non-tender RECTOVAGINAL: deferred. NEURO: alert and oriented x3,exam grossly non-focal EXTREMITIES: normal ASSESSMENT/PLAN: 1. Encounter for gynecological examination (general) (routine) without abnormal findings - ICD9: V72.31, ICD10: Z01.419 (primary diagnosis) - Completed pelvic and breast exam - Encouraged monthly BSE - Follow up for annual exam in one year. 2. Encounter for screening for human papillomavirus (HPV) - ICD9: V73.81, ICD10: Z11.51 - PAP TEST 3. Pap smear for cervical cancer screening - ICD9: V76.2, ICD10: Z12.4 - Completed pelvic and breast exam - Encouraged monthly BSE - Follow up for annual exam in one year. - PAP TEST 4. Encounter for screening mammogram for breast cancer - ICD9: V76.12, ICD10: Z12.31 - Completed pelvic and breast exam - Encouraged monthly BSE - Follow up for annual exam in one year. - MULU SCREENING W TONY 5. Stricture and stenosis of cervix - ICD9: 622.4, ICD10: N88.2 -Reviewed possible insufficient cells due to atrophic specimen. 6. Vaginal atrophy - ICD9: 627.3, ICD10: N95.2 1) Health maintenance: Pap done with HPV. Reviewed option for no further pap smears. Opts to not have any more in the future. Mammogram ordered Nutrition, exercise and routine health maintenance exams reviewed. Calcium/Vitamin D supplementation information provided. Colon cancer screening: patient to discuss with PCP TSH/lipids/glucose: followed by PCP Vitamin D: followed by PCP BMD: followed by PCP 2) Follow up one year or sooner as needed Gerri Stewart APRN.CNM documented in this encounter [facility] 01-08-2023 Evaluation note Diagnosis Onset Date Chest pain resolved Elevated blood pressure reading resolved Fatigue acute History of coronary artery stent placement January 08, 2023 acute [facility] Work Phone: 1(843) 506-373210-06-2023 Evaluation note* Diagnosis Onset Date Resolution Status Chest pain resolved Elevated blood pressure reading resolved Fatigue acute History of coronary artery stent placement January acute Fatigue acute History of coronary artery stent placement January acute [facility] Work Phone: 1(469) 937-326710-06-2023 Evaluation note* Diagnosis Onset Date Resolution Status Admit Date History of coronary artery stent placement January 08, 2023 acute June 19 11:03am Hyperlipemia acute June 19, 2024 11:03am Myalgia acute June 19 11:03am [facility] Work Phone: [employer]ation noteNo assessment information available [facility] Work Phone: evaluation note* Diagnosis Onset Date Resolution Status Chest pain resolved Elevated blood pressure reading resolved [facility] Work Phone: evaluation note* Diagnosis Encounter for gynecological examination (general) (routine) without abnormal findings- Primary Encounter for screening for human papillomavirus (HPV) Special screening examination for human papillomavirus (HPV) Pap smear for cervical cancer screening Screening for malignant neoplasm of the cervix Encounter for screening mammogram for breast cancer Stricture and stenosis of cervix Vaginal atrophy Postmenopausal atrophic vaginitis documented [facility] Diagnosis Encounter for screening mammogram for breast cancer documented [facility] [place] [facility]* Diagnosis Vomiting and diarrhea- Primary Vomiting alone documented in this [facility] [place] [facility]* Diagnosis Sore throat- Primary Acute pharyngitis Viral illness Unspecified viral infection, in conditions classified elsewhere and of unspecified site documented [facility] this [facility] for referral (narrative)* Diagnostic Procedure Only (Routine) - Authorized Specialty Diagnoses / Procedures Referred By Contiwona t Referred To Contact [facility] Diagnoses Encounter for screening mammogram for breast cancer Procedures MULU SCREENING W TONY SCREENING DIGITAL BREAST TOMOSYNTHESIS BI SCREENING MAMMOGRAPHY BI 2-VIEW BREAST INC BRIDGETT Gerri Stewart APRN.TRINH [address] [place] [address] [facility] [address] [place] [address] Referral ID Status Reason Start Date Expiration Date Visits Requested Visits Authorized [id number] Authorized Auto-Generat ed Referral 04/13/2025 [address] [facility] [address] for referral (narrative)No reason for referral information availableWSelect Medical [facility] [place] Work Phone: Reason for visit Narrative* Diagnostic Procedure Only (Routine) - Closed Specialty Diagnoses / Procedures Referred By Lashay francois Referred To Contact [facility] Diagnoses Encounter for screening mammogram for breast cancer Procedures MULU SCREENING W TONY SCREENING DIGITAL BREAST TOMOSYNTHESIS BI SCREENING MAMMOGRAPHY BI 2-VIEW BREAST INC Gerri Schultz APRN.JOHNNY [address] [place] [address] [facility] [address] [place] [address] Referral ID Status Reason Start Date Expiration Date V isits Requested Visits Authorized [id number] Closed Auto-Generate d Referral 03/14/2024 04/13/2025 [address] [facility] Chief Complaint and Reason for Visit Chief Complaint EORDER NEPHRITIS Chief Complaint EORDER NEPHRITIS Generalized abdominal pain Chief Complaint EORDER NEPHRITIS Generalized abdominal pain PRE OP Chief Complaint EORDER NEPHRITIS Generalized abdominal pain PRE OP DYSPHAGIA Chief Complaint EORDER NEPHRITIS Generalized abdominal pain PRE OP DYSPHAGIA ABD PAIN Chief Complaint sob with activity CHEST PAIN, INDETER TROP CHEST PAIN, INDETER TROP CHEST PAIN, INDETER TROP CHEST PAIN, INDETER TROP PCI w/coronary stenting PCi with coronary stent Reason for Visit Chest pain Elevated blood pressure reading Chief Complaint sob with activity CHEST PAIN, INDETER TROP CHEST PAIN, INDETER TROP CHEST PAIN, INDETER TROP CHEST PAIN, INDETER TROP PCI w/coronary stenting S/P [facility] 01/10 E-ORDER PCi with coronary stent Reason for Visit Chest pain Elevated blood pressure reading Fatigue History of coronary artery stent placement Chief Complaint sob with activity CHEST PAIN, INDETER TROP CHEST PAIN, INDETER TROP CHEST PAIN, INDETER TROP CHEST PAIN, INDETER TROP PCI w/coronary stenting S/P [facility] 01/10 E-ORDER PCi with coronary stent PCi with coronary stent Reason for Visit Chest pain Elevated blood pressure reading Fatigue History of coronary artery stent placement Chief Complaint sob with activity CHEST PAIN, INDETER TROP CHEST PAIN, INDETER TROP CHEST PAIN, INDETER TROP CHEST PAIN, INDETER TROP PCI w/coronary stenting S/P [facility] 01/10 E-ORDER PCi with coronary stent PCi with coronary stent PCi with coronary stent Reason for Visit Chest pain Elevated blood pressure reading Fatigue History of coronary artery stent placement Chief Complaint sob with activity CHEST PAIN, INDETER TROP CHEST PAIN, INDETER TROP CHEST PAIN, INDETER TROP CHEST PAIN, INDETER TROP PCI w/coronary stenting S/P [facility] 01/10 E-ORDER PCi with coronary stent PCi with coronary stent PCi with coronary stent PCi with coronary stent 3 M FU Reason for Visit Chest pain Elevated blood pressure reading Fatigue History of coronary artery stent placement Fatigue History of coronary artery stent placement Chief Complaint Admit Date WORSENING HEADACHES June 19, 2024 6:3 3am 6 m fu June 19, 2024 11: 03am Reason for Visit Admit Date History of coronary artery stent placeme nt June 19, 2024 11:03am Hyperlipemia June 19, 2024 11: 03am Myalgia June 19, 2024 11: 03am Chief Complaint Admit Date chest pa & lat xray October 18, 2024 1:48 pm Family History No Family History Records Found Relationship Condition Age at Onset Recorded Date/T christelle brother Cardiac disease Unknown Diabetes mellitus Unknown father Cardiac disease Unknown Dementia Unknown Malignant neoplasm of prostate Unknown mother Coronary artery disease Unknown Malignant neoplasm of ovary Unknown sister Diabetes mellitus Unknown Advance Directives No Advanced Directives Records Found Advance Directive Response Recorded Date/ Time Advance Directives on File No Octob er 2022 1:25pm Living Will No January 18 1:25pm Power of Inspector Bicycle No January 18, 2023 1:25pm Advance Directive Response Recorded Date/ Time Advance Directives on File No Octob er 2022 12:25pm Living Will No January 18 12:25pm Power of Inspector Bicycle No January 18, 2023 12:25pm Advance Directive Response Recorded Date/ Time Living Will No November 24 10:15am Do you have a Healthcare Power of Inspector Bicycle? No November 25, 2023 10:15am Summary Purpose Additional Source Comments Goals (unrecognized section and content) Goals may be documented in a n alternate sectionGoals may be documented in an alternate sectionGoals may be documented in an alternate sectionGoals may be documented in an alternate sectionGoals may be documented in an alternate sectionGoals may be documented in an alternate sectionGoals may be documented in an alternate sectionGoals may be documented in an alternate sectionGoals may be documented in an alternate sectionGoals may be documented in an alternate sectionGoals may be documented in an alternate section Care Teams (unrecognized sec tion and content) Team Status: Active Member Role Status Dates Dr. Marek Junior MD Family Provider Active Dr. Marek Junior MD Primary Care Provider Active Team Status: Inactive Member Role Status Dates Dr. Marek Junior MD Primary Care Provider, Attend ing Provider Active Team Status: Active Member Role Status Dates Dr. Marek Junior MD Primary Care Provider Active Dr. John Crook , DO Emergency Provider Active Dr. Leny Lock MD Attending Provider Active Team Status: Active Member Role Status Dates Dr. Marek Junior MD Primary Care Provider Active Dr. John Crook , DO Emergency Provider Active Dr. Leny Lock MD Admit Provider, Other Provider Active Dr. Darwin Esqueda , DO Other Provider Active Dr. Babak Carvalho MD Attending Provider Active Team Status: Active Member Role Status Dates Dr. Marek Junior MD Primary Care Provider Active Dr. John Crook , DO Emergency Provider Active Dr. Leny Lock MD Admit Provider, Other Provider Active Dr. Darwin Esqueda , DO Attending Provider, Other Pro vider Active Team Status: Active Member Role Status Dates Dr. Marek Junior MD Primary Care Provider Active Dr. Babak Carvalho MD Attending Provider Active Team Status: Inactive Member Role Status Dates Dr. Marek Junior MD Primary Care Provider Active Dr. John Crook , DO Emergency Provider Active Dr. Leny Lock MD Admit Provider, Other Provider Active Dr. Darwin Esqueda , DO Attending Provider Active Team Status: Inactive Member Role Status Dates Dr. Marek Junior MD Primary Care Provider Active Dr. Babak Carvalho MD Attending Provider, Referring Pro vider Active Team Status: Active Member Role Status Dates Dr. Marek Junior MD Primary Care Provider Active Dr. Babak Carvalho MD Attending Provider, Referring Pro vider Active Team Status: Inactive Member Role Status Dates Dr. Marek Junior MD Primary Care Provider, Referr ing Provider Active Margoth Rodriguez SCHOOL CHILDCARE ATTENDANT, SCHOOL CHILDCARE ATTENDANT-C Attending Provider Active Team Status: Inactive Member Role Status Dates Dr. Marek Junior MD Primary Care Provider Active Margoth Rodriguez SCHOOL CHILDCARE ATTENDANT, SCHOOL CHILDCARE ATTENDANT-C Attending Provider, Referring P asif Active Drive In Teller Relationship Specialty Start Date End Date Marek Junior MD [address] [facility] [address] [place] [address] PCP - General Family Medicine 03/14/24 Drive In Teller Relationship Specialty Start Date End Date Marek Junior MD [address] [facility] [address] [place] [address] PCP - General Family Medicine 03/14/24 Drive In Teller Relationship Specialty Start Date End Date Marek Junior MD [address] [facility] [address] [place] [address] PCP - General Family Medicine 03/14/24 Team Status: Active Member Role Status Dates Dr. Marek Junior MD Primary Care Provider Active Team Status: Inactive Member Role Status Dates Dr. Marek Junior MD Primary Care Provider Active Start: March 01, 2024 End: March 01, 2024 Joselyn Bell SCHOOL CHILDCARE ATTENDANT, SCHOOL CHILDCARE ATTENDANT-C Attending Provider Active S tart: March 01, 2024 End: March 01, 2024 Team Status: Inactive Member Role Status Dates Dr. Marek Junior MD Primary Care Provider Active Start: May 19, 2024 End: May 19, 2024 Dr. Mraek Junior MD Attending Provider Active Start: May 19, 2024 End: May 19, 2024 Dr. Marek Junior MD Referring Provider Active Start: May 19, 2024 End: May 19, 2024 Team Status: Inactive Member Role Status Dates Dr. Marek Junior MD Primary Care Provider Active Start: June 19, 2024 End: June 19, 2024 Dr. Marek Junior MD Attending Provider Active Start: June 19, 2024 End: June 19, 2024 Dr. Marek Junior MD Referring Provider Active Start: June 19, 2024 End: June 19, 2024 Team Status: Inactive Member Role Status Dates Dr. Marek Junior MD Primary Care Provider Active Start: June 19, 2024 End: June 19, 2024 Dr. Marke Junior MD Referring Provider Active Start: June 19, 2024 End: June 19, 2024 Marek Woods NP, SCHOOL CHILDCARE ATTENDANT-C Attending Provider Active S tart: June 19, 2024 End: June 19, 2024 Drive In Teller Relationship Specialty Start Date End Date Marek Junior MD [facility] [address] [place] [address] PCP - General Family Medicine 03/14/24 Team Status: Active Member Role/Relationship Status Dates Dr. Marek Junior MD Primary Care Provider Active Team Status: Inactive Member Role/Relationship Status Dates Dr. Marek Junior MD Primary Care Provider Active Start: October 18, 2024 End: October 18, 2024 Joselyn Bell NP, SCHOOL CHILDCARE ATTENDANT-C Attending Provider Active S tart: October 18, 2024 End: October 18, 2024 Joselyn Bell NP SCHOOL CHILDCARE ATTENDANT-C Referring Provider Active S tart: October 18, 2024 End: October 18, 2024 Team Status: Active Member Role/Relationship Status Dates Dr. Marek Junior MD Primary care physician Active Team Status: Inactive Member Role/Relationship Status Dates Dr. Marek Junior MD Primary care physician Active Start: October 18, 2024 End: October 18, 2024 Joselyn Bell SCHOOL CHILDCARE ATTENDANT, SCHOOL CHILDCARE ATTENDANT-C Attending physician Active Start: October 18, 2024 End: October 18, 2024 Joselyn Bell NP SCHOOL CHILDCARE ATTENDANT-C Referring Provider Active S tart: October 18, 2024 End: October 18, 2024 Team Status: Inactive Member Role/Relationship Status Dates Dr. Marek Junior MD Primary care physician Active Start: December 19, 2024 End: December 19, 2024 Dr. Marek Junior MD Attending physician Active Start: December 19, 2024 End: December 19, 2024 Source Comments (unrecognize d section and content) In the event this informatio n is protected by the Federal Confidentiality of Alcohol and Drug Abuse Patient Records regulations: The Federal rules restrict any use of the information to criminally investigate or prosecute any alcohol or drug abuse patient.[facility] the event this information is protected by the Federal Confidentiality of Alcohol and Drug Abuse Patient Records regulations: The Federal rules restrict any use of the information to criminally investigate or prosecute any alcohol or drug abuse patient.[facility] HospitalIn the event this information is protected by the Federal Confidentiality of Alcohol and Drug Abuse Patient Records regulations: The Federal rules restrict any use of the information to criminally investigate or prosecute any alcohol or drug abuse patient.[facility] HospitalIn the event this information is protected by the Federal Confidentiality of Alcohol and Drug Abuse Patient Records regulations: The Federal rules restrict any use of the information to criminally investigate or prosecute any alcohol or drug abuse patient.[facility] Reason for Visit (unrecogniz ed section and content) Reason Comments Yearly Exam Reason Comments Nausea & Vomiting X3 days Reason Comments Sore Throat R ear pain, low feve r x this AM INFORMATION SOURCE (unrecogn ized section and content) DATE CREATED AUTHOR 01/06/2025 [facility] DATE CREATED AUTHOR AUTHOR'S LILO ATION 01/19/2025 [facility] FOR RECORDS PERTAINING TO PATIENTS WHO ARE OR HAVE BEEN ENROLLED IN A CHEMICAL DEPENDENCY/SUBSTANCEABUSE PROGRAM, SOME INFORMATION MAY BE OMITTED. This clinical summary was aggregated from multiple sources. Caution should be exercised in using it in the provision of clinical care. This summary normalizes information from multiple sources, and as a consequence, information in this document may materially change the coding, format and clinical context of patient data. In addition, data may be omitted in some cases. CLINICAL DECISIONS SHOULD BE BASED ON THE PRIMARY CLINICAL RECORDS. [employer] [facility]. provides no warranty or guarantee of the accuracy or completeness of information in this document.
== END | disposition home or self-care (01) ==
LOC: MTLAB 15:42
PROVIDERS: PCP Family Medicine; Referring Provider Family Medicine; Visit Provider Family Medicine
DX: M81.0 Age-related osteoporosis without current pathological fracture (principal)
CPT/HCPCS: 36415; 80053; 82306

== ENCOUNTER 2025-03-16 11:54 | Emergency (ER) | payer OTHER, SELFPAY ==
[2023-03-19 11:21] VITALS: BMI 19.7
[2025-03-16 11:57] VITALS: BP 144/73; PULSE 69; RESP 14; TEMP 35.9; O2SAT 98; BMI 21.9
--- NOTE | 2025-03-16 12:41 | ED.VIS.GI ---
HPI HPI - GI History of Present Illness Chief Complaint: Flank Pain Detail of Chief Complaint: Right flank pain since Wednesday. Gradual and constant. Informant: patient and family Abdominal Pain/Flank Pain Onset: Days Context: Gradual Onset Timing: Continuous Location: Right Flank Current Severity: Moderate Maximum Severity: Moderate Worsened by: Nothing Relieved by: Nothing Nausea/Vomiting/Emesis GI Symptom: Positive for Nausea, Vomiting and - (Today x 1.) Onset: Today Severity: Mild Diarrhea/Melena/Hematochezia GI Symptom: Positive for Diarrhea (Chronic diarrhea for some time.); Negative for Melena or Hematochezia Stool Quality: Positive for Loose Severity: Mild Associated Symptoms Associated Symptoms: Negative for Dysuria, Frequency, Hematuria or Urgency Narrative Narrative: 69-year-old female right flank pain. Started on Wednesday. Constant. Nausea and vomiting x 1 today. No dysuria or hematuria. No fever or chills. No right upper quadrant pain. No change with movement or food. No prior history. Prior appendectomy and . No history of kidney stone. Prior similar symptoms: No Recent Illness/Hospitalization: No PFSH PFS Medical History Atherosclerosis of coronary artery of [place] heart without angina pectoris RLS (restless legs syndrome) GERD (gastroesophageal reflux disease) Migraine Home Medications ?Medication ?Instructions ?Recorded ?Last Taken ?Type acetaminophen 500 mg tablet 500 mg PO Q6H 03/15/19 Unknown History (Tylenol Extra Strength) sumatriptan succinate 50 mg tablet 50 mg PO ONCE PRN migraine headache 03/15/19 Unknown History sertraline 100 mg tablet 100 mg PO DAILY 01/07/23 Unknown History topiramate 25 mg tablet 25 mg PO BID migraine headache 01/07/23 Unknown History aspirin 81 mg tablet,delayed 81 mg PO BREAKFAST #0 tabs 01/09/23 Unknown Rx release cholecalciferol (vitamin D3) 125 125 mcg PO DAILY 01/28/23 Unknown History mcg (5,000 unit) capsule MALINI Hose Compression Stockings #1 ea 06/19/24 Unknown Rx pravastatin 20 mg tablet 40 mg PO QDAY 06/19/24 Unknown History ezetimibe 10 mg tablet (Zetia) 10 mg PO DAILY #30 tabs 08/01/24 Unknown Rx potassium chloride 10 mEq See Rx Instructions .Route 01/08/25 Unknown Rx capsule,extended release .COMPLEX #90 caps famotidine 20 mg tablet (Pepcid) 20 mg PO DAILY #90 tabs 01/29/25 Unknown Rx Allergy/AdvReac Type Severity Reaction Status Date / Time No Known Allergies Allergy Verified 03/16/25 11:58 Family History Brother Heart disease Diabetes Father Heart disease Dementia Prostate cancer Mother CAD (coronary artery disease) Ovarian cancer Sister Diabetes Surgical History History of coronary artery stent placement (01/08/23) History of esophagogastroduodenoscopy (EGD) History of oral surgery History of removal of ovarian cyst History of appendectomy H/O: Social History Smoking Status: Never smoker alcohol intake: never substance use type: does not use additional social history: does not use aspirin or ibuprofen ROS ROS ED ROS Narrative Right flank pain. Nausea and vomiting. For days. Constitutional Constitutional ED: Denies chills or fever(s) ENT ENT ED: Denies ear pain Cardiovascular Cardiovascular: Denies chest pain Respiratory/Chest Respiratory/Chest: Denies cough Gastrointestinal Gastrointestinal: Reports abdominal pain, nausea and vomiting; Denies constipation or melena Genitourinary Genitourinary ED: Denies dysuria, hematuria or urinary frequency Musculoskeletal Musculoskeletal: Denies arthralgias or back pain Integumentary Denies abscess or Abrasions Neurologic Neurologic: Denies headache(s) Psychiatric Psychiatric: Denies anxiety Endocrine Endocrinology: Denies polydipsia Hematologic/Lymphatic Hematologic/Lymphatic: Denies easy bleeding Allergic/Immunologic Allergic/Immunologic ED: Denies mouth swelling, tongue swelling or urticaria EXAM Physical Exam Narrative Exam Narrative: C9-year-old female sitting upright in bed vital signs are stable afebrile. No acute distress. Family with her. H EENT exam pupils round react light. Moist mutes members. Neck nontender. Lungs clear to auscultation bilaterally. Heart regular rhythm no murmur. Chest wall ribs nontender. Back nontender. No reproducible CVA tenderness. Abdomen soft, nontender, nondistended, normal bowel sounds without peritoneal signs. No right upper quadrant tenderness or Hernandez sign. No right lower quadrant tenderness. No hernia or mass or obstruction. No pulsatile mass. Moving all 4 extremities. Nontender no edema. Normal strength. Neurologically patient is awake alert. Answering questions following commands. The right flank area there is no signs of trauma or bruising there is no rash. Const Vital Signs: 03/16/25 11:57 03/16/25 13:56 03/16/25 15:06 Temperature 96.6 F L Temperature Source Temporal Pulse Rate 69 71 66 Respiratory Rate 14 Blood Pressure 144/73 H 120/57 L 134/69 H Blood Pressure Mean 96 78 90 Pulse Ox 98 98 98 Oxygen Delivery Method Room Air MDM MDM MDM Narrative Medical decision making narrative: 69-year-old female 4-day history of right flank pain. Differential include kidney stone, UTI versus other CAT scan labs are being obtained. She be treated with morphine and Zofran. Repeat exam at 3:44 PM patient doing well. Pain-free. We went over her test results and her CAT scan. She is comfortable being discharged home. She will use Tylenol or Motrin for pain. She will watch for the stone in her urine. She knows if she has increasing pain fever intractable vomiting return otherwise follow-up with primary care physician as needed. Currently her abdomen is benign and nontender. As is her back. Patient is comfortable with the plan. History & Record Review Discussion w/independent historian: Patient and Family Additional record(s) reviewed:: No prior records Lab Data Attestation: I reviewed the patient's lab results. Lab results narrative: CBC shows a white count of 7. H&H 13 and 41. Platelets 225. Chemistries show a gap of 12. Beta creatinine 21 0.9. Glucose 118. Liver enzymes are mildly elevated they have been in the past. UA shows no signs of infection. No white or red cells. 1+ bacteria no nitrites. CAT scan consistent with right sided stone is now passed in the bladder with hydro nephrosis and hydroureter. Labs: Laboratory Results - last 24 hr 03/16/25 12:18 WBC 7.3 RBC 4.45 Hgb 13.6 Hct 41.6 MCV 93.5 MCH 30.6 MCHC 32.7 RDW Std Deviation 43.8 RDW Coeff of Helen 12.7 Plt Count 225 MPV 9.7 Immature Gran % (Auto) 0.300 Neut % (Auto) 74.8 H Lymph % (Auto) 17.2 L [place] % (Auto) 5.8 Eos % (Auto) 1.6 Baso % (Auto) 0.3 Absolute Neuts (auto) 5.5 Absolute Lymphs (auto) 1.25 Nucleated RBC % 0 Sodium 139 Potassium 3.9 Chloride 105 Carbon Dioxide 22.8 Anion Gap 12 BUN 21 H Creatinine 0.99 Estim Creat Clear Calc 39.61 L Est GFR (MDRD) Non-Af 63 BUN/Creatinine Ratio 21.6 H Glucose 118 H Calcium 9.7 Total Bilirubin 0.29 AST 40 H ALT 48 H Alkaline Phosphatase 106 H Total Protein 7.1 Albumin 4.5 Globulin 2.7 Albumin/Globulin Ratio 1.7 Urine Color Yellow Urine Clarity Sl. Cloudy Urine pH 6.0 Ur Specific [place] 1.025 Urine Protein 15 H Urine Glucose (UA) Normal Urine Ketones 15 H Urine Occult Blood 25 H Urine Nitrite Negative Urine Bilirubin Negative Urine Urobilinogen Normal Ur Leukocyte Esterase Negative Urine RBC 0-5 SEEN Urine WBC 0 SEEN Ur Squamous Epith Cells 0-5 SEEN Amorphous Sediment 1+ Urine Bacteria 1+ Urine Mucus 2+ Radiography Diagnostic Testing: Clinical Impression(s) from Imaging Studies Abdomen/Pelvis CT 03/16/25 12:45 IMPRESSION: Right hydronephrosis and hydroureter most likely secondary to a recently passed calculus which is at the base of the bladder on the right side. Nonobstructive tiny left intrarenal calculus. Tiny cyst in the medial aspect of the right lobe of the liver. Status post appendectomy. Reading Location: [facility] Discharge Plan Triage Chief Complaint: Flank Pain Other Complaint: Abd Pain ED Provider: Philip Carlisle Dx/Rx/DC Orders Clinical Impression: Acute right flank pain, Kidney stone on right side, History of coronary artery disease Instructions: ED Kidney Stone with Pain Prescriptions: No Action sumatriptan succinate 50 mg tablet 50 mg PO ONCE PRN (Reason: migraine headache) acetaminophen [Tylenol Extra Strength] 500 mg tablet 500 mg PO Q6H cholecalciferol (vitamin D3) 125 mcg (5,000 unit) capsule 125 mcg PO DAILY pravastatin 20 mg tablet 40 mg PO QDAY (DME) MALINI Hose Compression Stockings See Rx Instructions .Route .MEDSUPPLY Qty: 1 0RF Rx Instructions: As directed sertraline 100 mg tablet 100 mg PO DAILY Patient Comments: TAKE 1 AND 1/2 TABLETS DAILY BY MOUTH topiramate 25 mg tablet 25 mg PO BID Patient Comments: TAKE 1 TABLET BY MOUTH TWICE A DAY aspirin 81 mg Tablet,Delayed Release (Dr/Ec) 81 mg PO BREAKFAST Qty: 0 0RF ezetimibe [Zetia] 10 mg tablet 10 mg PO DAILY Qty: 30 11RF potassium chloride 10 mEq capsule, extended release See Rx Instructions .ROUTE .COMPLEX Qty: 90 3RF Dose Instruction: TAKE 1 CAPSULE BY MOUTH EVERY DAY Rx Instructions: TAKE 1 CAPSULE BY MOUTH EVERY DAY famotidine [Pepcid] 20 mg tablet 20 mg PO DAILY Qty: 90 3RF Primary Care Provider: Siddharth Soriano Referrals: Siddharth Soriano MD [Primary Care Provider, Family Practice] - 3-5 Days if not improving Activity Restrictions/Additional Instructions: Your labs look good. No signs of infection. The CAT scan showed a kidney stone that you just passed in your bladder. You will most likely urinate that out the next 12 to 36 hours. Plenty of fluids. Motrin and Tylenol for pain. If you are not feeling better follow-up with your doctor if you are feeling worse or develop a fever or intractable vomiting return. There is nothing at this time that we need to admit you to the hospital. Print Language: Afghan Disposition Disposition: Home, Self Care
--- NOTE | 2025-03-16 12:45 | CT_ITS ---
PROCEDURE: ABDOMEN/PELVIS WITHOUT CONT 03/16/2025 REASON FOR EXAM: PAIN Right flank pain radiating to the lower aspect. TECHNIQUE: Procedure Code: CTABDPEL Modality: CT Procedure: ABDOMEN/PELVIS WITHOUT CONT Noncontrast technique limits evaluation of the abdominal and pelvic viscera. Coronal and Sagittal reconstruction series were provided. One or more dose reduction techniques were used (e.g., Automated exposure control, adjustment of the mA and/or kV according to patient size, use of iterative reconstruction technique). RADIATION DOSE SUMMARY: CTDlvol: 6.13 mGy DLP: 291.11 mGycm COMPARISON: Prior study dated December 24, 2021. FINDINGS: Lung bases: Mild dependent atelectasis Liver: Tiny cyst in the medial aspect of the right lobe of the liver anteriorly. Gallbladder: Small amount of sludge along the dependent portion the gallbladder lumen. Spleen: Calcified splenic granuloma. Pancreas: Normal size. No surrounding inflammation. Adrenals: Unremarkable Kidneys: Mild degree of right hydronephrosis and right hydroureter. A tiny calculus is seen at the base of the bladder on the right side most likely representing a recently passed calculus. Nonobstructive tiny calculus in the lower pole of the left kidney. Bladder: Tiny calculus at the base of the bladder on the right side. Reproductive Organs: Normal uterine size and contour. Ovaries are unremarkable. Bowel: Nonspecific bowel gas pattern. Appendix: Status post appendectomy. Lymph nodes: Unremarkable. Vasculature: Mild diffuse atherosclerotic calcifications are noted. Peritoneum / Retroperitoneum: Unremarkable Bones: Degenerative changes of the spine. CT/Abdomen/Pelvis without Cont IMPRESSION: Right hydronephrosis and hydroureter most likely secondary to a recently passed calculus which is at the base of the bladder on the right side. Nonobstructive tiny left intrarenal calculus. Tiny cyst in the medial aspect of the right lobe of the liver. Status post appendectomy. Reading Location: [place] [id number]
[2025-03-16 13:00] LABS: Hematocrit 41.6 % (37-47); Hemoglobin 13.6 g/dL (12.0-15.0); Immature Granulocytes Count 0.020 X10^3/uL (0.0-0.0); Mean Corp Hgb Conc 32.7 g/dL (32-36); Mean Corpuscular Volume 93.5 fL (81-99); Mean Platelet Vol. 9.7 fl (6.2-12.0); NRBC Flagged by Analyzer 0 % (0-5); Platelet Count 225 K/mm3 (150-450); RBC Distribution Width CV 12.7 % (11.6-14.6); RBC Distribution Width SD 43.8 fl (35.1-43.9); Red Blood Count 4.45 M/mm3 (4.2-5.4); White Blood Count 7.3 K/mm3 (4.4-11.0)
[2025-03-16 13:04] LABS: Color, Urine Yellow (Yellow); Glucose, Dipstick Normal (Normal); Ketone-Dipstick 15 mg/dl (Negative); Leukocyte Esterase-Dipstick Negative /ul (Negative); Nitrite-Dipstick Negative (Negative); Occult Blood-Urine 25 /ul (Negative); Protein-Dipstick 15 mg/dl (Negative); Specific Gravity, Urine 1.025 (1.002-1.030); Urine Bilirubin Dipstick Negative (Negative)
[2025-03-16 13:15] LABS: Mucous, Urine 2+ /hpf (<or=2+); Red Blood Cells-Urine 0-5 SEEN /hpf (0-5)
[2025-03-16 13:16] LABS: Squamous Epithelial Cells - UA 0-5 SEEN /hpf (5-10)
[2025-03-16 13:31] LABS: AST(SGOT) 40 U/L (<=31); Alanine Aminotransfer ALT/SGPT 48 U/L (<=34); Albumin, Serum 4.5 g/dL (3.4-4.8); Alkaline Phosphatase 106 U/L (35-104); Anion Gap 12 (5-15); BUN 21 mg/dL (4-19); BUN/Creat Ratio 21.6 RATIO (10-20); Calcium,Total 9.7 mg/dL (7.6-11.0); Carbon Dioxide 22.8 mmol/L (21.0-32.0); Chloride 105 mmol/L (98-108); Estimated Creatinine Clearance 39.61 ml/min (50-250); Globulin 2.7 g/dL (2.2-4.2); Glucose 118 mg/dL (70-99); Potassium 3.9 mmol/L (3.3-5.1)
[2025-03-16 13:56] VITALS: BP 120/57; PULSE 71; O2SAT 98
[2025-03-16 15:06] VITALS: BP 134/69; PULSE 66; O2SAT 98
[2025-03-16 15:52] VITALS: BP 134/69; PULSE 63; RESP 14; TEMP 35.9; O2SAT 99
== END 2025-03-16 15:56 | disposition home or self-care (01) ==
PROVIDERS: Emergency Provider Emergency Medicine; PCP Family Medicine; Visit Provider Emergency Medicine
DX: N21.0 Calculus in bladder (principal); N13.39 Other hydronephrosis; I25.10 Atherosclerotic heart disease of native coronary artery without angina pectoris; Z79.82 Long term (current) use of aspirin
CPT/HCPCS: 74176; 80053; 81001; 85025; 96374; 96375; 99284; A4216; J2405